=== PATIENT | female | born 1985 | race Caucasian/White ===

== ENCOUNTER → 2018-06-06 | Outpatient (CLI) | payer MEDICAID | LOC: RAD 12:57 | PROVIDERS: ATTEND Obstetrics & Gynecology | DX: Z34.92 Encounter for supervision of normal pregnancy, unspecified, second trimester (principal); Z3A.15 15 weeks gestation of pregnancy; Z53.8 Procedure and treatment not carried out for other reasons ==

== ENCOUNTER 2018-06-24 10:56 | Outpatient (CLI) | payer MEDICAID ==
[~2018-06-24] VITALS: Ht 152.4 cm; Wt 61.7 kg
[2018-06-24 10:55] VITALS: BP 106/51
[2018-06-24 11:22] LABS: BILIRUBIN,URINE NEGATIVE (NEGATIVE); CLARITY,URINE CLEAR; COLOR,URINE YELLOW; GLUCOSE, URINE (UA) NEGATIVE (NEGATIVE); KETONES,URINE NEGATIVE (NEGATIVE); LEUKOCYTE ESTERASE ,URINE NEGATIVE (NEGATIVE); NITRITE,URINE NEGATIVE (NEGATIVE); PH,URINE 7 (5-9); PROTEIN,URINE NEGATIVE (NEGATIVE); UROBILINOGEN,URINE NORMAL (NORMAL)
[2018-06-24 11:29] LABS: BACTERIA,URINE TRACE /HPF; SQUAMOUS EPITHELIAL CELL,UR 0-2 /HPF
[2018-06-24 12:36] LABS: BASOPHILS % (AUTO) 0 % (0-10); EOSINOPHILS % (AUTO) 0 % (0-10); HEMATOCRIT 35 % (35-52); LYMPHOCYTES # (AUTO) 1.7 X 10^3 (1.0-4.0); LYMPHOCYTES % (AUTO) 23 % (12-44); MEAN CORPUSCULAR HEMOGLOBIN 33 PG (25-34); MEAN CORPUSCULAR HGB CONC 35 G/DL (32-36); MEAN CORPUSCULAR VOLUME 96 FL (80-99); MEAN PLATELET VOLUME 9.8 FL (7.4-10.4); MONOCYTES # (AUTO) 0.5 X 10^3 (0.0-1.0); MONOCYTES % (AUTO) 7 % (0-12); NEUTROPHILS # (AUTO) 5.2 X 10^3 (1.8-7.8); NEUTROPHILS % (AUTO) 70 % (42-75); PLATELET COUNT 174 10^3/uL (130-400); RED CELL DISTRIBUTION WIDTH 13.1 % (10.0-14.5); WHITE BLOOD COUNT 7.4 10^3/uL (4.3-11.0)
[2018-06-24 12:51] LABS: BUN/CREATININE RATIO 12; CARBON DIOXIDE 21 MMOL/L (21-32); CHLORIDE 108 MMOL/L (98-107); GFR ESTIMATED > 60; GLUCOSE 70 MG/DL (70-105); SODIUM 137 MMOL/L (135-145)
[2018-06-24] MEDS ORDERED: FLU QUADRIvalent (5+ YOA) 2018-2019 (AFLURIA) 0.5 ML IM ONE (19:15)
== END 2018-06-24 14:18 | disposition home or self-care (01) ==
LOC: WSo 10:56 → LDRP 10:58 → WSo 14:18
PROVIDERS: ATTEND Obstetrics & Gynecology
DX: O99.89 Other specified diseases and conditions complicating pregnancy, childbirth and the puerperium (principal); M54.5 Low back pain; Z3A.21 21 weeks gestation of pregnancy
CPT/HCPCS: 36415; 80048; 81000; 85025; 99213

== ENCOUNTER 2018-07-24 13:42 | Outpatient (CLI) | payer MEDICAID ==
[~2018-07-24] VITALS: Ht 152.4 cm; Wt 64.0 kg
--- NOTE | 2018-07-24 13:35 | NUR ---
DUANE NATH presented to unit via AMB FROM HOME, accompanied by S.O., with c/o LEAKING. DUANE NATH weighed, gowned, voided, and to bed. EFHM and TOCO applied, VS taken. DUANE NATH oriented to bed controls, call light, TV, heat, and A/C controls.
[2018-07-24] MEDS ORDERED: DOXY25TA56 PO (13:51)
[2018-07-24] MEDS ORDERED: PREN1TAB79 PO (13:51)
--- NOTE | 2018-07-24 13:54 | NUR ---
AMNIO SWAB PERFORMED WITH NEGATIVE RESULTS. GENTLE SVE WITH HIPS ELEVATED ON UPSIDE DOWN BEDPAN. CERVIX ADMITS 1 FINGER SNUGGLY/ VERY LONG/ HIGH. NO FLUID NOTED. PT STATES SHE WAS STARTED ON MACROBID YESTERDAY BY DR. ACHARYA AFTER CALLING WITH C/O UTI SX. WAS AT WORK TODAY AND AROUND 12-1230 FELT LIKE SHE LEAKED SOMETHING SO CALLED [facility] AND CAME TO THE HOSPITAL. THREW AWAY HER MINIPAD BEFORE COMING TO THE HOSPITAL.
[2018-07-24 14:00] VITALS: BP 116/66
--- NOTE | 2018-07-24 14:05 | NUR ---
DR. CAMPO NOTIFIED OF PT'S ARRIVAL AND COMPLAINT, AMNIO SWAB, CERVICAL EXAM, VS, FHR TRACING AND NO CONTRACTIONS. ORDERS RECEIVED.
--- NOTE | 2018-07-24 14:20 | NUR ---
STRAIGHT CATH WITH #15 FR CATHETER TO OBTAIN URINE. SPECIMEN TO LAB.
--- NOTE | 2018-07-24 14:30 | NUR ---
LAB HERE TO DRAW BLOOD FOR CBC.
[2018-07-24] MEDS ORDERED: NITR-65 PO (14:37)
[2018-07-24 14:40] LABS: BILIRUBIN,URINE NEGATIVE (NEGATIVE); CLARITY,URINE CLEAR; COLOR,URINE YELLOW; GLUCOSE, URINE (UA) 1+ (NEGATIVE); KETONES,URINE 2+ (NEGATIVE); LEUKOCYTE ESTERASE ,URINE 1+ (NEGATIVE); NITRITE,URINE NEGATIVE (NEGATIVE); PH,URINE 6 (5-9); PROTEIN,URINE 1+ (NEGATIVE); UROBILINOGEN,URINE NORMAL (NORMAL)
[2018-07-24 14:55] LABS: BASOPHILS % (AUTO) 0 % (0-10); EOSINOPHILS % (AUTO) 0 % (0-10); HEMATOCRIT 34 % (35-52); HEMOGLOBIN 12.1 G/DL (11.5-16.0); LYMPHOCYTES # (AUTO) 1.7 X 10^3 (1.0-4.0); LYMPHOCYTES % (AUTO) 20 % (12-44); MEAN CORPUSCULAR HEMOGLOBIN 34 PG (25-34); MEAN CORPUSCULAR HGB CONC 36 G/DL (32-36); MEAN CORPUSCULAR VOLUME 95 FL (80-99); MEAN PLATELET VOLUME 9.4 FL (7.4-10.4); MONOCYTES # (AUTO) 0.9 X 10^3 (0.0-1.0); MONOCYTES % (AUTO) 11 % (0-12); NEUTROPHILS # (AUTO) 5.9 X 10^3 (1.8-7.8); NEUTROPHILS % (AUTO) 69 % (42-75); PLATELET COUNT 187 10^3/uL (130-400); RED BLOOD COUNT 3.54 10^6/uL (4.35-5.85); RED CELL DISTRIBUTION WIDTH 12.9 % (10.0-14.5); WHITE BLOOD COUNT 8.5 10^3/uL (4.3-11.0)
[2018-07-24 14:58] LABS: BACTERIA,URINE NEGATIVE /HPF; SQUAMOUS EPITHELIAL CELL,UR 0-2 /HPF; WBC,URINE 0-2 /HPF
[2018-07-24] MEDS ORDERED: FLU QUADRIvalent (5+ YOA) 2018-2019 (AFLURIA) 0.5 ML IM ONE (15:00)
--- NOTE | 2018-07-24 15:25 | NUR ---
DR. CAPMO CALLED TO CHECK ON PT'S STATUS. LAB RESULTS GIVEN. ORDERS RECEIVED FOR DISCHARGE. 1528 EFM OFF. NO CTXS NOTED. VERY ACTIVE FETUS WITH LARGE ACCELERATIONS. FHR 145 WITH VARIABILITY APPROPRIATE FOR GESTATIONAL AGE. UP TO GET DRESSED.
[2018-07-24 15:30] LABS: BAND NEUTROPHILS 3 %; BASOPHILS % (MANUAL) 0 %; EOSINOPHILS % (MANUAL) 0 %; LYMPHOCYTES % (MANUAL) 15 %; MONOCYTES % (MANUAL) 6 %; NEUTROPHILS % (MANUAL) 73 %
[2018-07-24 15:31] LABS: REACTIVE LYMPHOCYTES 3 %; ROULEAUX SLIGHT
[2018-07-24 15:40] VITALS: BP 116/66
--- NOTE | 2018-07-24 15:40 | NUR ---
DISCHARGE INSTRUCTIONS REVIEWED WITH COPY TO PT. STATES UNDERSTANDING OF ALL INSTRUCTIONS AND NEED TO F/U SCHEDULED AND NEEDED. DISMISSED AMB FROM [facility] IN STABLE CONDITION ACC BY SPOUSE. NOTE GIVEN FOR WORK.
== END 2018-07-24 15:40 | disposition home or self-care (01) ==
LOC: WSo 13:42 → LDRP 13:44 → WSo 15:40
PROVIDERS: ATTEND Obstetrics & Gynecology
DX: O42.912 Preterm premature rupture of membranes, unspecified as to length of time between rupture and onset of labor, second trimester (principal); Z3A.26 26 weeks gestation of pregnancy
CPT/HCPCS: 36415; 81000; 85007; 85027; 87088; 99214

== ENCOUNTER → 2018-08-28 | Outpatient (CLI) | payer MEDICAID ==
[~2018-08-28] MED LIST: DOXY25TA56 PO; NITR-65 PO; PREN1TAB79 PO
--- NOTE | 2018-08-29 08:33 | Diagnostic Imaging Report ---
INDICATION: Followup spine. TECHNIQUE: Multiple real-time grayscale images were obtained over the gravid uterus. COMPARISON: 06/06/2018. FINDINGS: There is a single live fetus in a cephalic presentation. heart rate was recorded at 140 beats per minute. Cervical length is 4.6 cm. Placenta is anterior. Amniotic fluid volume is normal. spine is unremarkable on today's study. Biometrical measurements are as follows: Biparietal 8.01 cm, age 32 weeks 2 days. Head circumference 29.06 cm, age 32 weeks 1 days. Abdominal circumference 27.39 cm, age 31 weeks 4 days. Femur length 5.72 cm, age 30 weeks 0 days. Sonographic estimate age: 31 weeks 4 days. Sonographic estimated date of delivery: 10/30/2018. Estimated Weight: 1703 gm (+/- 249 gm). LMP percentile: 41%. heart rate: 140 beats per minute. number: 1 of 1. IMPRESSION: Single live IUP approximately 31 weeks 4 days gestational age demonstrate normal interval growth when compared with prior exam from 06/06/2018. spine is unremarkable. Dictated by: Dictated on workstation # [id number]
== END ==
LOC: RAD 14:18
PROVIDERS: ATTEND Obstetrics & Gynecology
DX: Z34.93 Encounter for supervision of normal pregnancy, unspecified, third trimester (principal); Z3A.31 31 weeks gestation of pregnancy
CPT/HCPCS: 76816

== ENCOUNTER → 2018-09-26 | Outpatient (CLI) | payer MEDICAID ==
--- NOTE | 2018-09-26 14:06 | Diagnostic Imaging Report ---
INDICATION: Gestational diabetes. TECHNIQUE: Multiple real-time grayscale images were obtained over the gravid uterus. COMPARISON: 08/28/2018. FINDINGS: There is a single live fetus in a cephalic presentation. heart rate was recorded at 139 beats per minute. The placenta is anterior. Amniotic fluid index is 11.0 cm. Biophysical profile was performed. Biophysical profile score is normal at 8 out of 8. Biometrical measurements are as follows: Biparietal 8.84 cm, age 35 weeks 6 days. Head circumference 31.94 cm, age 36 weeks 0 days. Abdominal circumference 29.89 cm, age 34 weeks 0 days. Femur length 6.71 cm, age 34 weeks 4 days. Sonographic estimate age: 35 weeks 1 days. Sonographic estimated date of delivery: 10/30/2018. Estimated Weight: 2432 gm (+/- 355 gm). LMP percentile: 28%. heart rate: 139 beats per minute. number: 1 of 1. IMPRESSION: Single live IUP 35 week gestational age showing normal interval growth when compared to prior exam. Biophysical profile score is normal at 8 out of 8. Dictated by: Dictated on workstation # [id number]
== END ==
LOC: RAD 12:45
PROVIDERS: ATTEND Obstetrics & Gynecology
DX: O24.410 Gestational diabetes mellitus in pregnancy, diet controlled (principal); Z3A.35 35 weeks gestation of pregnancy
CPT/HCPCS: 76805; 76819

== ENCOUNTER 2018-10-10 19:59 | Inpatient (IN) | payer MEDICAID ==
[2018-10-10] VITALS (10 sets, daily range): BP systolic 102–121; BP diastolic 56–75
[~2018-10-10] VITALS: Ht 154.9 cm; Wt 66.7 kg
--- NOTE | 2018-10-10 19:55 | NUR ---
DUANE NATH presented to unit via from ED, with c/o CONTRACTIONS. DUANE NATH weighed, gowned, voided, and to bed. EFHM and TOCO applied, VS taken. DUANE NATH oriented to bed controls, call light, TV, heat, and A/C controls.
[~2018-10-10 19:59] MED LIST changes: -ACET-77 PO; -DOCU100C37 PO; -FERR325T18 PO; -IBUP-844 PO; -METF-397 PO
[2018-10-10] MEDS ORDERED: NS IV 1000 ML 1,000 ML ONE (21:31)
--- OUTSIDE RECORDS SUMMARY | 2018-10-10 22:18 | XMS REPORT ---
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 Role Phone CONNER RENDONTEMI Unavailable PROBLEMS Type Condition ICD9-CM Code CDC72-GO Code Onset Dates Condition Status SNOMED Code Problem Anxiety F41.9 Active 84700240 Problem Mood disorder F39 Active 15422967 Problem Moderate episode of recurrent major depressive disorder F33.1 Active 890989749 Problem Severe episode of recurrent major depressive disorder, without psychotic features F33.2 Active 52514271 Problem Other chronic pain G89.29 Active 25778434 Problem Cluster B personality disorder F60.9 Active 9983159 ALLERGIES No Information ENCOUNTERS Encounter Location Date Diagnosis [place] [id number] [place] [address] Jan, Moderate episode of recurrent major depressive disorder F33.1 [place] [id number] [place] [address]1973[address] 7[address] Dec, Moderate episode of recurrent major depressive disorder F33.1 and Cluster B personality disorder F60.9 [facility] [id number] [place] [address] 60971- 8941 November, Moderate episode of recurrent major depressive disorder F33.1 [facility] [id number] [place] [address] 39600- 2245 Oct, Moderate episode of recurrent major depressive disorder F33.1 and Cluster B personality disorder F60.9 [facility] [id number] [place] [address] 33823- 0067 Oct, [facility] [id number] [place] [address] 46360- 6084 Sep, Moderate episode of recurrent major depressive disorder F33.1 [facility] [address] [place] [address]46 Sep, Moderate episode of recurrent major depressive disorder F33.1 and Cluster B personality disorder F60.9 [facility] [address] [place] [address] Aug, Other chest pain R07.89 ; Anxiety F41.9 ; Other chronic pain G89.29 and Pain in left shoulder M25.512 [facility] [id number] [place] [address] 2546 Jul, [facility] [id number] [place] [address] 53986- 7156 Jul, Moderate episode of recurrent major depressive disorder F33.1 [facility] [id number] [place] [address] 2546 Jul, Moderate episode of recurrent major depressive disorder F33.1 and Cluster B personality disorder F60.9 [facility] [address] [place] [address] Jun, [facility] [id number] [place] [address] 83459- 8646 May, Moderate episode of recurrent major depressive disorder F33.1 and Cluster B personality disorder F60.9 [facility] [address], [place] [address] May, Moderate episode of recurrent major depressive disorder F33.1 [facility] [address], [place] [address] 2546 May, [facility] [id number] [address]46 30 Apr, 2017 Moderate episode of recurrent major depressive disorder F33.1 [facility] [id number] [address] 2546 Apr, [facility] [id number] [place] [address] 22458- 0496 Apr, [facility] [address], [place] [address] Apr, [facility] [id number] [place] [address] 78501- 0797 Apr, Moderate episode of recurrent major depressive disorder F33.1 and Cluster B personality disorder F60.9 [facility] [id number] [place] [address] 61595- 8548 Apr, Encounter for immunization Z23 [facility] [id number] [place] [address] 97664- 9013 Mar, Other chronic pain G89.29 ; Pain in left shoulder M25.512 ; Mood disorder F39 and Lymph node enlargement R59.9 [facility] [address] [place] [address] 08 Mar, 2017 Moderate episode of recurrent major depressive disorder F33.1 [facility] [id number] [place] [address] 87555 -0460 Feb, Pain in left shoulder M25.512 and Other chronic pain G89.29 [facility] [address] [place] [address] 24187- 8041 Feb, Moderate episode of recurrent major depressive disorder F33.1 and Cluster B personality disorder F60.9 [facility] [address], [place] [address] Feb, [facility] [id number] [place] [address] 93676- 4497 Jan, [facility] [address], [place] [address] Jan, Moderate episode of recurrent major depressive disorder F33.1 [facility] [address], [place] [address] Jan, [facility] [address], [place] [address] Jan, Moderate episode of recurrent major depressive disorder F33.1 and Cluster B personality disorder F60.9 [facility] [address] [facility] [id number] [address] Jan, [facility] [id number] [address] Jan, [facility] [address], [place] [address] Dec, Moderate episode of recurrent major depressive disorder F33.1 [facility] [address] [facility] [id number] [address] 2546 Dec, Moderate episode of recurrent major depressive disorder F33.1 [facility] [id number] [address] Dec, Moderate episode of recurrent major depressive disorder F33.1 and Cluster B personality disorder F60.9 [facility] [address], [place] [address] 7[address] Dec, [facility] [id number] [address] Dec, Moderate episode of recurrent major depressive disorder F33.1 [facility] [address] [place] [address] 38[address] Dec, [facility] [address], [place] [address] November, Moderate episode of recurrent major depressive disorder F33.1 and Cluster B personality disorder F60.9 [facility] [id number], [place] [address] November, [facility] [address], [place] [address] November, Bilateral acute serous otitis media, recurrence not specified H65.03 [facility] [id number] [address] November, [facility] [id number] [place] [address] November, Bilateral acute serous otitis media, recurrence not specified H65.03 [facility] [id number] [place] [address] 87841- 4361 November, Severe episode of recurrent major depressive disorder, without psychotic features F33.2 [facility] [address] [place] [address] 00180- 4581 Oct, Moderate episode of recurrent major depressive disorder F33.1 [facility] [id number] [place] [address] 82516- 7305 Oct, [facility] [address] [place], [place] [id number] [place] [address] Oct, Moderate episode of recurrent major depressive disorder F33.1 and Cluster B personality disorder F60.9 [place] [id number] [place] [address] 08447- 7204 Oct, [facility] [address] [place] [address] 89795- 3278 Oct, Severe episode of recurrent major depressive disorder, without psychotic features F33.2 [place] [address] [place] [address] 85952- 8571 May, Visit for TB skin test Z11.1 [facility] [address] [place] [id number] Feb, Encounter for dental examination Z01.20 [facility] [address] [place] [address] 03963- 7815 Aug, Encounter for immunization Z23 IMMUNIZATIONS No Known Immunizations SOCIAL HISTORY Never Assessed REASON FOR VISIT Medication question PLAN OF CARE VITAL SIGNS MEDICATIONS Medication Instructions Dosage Frequency Start Date End Date Duration Status Clonazepam 1 MG Orally Once a day 1/2 tablet as needed for panic 24h 30 days Active RESULTS No Results PROCEDURES No Known procedures INSTRUCTIONS MEDICATIONS ADMINISTERED No Known Medications MEDICAL (GENERAL) HISTORY Type Description Date Medical History depression Medical History anxiety Surgical History Tobias teeth 2001 Hospitalization History child x2
--- OUTSIDE RECORDS SUMMARY | 2018-10-10 22:18 | XMS REPORT ---
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 Role Phone ITZEL RENDON Unavailable PROBLEMS Type Condition ICD9-CM Code XEB50-XH Code Onset Dates Condition Status SNOMED Code Problem Anxiety F41.9 Active 99124695 Problem Mood disorder F39 Active 44110335 Problem Moderate episode of recurrent major depressive disorder F33.1 Active 775621743 Problem Severe episode of recurrent major depressive disorder, without psychotic features F33.2 Active 93518063 Problem Other chronic pain G89.29 Active 74556939 Problem Cluster B personality disorder F60.9 Active 1195781 ALLERGIES No Information ENCOUNTERS Encounter Location Date Diagnosis [facility] [id number] [place] [address] 30578- 9848 Apr, [facility] [id number] [place] [address] 55565- 7992 Jan, Moderate episode of recurrent major depressive disorder F33.1 [facility] [id number] [place] [address] 18754- 8378 Dec, Moderate episode of recurrent major depressive disorder F33.1 and Cluster B personality disorder F60.9 [facility] [id number] [place] [address] 66825- 9360 November, Moderate episode of recurrent major depressive disorder F33.1 [facility] [id number] [place] [address] 52468- 5318 Oct, Moderate episode of recurrent major depressive disorder F33.1 and Cluster B personality disorder F60.9 [facility] [address] [address] Oct, [facility] [address] [place] [address] Sep, Moderate episode of recurrent major depressive disorder F33.1 [facility] [id number] [place] [address] 51153- 3176 Sep, Moderate episode of recurrent major depressive disorder F33.1 and Cluster B personality disorder F60.9 [facility] [id number] [place] [address] 12767- 4559 Aug, Other chest pain R07.89 ; Anxiety F41.9 ; Other chronic pain G89.29 and Pain in left shoulder M25.512 [facility] [id number] [place] [address] 95405- 1186 Jul, [facility] [id number] [place] [address] 31678- 1809 Jul, Moderate episode of recurrent major depressive disorder F33.1 [facility] [id number] [place] [address] 13832- 8171 Jul, Moderate episode of recurrent major depressive disorder F33.1 and Cluster B personality disorder F60.9 [facility] [id number] [place] [address] 62698- 2047 Jun, [facility] [id number] [place] [address] 85365- 4290 May, Moderate episode of recurrent major depressive disorder F33.1 and Cluster B personality disorder F60.9 [facility] [address] [place] [address] 51514- 4533 May, Moderate episode of recurrent major depressive disorder F33.1 [facility] [id number] [place] [address] 76703- 4063 May, [facility] [id number] [place] [address] 87485- 6491 Apr, Moderate episode of recurrent major depressive disorder F33.1 [facility] [id number] [place] [address] 94082- 1749 Apr, [facility] [address] [address] 0331 Apr, [facility] [id number] [place] [address] 89557- 7999 Apr, [facility] [id number] [place] [address] 45990- 9233 Apr, Moderate episode of recurrent major depressive disorder F33.1 and Cluster B personality disorder F60.9 [facility] [address] [place] [address] 03485- 7007 Apr, Encounter for immunization Z23 [facility] [id number] [place] [address] 44900- 5042 Mar, Other chronic pain G89.29 ; Pain in left shoulder M25.512 ; Mood disorder F39 and Lymph node enlargement R59.9 [facility] [address] [place] [address] Mar, Moderate episode of recurrent major depressive disorder F33.1 [facility] [id number] [place] [address] 46115 -6684 Feb, Pain in left shoulder M25.512 and Other chronic pain G89.29 [facility] [address] [place] [address] 32667- 9786 Feb, Moderate episode of recurrent major depressive disorder F33.1 and Cluster B personality disorder F60.9 [facility] [address] [address] 0849 Feb, [facility] [id number] [place] [address] 60329- 9606 Jan, [facility] [id number] [place] [address] 10225- 3999 Jan, Moderate episode of recurrent major depressive disorder F33.1 [facility] [address] [place] [address] 72398- 7794 Jan, [facility] [address] [facility] [id number] [address] Jan, Moderate episode of recurrent major depressive disorder F33.1 and Cluster B personality disorder F60.9 [facility] [address] [facility] [id number], [place] [address] 5976 Jan, [facility] [address] [facility] [id number], [place] [address] 0256 Jan, [facility] [address] [facility] [id number], [place] [address] 2548 Dec, Moderate episode of recurrent major depressive disorder F33.1 [facility] [id number] [address] 6786 Dec, Moderate episode of recurrent major depressive disorder F33.1 [facility] [id number] [address] 3876 Dec, Moderate episode of recurrent major depressive disorder F33.1 and Cluster B personality disorder F60.9 [facility] [id number] [address] 5520 Dec, [facility] [id number], [place] [address] 8503 Dec, Moderate episode of recurrent major depressive disorder F33.1 [facility] [address] [address] 1706 Dec, [facility] [id number] [address] 2541 November, Moderate episode of recurrent major depressive disorder F33.1 and Cluster B personality disorder F60.9 [facility] [address] [facility] [id number], [place] [address] 9856 November, [facility] [address] [facility] [id number] [address] November, Bilateral acute serous otitis media, recurrence not specified H65.03 [facility] [address] [address] 9715 November, [facility] [id number] [place] [address] 56603 -0446 November, Bilateral acute serous otitis media, recurrence not specified H65.03 [facility] [address] [place] [address] 11665- 7673 November, Severe episode of recurrent major depressive disorder, without psychotic features F33.2 [facility] [id number] [place] [address] 95033- 7784 Oct, Moderate episode of recurrent major depressive disorder F33.1 [facility] [id number] [place] [address] 79372- 1145 Oct, [facility] [id number] [place] [address] Oct, Moderate episode of recurrent major depressive disorder F33.1 and Cluster B personality disorder F60.9 [facility] [id number] [place] [address] 61098- 6232 Oct, [facility] [id number] [place] [address] 38260- 6147 Oct, Severe episode of recurrent major depressive disorder, without psychotic features F33.2 [facility] [address] [place] [address] 84860- 7837 May, Visit for TB skin test Z11.1 [facility] [address] [place] [address] [id number] Feb, Encounter for dental examination Z01.20 [facility] [id number] [place] [address] 46419- 7410 Aug, Encounter for immunization Z23 IMMUNIZATIONS No Known Immunizations SOCIAL HISTORY Never Assessed REASON FOR VISIT PALS IN - Rexulti PLAN OF CARE VITAL SIGNS MEDICATIONS Unknown Medications RESULTS No Results PROCEDURES No Known procedures INSTRUCTIONS MEDICATIONS ADMINISTERED No Known Medications MEDICAL (GENERAL) HISTORY Type Description Date Medical History depression Medical History anxiety Surgical History [place] teeth 2001 Hospitalization History child x2
--- OUTSIDE RECORDS SUMMARY | 2018-10-10 22:19 | XMS REPORT ---
Author Author JULIETACONNERTEMI Organization [facility] [address] Address [address] [place] [address] Care Team Providers Care Gas Line Servicer Name Role Phone ITZEL RENDON Unavailable PROBLEMS Type Condition ICD9-CM Code TPT23-KV Code Onset Dates Condition Status SNOMED Code Problem Anxiety F41.9 Active 66899462 Problem Mood disorder F39 Active 96599115 Problem Moderate episode of recurrent major depressive disorder F33.1 Active 833506853 Problem Severe episode of recurrent major depressive disorder, without psychotic features F33.2 Active 02703480 Problem Other chronic pain G89.29 Active 06471111 Problem Cluster B personality disorder F60.9 Active 9640346 ALLERGIES Substance Reaction Event Type Date Status Sulfacetamide Sodium Unknown Drug Allergy Dec, Active PredniSONE Unknown Drug Allergy Dec, Active Penicillin V Potassium Unknown Drug Allergy Dec, Active Cefprozil Unknown Drug Allergy Dec, Active ENCOUNTERS Encounter Location Date Diagnosis [address] [id number] [place] [address] 49886- 8985 Jan, Moderate episode of recurrent major depressive disorder F33.1 [address] [address]- 0201 Dec, Moderate episode of recurrent major depressive disorder F33.1 and Cluster B personality disorder F60.9 [facility] [id number] [address]- 6030 November, Moderate episode of recurrent major depressive disorder F33.1 [address] [place] [address] [address]- 5526 Oct, Moderate episode of recurrent major depressive disorder F33.1 and Cluster B personality disorder F60.9 [place] [id number] [address]- 9454 Oct, [facility] [address] [address]- 7303 Sep, Moderate episode of recurrent major depressive disorder F33.1 [facility] [id number] [place] [address] 46818- 1868 Sep, Moderate episode of recurrent major depressive disorder F33.1 and Cluster B personality disorder F60.9 [facility] [id number] [place] [address] 68848- 0522 Aug, Other chest pain R07.89 ; Anxiety F41.9 ; Other chronic pain G89.29 and Pain in left shoulder M25.512 [facility] [id number] [place] [address] 48172- 3778 Jul, [facility] [id number] [place] [address] 63452- 9289 Jul, Moderate episode of recurrent major depressive disorder F33.1 [facility] [id number] [place] [address] 29689- 3580 Jul, Moderate episode of recurrent major depressive disorder F33.1 and Cluster B personality disorder F60.9 [facility] [id number] [place] [address] 74919- 4814 Jun, [facility] [address] [place] [address] 73271- 9893 May, Moderate episode of recurrent major depressive disorder F33.1 and Cluster B personality disorder F60.9 [facility] [address] [address]- 4407 May, Moderate episode of recurrent major depressive disorder F33.1 [facility] [address] [address]- 9643 May, [facility] [address], [place] [address]- 6486 Apr, Moderate episode of recurrent major depressive disorder F33.1 [facility] [address] [id number], [place] [address]- 8917 Apr, [facility] [id number] [place] [address] 95564- 3503 Apr, [facility] [id number] [place] [address] 74378- 0738 Apr, [facility] [id number] [place] [address] 01051- 8476 Apr, Moderate episode of recurrent major depressive disorder F33.1 and Cluster B personality disorder F60.9 [facility] [id number] [place] [address] 51978- 7511 Apr, Encounter for immunization Z23 [facility] [id number] [place] [address] 59639- 1447 Mar, Other chronic pain G89.29 ; Pain in left shoulder M25.512 ; Mood disorder F39 and Lymph node enlargement R59.9 [facility] [address] [place] [address] 08 Mar, 2017 Moderate episode of recurrent major depressive disorder F33.1 [facility] [id number] [place] [address] 26567 -5101 Feb, Pain in left shoulder M25.512 and Other chronic pain G89.29 [facility] [address] [place] [address] 23292- 4580 Feb, Moderate episode of recurrent major depressive disorder F33.1 and Cluster B personality disorder F60.9 [facility] [address], [place] [address]- 2784 Feb, [facility] [id number] [place] [address] 26150- 9585 Jan, [facility] [id number] [place] [address] 80482- 5627 Jan, Moderate episode of recurrent major depressive disorder F33.1 [facility] [id number] [place] [address] 88456- 4312 Jan, [facility] [address] [facility] [id number], [place] [address]- 3757 Jan, Moderate episode of recurrent major depressive disorder F33.1 and Cluster B personality disorder F60.9 [facility] [address] [facility] [id number] [address]- 2856 Jan, [facility] [address] [id number], [place] [address]- 3976 Jan, [facility] [address] [facility] [id number], [place] [address]- 3251 Dec, Moderate episode of recurrent major depressive disorder F33.1 [facility] [id number], [place] [address]- 5706 Dec, Moderate episode of recurrent major depressive disorder F33.1 [facility] [address], [place] [address]- 3975 Dec, Moderate episode of recurrent major depressive disorder F33.1 and Cluster B personality disorder F60.9 [facility] [address] [id number], [place] [address]- 6255 Dec, [facility] [address] [id number], [place] [address]- 5977 Dec, Moderate episode of recurrent major depressive disorder F33.1 [facility] [address], [place] [address]- 6452 Dec, [facility] [address] [facility] [id number] [address]- 6776 November, Moderate episode of recurrent major depressive disorder F33.1 and Cluster B personality disorder F60.9 [facility] [address] [id number], [place] [address]- 7859 November, [facility] [address] [facility] [id number] [address] November, Bilateral acute serous otitis media, recurrence not specified H65.03 [facility] [address] [address]- 0648 November, [facility] [id number] [place] [address] 93321 -4672 November, Bilateral acute serous otitis media, recurrence not specified H65.03 [facility] [address] [place] [address] 51351- 2926 November, Severe episode of recurrent major depressive disorder, without psychotic features F33.2 [facility] [address], [place] [address]- 7170 Oct, Moderate episode of recurrent major depressive disorder F33.1 [facility] [address] [place] [address] 96349- 1928 Oct, [facility] [id number] [place] [address] Oct, Moderate episode of recurrent major depressive disorder F33.1 and Cluster B personality disorder F60.9 [facility] [address] [place] [address] 09544- 7997 Oct, [facility] [address] [place] [address] 27943- 7440 Oct, Severe episode of recurrent major depressive disorder, without psychotic features F33.2 [facility] [id number] [place] [address] 41256- 9958 May, Visit for TB skin test Z11.1 [facility] [address] [place] [address] [id number] Feb, Encounter for dental examination Z01.20 [facility] [id number] [place] [address] 61285- 4877 Aug, Encounter for immunization Z23 IMMUNIZATIONS No Known Immunizations SOCIAL HISTORY Never Assessed REASON FOR VISIT f/u Doug DE LEON PLAN OF CARE Activity Details Follow Up 6 Weeks Reason: VITAL SIGNS Height 61.5 in 2018-01-04 Weight 124.6 lbs 2018-01-04 Heart Rate 88 bpm 2018-01-04 Respiratory Rate 20 2018-01-04 BMI 23.16 kg/m2 2018-01-04 Blood pressure systolic 106 mmHg 2018-01-04 Blood pressure diastolic 64 mmHg 2018-01-04 MEDICATIONS Medication Instructions Dosage Frequency Start Date End Date Duration Status Melatonin 5 MG Orally Once a day 1 tablet at bedtime as needed with food 24h Active Trintellix 10 mg Orally Once a day 1 tablet 24h 30 day(s) Active Clonazepam 0.5 MG Orally Once a day 1 tablet as needed for panic 24h 30 days Active Trazodone HCl 50 mg Orally Once a day 1.5 tablet at bedtime as needed 24h 30 day(s) Active Rexulti 3 MG Orally Once a day 1 tablet 24h 30 day(s) Active RESULTS No Results PROCEDURES No Known procedures INSTRUCTIONS MEDICATIONS ADMINISTERED No Known Medications MEDICAL (GENERAL) HISTORY Type Description Date Medical History depression Medical History anxiety Surgical History [place] teeth 2002 Hospitalization History child x2
--- OUTSIDE RECORDS SUMMARY | 2018-10-10 22:19 | XMS REPORT ---
Author Author JULIETACONNERTEMI Organization [facility] [address] Address [address] [place] [address] Care Team Providers Care Workers Compensation Adjuster Name Role Phone CONNER RENDONTEMI Unavailable PROBLEMS Type Condition ICD9-CM Code [id number] Code Onset Dates Condition Status SNOMED Code Problem Anxiety F41.9 Active 49316845 Problem Mood disorder F39 Active 99431081 Problem Moderate episode of recurrent major depressive disorder F33.1 Active 459431581 Problem Severe episode of recurrent major depressive disorder, without psychotic features F33.2 Active 39466354 Problem Other chronic pain G89.29 Active 71827887 Problem Cluster B personality disorder F60.9 Active 4616109 ALLERGIES No Information ENCOUNTERS Encounter Location Date Diagnosis [place] [id number] [place] [address] 38205- 8251 Jan, Moderate episode of recurrent major depressive disorder F33.1 [place] [id number] [place] [address] 38864- 0316 Dec, Moderate episode of recurrent major depressive disorder F33.1 and Cluster B personality disorder F60.9 [facility] [id number] [place] [address] 34290- 4404 November, Moderate episode of recurrent major depressive disorder F33.1 [facility] [id number] [place] [address] 20651- 1624 Oct, Moderate episode of recurrent major depressive disorder F33.1 and Cluster B personality disorder F60.9 [facility] [id number] [place] [address] 36190- 7806 Oct, [facility] [id number] [place] [address] 26077- 0865 Sep, Moderate episode of recurrent major depressive disorder F33.1 [facility] [address], [place] [address] 2546 Sep, Moderate episode of recurrent major depressive disorder F33.1 and Cluster B personality disorder F60.9 [facility] [address], [place] [address] 2546 Aug, Other chest pain R07.89 ; Anxiety F41.9 ; Other chronic pain G89.29 and Pain in left shoulder M25.512 [facility] [id number] [place] [address] 66724 2546 Jul, [facility] [id number] [place] [address] 25613- 5116 Jul, Moderate episode of recurrent major depressive disorder F33.1 [facility] [id number] [place] [address] 98409 2546 Jul, Moderate episode of recurrent major depressive disorder F33.1 and Cluster B personality disorder F60.9 [facility] [address], [place] [address] 2546 Jun, [facility] [id number] [place] [address] 23843- 0506 May, Moderate episode of recurrent major depressive disorder F33.1 and Cluster B personality disorder F60.9 [facility] [address], [place] [address] 9066 May, Moderate episode of recurrent major depressive disorder F33.1 [facility] [address], [place] [address] 2546 May, [facility] [id number], [place] [address] 2546 30 Apr, 2017 Moderate episode of recurrent major depressive disorder F33.1 [facility] [id number], [place] [address] 2546 Apr, [facility] [id number] [place] [address] 05459- 8487 Apr, [facility] [id number] [place] [address] 33414- 4506 Apr, [facility] [id number] [place] [address] 75413- 2329 Apr, Moderate episode of recurrent major depressive disorder F33.1 and Cluster B personality disorder F60.9 [facility] [id number] [place] [address] 12027- 9843 Apr, Encounter for immunization Z23 [facility] [id number] [place] [address] 44934- 2549 Mar, Other chronic pain G89.29 ; Pain in left shoulder M25.512 ; Mood disorder F39 and Lymph node enlargement R59.9 [facility] [address] [place] [address] 08 Mar, 2017 Moderate episode of recurrent major depressive disorder F33.1 [facility] [address] [place] [address] 66896 -1979 Feb, Pain in left shoulder M25.512 and Other chronic pain G89.29 [facility] [id number] [place] [address] 35184- 2804 Feb, Moderate episode of recurrent major depressive disorder F33.1 and Cluster B personality disorder F60.9 [facility] [address], [place] [address]- 2514 Feb, [facility] [id number] [place] [address] 84410- 1280 Jan, [facility] [address] [place] [address] 51063- 0976 Jan, Moderate episode of recurrent major depressive disorder F33.1 [facility] [address] [place] [address] 25082- 6324 Jan, [facility] [address] [place] [address] 71382- 6855 Jan, Moderate episode of recurrent major depressive disorder F33.1 and Cluster B personality disorder F60.9 [facility] [address] [facility] [id number] [address] Jan, [facility] [address] [facility] [id number], [place] [address] 5476 Jan, [facility] [address] [facility] [id number] [address] 1856 Dec, Moderate episode of recurrent major depressive disorder F33.1 [facility] [address] [facility] [id number], [place] [address] 2546 Dec, Moderate episode of recurrent major depressive disorder F33.1 [facility] [address] [facility] [id number], [place] [address]- 2946 Dec, Moderate episode of recurrent major depressive disorder F33.1 and Cluster B personality disorder F60.9 [facility] [id number], [place] [address] 3891 Dec, [facility] [id number], [place] [address]- 2824 Dec, Moderate episode of recurrent major depressive disorder F33.1 [facility] [id number] [address]- 7688 Dec, [facility] [id number] [address] 1970 November, Moderate episode of recurrent major depressive disorder F33.1 and Cluster B personality disorder F60.9 [facility] [address] [facility] [id number], [place] [address] 8915 November, [facility] [address] [facility] [id number], [place] [address] November, Bilateral acute serous otitis media, recurrence not specified H65.03 [facility] [address] [facility] [id number], [place] [address]- 28[address] November, [facility] [address], [place] [address] November, Bilateral acute serous otitis media, recurrence not specified H65.03 [place] [address] [place] [address] 31035- 5203 November, Severe episode of recurrent major depressive disorder, without psychotic features F33.2 [facility] [address] [place] [address] 56823- 0595 Oct, Moderate episode of recurrent major depressive disorder F33.1 [facility] [address] [place] [address] 94229- 9415 Oct, [facility] [id number] [place] [address] Oct, Moderate episode of recurrent major depressive disorder F33.1 and Cluster B personality disorder F60.9 [place] [id number] [place] [address] 82829- 0184 Oct, [facility] [address] [place] [address] 85714- 8163 Oct, Severe episode of recurrent major depressive disorder, without psychotic features F33.2 [place] [address] [place] [address] 95539- 0680 May, Visit for TB skin test Z11.1 [facility] [address] [place] [address] [id number] Feb, Encounter for dental examination Z01.20 [facility] [address] [place] [address] 36532- 7423 Aug, Encounter for immunization Z23 IMMUNIZATIONS No Known Immunizations SOCIAL HISTORY Never Assessed REASON FOR VISIT PALS IN-Rexulti PLAN OF CARE VITAL SIGNS MEDICATIONS Unknown Medications RESULTS No Results PROCEDURES No Known procedures INSTRUCTIONS MEDICATIONS ADMINISTERED No Known Medications MEDICAL (GENERAL) HISTORY Type Description Date Medical History depression Medical History anxiety Surgical History [place] teeth 2002 Hospitalization History child x2
--- OUTSIDE RECORDS SUMMARY | 2018-10-10 22:19 | XMS REPORT ---
Author Author JULIETACONNERTEMI Organization [facility] [address] Address [address] [place] [address] Care Team Providers Care Tissue Specialist Name Role Phone ITZEL RENDON Unavailable PROBLEMS Type Condition ICD9-CM Code ENK66-BP Code Onset Dates Condition Status SNOMED Code Problem Anxiety F41.9 Active 47755285 Problem Mood disorder F39 Active 47338662 Problem Moderate episode of recurrent major depressive disorder F33.1 Active 786793877 Problem Severe episode of recurrent major depressive disorder, without psychotic features F33.2 Active 98035017 Problem Other chronic pain G89.29 Active 17065983 Problem Cluster B personality disorder F60.9 Active 7365054 ALLERGIES Substance Reaction Event Type Date Status Sulfacetamide Sodium Unknown Drug Allergy Oct, Active PredniSONE Unknown Drug Allergy Oct, Active Penicillin V Potassium Unknown Drug Allergy Oct, Active Cefprozil Unknown Drug Allergy Oct, Active ENCOUNTERS Encounter Location Date Diagnosis [place] [address] [place] [address] 00812- 1646 Jan, Moderate episode of recurrent major depressive disorder F33.1 [place] [address], [place] [address]- 8866 Dec, Moderate episode of recurrent major depressive disorder F33.1 and Cluster B personality disorder F60.9 [facility] [id number], [place] [address]- 8141 November, Moderate episode of recurrent major depressive disorder F33.1 [place] [address], [place] [address]- 6695 Oct, Moderate episode of recurrent major depressive disorder F33.1 and Cluster B personality disorder F60.9 [place] [address], [place] [address]- 7571 Oct, [facility] [address], [place] [address]- 6285 Sep, Moderate episode of recurrent major depressive disorder F33.1 [facility] [id number] [place] [address] 65113- 0559 Sep, Moderate episode of recurrent major depressive disorder F33.1 and Cluster B personality disorder F60.9 [facility] [id number] [place] [address] 79526- 2456 Aug, Other chest pain R07.89 ; Anxiety F41.9 ; Other chronic pain G89.29 and Pain in left shoulder M25.512 [facility] [id number] [place] [address] 38660- 1942 Jul, [facility] [id number] [place] [address] 81412- 8774 Jul, Moderate episode of recurrent major depressive disorder F33.1 [facility] [id number] [place] [address] 28243- 2099 Jul, Moderate episode of recurrent major depressive disorder F33.1 and Cluster B personality disorder F60.9 [facility] [address] [place] [address] 36455- 0303 Jun, [facility] [address] [place] [address] 83146- 7069 May, Moderate episode of recurrent major depressive disorder F33.1 and Cluster B personality disorder F60.9 [facility] [address], [place] [address]- 3722 May, Moderate episode of recurrent major depressive disorder F33.1 [facility] [address], [place] [address]- 8644 May, [facility] [address], [place] [address]- 7945 Apr, Moderate episode of recurrent major depressive disorder F33.1 [facility] [id number], [place] [address]- 3531 Apr, [facility] [id number] [place] [address] 32314- 4767 Apr, [facility] [id number] [place] [address] 13088- 9866 Apr, [facility] [id number] [place] [address] 13310- 7318 Apr, Moderate episode of recurrent major depressive disorder F33.1 and Cluster B personality disorder F60.9 [facility] [address] [place] [address] 71823- 1686 Apr, Encounter for immunization Z23 [facility] [id number] [place] [address] 49695- 5846 Mar, Other chronic pain G89.29 ; Pain in left shoulder M25.512 ; Mood disorder F39 and Lymph node enlargement R59.9 [facility] [address] [place] [address] 08 Mar, 2017 Moderate episode of recurrent major depressive disorder F33.1 [facility] [address] [place] [address] 91640 -9020 Feb, Pain in left shoulder M25.512 and Other chronic pain G89.29 [facility] [address] [place] [address] 72235- 9739 Feb, Moderate episode of recurrent major depressive disorder F33.1 and Cluster B personality disorder F60.9 [facility] [address], [place] [address]- 5536 Feb, [facility] [id number] [place] [address] 11373- 3334 Jan, [facility] [id number] [place] [address] 22902- 7986 Jan, Moderate episode of recurrent major depressive disorder F33.1 [facility] [id number] [place] [address] 71547- 3135 Jan, [facility] [address] [facility] [id number], [place] [address]- 2303 Jan, Moderate episode of recurrent major depressive disorder F33.1 and Cluster B personality disorder F60.9 [facility] [address] [facility] [id number], [place] [address]- 9586 Jan, [facility] [address] [place] [address] 67090- 5015 Jan, [facility] [address] [facility] [id number], [place] [address]- 6277 Dec, Moderate episode of recurrent major depressive disorder F33.1 [facility] [id number], [place] [address]- 7306 Dec, Moderate episode of recurrent major depressive disorder F33.1 [facility] [address], [place] [address]- 2746 Dec, Moderate episode of recurrent major depressive disorder F33.1 and Cluster B personality disorder F60.9 [facility] [id number], [place] [address]- 9273 Dec, [facility] [id number], [place] [address]- 9442 Dec, Moderate episode of recurrent major depressive disorder F33.1 [facility] [address], [place] [address]- 3776 Dec, [facility] [id number], [place] [address]- 9265 November, Moderate episode of recurrent major depressive disorder F33.1 and Cluster B personality disorder F60.9 [facility] [address] [id number], [place] [address]- 3407 November, [facility] [id number], [place] [address] November, Bilateral acute serous otitis media, recurrence not specified H65.03 [facility] [address], [place] [address]- 5255 November, [facility] [id number] [place] [address] 53529 -0637 November, Bilateral acute serous otitis media, recurrence not specified H65.03 [facility] [address] [place] [address] 15191- 6147 November, Severe episode of recurrent major depressive disorder, without psychotic features F33.2 [facility] [address] [place] [address] 30326- 3145 Oct, Moderate episode of recurrent major depressive disorder F33.1 [facility] [address] [place] [address] 06521- 8268 Oct, [facility] [id number] [place] [address] Oct, Moderate episode of recurrent major depressive disorder F33.1 and Cluster B personality disorder F60.9 [facility] [id number] [place] [address] 75212- 3789 Oct, [facility] [id number] [place] [address] 79068- 3228 Oct, Severe episode of recurrent major depressive disorder, without psychotic features F33.2 [facility] [address] [place] [address] 18952- 1386 May, Visit for TB skin test Z11.1 [facility] [address] [place] [address] [id number] Feb, Encounter for dental examination Z01.20 [facility] [id number] [place] [address] 03705- 0005 Aug, Encounter for immunization Z23 IMMUNIZATIONS No Known Immunizations SOCIAL HISTORY Never Assessed REASON FOR VISIT f/u---DBennettRN PLAN OF CARE Activity Details Follow Up 2 Months Reason: VITAL SIGNS Height 61.5 in 2017-11-02 Weight 124 lbs 2017-11-02 Heart Rate 70 bpm 2017-11-02 Respiratory Rate 20 2017-11-02 BMI 23.05 kg/m2 2017-11-02 Blood pressure systolic 82 mmHg 2017-11-02 Blood pressure diastolic 60 mmHg 2017-11-02 MEDICATIONS Medication Instructions Dosage Frequency Start Date End Date Duration Status Rexulti 3 MG Orally Once a day 1 tablet 24h 30 day(s) Active Trintellix 10 mg Orally Once a day 1 tablet 24h 30 day(s) Active Melatonin 5 MG Orally Once a day 1 tablet at bedtime as needed with food 24h Active Trazodone HCl 50 mg Orally Once a day 1.5 tablet at bedtime as needed 24h Oct, 30 day(s) Active Clonazepam 0.5 MG Orally Once a day 1 tablet as needed for panic 24h 30 days Active Chantix 1 MG Orally Twice a day 1 tablet 12h 08 Jun, 2017 6 Dec, 2017 Active RESULTS No Results PROCEDURES No Known procedures INSTRUCTIONS MEDICATIONS ADMINISTERED No Known Medications MEDICAL (GENERAL) HISTORY Type Description Date Medical History depression Medical History anxiety Surgical History [place] teeth 2001 Hospitalization History child x2
--- OUTSIDE RECORDS SUMMARY | 2018-10-10 22:19 | XMS REPORT ---
Author Author JULIETACONNERTEMI Organization [facility] [address] Address [address] [place] [address] Care Team Providers Care Prom Burn Off Operator Name Role Phone CONNER RENDONTEMI Unavailable PROBLEMS Type Condition ICD9-CM Code [id number] Code Onset Dates Condition Status SNOMED Code Problem Anxiety F41.9 Active 81246045 Problem Mood disorder F39 Active 02360404 Problem Moderate episode of recurrent major depressive disorder F33.1 Active 015172251 Problem Severe episode of recurrent major depressive disorder, without psychotic features F33.2 Active 49643917 Problem Other chronic pain G89.29 Active 78399011 Problem Cluster B personality disorder F60.9 Active 7740196 ALLERGIES No Information ENCOUNTERS Encounter Location Date Diagnosis [place] [id number] [place] [address] 73516- 2374 Jan, Moderate episode of recurrent major depressive disorder F33.1 [place] [id number] [place] [address] 96327- 0113 Dec, Moderate episode of recurrent major depressive disorder F33.1 and Cluster B personality disorder F60.9 [facility] [id number] [place] [address] 61642- 5171 November, Moderate episode of recurrent major depressive disorder F33.1 [facility] [id number] [place] [address] 61940- 1005 Oct, Moderate episode of recurrent major depressive disorder F33.1 and Cluster B personality disorder F60.9 [facility] [id number] [place] [address] 87306- 5855 Oct, [facility] [id number] [place] [address] 42032- 0780 Sep, Moderate episode of recurrent major depressive disorder F33.1 [facility] [address] [place] [address] 2546 Sep, Moderate episode of recurrent major depressive disorder F33.1 and Cluster B personality disorder F60.9 [facility] [address], [place] [address] 2546 Aug, Other chest pain R07.89 ; Anxiety F41.9 ; Other chronic pain G89.29 and Pain in left shoulder M25.512 [facility] [id number] [place] [address] 86201 2546 Jul, [facility] [id number] [place] [address] 53054- 8726 Jul, Moderate episode of recurrent major depressive disorder F33.1 [facility] [id number] [place] [address] 67569 2546 Jul, Moderate episode of recurrent major depressive disorder F33.1 and Cluster B personality disorder F60.9 [facility] [address], [place] [address] 2546 Jun, [facility] [id number] [place] [address] 51538- 8106 May, Moderate episode of recurrent major depressive disorder F33.1 and Cluster B personality disorder F60.9 [facility] [address] [place] [address] May, Moderate episode of recurrent major depressive disorder F33.1 [facility] [address], [place] [address] 2546 May, [facility] [id number] [address] 2546 30 Apr, 2017 Moderate episode of recurrent major depressive disorder F33.1 [facility] [id number] [address] 2546 Apr, [facility] [id number] [place] [address] 12438- 2745 Apr, [facility] [address], [place] [address]- 8569 Apr, [facility] [id number] [place] [address] 65200- 3632 Apr, Moderate episode of recurrent major depressive disorder F33.1 and Cluster B personality disorder F60.9 [facility] [id number] [place] [address] 74143- 8528 Apr, Encounter for immunization Z23 [facility] [id number] [place] [address] 29651- 6386 Mar, Other chronic pain G89.29 ; Pain in left shoulder M25.512 ; Mood disorder F39 and Lymph node enlargement R59.9 [facility] [place] [address] [place] [address] 08 Mar, 2017 Moderate episode of recurrent major depressive disorder F33.1 [facility] [address] [place] [address] 81984 -0825 Feb, Pain in left shoulder M25.512 and Other chronic pain G89.29 [facility] [id number] [place] [address] 88298- 7475 Feb, Moderate episode of recurrent major depressive disorder F33.1 and Cluster B personality disorder F60.9 [facility] [address], [place] [address] 5805 Feb, [facility] [id number] [place] [address] 23698- 8877 Jan, [facility] [address], [place] [address] 4389 Jan, Moderate episode of recurrent major depressive disorder F33.1 [facility] [address], [place] [address] 6731 Jan, [facility] [address] [place] [address]- 5487 Jan, Moderate episode of recurrent major depressive disorder F33.1 and Cluster B personality disorder F60.9 [facility] [address] [facility] [id number] [address] Jan, [facility] [id number] [address] 1626 Jan, [facility] [address] [place] [address]- 0826 Dec, Moderate episode of recurrent major depressive disorder F33.1 [facility] [address] [facility] [id number] [address] 2546 Dec, Moderate episode of recurrent major depressive disorder F33.1 [facility] [id number], [place] [address]- 8296 Dec, Moderate episode of recurrent major depressive disorder F33.1 and Cluster B personality disorder F60.9 [facility] [address], [place] [address]- 3687 Dec, [facility] [id number], [place] [address]- 6969 Dec, Moderate episode of recurrent major depressive disorder F33.1 [facility] [address], [place] [address]- 0436 Dec, [facility] [address], [place] [address]- 8126 November, Moderate episode of recurrent major depressive disorder F33.1 and Cluster B personality disorder F60.9 [facility] [id number], [place] [address] 7[address] November, [facility] [address], [place] [address] November, Bilateral acute serous otitis media, recurrence not specified H65.03 [facility] [id number], [place] [address]- 6848 November, [facility] [id number] [address] November, Bilateral acute serous otitis media, recurrence not specified H65.03 [facility] [id number] [place] [address] 59822- 3303 November, Severe episode of recurrent major depressive disorder, without psychotic features F33.2 [facility] [address] [place] [address] 14333- 6507 Oct, Moderate episode of recurrent major depressive disorder F33.1 [facility] [id number] [place] [address] 05957- 4222 Oct, [facility] [id number] [place] [address] Oct, Moderate episode of recurrent major depressive disorder F33.1 and Cluster B personality disorder F60.9 [place] [address] [id number] [place] [address] 45054- 5901 Oct, [facility] [id number] [place] [address] 48537- 3681 Oct, Severe episode of recurrent major depressive disorder, without psychotic features F33.2 [place] [id number] [place] [address] 94737- 9961 May, Visit for TB skin test Z11.1 [facility] [address] [place] [address] [id number] Feb, Encounter for dental examination Z01.20 [facility] [address] [place] [address] 10033- 6935 Aug, Encounter for immunization Z23 IMMUNIZATIONS No Known Immunizations SOCIAL HISTORY Never Assessed REASON FOR VISIT PALS-rexulti PLAN OF CARE VITAL SIGNS MEDICATIONS Medication Instructions Dosage Frequency Start Date End Date Duration Status Rexulti 3 MG Orally Once a day 1 tablet 24h 90 days Active RESULTS No Results PROCEDURES No Known procedures INSTRUCTIONS MEDICATIONS ADMINISTERED No Known Medications MEDICAL (GENERAL) HISTORY Type Description Date Medical History depression Medical History anxiety Surgical History [place] teeth 2001 Hospitalization History child x2
--- OUTSIDE RECORDS SUMMARY | 2018-10-10 22:19 | XMS REPORT ---
Author Author JULIETACONNERTEMI Organization [facility] [address] Address [address] [place] [address] Care Team Providers Care Marketing Officer Name Role Phone CONNER RENDONTEMI Unavailable PROBLEMS Type Condition ICD9-CM Code UDQ35-VT Code Onset Dates Condition Status SNOMED Code Problem Anxiety F41.9 Active 88287783 Problem Mood disorder F39 Active 80331330 Problem Moderate episode of recurrent major depressive disorder F33.1 Active 627896420 Problem Severe episode of recurrent major depressive disorder, without psychotic features F33.2 Active 92768032 Problem Other chronic pain G89.29 Active 58228779 Problem Cluster B personality disorder F60.9 Active 9866250 ALLERGIES No Information ENCOUNTERS Encounter Location Date Diagnosis [place] [id number] [place] [address] 32910- 1652 Jan, Moderate episode of recurrent major depressive disorder F33.1 [place] [id number] [place] [address] 57894- 9305 Dec, Moderate episode of recurrent major depressive disorder F33.1 and Cluster B personality disorder F60.9 [facility] [place] [id number] [place] [address] 34228- 7812 November, Moderate episode of recurrent major depressive disorder F33.1 [facility] [place] [id number] [place] [address] 87068- 8082 Oct, Moderate episode of recurrent major depressive disorder F33.1 and Cluster B personality disorder F60.9 [facility] [place] [id number] [place] [address] 06421- 4109 Oct, [facility] [place] [id number] [place] [address] 63220- 2052 Sep, Moderate episode of recurrent major depressive disorder F33.1 [facility] [place] [address], [place] [address] 2546 Sep, Moderate episode of recurrent major depressive disorder F33.1 and Cluster B personality disorder F60.9 [facility] [place] [address], [place] [address] 2546 Aug, Other chest pain R07.89 ; Anxiety F41.9 ; Other chronic pain G89.29 and Pain in left shoulder M25.512 [facility] [place] [id number] [place] [address] 05818 2546 Jul, [facility] [place] [id number] [place] [address] 18524- 4736 Jul, Moderate episode of recurrent major depressive disorder F33.1 [facility] [place] [id number] [place] [address] 05416 2546 Jul, Moderate episode of recurrent major depressive disorder F33.1 and Cluster B personality disorder F60.9 [facility] [place] [address], [place] [address] 2546 Jun, [facility] [place] [id number] [place] [address] 43240- 3856 May, Moderate episode of recurrent major depressive disorder F33.1 and Cluster B personality disorder F60.9 [facility] [place] [address], [place] [address]- 6476 May, Moderate episode of recurrent major depressive disorder F33.1 [facility] [place] [address], [place] [address] 2546 May, [facility] [place] [id number], [place] [address] 2546 30 Apr, 2017 Moderate episode of recurrent major depressive disorder F33.1 [facility] [place] [id number], [place] [address] 2546 Apr, [facility] [place] [id number] [place] [address] 95227- 2726 Apr, [facility] [place] [id number] [place] [address] 35393- 3114 Apr, [facility] [place] [id number] [place] [address] 68825- 8965 Apr, Moderate episode of recurrent major depressive disorder F33.1 and Cluster B personality disorder F60.9 [facility] [place] [id number] [place] [address] 94449- 4134 Apr, Encounter for immunization Z23 [facility] [place] [id number] [place] [address] 19166- 1938 Mar, Other chronic pain G89.29 ; Pain in left shoulder M25.512 ; Mood disorder F39 and Lymph node enlargement R59.9 [facility] [address] [place] [address] 08 Mar, 2017 Moderate episode of recurrent major depressive disorder F33.1 [facility] [address] [place] [address] 86719 -1526 Feb, Pain in left shoulder M25.512 and Other chronic pain G89.29 [facility] [place] [id number] [place] [address] 90294- 2917 Feb, Moderate episode of recurrent major depressive disorder F33.1 and Cluster B personality disorder F60.9 [facility] [place] [address], [place] [address]- 3641 Feb, [facility] [place] [id number] [place] [address] 85216- 4466 Jan, [facility] [place] [address] [place] [address] 08781- 7555 Jan, Moderate episode of recurrent major depressive disorder F33.1 [facility] [place] [id number] [place] [address] 13740- 8291 Jan, [facility] [place] [address] [place] [address] 03587- 1822 Jan, Moderate episode of recurrent major depressive disorder F33.1 and Cluster B personality disorder F60.9 [facility] [place] [address] [facility] [id number], [place] [address]- 4116 Jan, [facility] [place] [address] [facility] [id number], [place] [address]- 8966 Jan, [facility] [place] [address] [facility] [id number], [place] [address]- 5086 Dec, Moderate episode of recurrent major depressive disorder F33.1 [facility] [place] [address] [facility] [id number], [place] [address] 2546 Dec, Moderate episode of recurrent major depressive disorder F33.1 [facility] [place] [address] [facility] [id number], [place] [address]- 4886 Dec, Moderate episode of recurrent major depressive disorder F33.1 and Cluster B personality disorder F60.9 [facility] [place] [id number], [place] [address]- 1852 Dec, [facility] [place] [id number], [place] [address]- 7261 Dec, Moderate episode of recurrent major depressive disorder F33.1 [facility] [place] [id number], [place] [address]- 3658 Dec, [facility] [place] [id number], [place] [address]- 5666 November, Moderate episode of recurrent major depressive disorder F33.1 and Cluster B personality disorder F60.9 [facility] [place] [address] [facility] [id number], [place] [address] November, [facility] [address] [facility] [id number], [place] [address] November, Bilateral acute serous otitis media, recurrence not specified H65.03 [facility] [place] [address] [facility] [id number] [address]- 4857 November, [facility] [address], [place] [address] November, Bilateral acute serous otitis media, recurrence not specified H65.03 [place] [id number] [place] [address] 60966- 9343 November, Severe episode of recurrent major depressive disorder, without psychotic features F33.2 [facility] [place] [id number] [place] [address] 25639- 7354 Oct, Moderate episode of recurrent major depressive disorder F33.1 [facility] [place] [address] [place] [address] 66867- 6914 Oct, [facility] [id number] [place] [address] Oct, Moderate episode of recurrent major depressive disorder F33.1 and Cluster B personality disorder F60.9 [place] [id number] [place] [address] 75448- 6568 Oct, [facility] [place] [address] [place] [address] 37280- 4645 Oct, Severe episode of recurrent major depressive disorder, without psychotic features F33.2 [place] [id number] [place] [address] 50732- 9023 May, Visit for TB skin test Z11.1 [facility] [address] [place] [address] [id number] Feb, Encounter for dental examination Z01.20 [facility] [place] [address] [place] [address] 32049- 7411 Aug, Encounter for immunization Z23 IMMUNIZATIONS No Known Immunizations SOCIAL HISTORY Never Assessed REASON FOR VISIT f/uSadaf SHAFER PLAN OF CARE Activity Details Follow Up 4 Weeks Reason: VITAL SIGNS Height 61.5 in 2017-09-19 Weight 122.4 lbs 2017-09-19 Heart Rate 62 bpm 2017-09-19 Respiratory Rate 18 2017-09-19 BMI 22.75 kg/m2 2017-09-19 Blood pressure systolic 108 mmHg 2017-09-19 Blood pressure diastolic 68 mmHg 2017-09-19 MEDICATIONS Medication Instructions Dosage Frequency Start Date End Date Duration Status Trintellix 10 mg Orally Once a day 1 tablet 24h 30 day(s) Active Melatonin 5 MG Orally Once a day 1 tablet at bedtime as needed with food 24h Active Rexulti 3 MG Orally Once a day 1 tablet 24h 30 day(s) Active Clonazepam 0.5 MG Orally Once a day 1 tablet as needed for panic 24h Sep 30 days Active Trazodone HCl 50 mg Orally Once a day 1 1/2 tablets 24h 30 day(s) Active RESULTS No Results PROCEDURES No Known procedures INSTRUCTIONS MEDICATIONS ADMINISTERED No Known Medications MEDICAL (GENERAL) HISTORY Type Description Date Medical History depression Medical History anxiety Surgical History [place] teeth 2001 Hospitalization History child x2
--- OUTSIDE RECORDS SUMMARY | 2018-10-10 22:20 | XMS REPORT ---
Author Author JULIETACONNERTEMI Organization [facility] [address] [place] [address] Care Team Providers Care Back End Web Developer Name Role Phone CONNER RENDONTEMI Unavailable PROBLEMS Type Condition ICD9-CM Code [id number] Code Onset Dates Condition Status SNOMED Code Problem Anxiety F41.9 Active 38415373 Problem Mood disorder F39 Active 99169103 Problem Moderate episode of recurrent major depressive disorder F33.1 Active 611663624 Problem Severe episode of recurrent major depressive disorder, without psychotic features F33.2 Active 22843879 Problem Other chronic pain G89.29 Active 27980556 Problem Cluster B personality disorder F60.9 Active 3466419 ALLERGIES No Information ENCOUNTERS Encounter Location Date Diagnosis [place] [id number] [place] [address] 67034- 7394 Jan, Moderate episode of recurrent major depressive disorder F33.1 [place] [id number] [place] [address] 32493- 5373 Dec, Moderate episode of recurrent major depressive disorder F33.1 and Cluster B personality disorder F60.9 [facility] [id number] [place] [address] 08537- 5681 November, Moderate episode of recurrent major depressive disorder F33.1 [facility] [id number] [place] [address] 66773- 6791 Oct, Moderate episode of recurrent major depressive disorder F33.1 and Cluster B personality disorder F60.9 [facility] [id number] [place] [address] 53902- 9931 Oct, [facility] [id number] [place] [address] 44743- 3009 Sep, Moderate episode of recurrent major depressive disorder F33.1 [facility] [address] [address] 2546 Sep, Moderate episode of recurrent major depressive disorder F33.1 and Cluster B personality disorder F60.9 [facility] [address] [address] 2546 Aug, Other chest pain R07.89 ; Anxiety F41.9 ; Other chronic pain G89.29 and Pain in left shoulder M25.512 [facility] [id number] [place] [address] 48085 2546 Jul, [facility] [id number] [place] [address] 39273- 9236 Jul, Moderate episode of recurrent major depressive disorder F33.1 [facility] [id number] [place] [address] 32132 2546 Jul, Moderate episode of recurrent major depressive disorder F33.1 and Cluster B personality disorder F60.9 [facility] [address] [address] 2546 Jun, [facility] [id number] [place] [address] 15909- 3046 May, Moderate episode of recurrent major depressive disorder F33.1 and Cluster B personality disorder F60.9 [facility] [address] [address] 7426 May, Moderate episode of recurrent major depressive disorder F33.1 [facility] [address] [address] 2546 May, [facility] [id number] [address] 2546 30 Apr, 2017 Moderate episode of recurrent major depressive disorder F33.1 [facility] [id number] [address] 2546 Apr, [facility] [id number] [place] [address] 47519- 9810 Apr, [facility] [address] [place] [address] 50601- 8667 Apr, [facility] [id number] [place] [address] 98927- 6852 Apr, Moderate episode of recurrent major depressive disorder F33.1 and Cluster B personality disorder F60.9 [facility] [id number] [place] [address] 81869- 0604 Apr, Encounter for immunization Z23 [facility] [id number] [place] [address] 92832- 2262 Mar, Other chronic pain G89.29 ; Pain in left shoulder M25.512 ; Mood disorder F39 and Lymph node enlargement R59.9 [facility] [place] [address] [place] [address] 08 Mar, 2017 Moderate episode of recurrent major depressive disorder F33.1 [facility] [address] [place] [address] 75185 -9128 Feb, Pain in left shoulder M25.512 and Other chronic pain G89.29 [facility] [id number] [place] [address] 10719- 5733 Feb, Moderate episode of recurrent major depressive disorder F33.1 and Cluster B personality disorder F60.9 [facility] [address] [address] 5[address] Feb, [facility] [id number] [place] [address] 43253- 2185 Jan, [facility] [id number] [place] [address] 96257- 0924 Jan, Moderate episode of recurrent major depressive disorder F33.1 [facility] [address] [place] [address] 92854- 3509 Jan, [facility] [address] [place] [address] 12530- 2773 Jan, Moderate episode of recurrent major depressive disorder F33.1 and Cluster B personality disorder F60.9 [facility] [address] [facility] [id number] [address] 6[address] Jan, [facility] [address] [facility] [id number] [address] 26[address] Jan, [facility] [address] [facility] [id number] [place] [address] 2946 Dec, Moderate episode of recurrent major depressive disorder F33.1 [facility] [address] [facility] [id number] [address] 2546 Dec, Moderate episode of recurrent major depressive disorder F33.1 [facility] [address] [facility] [id number] [address] 8[address] Dec, Moderate episode of recurrent major depressive disorder F33.1 and Cluster B personality disorder F60.9 [facility] [id number] [address] 9155 Dec, [facility] [id number] [address]- 7200 Dec, Moderate episode of recurrent major depressive disorder F33.1 [facility] [id number] [address]- 0297 Dec, [facility] [id number] [address] 8023 November, Moderate episode of recurrent major depressive disorder F33.1 and Cluster B personality disorder F60.9 [facility] [address] [facility] [id number] [place] [address] 5[address] November, [facility] [address] [facility] [id number] [place] [address] November, Bilateral acute serous otitis media, recurrence not specified H65.03 [facility] [address] [facility] [id number] [place] [address] 8[address] November, [facility] [address] [address] November, Bilateral acute serous otitis media, recurrence not specified H65.03 [place] [address] [place] [address] 00606- 5378 November, Severe episode of recurrent major depressive disorder, without psychotic features F33.2 [place] [address] [place] [address] 97032- 2691 Oct, Moderate episode of recurrent major depressive disorder F33.1 [facility] [address] [place] [address] 88994- 6263 Oct, [facility] [id number] [place] [address] Oct, Moderate episode of recurrent major depressive disorder F33.1 and Cluster B personality disorder F60.9 [place] [id number] [place] [address] 35231- 1635 Oct, [facility] [address] [place] [address] 06151- 6307 Oct, Severe episode of recurrent major depressive disorder, without psychotic features F33.2 [place] [address] [place] [address] 79069- 2535 May, Visit for TB skin test Z11.1 [facility] [address] [place] [address] [id number] Feb, Encounter for dental examination Z01.20 [facility] [address] [place] [address] 32386- 4030 Aug, Encounter for immunization Z23 IMMUNIZATIONS No Known Immunizations SOCIAL HISTORY Never Assessed REASON FOR VISIT med quantity PLAN OF CARE VITAL SIGNS MEDICATIONS Medication Instructions Dosage Frequency Start Date End Date Duration Status Trazodone HCl 50 mg Orally Once a day 1 1/2 tablets 24h 30 day(s) Active RESULTS No Results PROCEDURES No Known procedures INSTRUCTIONS MEDICATIONS ADMINISTERED No Known Medications MEDICAL (GENERAL) HISTORY Type Description Date Medical History depression Medical History anxiety Surgical History Mccamey teeth 2001 Hospitalization History child x2
--- OUTSIDE RECORDS SUMMARY | 2018-10-10 22:20 | XMS REPORT ---
Author Author KWABENA HERNANDES Organization [facility] Address [address] [place] [address] Care Team Providers Care Senior Pl Sql Developer Name Role Phone KWABENA HERNANDES Unavailable PROBLEMS Type Condition ICD9-CM Code EOG43-YI Code Onset Dates Condition Status SNOMED Code Problem Anxiety F41.9 Active 00077603 Problem Mood disorder F39 Active 67379333 Problem Moderate episode of recurrent major depressive disorder F33.1 Active 714563812 Problem Severe episode of recurrent major depressive disorder, without psychotic features F33.2 Active 61775707 Problem Other chronic pain G89.29 Active 16841012 Problem Cluster B personality disorder F60.9 Active 6020559 ALLERGIES No Information ENCOUNTERS Encounter Location Date Diagnosis [facility] [id number] [place] [address] 39417- 4777 Dec, [facility] [id number] [place] [address] 74435- 8287 27 Oct, 2017 Moderate episode of recurrent major depressive disorder F33.1 and Cluster B personality disorder F60.9 [facility] [id number] [place] [address] 92578- 6045 Oct, [facility] [id number] [place] [address] 88323- 9219 Sep, Moderate episode of recurrent major depressive disorder F33.1 [facility] [id number] [place] [address] 14847- 4877 Sep, Moderate episode of recurrent major depressive disorder F33.1 and Cluster B personality disorder F60.9 [facility] [id number] [place] [address] 04774- 8027 Aug, Other chest pain R07.89 ; Anxiety F41.9 ; Other chronic pain G89.29 and Pain in left shoulder M25.512 [facility] [address] [facility] [id number] [address] 2546 Jul, [facility] [address] [facility] [id number] [place] [address] 2546 Jul, Moderate episode of recurrent major depressive disorder F33.1 [facility] [id number] [place] [address] 2546 Jul, Moderate episode of recurrent major depressive disorder F33.1 and Cluster B personality disorder F60.9 [facility] [id number] [address] 2546 Jun, [facility] [id number], [place] [address] 2546 May, Moderate episode of recurrent major depressive disorder F33.1 and Cluster B personality disorder F60.9 [facility] [address], [place] [address]- 8266 May, Moderate episode of recurrent major depressive disorder F33.1 [facility] [id number] [place] [address] 2546 May, [facility] [id number] [address] 2546 Apr, Moderate episode of recurrent major depressive disorder F33.1 [facility] [id number] [address] 2546 Apr, [facility] [id number] [address] 2546 Apr, [facility] [id number], [place] [address] 2546 Apr, [facility] [id number] [address] 2546 Apr, Moderate episode of recurrent major depressive disorder F33.1 and Cluster B personality disorder F60.9 [facility] [id number] [place] [address] 03046- 4463 Apr, Encounter for immunization Z23 [facility] [id number] [address]- 1087 Mar, Other chronic pain G89.29 ; Pain in left shoulder M25.512 ; Mood disorder F39 and Lymph node enlargement R59.9 [facility] [place] [address] [facility] [id number] [place] [id number] Mar, Moderate episode of recurrent major depressive disorder F33.1 [facility] [id number] [address] Feb, Pain in left shoulder M25.512 and Other chronic pain G89.29 [facility] [address] [place] [address] 73597- 5935 Feb, Moderate episode of recurrent major depressive disorder F33.1 and Cluster B personality disorder F60.9 [facility] [address] [place] [address] 73615- 3559 Feb, [facility] [address] [place] [address] 02745- 6454 Jan, [facility] [address] [place] [address] 43893- 1796 Jan, Moderate episode of recurrent major depressive disorder F33.1 [facility] [address], [place] [address]- 6926 Jan, [facility] [address], [place] [address]- 8999 Jan, Moderate episode of recurrent major depressive disorder F33.1 and Cluster B personality disorder F60.9 [facility] [address], [place] [address]- 1541 Jan, [facility] [address], [place] [address]- 9694 Jan, [facility] [address] [place] [address] 95716- 2427 Dec, Moderate episode of recurrent major depressive disorder F33.1 [facility] [address], [place] [address]- 2337 Dec, Moderate episode of recurrent major depressive disorder F33.1 [facility] [address], [place] [address]- 9066 Dec, Moderate episode of recurrent major depressive disorder F33.1 and Cluster B personality disorder F60.9 [facility] [id number] [place] [address] 88805- 3204 Dec, [facility] [id number] [place] [address] 60425- 7042 Dec, Moderate episode of recurrent major depressive disorder F33.1 [place] [id number] [place] [address] 20499- 4664 Dec, [facility] [id number] [place] [address] 75464- 6265 November, Moderate episode of recurrent major depressive disorder F33.1 and Cluster B personality disorder F60.9 [place] [id number] [place] [address] 22275- 4405 November, [facility] [address], [place] [address] November, Bilateral acute serous otitis media, recurrence not specified H65.03 [facility] [address], [place] [address]- 9741 November, [facility] [address], [place] [address] November, Bilateral acute serous otitis media, recurrence not specified H65.03 [facility] [address] [place] [address] 04316- 0038 November, Severe episode of recurrent major depressive disorder, without psychotic features F33.2 [facility] [address] [place] [address] 82892- 9608 Oct, Moderate episode of recurrent major depressive disorder F33.1 [facility] [address], [place] [address]- 6641 Oct, [facility] [id number] [address] Oct, Moderate episode of recurrent major depressive disorder F33.1 and Cluster B personality disorder F60.9 [facility] [id number] [place] [address] 65098- 4232 Oct, [facility] [id number] [place] [address] 04806- 2196 Oct, Severe episode of recurrent major depressive disorder, without psychotic features F33.2 [facility] [address] [place] [address] 24497- 4696 May, Visit for TB skin test Z11.1 [facility] [address] [place] [address] [id number] Feb, Encounter for dental examination Z01.20 [facility] [id number] [place] [address] 58412- 1717 Aug, Encounter for immunization Z23 IMMUNIZATIONS No Known Immunizations SOCIAL HISTORY Never Assessed REASON FOR VISIT anxiety PLAN OF CARE VITAL SIGNS MEDICATIONS Medication Instructions Dosage Frequency Start Date End Date Duration Status Propranolol HCl 20 mg Orally TID PRN 1 tablet Apr, 30 day(s) Active RESULTS No Results PROCEDURES No Known procedures INSTRUCTIONS MEDICATIONS ADMINISTERED No Known Medications MEDICAL (GENERAL) HISTORY Type Description Date Medical History depression Medical History anxiety Surgical History Bliss teeth 2001 Hospitalization History child x2
--- OUTSIDE RECORDS SUMMARY | 2018-10-10 22:20 | XMS REPORT ---
Author Author KWABENA HERNANDES Organization [facility] Address [address] [place] [address] Care Team Providers Care Prop And Scenery Maker Name Role Phone KWABENA HERNANDES Unavailable PROBLEMS Type Condition ICD9-CM Code [id number] Code Onset Dates Condition Status SNOMED Code Problem Anxiety F41.9 Active 81928782 Problem Mood disorder F39 Active 98714057 Problem Moderate episode of recurrent major depressive disorder F33.1 Active 522526752 Problem Severe episode of recurrent major depressive disorder, without psychotic features F33.2 Active 96800511 Problem Other chronic pain G89.29 Active 16982637 Problem Cluster B personality disorder F60.9 Active 1849824 ALLERGIES No Information ENCOUNTERS Encounter Location Date Diagnosis [place] [id number] [place] [address]103- 1859 Dec, [facility] [id number] [place] [address] 86836- 6893 November, Moderate episode of recurrent major depressive disorder F33.1 [facility] [id number] [place] [address] 77597- 4198 Oct, Moderate episode of recurrent major depressive disorder F33.1 and Cluster B personality disorder F60.9 [facility] [id number] [place] [address] 27563- 4420 Oct, [facility] [id number] [place] [address] 70095- 0829 Sep, Moderate episode of recurrent major depressive disorder F33.1 [facility] [id number] [place] [address] 05926- 9767 Sep, Moderate episode of recurrent major depressive disorder F33.1 and Cluster B personality disorder F60.9 [facility] [id number] [place] [address] 64393- 8808 Aug, Other chest pain R07.89 ; Anxiety F41.9 ; Other chronic pain G89.29 and Pain in left shoulder M25.512 [facility] [address] [place] [address] 16444- 5006 Jul, [facility] [id number] [place] [address] 86985 2546 Jul, Moderate episode of recurrent major depressive disorder F33.1 [facility] [id number] [place] [address] 31252 2546 Jul, Moderate episode of recurrent major depressive disorder F33.1 and Cluster B personality disorder F60.9 [facility] [id number] [place] [address] 19242- 8606 Jun, [facility] [id number] [place] [address] 08069- 2571 May, Moderate episode of recurrent major depressive disorder F33.1 and Cluster B personality disorder F60.9 [facility] [address] [address] 8[address] May, Moderate episode of recurrent major depressive disorder F33.1 [facility] [address] [address] 4[address] May, [facility] [address] [address] 5906 Apr, Moderate episode of recurrent major depressive disorder F33.1 [facility] [address] [address] 2546 Apr, [facility] [id number] [place] [address] 58848- 4346 Apr, [facility] [address] [address] 2546 Apr, [facility] [address] [place] [address] 7566 Apr, Moderate episode of recurrent major depressive disorder F33.1 and Cluster B personality disorder F60.9 [facility] [address] [address] 7[address] Apr, Encounter for immunization Z23 [facility] [id number] [address] 289[address] Mar, Other chronic pain G89.29 ; Pain in left shoulder M25.512 ; Mood disorder F39 and Lymph node enlargement R59.9 [facility] [place] [id number] [id number] 08 Mar, 2017 Moderate episode of recurrent major depressive disorder F33.1 [facility] [id number] [address] Feb, Pain in left shoulder M25.512 and Other chronic pain G89.29 [facility] [address] [address] 0076 Feb, Moderate episode of recurrent major depressive disorder F33.1 and Cluster B personality disorder F60.9 [facility] [address] [address] 4470 Feb, [facility] [address] [address]- 5764 Jan, [facility] [address] [place] [address]- 6407 Jan, Moderate episode of recurrent major depressive disorder F33.1 [facility] [address], [place] [address]- 7980 Jan, [facility] [address] [place] [address]- 2696 Jan, Moderate episode of recurrent major depressive disorder F33.1 and Cluster B personality disorder F60.9 [facility] [address] [address]- 0802 Jan, [facility] [address] [address]- 9031 Jan, [facility] [address] [place] [address]- 4536 Dec, Moderate episode of recurrent major depressive disorder F33.1 [facility] [address], [place] [address]- 3636 Dec, Moderate episode of recurrent major depressive disorder F33.1 [facility] [address], [place] [address]- 5115 Dec, Moderate episode of recurrent major depressive disorder F33.1 and Cluster B personality disorder F60.9 [facility] [address], [place] [address]- 6999 Dec, [facility] [address] [place] [address]- 3598 Dec, Moderate episode of recurrent major depressive disorder F33.1 [facility] [address], [place] [address]- 1407 Dec, [facility] [address] [address]- 6300 November, Moderate episode of recurrent major depressive disorder F33.1 and Cluster B personality disorder F60.9 [facility] [address], [place] [address]- 2554 November, [facility] [address], [place] [address] November, Bilateral acute serous otitis media, recurrence not specified H65.03 [facility] [address] [address]- 2177 November, [facility] [address] [address] November, Bilateral acute serous otitis media, recurrence not specified H65.03 [facility] [address] [address]- 3445 November, Severe episode of recurrent major depressive disorder, without psychotic features F33.2 [facility] [address] [address]- 8477 Oct, Moderate episode of recurrent major depressive disorder F33.1 [facility] [address], [place] [address]- 8751 Oct, [facility] [id number] [address] Oct, Moderate episode of recurrent major depressive disorder F33.1 and Cluster B personality disorder F60.9 [facility] [address] [place] [address] 85982- 9792 Oct, [facility] [address] [place] [address] 59065- 0260 Oct, Severe episode of recurrent major depressive disorder, without psychotic features F33.2 [facility] [address] [address]- 5432 May, Visit for TB skin test Z11.1 [facility] [address] [place] [id number] Feb, Encounter for dental examination Z01.20 [facility] [address], [place] [address]- 9771 Aug, Encounter for immunization Z23 IMMUNIZATIONS No Known Immunizations SOCIAL HISTORY Never Assessed REASON FOR VISIT Refill request PLAN OF CARE VITAL SIGNS MEDICATIONS Medication Instructions Dosage Frequency Start Date End Date Duration Status Chantix 1 MG Orally Twice a day 1 tablet 12h 08 Jun, 2017 Dec, 30 day(s) Active RESULTS No Results PROCEDURES No Known procedures INSTRUCTIONS MEDICATIONS ADMINISTERED No Known Medications MEDICAL (GENERAL) HISTORY Type Description Date Medical History depression Medical History anxiety Surgical History [place] teeth 2002 Hospitalization History child x2
--- OUTSIDE RECORDS SUMMARY | 2018-10-10 22:20 | XMS REPORT ---
Author Author ITZEL RENDON Organization [facility] Address [address] [place] [address] Care Team Providers Care Plant Mechanic Name Role Phone JULIETA ITZEL Unavailable PROBLEMS Type Condition ICD9-CM Code GOV93-PH Code Onset Dates Condition Status SNOMED Code Problem Mood disorder F39 Active 02930043 Problem Other chronic pain G89.29 Active 63224388 Problem Severe episode of recurrent major depressive disorder, without psychotic features F33.2 Active 27311591 Problem Encounter for dental examination Z01.20 Active 114048379 Problem Cluster B personality disorder F60.9 Active 5619859 Problem Moderate episode of recurrent major depressive disorder F33.1 Active 218797434 ALLERGIES Substance Reaction Event Type Date Status Sulfacetamide Sodium Unknown Drug Allergy Oct, Active PredniSONE Unknown Drug Allergy Oct, Active Penicillin V Potassium Unknown Drug Allergy Oct, Active Cefprozil Unknown Drug Allergy Oct, Active SOCIAL HISTORY Never Assessed PLAN OF CARE Activity Details Follow Up 4 Weeks Reason: VITAL SIGNS Height 61.5 in 2016-10-24 Weight 116.6 lbs 2016-10-24 Heart Rate 71 bpm 2016-10-24 BMI 21.67 kg/m2 2016-10-24 Blood pressure systolic 110 mmHg 2016-10-24 Blood pressure diastolic 68 mmHg 2016-10-24 MEDICATIONS Medication Instructions Dosage Frequency Start Date End Date Duration Status Rexulti 0.5 MG Orally Once a day 1 tablet 24h Oct, 30 day(s) Active RESULTS No Results PROCEDURES No Known procedures IMMUNIZATIONS No Known Immunizations MEDICAL (GENERAL) HISTORY Type Description Date Medical History depression Medical History anxiety Surgical History [place] teeth 2002 Hospitalization History child x2
--- OUTSIDE RECORDS SUMMARY | 2018-10-10 22:20 | XMS REPORT ---
Author Author BYRON SKINNER [facility] Address [address] [place] [address] Care Team Providers Care Wind Instrument Repairer Name Role Phone BYRON SKINNER Unavailable PROBLEMS Type Condition ICD9-CM Code FKR24-XY Code Onset Dates Condition Status SNOMED Code Problem Mood disorder F39 Active 02612360 Problem Other chronic pain G89.29 Active 07871906 Problem Severe episode of recurrent major depressive disorder, without psychotic features F33.2 Active 81147808 Problem Encounter for dental examination Z01.20 Active 741250591 Problem Cluster B personality disorder F60.9 Active 3599752 Problem Moderate episode of recurrent major depressive disorder F33.1 Active 658745466 ALLERGIES No Information SOCIAL HISTORY Never Assessed PLAN OF CARE VITAL SIGNS MEDICATIONS Unknown Medications RESULTS No Results PROCEDURES No Known procedures IMMUNIZATIONS No Known Immunizations MEDICAL (GENERAL) HISTORY Type Description Date Medical History depression Medical History anxiety Surgical History [place] teeth 2002 Hospitalization History child x2
--- OUTSIDE RECORDS SUMMARY | 2018-10-10 22:20 | XMS REPORT ---
Author Author ITZEL RENDON Organization [facility] Address [address] [place] [address] Care Team Providers Care Recruiting Administrator Name Role Phone CONNER RENDONTEMI Unavailable PROBLEMS Type Condition ICD9-CM Code CVF48-PW Code Onset Dates Condition Status SNOMED Code Problem Mood disorder F39 Active 92148283 Problem Other chronic pain G89.29 Active 02269741 Problem Severe episode of recurrent major depressive disorder, without psychotic features F33.2 Active 99989465 Problem Encounter for dental examination Z01.20 Active 912257030 Problem Cluster B personality disorder F60.9 Active 8025476 Problem Moderate episode of recurrent major depressive disorder F33.1 Active 726553012 ALLERGIES Substance Reaction Event Type Date Status Sulfacetamide Sodium Unknown Drug Allergy November, Active PredniSONE Unknown Drug Allergy November, Active Penicillin V Potassium Unknown Drug Allergy November, Active Cefprozil Unknown Drug Allergy November, Active SOCIAL HISTORY Never Assessed PLAN OF CARE Activity Details Follow Up 4 Weeks, 6 Weeks Reason: VITAL SIGNS Height 61.5 in 2016-11-24 Weight 116.7 lbs 2016-11-24 Temperature 97.5 degrees Fahrenheit 2016-11-24 Heart Rate 76 bpm 2016-11-24 Respiratory Rate 18 2016-11-24 BMI 21.69 kg/m2 2016-11-24 Blood pressure systolic 104 mmHg 2016-11-24 Blood pressure diastolic 56 mmHg 2016-11-24 MEDICATIONS Medication Instructions Dosage Frequency Start Date End Date Duration Status Rexulti 1 MG Orally Once a day 1 tablet 24h 30 day(s) Active Cetirizine HCl 10 MG Orally Once a day 1 tablet 24h Active Melatonin 5 MG Orally Once a day 1 tablet at bedtime as needed with food 24h Active Trintellix 10 MG Orally Once a day 1 tablet 24h November, 30 day(s) Active RESULTS No Results PROCEDURES No Known procedures IMMUNIZATIONS No Known Immunizations MEDICAL (GENERAL) HISTORY Type Description Date Medical History depression Medical History anxiety Surgical History [place] teeth 2002 Hospitalization History child x2
--- OUTSIDE RECORDS SUMMARY | 2018-10-10 22:20 | XMS REPORT ---
Author Author ITZEL RENDON [facility] Address [address] [place] [address] Care Team Providers Care Manufacturing Electrician Name Role Phone CONNER RENDONTEMI Unavailable PROBLEMS Type Condition ICD9-CM Code VJD64-MU Code Onset Dates Condition Status SNOMED Code Problem Anxiety F41.9 Active 08636287 Problem Mood disorder F39 Active 62431531 Problem Moderate episode of recurrent major depressive disorder F33.1 Active 535789494 Problem Severe episode of recurrent major depressive disorder, without psychotic features F33.2 Active 90560249 Problem Other chronic pain G89.29 Active 48759719 Problem Cluster B personality disorder F60.9 Active 4413175 ALLERGIES No Information ENCOUNTERS Encounter Location Date Diagnosis [facility] [address] [place] [address] 19873- 5795 Jan, [facility] [id number] [place] [address] 53063- 6884 Dec, [facility] [id number] [place] [address] 75689- 1988 November, Moderate episode of recurrent major depressive disorder F33.1 [facility] [address] [place] [address] 05240- 5618 Oct, Moderate episode of recurrent major depressive disorder F33.1 and Cluster B personality disorder F60.9 [facility] [id number] [address] Oct, [facility] [id number] [place] [address] 22849- 2004 Sep, Moderate episode of recurrent major depressive disorder F33.1 [facility] [address] [place] [address] 15508- 4948 Sep, Moderate episode of recurrent major depressive disorder F33.1 and Cluster B personality disorder F60.9 [facility] [address], [place] [address]- 1814 Aug, Other chest pain R07.89 ; Anxiety F41.9 ; Other chronic pain G89.29 and Pain in left shoulder M25.512 [facility] [id number] [address]- 5696 Jul, [facility] [id number] [place] [address] 04890 2546 Jul, Moderate episode of recurrent major depressive disorder F33.1 [facility] [id number] [place] [address] 10169- 5846 Jul, Moderate episode of recurrent major depressive disorder F33.1 and Cluster B personality disorder F60.9 [facility] [id number] [place] [address] 27451- 8706 Jun, [facility] [id number] [place] [address] 28142- 1934 May, Moderate episode of recurrent major depressive disorder F33.1 and Cluster B personality disorder F60.9 [facility] [address] [place] [address] 39420- 6586 May, Moderate episode of recurrent major depressive disorder F33.1 [facility] [address], [place] [address]- 1426 May, [facility] [address], [place] [address]- 2546 Apr, Moderate episode of recurrent major depressive disorder F33.1 [facility] [address], [place] [address]- 0716 Apr, [facility] [address], [place] [address]- 5916 Apr, [facility] [address], [place] [address]- 0067 Apr, [facility] [address], [place] [address]- 2190 Apr, Moderate episode of recurrent major depressive disorder F33.1 and Cluster B personality disorder F60.9 [facility] [address], [place] [address]- 3706 Apr, Encounter for immunization Z23 [facility] [address], [place] [address]- 7768 Mar, Other chronic pain G89.29 ; Pain in left shoulder M25.512 ; Mood disorder F39 and Lymph node enlargement R59.9 [facility] [place] [address] [facility] [id number] [id number] 08 Mar, 2017 Moderate episode of recurrent major depressive disorder F33.1 [facility] [address], [place] [address] Feb, Pain in left shoulder M25.512 and Other chronic pain G89.29 [facility] [address], [place] [address]- 9720 Feb, Moderate episode of recurrent major depressive disorder F33.1 and Cluster B personality disorder F60.9 [facility] [address] [address]- 8508 Feb, [facility] [address], [place] [address]- 6084 Jan, [facility] [address], [place] [address]- 3533 Jan, Moderate episode of recurrent major depressive disorder F33.1 [facility] [address], [place] [address]- 2040 Jan, [facility] [address], [place] [address]- 1222 Jan, Moderate episode of recurrent major depressive disorder F33.1 and Cluster B personality disorder F60.9 [facility] [address], [place] [address]- 5980 Jan, [facility] [address] [facility] [id number] [address] Jan, [facility] [id number], [place] [address]- 7956 Dec, Moderate episode of recurrent major depressive disorder F33.1 [facility] [address], [place] [address]- 0956 Dec, Moderate episode of recurrent major depressive disorder F33.1 [facility] [id number] [address]- 7666 Dec, Moderate episode of recurrent major depressive disorder F33.1 and Cluster B personality disorder F60.9 [facility] [address] [address]- 3447 Dec, [facility] [address], [place] [address]- 5222 Dec, Moderate episode of recurrent major depressive disorder F33.1 [facility] [address], [place] [address]- 2017 Dec, [facility] [address], [place] [address]- 0655 November, Moderate episode of recurrent major depressive disorder F33.1 and Cluster B personality disorder F60.9 [facility] [address], [place] [address]- 2488 November, [facility] [id number] [address] November, Bilateral acute serous otitis media, recurrence not specified H65.03 [facility] [id number] [address]- 5534 November, [facility] [id number], [place] [address] November, Bilateral acute serous otitis media, recurrence not specified H65.03 [facility] [address], [place] [address]- 3035 November, Severe episode of recurrent major depressive disorder, without psychotic features F33.2 [facility] [address], [place] [address]- 0122 Oct, Moderate episode of recurrent major depressive disorder F33.1 [facility] [id number] [place] [address] 04794- 3415 Oct, [facility] [id number] [place] [address] Oct, Moderate episode of recurrent major depressive disorder F33.1 and Cluster B personality disorder F60.9 [place] [id number] [place] [address] 50636- 8361 Oct, [facility] [id number] [place] [address] 35325- 3170 Oct, Severe episode of recurrent major depressive disorder, without psychotic features F33.2 [place] [address] [place] [address] 05354- 1039 May, Visit for TB skin test Z11.1 [facility] [address] [place] [id number] Feb, Encounter for dental examination Z01.20 [facility] [address] [place] [address] 06872- 2770 Aug, Encounter for immunization Z23 IMMUNIZATIONS No Known Immunizations SOCIAL HISTORY Never Assessed REASON FOR VISIT PALS Trintellix/Rexulti PLAN OF CARE VITAL SIGNS MEDICATIONS Medication Instructions Dosage Frequency Start Date End Date Duration Status Rexulti 3 MG Orally Once a day 1 tablet 24h 90 days Active Trintellix 10 mg Orally Once a day 1 tablet 24h Jul, 90 days Active RESULTS No Results PROCEDURES No Known procedures INSTRUCTIONS MEDICATIONS ADMINISTERED No Known Medications MEDICAL (GENERAL) HISTORY Type Description Date Medical History depression Medical History anxiety Surgical History [place] teeth 2001 Hospitalization History child x2
--- OUTSIDE RECORDS SUMMARY | 2018-10-10 22:21 | XMS REPORT ---
Author Author ITZEL RENDON [facility] Address [address] [place] [address] Care Team Providers Care Architectural Drafter Name Role Phone CONNER RENDONTEMI Unavailable PROBLEMS Type Condition ICD9-CM Code [id number] Code Onset Dates Condition Status SNOMED Code Problem Anxiety F41.9 Active 80398351 Problem Mood disorder F39 Active 00251413 Problem Moderate episode of recurrent major depressive disorder F33.1 Active 255527829 Problem Severe episode of recurrent major depressive disorder, without psychotic features F33.2 Active 93038347 Problem Other chronic pain G89.29 Active 46072217 Problem Cluster B personality disorder F60.9 Active 8663881 ALLERGIES No Information ENCOUNTERS Encounter Location Date Diagnosis [place] [id number] [place] [address] 53364- 7471 Oct, [facility] [id number] [place] [address] 62804- 1400 Oct, [place] [id number] [place] [address] 32572- 3923 Sep, Moderate episode of recurrent major depressive disorder F33.1 [facility] [id number] [place] [address] 08483- 6875 Sep, Moderate episode of recurrent major depressive disorder F33.1 and Cluster B personality disorder F60.9 [facility] [address], [place] [address] Aug, Other chest pain R07.89 ; Anxiety F41.9 ; Other chronic pain G89.29 and Pain in left shoulder M25.512 [facility] [id number] [place] [address] 40898- 4258 Jul, [place] [address] [place] [address] Jul, Moderate episode of recurrent major depressive disorder F33.1 [facility] [address], [place] [address] 2546 Jul, Moderate episode of recurrent major depressive disorder F33.1 and Cluster B personality disorder F60.9 [facility] [address], [place] [address] 2546 Jun, [facility] [address], [place] [address] 2546 May, Moderate episode of recurrent major depressive disorder F33.1 and Cluster B personality disorder F60.9 [facility] [id number] [place] [address] 83371- 0466 May, Moderate episode of recurrent major depressive disorder F33.1 [facility] [address], [place] [address] 2546 May, [facility] [address], [place] [address] Apr, Moderate episode of recurrent major depressive disorder F33.1 [facility] [address], [place] [address] 2546 Apr, [facility] [address], [place] [address] Apr, [facility] [address], [place] [address] 2546 Apr, [facility] [address], [place] [address] 2546 Apr, Moderate episode of recurrent major depressive disorder F33.1 and Cluster B personality disorder F60.9 [facility] [address], [place] [address] 06 Apr, 2017 Encounter for immunization Z23 [facility] [address], [place] [address] 2546 Mar, Other chronic pain G89.29 ; Pain in left shoulder M25.512 ; Mood disorder F39 and Lymph node enlargement R59.9 [facility] [place] [address] [facility] [id number] [place] [id number] 08 Mar, 2017 Moderate episode of recurrent major depressive disorder F33.1 [facility] [address] [facility] [id number], [place] [address] Feb, Pain in left shoulder M25.512 and Other chronic pain G89.29 [facility] [address] [facility] [id number], [place] [address] 2546 Feb, Moderate episode of recurrent major depressive disorder F33.1 and Cluster B personality disorder F60.9 [facility] [address] [facility] [id number], [place] [address] 2546 Feb, [facility] [id number], [place] [address] Jan, [facility] [id number], [place] [address] 2547 Jan, Moderate episode of recurrent major depressive disorder F33.1 [facility] [address] [facility] [id number] [place] [address] 2546 Jan, [facility] [id number], [place] [address] 2546 Jan, Moderate episode of recurrent major depressive disorder F33.1 and Cluster B personality disorder F60.9 [facility] [address] [facility] [id number], [place] [address] 2546 Jan, [facility] [address] [facility] [id number], [place] [address] 2546 Jan, [facility] [address] [id number], [place] [address] 2546 Dec, Moderate episode of recurrent major depressive disorder F33.1 [facility] [address] [facility] [id number], [place] [address] 2546 Dec, Moderate episode of recurrent major depressive disorder F33.1 [facility] [address], [place] [address] Dec, Moderate episode of recurrent major depressive disorder F33.1 and Cluster B personality disorder F60.9 [facility] [address], [place] [address] 6[address] Dec, [facility] [id number] [place] [address] 24125- 8948 Dec, Moderate episode of recurrent major depressive disorder F33.1 [facility] [address], [place] [address] Dec, [facility] [address] [place] [address] 60767- 9410 November, Moderate episode of recurrent major depressive disorder F33.1 and Cluster B personality disorder F60.9 [facility] [address], [place] [address] November, [facility] [address], [place] [address] November, Bilateral acute serous otitis media, recurrence not specified H65.03 [facility] [address], [place] [address] November, [facility] [address], [place] [address] November, Bilateral acute serous otitis media, recurrence not specified H65.03 [facility] [address], [place] [address] November, Severe episode of recurrent major depressive disorder, without psychotic features F33.2 [facility] [address], [place] [address] 7[address] Oct, Moderate episode of recurrent major depressive disorder F33.1 [facility] [address], [place] [address] Oct, [facility] [address] [id number] [address] Oct, Moderate episode of recurrent major depressive disorder F33.1 and Cluster B personality disorder F60.9 [facility] [address], [place] [address] Oct, [facility] [address], [place] [address] 8817 Oct, Severe episode of recurrent major depressive disorder, without psychotic features F33.2 [facility] [address], [place] [address] May, Visit for TB skin test Z11.1 [facility] [address] [id number] Feb, Encounter for dental examination Z01.20 [facility] [address], [place] [address] Aug, Encounter for immunization Z23 IMMUNIZATIONS No Known Immunizations SOCIAL HISTORY Never Assessed REASON FOR VISIT PALS-latuda PLAN OF CARE VITAL SIGNS MEDICATIONS Medication Instructions Dosage Frequency Start Date End Date Duration Status Latuda 20 mg Orally Once a day 1 tablet 24h Jan, 90 days Active RESULTS No Results PROCEDURES No Known procedures INSTRUCTIONS MEDICATIONS ADMINISTERED No Known Medications MEDICAL (GENERAL) HISTORY Type Description Date Medical History depression Medical History anxiety Surgical History [place] teeth 2001 Hospitalization History child x2
--- OUTSIDE RECORDS SUMMARY | 2018-10-10 22:21 | XMS REPORT ---
Author Author IVETT PABLO [facility] Address [address] [place] [address] Care Team Providers Care Fence Erector Name Role Phone IVETT PABLO Unavailable PROBLEMS Type Condition ICD9-CM Code VRC57-VE Code Onset Dates Condition Status SNOMED Code Problem Mood disorder F39 Active 40710495 Problem Other chronic pain G89.29 Active 61136869 Problem Severe episode of recurrent major depressive disorder, without psychotic features F33.2 Active 58653103 Problem Encounter for dental examination Z01.20 Active 376723510 Problem Cluster B personality disorder F60.9 Active 3988333 Problem Moderate episode of recurrent major depressive disorder F33.1 Active 669425899 ALLERGIES Substance Reaction Event Type Date Status Sulfacetamide Sodium Unknown Drug Allergy November, Active PredniSONE Unknown Drug Allergy November, Active Penicillin V Potassium Unknown Drug Allergy November, Active Cefprozil Unknown Drug Allergy November, Active SOCIAL HISTORY Never Assessed PLAN OF CARE Activity Details Follow Up prn Reason: VITAL SIGNS Height 61.5 in 2016-11-13 Weight 116.8 lbs 2016-11-13 Temperature 98.6 degrees Fahrenheit 2016-11-13 Heart Rate 66 bpm 2016-11-13 Respiratory Rate 20 2016-11-13 BMI 21.71 kg/m2 2016-11-13 Blood pressure systolic 90 mmHg 2016-11-13 Blood pressure diastolic 60 mmHg 2016-11-13 MEDICATIONS Medication Instructions Dosage Frequency Start Date End Date Duration Status Azithromycin 250 MG Orally Once a day 2 tablets on the first day, then 1 tablet daily for 4 days 24h November, November, 5 day(s) Active Melatonin 5 MG Orally Once a day 1 tablet at bedtime as needed with food 24h Active Rexulti 0.5 MG Orally Once a day 1 tablet 24h Oct, 90 days Active RESULTS No Results PROCEDURES Procedure Date Ordered Result Body Site DEPO MEDROL 40 MG/ML November 13, 2016 DEXAMETHASONE 4MG/ML (PER 1 MG) November 13, 2016 THER/PROPH/DIAG INJ, SC/IM November 13, 2016 IMMUNIZATIONS Vaccine Route Administration Date Status DEXAMETHASONE 4MG/ML (PER 1 MG) IM Intramuscular November 13, 2016 Administered DEPO MEDROL 40 MG/ML IM Intramuscular November 13, 2016 Administered MEDICAL (GENERAL) HISTORY Type Description Date Medical History depression Medical History anxiety Surgical History [place] teeth 2002 Hospitalization History child x2
--- OUTSIDE RECORDS SUMMARY | 2018-10-10 22:21 | XMS REPORT ---
Author Author ITZEL RENDON [facility] Address [address] [place] [address] Care Team Providers Care Wild Life Manager Name Role Phone CONNER RENDONTEMI Unavailable PROBLEMS Type Condition ICD9-CM Code AIR22-AV Code Onset Dates Condition Status SNOMED Code Problem Anxiety F41.9 Active 92302036 Problem Mood disorder F39 Active 16739766 Problem Moderate episode of recurrent major depressive disorder F33.1 Active 257378898 Problem Severe episode of recurrent major depressive disorder, without psychotic features F33.2 Active 35651406 Problem Other chronic pain G89.29 Active 37259257 Problem Cluster B personality disorder F60.9 Active 2240683 ALLERGIES No Information ENCOUNTERS Encounter Location Date Diagnosis [place] [id number] [place] [address] 47828- 8609 Oct, [facility] [id number] [place] [address] 19256- 7847 Oct, [place] [id number] [place] [address] 82119- 6913 Sep, Moderate episode of recurrent major depressive disorder F33.1 [facility] [id number] [place] [address] 23825- 8951 Sep, Moderate episode of recurrent major depressive disorder F33.1 and Cluster B personality disorder F60.9 [facility] [address] [place] [address] 36589- 0510 Aug, Other chest pain R07.89 ; Anxiety F41.9 ; Other chronic pain G89.29 and Pain in left shoulder M25.512 [facility] [id number] [place] [address] 38331- 8695 Jul, [place] [address] [place] [address]- 2546 Jul, Moderate episode of recurrent major depressive disorder F33.1 [facility] [address], [place] [address] 2546 Jul, Moderate episode of recurrent major depressive disorder F33.1 and Cluster B personality disorder F60.9 [facility] [address], [place] [address] 2546 Jun, [facility] [address], [place] [address] 2546 May, Moderate episode of recurrent major depressive disorder F33.1 and Cluster B personality disorder F60.9 [facility] [id number] [place] [address] 83835- 1906 May, Moderate episode of recurrent major depressive disorder F33.1 [facility] [address], [place] [address] 2546 May, [facility] [address], [place] [address]- 4317 Apr, Moderate episode of recurrent major depressive disorder F33.1 [facility] [address], [place] [address] 2546 Apr, [facility] [address], [place] [address]- 8946 Apr, [facility] [address], [place] [address] 2546 Apr, [facility] [address], [place] [address] 2546 Apr, Moderate episode of recurrent major depressive disorder F33.1 and Cluster B personality disorder F60.9 [facility] [address], [place] [address]- 2546 06 Apr, 2017 Encounter for immunization Z23 [facility] [address], [place] [address] 2546 Mar, Other chronic pain G89.29 ; Pain in left shoulder M25.512 ; Mood disorder F39 and Lymph node enlargement R59.9 [facility] [place] [address] [facility] [id number] [place] [id number] 08 Mar, 2017 Moderate episode of recurrent major depressive disorder F33.1 [facility] [address] [facility] [id number], [place] [address] 6 Feb, Pain in left shoulder M25.512 and Other chronic pain G89.29 [facility] [address] [facility] [id number], [place] [address] 2546 Feb, Moderate episode of recurrent major depressive disorder F33.1 and Cluster B personality disorder F60.9 [facility] [address] [facility] [id number], [place] [address] 2546 Feb, [facility] [id number], [place] [address] 0446 Jan, [facility] [id number], [place] [address] 254 Jan, Moderate episode of recurrent major depressive disorder F33.1 [facility] [address] [facility] [id number] [place] [address] 2546 Jan, [facility] [id number], [place] [address] 2546 Jan, Moderate episode of recurrent major depressive disorder F33.1 and Cluster B personality disorder F60.9 [facility] [address] [facility] [id number], [place] [address] 2546 Jan, [facility] [address] [facility] [id number], [place] [address] 2546 Jan, [facility] [address] [id number], [place] [address] 2546 Dec, Moderate episode of recurrent major depressive disorder F33.1 [facility] [address] [facility] [id number], [place] [address] 2546 Dec, Moderate episode of recurrent major depressive disorder F33.1 [facility] [address], [place] [address]- 1068 Dec, Moderate episode of recurrent major depressive disorder F33.1 and Cluster B personality disorder F60.9 [facility] [address], [place] [address]- 6266 Dec, [facility] [id number] [place] [address] 87127- 1600 Dec, Moderate episode of recurrent major depressive disorder F33.1 [facility] [address], [place] [address]- 6799 Dec, [facility] [address] [place] [address] 74613- 5770 November, Moderate episode of recurrent major depressive disorder F33.1 and Cluster B personality disorder F60.9 [facility] [address], [place] [address] November, [facility] [address], [place] [address] November, Bilateral acute serous otitis media, recurrence not specified H65.03 [facility] [address], [place] [address]- 1693 November, [facility] [address], [place] [address] November, Bilateral acute serous otitis media, recurrence not specified H65.03 [facility] [address], [place] [address]- 8394 November, Severe episode of recurrent major depressive disorder, without psychotic features F33.2 [facility] [address], [place] [address]- 0250 Oct, Moderate episode of recurrent major depressive disorder F33.1 [facility] [address], [place] [address]- 2139 Oct, [facility] [address] [id number] [address] Oct, Moderate episode of recurrent major depressive disorder F33.1 and Cluster B personality disorder F60.9 [facility] [address], [place] [address]- 7781 Oct, [facility] [id number] [place] [address] 84399- 5542 Oct, Severe episode of recurrent major depressive disorder, without psychotic features F33.2 [facility] [address] [place] [address] 70889- 2341 May, Visit for TB skin test Z11.1 [facility] [address] [address] Feb, Encounter for dental examination Z01.20 [facility] [address], [place] [address]- 18[address] Aug, Encounter for immunization Z23 IMMUNIZATIONS No Known Immunizations SOCIAL HISTORY Never Assessed REASON FOR VISIT PALS IN-[facility] PLAN OF CARE VITAL SIGNS MEDICATIONS Unknown Medications RESULTS No Results PROCEDURES No Known procedures INSTRUCTIONS MEDICATIONS ADMINISTERED No Known Medications MEDICAL (GENERAL) HISTORY Type Description Date Medical History depression Medical History anxiety Surgical History [place] teeth 2002 Hospitalization History child x2
--- OUTSIDE RECORDS SUMMARY | 2018-10-10 22:21 | XMS REPORT ---
Author Author ITZEL RENDON [facility] Address [address] [place] [address] Care Team Providers Care Rehab Services Aide Name Role Phone CONNER RENDONTEMI Unavailable PROBLEMS Type Condition ICD9-CM Code XIF87-IX Code Onset Dates Condition Status SNOMED Code Problem Anxiety F41.9 Active 48812652 Problem Mood disorder F39 Active 54313465 Problem Moderate episode of recurrent major depressive disorder F33.1 Active 831203714 Problem Severe episode of recurrent major depressive disorder, without psychotic features F33.2 Active 62615059 Problem Other chronic pain G89.29 Active 50902514 Problem Cluster B personality disorder F60.9 Active 3879199 ALLERGIES No Information ENCOUNTERS Encounter Location Date Diagnosis [place] [id number] [place] [address] 8[address]71- 6284 Oct, [facility] [id number] [place] [address] 07275- 3840 Oct, [place] [id number] [place] [address] 88724- 7820 Sep, Moderate episode of recurrent major depressive disorder F33.1 [facility] [id number] [place] [address] 45270- 8524 Sep, Moderate episode of recurrent major depressive disorder F33.1 and Cluster B personality disorder F60.9 [facility] [address] [address] Aug, Other chest pain R07.89 ; Anxiety F41.9 ; Other chronic pain G89.29 and Pain in left shoulder M25.512 [facility] [id number] [place] [address]13- 9978 Jul, [place] [address] [place] [address] Jul, Moderate episode of recurrent major depressive disorder F33.1 [facility] [address] [address] 2546 Jul, Moderate episode of recurrent major depressive disorder F33.1 and Cluster B personality disorder F60.9 [facility] [address] [address] 2546 Jun, [facility] [address] [address] 2546 May, Moderate episode of recurrent major depressive disorder F33.1 and Cluster B personality disorder F60.9 [facility] [id number] [place] [address] 75627- 5846 May, Moderate episode of recurrent major depressive disorder F33.1 [facility] [address] [address] 2546 May, [facility] [address] [address] 4[address] Apr, Moderate episode of recurrent major depressive disorder F33.1 [facility] [address] [address] 2546 Apr, [facility] [address] [address] 7[address] Apr, [facility] [address] [address] 2546 Apr, [facility] [address] [address] 2546 Apr, Moderate episode of recurrent major depressive disorder F33.1 and Cluster B personality disorder F60.9 [facility] [address] [address] 06 Apr, 2017 Encounter for immunization Z23 [facility] [address] [address] 2546 Mar, Other chronic pain G89.29 ; Pain in left shoulder M25.512 ; Mood disorder F39 and Lymph node enlargement R59.9 [facility] [place] [address] [facility] [id number] [place] [id number] 08 Mar, 2017 Moderate episode of recurrent major depressive disorder F33.1 [facility] [address] [facility] [id number] [address] Feb, Pain in left shoulder M25.512 and Other chronic pain G89.29 [facility] [address] [facility] [id number] [address] 2546 Feb, Moderate episode of recurrent major depressive disorder F33.1 and Cluster B personality disorder F60.9 [facility] [address] [facility] [id number] [place] [address] 2546 Feb, [facility] [id number] [address] Jan, [facility] [id number] [address] 254 Jan, Moderate episode of recurrent major depressive disorder F33.1 [facility] [address] [facility] [id number] [place] [address] 2546 Jan, [facility] [id number] [address] 2546 Jan, Moderate episode of recurrent major depressive disorder F33.1 and Cluster B personality disorder F60.9 [facility] [address] [facility] [id number] [address] 2546 Jan, [facility] [address] [facility] [id number] [address] 2546 Jan, [facility] [id number] [address] 2546 Dec, Moderate episode of recurrent major depressive disorder F33.1 [facility] [address] [facility] [id number] [place] [address] 2546 Dec, Moderate episode of recurrent major depressive disorder F33.1 [facility] [address] [address]- 8[address] Dec, Moderate episode of recurrent major depressive disorder F33.1 and Cluster B personality disorder F60.9 [facility] [address] [address] 6[address] Dec, [facility] [id number] [place] [address] 44319- 8166 Dec, Moderate episode of recurrent major depressive disorder F33.1 [facility] [address] [address]- 8660 Dec, [facility] [address] [place] [address] 69239- 3683 November, Moderate episode of recurrent major depressive disorder F33.1 and Cluster B personality disorder F60.9 [facility] [address] [address] November, [facility] [address] [address] November, Bilateral acute serous otitis media, recurrence not specified H65.03 [facility] [address] [address] 46[address] November, [facility] [address] [address] November, Bilateral acute serous otitis media, recurrence not specified H65.03 [facility] [address] [address]- 0695 November, Severe episode of recurrent major depressive disorder, without psychotic features F33.2 [facility] [address] [address] 6[address] Oct, Moderate episode of recurrent major depressive disorder F33.1 [facility] [address] [address] 83[address] Oct, [facility] [address] [id number] [address] Oct, Moderate episode of recurrent major depressive disorder F33.1 and Cluster B personality disorder F60.9 [facility] [address] [address]- 8897 Oct, [facility] [id number] [place] [address] 82811- 0133 Oct, Severe episode of recurrent major depressive disorder, without psychotic features F33.2 [facility] [address] [place] [address] 27358- 8691 May, Visit for TB skin test Z11.1 [facility] [address] [address] Feb, Encounter for dental examination Z01.20 [facility] [address] [address] Aug, Encounter for immunization Z23 IMMUNIZATIONS No Known Immunizations SOCIAL HISTORY Never Assessed REASON FOR VISIT [place]s in-[place] PLAN OF CARE VITAL SIGNS MEDICATIONS Unknown Medications RESULTS No Results PROCEDURES No Known procedures INSTRUCTIONS MEDICATIONS ADMINISTERED No Known Medications MEDICAL (GENERAL) HISTORY Type Description Date Medical History depression Medical History anxiety Surgical History [place] teeth 2002 Hospitalization History child x2
--- OUTSIDE RECORDS SUMMARY | 2018-10-10 22:21 | XMS REPORT ---
Author Author JEAN MARIE HUNTER Organization [facility] Address [address] [place] [address] Care Team Providers Care Rental Sales Associate Name Role Phone JEAN MARIE HUNTER Unavailable PROBLEMS Type Condition ICD9-CM Code MDU74-LQ Code Onset Dates Condition Status SNOMED Code Problem Mood disorder F39 Active 29406603 Problem Other chronic pain G89.29 Active 05534050 Problem Severe episode of recurrent major depressive disorder, without psychotic features F33.2 Active 73795899 Problem Encounter for dental examination Z01.20 Active 727965535 Problem Cluster B personality disorder F60.9 Active 5836031 Problem Moderate episode of recurrent major depressive disorder F33.1 Active 528777107 ALLERGIES No Information SOCIAL HISTORY Never Assessed PLAN OF CARE Activity Details Follow Up prn Reason: VITAL SIGNS MEDICATIONS Unknown Medications RESULTS No Results PROCEDURES Procedure Date Ordered Result Body Site Psychotherapy, patient &/family, 30 minutes, established patient November 07, 2016 IMMUNIZATIONS No Known Immunizations MEDICAL (GENERAL) HISTORY Type Description Date Medical History depression Medical History anxiety Surgical History [place] teeth 2002 Hospitalization History child x2
--- OUTSIDE RECORDS SUMMARY | 2018-10-10 22:21 | XMS REPORT ---
Author Author ITZEL RENDON [facility] Address [address] [place] [address] Care Team Providers Care Stores Assistant Name Role Phone CONNER RENDONTEMI Unavailable PROBLEMS Type Condition ICD9-CM Code HTT71-FM Code Onset Dates Condition Status SNOMED Code Problem Anxiety F41.9 Active 59063895 Problem Mood disorder F39 Active 38635834 Problem Moderate episode of recurrent major depressive disorder F33.1 Active 099150869 Problem Severe episode of recurrent major depressive disorder, without psychotic features F33.2 Active 21271225 Problem Other chronic pain G89.29 Active 87592124 Problem Cluster B personality disorder F60.9 Active 9828959 ALLERGIES No Information ENCOUNTERS Encounter Location Date Diagnosis [facility] [place] [address] [place] [address] 20082- 6163 Jan, [facility] [place] [id number] [place] [address] 08664- 3560 Dec, [facility] [place] [id number] [place] [address] 98499- 7775 November, Moderate episode of recurrent major depressive disorder F33.1 [facility] [place] [address] [place] [address]16- 5819 Oct, Moderate episode of recurrent major depressive disorder F33.1 and Cluster B personality disorder F60.9 [facility] [place] [id number] [address] Oct, [facility] [place] [id number] [place] [address] 45708- 0720 Sep, Moderate episode of recurrent major depressive disorder F33.1 [facility] [place] [address] [place] [address] 35427- 6809 Sep, Moderate episode of recurrent major depressive disorder F33.1 and Cluster B personality disorder F60.9 [facility] [place] [address] [address]- [address] Aug, Other chest pain R07.89 ; Anxiety F41.9 ; Other chronic pain G89.29 and Pain in left shoulder M25.512 [facility] [place] [id number] [address] Jul, [facility] [place] [id number] [place] [address] 77724 2546 Jul, Moderate episode of recurrent major depressive disorder F33.1 [facility] [place] [id number] [place] [address] 29255- 2566 Jul, Moderate episode of recurrent major depressive disorder F33.1 and Cluster B personality disorder F60.9 [facility] [place] [id number] [place] [address] 39591- 8506 Jun, [facility] [place] [id number] [place] [address] 53308- 9695 May, Moderate episode of recurrent major depressive disorder F33.1 and Cluster B personality disorder F60.9 [facility] [place] [address] [place] [address] 95991- 2847 May, Moderate episode of recurrent major depressive disorder F33.1 [facility] [place] [address] [address]- 0396 May, [facility] [place] [address], [place] [address]- 2546 Apr, Moderate episode of recurrent major depressive disorder F33.1 [facility] [place] [address] [address]- 3096 Apr, [facility] [place] [address], [place] [address]- 3446 Apr, [facility] [place] [address], [place] [address]- 7336 Apr, [facility] [place] [address], [place] [address]- 2688 Apr, Moderate episode of recurrent major depressive disorder F33.1 and Cluster B personality disorder F60.9 [facility] [place] [address], [place] [address]- 4569 Apr, Encounter for immunization Z23 [facility] [place] [address], [place] [address]- 4809 Mar, Other chronic pain G89.29 ; Pain in left shoulder M25.512 ; Mood disorder F39 and Lymph node enlargement R59.9 [facility] [place] [address] [facility] [id number] [place] [id number] 08 Mar, 2017 Moderate episode of recurrent major depressive disorder F33.1 [facility] [address], [place] [address] Feb, Pain in left shoulder M25.512 and Other chronic pain G89.29 [facility] [place] [address], [place] [address]- 7172 Feb, Moderate episode of recurrent major depressive disorder F33.1 and Cluster B personality disorder F60.9 [facility] [place] [address], [place] [address]- 6137 Feb, [facility] [place] [address], [place] [address]- 8903 Jan, [facility] [place] [address], [place] [address]- 7908 Jan, Moderate episode of recurrent major depressive disorder F33.1 [facility] [place] [address], [place] [address]- 4988 Jan, [facility] [place] [address], [place] [address]- 0093 Jan, Moderate episode of recurrent major depressive disorder F33.1 and Cluster B personality disorder F60.9 [facility] [place] [address], [place] [address]- 6358 Jan, [facility] [place] [address] [facility] [id number] [address]- 8596 Jan, [facility] [place] [id number], [place] [address]- 9036 Dec, Moderate episode of recurrent major depressive disorder F33.1 [facility] [place] [address], [place] [address]- 4946 Dec, Moderate episode of recurrent major depressive disorder F33.1 [facility] [place] [id number], [place] [address]- 1786 Dec, Moderate episode of recurrent major depressive disorder F33.1 and Cluster B personality disorder F60.9 [facility] [place] [address], [place] [address]- 0726 Dec, [facility] [place] [address], [place] [address]- 9979 Dec, Moderate episode of recurrent major depressive disorder F33.1 [facility] [place] [address], [place] [address]- 0718 Dec, [facility] [place] [address], [place] [address]- 1810 November, Moderate episode of recurrent major depressive disorder F33.1 and Cluster B personality disorder F60.9 [facility] [place] [address], [place] [address]- 8984 November, [facility] [id number] [address] November, Bilateral acute serous otitis media, recurrence not specified H65.03 [facility] [place] [id number] [address]- 8880 November, [facility] [id number], [place] [address] November, Bilateral acute serous otitis media, recurrence not specified H65.03 [facility] [place] [address], [place] [address]- 5[address] November, Severe episode of recurrent major depressive disorder, without psychotic features F33.2 [facility] [place] [address], [place] [address]- 6480 Oct, Moderate episode of recurrent major depressive disorder F33.1 [facility] [place] [id number] [place] [address] 55220- 2278 Oct, [facility] [id number] [place] [address] Oct, Moderate episode of recurrent major depressive disorder F33.1 and Cluster B personality disorder F60.9 [place] [id number] [place] [address] 98123- 3690 Oct, [facility] [place] [id number] [place] [address] 70117- 0462 Oct, Severe episode of recurrent major depressive disorder, without psychotic features F33.2 [facility] [place] [address] [place] [address] 94888- 4750 May, Visit for TB skin test Z11.1 [facility] [address] [place] [id number] Feb, Encounter for dental examination Z01.20 [facility] [place] [address] [place] [address] 14527- 2108 Aug, Encounter for immunization Z23 IMMUNIZATIONS No Known Immunizations SOCIAL HISTORY Never Assessed REASON FOR VISIT PALS IN-[place] PLAN OF CARE VITAL SIGNS MEDICATIONS Unknown Medications RESULTS No Results PROCEDURES No Known procedures INSTRUCTIONS MEDICATIONS ADMINISTERED No Known Medications MEDICAL (GENERAL) HISTORY Type Description Date Medical History depression Medical History anxiety Surgical History [place] teeth 2002 Hospitalization History child x2
--- OUTSIDE RECORDS SUMMARY | 2018-10-10 22:22 | XMS REPORT ---
Author Author ITZEL RENDON [facility] Address [address] [place] [address] Care Team Providers Care International Exchange Coordinator Name Role Phone CONNER RENDONTEMI Unavailable PROBLEMS Type Condition ICD9-CM Code [id number] Code Onset Dates Condition Status SNOMED Code Problem Anxiety F41.9 Active 36418811 Problem Mood disorder F39 Active 95074242 Problem Moderate episode of recurrent major depressive disorder F33.1 Active 014524296 Problem Severe episode of recurrent major depressive disorder, without psychotic features F33.2 Active 99617482 Problem Other chronic pain G89.29 Active 49530240 Problem Cluster B personality disorder F60.9 Active 3444162 ALLERGIES No Information ENCOUNTERS Encounter Location Date Diagnosis [place] [id number] [place] [address] Oct, [facility] [address] [address] Oct, [facility] [address] [address] Oct, [facility] [id number] [place] [address] Sep, Moderate episode of recurrent major depressive disorder F33.1 [facility] [id number] [place] [address] Sep, Moderate episode of recurrent major depressive disorder F33.1 and Cluster B personality disorder F60.9 [facility] [address] [address] Aug, Other chest pain R07.89 ; Anxiety F41.9 ; Other chronic pain G89.29 and Pain in left shoulder M25.512 [facility] [address] [place] [address] Jul, [facility] [address] [facility] [id number] [address] Jul, Moderate episode of recurrent major depressive disorder F33.1 [facility] [address] [id number], [place] [address] 25[address] Jul, Moderate episode of recurrent major depressive disorder F33.1 and Cluster B personality disorder F60.9 [facility] [address], [place] [address] Jun, [facility] [address] [id number] [address] 2546 May, Moderate episode of recurrent major depressive disorder F33.1 and Cluster B personality disorder F60.9 [facility] [address], [place] [address] May, Moderate episode of recurrent major depressive disorder F33.1 [facility] [address], [place] [address] May, [facility] [address] [id number], [place] [address] 25[address] Apr, Moderate episode of recurrent major depressive disorder F33.1 [facility] [address], [place] [address] 25[address] Apr, [facility] [address], [place] [address] 25[address] Apr, [facility] [id number], [place] [address] 2546 Apr, [facility] [id number], [place] [address] 2546 Apr, Moderate episode of recurrent major depressive disorder F33.1 and Cluster B personality disorder F60.9 [facility] [id number], [place] [address] Apr, Encounter for immunization Z23 [facility] [address] [id number], [place] [address] Mar, Other chronic pain G89.29 ; Pain in left shoulder M25.512 ; Mood disorder F39 and Lymph node enlargement R59.9 [facility] [place] [address] [address] [facility] C [id number] [place] [id number] 08 Mar, 2017 Moderate episode of recurrent major depressive disorder F33.1 [facility] [address] [id number], [place] [address] Feb, Pain in left shoulder M25.512 and Other chronic pain G89.29 [facility] [address] [facility] [id number], [place] [address] Feb, Moderate episode of recurrent major depressive disorder F33.1 and Cluster B personality disorder F60.9 [facility] [address] [id number], [place] [address] Feb, [facility] [id number], [place] [address] Jan, [facility] [address] [id number], [place] [address] Jan, Moderate episode of recurrent major depressive disorder F33.1 [facility] [id number], [place] [address] Jan, [facility] [id number], [place] [address] Jan, Moderate episode of recurrent major depressive disorder F33.1 and Cluster B personality disorder F60.9 [facility] [address] [facility] [id number], [place] [address] Jan, [facility] [id number], [place] [address] Jan, [facility] [id number], [place] [address] Dec, Moderate episode of recurrent major depressive disorder F33.1 [facility] [address], [place] [address] Dec, Moderate episode of recurrent major depressive disorder F33.1 [facility] [address] [address] Dec, Moderate episode of recurrent major depressive disorder F33.1 and Cluster B personality disorder F60.9 [facility] [address], [place] [address] Dec, [facility] [address], [place] [address] Dec, Moderate episode of recurrent major depressive disorder F33.1 [facility] [address] [place] [address]- [address] Dec, [facility] [address], [place] [address] November, Moderate episode of recurrent major depressive disorder F33.1 and Cluster B personality disorder F60.9 [facility] [address], [place] [address] November, [facility] [address], [place] [address] November, Bilateral acute serous otitis media, recurrence not specified H65.03 [facility] [address], [place] [address] November, [facility] [address], [place] [address] November, Bilateral acute serous otitis media, recurrence not specified H65.03 [facility] [address], [place] [address] November, Severe episode of recurrent major depressive disorder, without psychotic features F33.2 [facility] [address], [place] [address]- [address] Oct, Moderate episode of recurrent major depressive disorder F33.1 [facility] [address] [id number], [place] [address] Oct, [facility] [id number] [address] Oct, Moderate episode of recurrent major depressive disorder F33.1 and Cluster B personality disorder F60.9 [facility] [address], [place] [address] Oct, [facility] [address] [place] [address]- 6068 Oct, Severe episode of recurrent major depressive disorder, without psychotic features F33.2 [place] [address] [place] [address]- [address] May, Visit for TB skin test Z11.1 [facility] [address] [id number] Feb, Encounter for dental examination Z01.20 [facility] [address], [place] [address] Aug, Encounter for immunization Z23 IMMUNIZATIONS No Known Immunizations SOCIAL HISTORY Never Assessed REASON FOR VISIT PALS-rexulti 2mg PLAN OF CARE VITAL SIGNS MEDICATIONS Medication Instructions Dosage Frequency Start Date End Date Duration Status Rexulti 2 MG Orally Once a day 1 tablet 24h 90 days Active RESULTS No Results PROCEDURES No Known procedures INSTRUCTIONS MEDICATIONS ADMINISTERED No Known Medications MEDICAL (GENERAL) HISTORY Type Description Date Medical History depression Medical History anxiety Surgical History [place] teeth 2002 Hospitalization History child x2
--- OUTSIDE RECORDS SUMMARY | 2018-10-10 22:22 | XMS REPORT ---
Author BYRON Phipps [employer] Address Unknown Phone Unavailable Care Team Providers Care Director Gift Name Role Phone BYRON SKINNER CP Unavailable Allergies No Known Allergies Problems Problem Type Condition Code Onset Dates Condition Status Assessment Visit for TB skin test Z11.1 Active Problem Encounter for dental examination Z01.20 Active Medications No Known Medications Procedures Procedure Coding System Code Date TB INTRADERMAL TEST CPT-4 96593 May 24, 2016 Results Name Result Date Reference Range Unit Abnormality Flag TB INTRADERMAL ----INDURATION (mm) 0mm 20160526 0 - 15 mm ----Time Read [id number] ----Date read 05/26/1520160526 ----Injected by Darrian [id number] ----Exp. date [id number] ----Read by Darrian [id number] ----Date injected 05/24/1620160526 ----RESULTS (Pos/Neg) negative 20160526 ----Time Injected [id number] ----Site LFA [id number] ----Lot # [id number] Summary Purpose [employer] Submission
--- OUTSIDE RECORDS SUMMARY | 2018-10-10 22:22 | XMS REPORT ---
Author Author ITZEL RENDON [facility] Address [address] [place] [address] Care Team Providers Care Kettle Chipper Name Role Phone CONNER RENDONTEMI Unavailable PROBLEMS Type Condition ICD9-CM Code [id number] Code Onset Dates Condition Status SNOMED Code Problem Anxiety F41.9 Active 09637403 Problem Mood disorder F39 Active 98671587 Problem Moderate episode of recurrent major depressive disorder F33.1 Active 252383340 Problem Severe episode of recurrent major depressive disorder, without psychotic features F33.2 Active 72142246 Problem Other chronic pain G89.29 Active 50511060 Problem Cluster B personality disorder F60.9 Active 5475886 ALLERGIES No Information ENCOUNTERS Encounter Location Date Diagnosis [place] [id number] [place] [address] Oct, [facility] [address] [address] Oct, [facility] [address] [address] Oct, [facility] [id number] [place] [address]- [address] Sep, Moderate episode of recurrent major depressive disorder F33.1 [facility] [id number] [place] [address]- 133[address] Sep, Moderate episode of recurrent major depressive disorder F33.1 and Cluster B personality disorder F60.9 [facility] [address] [address] Aug, Other chest pain R07.89 ; Anxiety F41.9 ; Other chronic pain G89.29 and Pain in left shoulder M25.512 [facility] [address] [place] [address] Jul, [facility] [address] [facility] [id number], [place] [address] 2546 Jul, Moderate episode of recurrent major depressive disorder F33.1 [facility] [address] [id number], [place] [address] 2546 Jul, Moderate episode of recurrent major depressive disorder F33.1 and Cluster B personality disorder F60.9 [facility] [address], [place] [address] Jun, [facility] [address] [id number], [place] [address] 2546 May, Moderate episode of recurrent major depressive disorder F33.1 and Cluster B personality disorder F60.9 [facility] [address], [place] [address] May, Moderate episode of recurrent major depressive disorder F33.1 [facility] [address], [place] [address] 2546 May, [facility] [id number], [place] [address] 2546 Apr, Moderate episode of recurrent major depressive disorder F33.1 [facility] [address], [place] [address] 2546 Apr, [facility] [address], [place] [address] 2546 Apr, [facility] [id number], [place] [address] 2546 Apr, [facility] [id number], [place] [address] 2546 Apr, Moderate episode of recurrent major depressive disorder F33.1 and Cluster B personality disorder F60.9 [facility] [address] [id number], [place] [address]- 25[address] Apr, Encounter for immunization Z23 [facility] [address] [id number], [place] [address] Mar, Other chronic pain G89.29 ; Pain in left shoulder M25.512 ; Mood disorder F39 and Lymph node enlargement R59.9 [facility] [place] [address] [facility] C [id number] [place] [id number] 08 Mar, 2017 Moderate episode of recurrent major depressive disorder F33.1 [facility] [address] [id number], [place] [address] Feb, Pain in left shoulder M25.512 and Other chronic pain G89.29 [facility] [address] [facility] [id number], [place] [address] Feb, Moderate episode of recurrent major depressive disorder F33.1 and Cluster B personality disorder F60.9 [facility] [address] [id number], [place] [address]- 6[address] Feb, [facility] [id number], [place] [address]- [address] Jan, [facility] [id number], [place] [address]- 16[address] Jan, Moderate episode of recurrent major depressive disorder F33.1 [facility] [id number], [place] [address]- 9[address] Jan, [facility] [id number], [place] [address]- [address] Jan, Moderate episode of recurrent major depressive disorder F33.1 and Cluster B personality disorder F60.9 [facility] [address] [facility] [id number], [place] [address]- [address] Jan, [facility] [id number], [place] [address]- [address] Jan, [facility] [id number], [place] [address]- [address] Dec, Moderate episode of recurrent major depressive disorder F33.1 [facility] [address], [place] [address]- 111[address] Dec, Moderate episode of recurrent major depressive disorder F33.1 [facility] [address] [address] Dec, Moderate episode of recurrent major depressive disorder F33.1 and Cluster B personality disorder F60.9 [facility] [address], [place] [address]- 7[address] Dec, [facility] [address], [place] [address]- 8461 Dec, Moderate episode of recurrent major depressive disorder F33.1 [facility] [address] [place] [address] 7[address]- 29[address] Dec, [facility] [address], [place] [address]- 4[address] November, Moderate episode of recurrent major depressive disorder F33.1 and Cluster B personality disorder F60.9 [facility] [address], [place] [address] November, [facility] [address]005[address], [place] [address] November, Bilateral acute serous otitis media, recurrence not specified H65.03 [facility] [address], [place] [address] November, [facility] [address], [place] [address] November, Bilateral acute serous otitis media, recurrence not specified H65.03 [facility] [address], [place] [address]- [address] November, Severe episode of recurrent major depressive disorder, without psychotic features F33.2 [facility] [address], [place] [address]- 90[address] Oct, Moderate episode of recurrent major depressive disorder F33.1 [facility] [address] [id number], [place] [address]- [address] Oct, [facility] [id number] [address] Oct, Moderate episode of recurrent major depressive disorder F33.1 and Cluster B personality disorder F60.9 [facility] [address], [place] [address]- 85[address] Oct, [facility] [address] [place] [address]- [address] Oct, Severe episode of recurrent major depressive disorder, without psychotic features F33.2 [place] [address], [place] [address] May, Visit for TB skin test Z11.1 [facility] [address] [address] Feb, Encounter for dental examination Z01.20 [facility] [address], [place] [address] Aug, Encounter for immunization Z23 IMMUNIZATIONS No [...] History depression Medical History anxiety Surgical History [place] teeth 2002 Hospitalization History child x2
--- OUTSIDE RECORDS SUMMARY | 2018-10-10 22:22 | XMS REPORT ---
Author Author KWABENA HERNANDES Organization [facility] Address [address] [place] [address] Care Team Providers Care Justice Of The Peace Name Role Phone KWABENA HERNANDES Unavailable PROBLEMS Type Condition ICD9-CM Code [id number] Code Onset Dates Condition Status SNOMED Code Problem Anxiety F41.9 Active 82302338 Problem Mood disorder F39 Active 26184955 Problem Moderate episode of recurrent major depressive disorder F33.1 Active 072267999 Problem Severe episode of recurrent major depressive disorder, without psychotic features F33.2 Active 02653821 Problem Other chronic pain G89.29 Active 10945878 Problem Cluster B personality disorder F60.9 Active 7892516 ALLERGIES No Information ENCOUNTERS Encounter Location Date Diagnosis [facility] [id number] [place] [address] 21383- 7106 Dec, [facility] [id number] [place] [address] 72926- 5958 27 Oct, 2017 Moderate episode of recurrent major depressive disorder F33.1 and Cluster B personality disorder F60.9 [facility] [id number] [place] [address] 77272- 7153 Oct, [facility] [id number] [place] [address] 00878- 5549 Sep, Moderate episode of recurrent major depressive disorder F33.1 [facility] [id number] [place] [address] 37204- 3048 Sep, Moderate episode of recurrent major depressive disorder F33.1 and Cluster B personality disorder F60.9 [facility] [id number] [place] [address] 66420- 7239 Aug, Other chest pain R07.89 ; Anxiety F41.9 ; Other chronic pain G89.29 and Pain in left shoulder M25.512 [facility] [address] [facility] [id number] [address] 2546 Jul, [facility] [address] [facility] [id number] [place] [address] 2546 Jul, Moderate episode of recurrent major depressive disorder F33.1 [facility] [address] [id number] [place] [address] 2546 Jul, Moderate episode of recurrent major depressive disorder F33.1 and Cluster B personality disorder F60.9 [facility] [address] [id number] [address] 2546 Jun, [facility] [address] [id number] [address] 2546 May, Moderate episode of recurrent major depressive disorder F33.1 and Cluster B personality disorder F60.9 [facility] [address]100[place] [address] May, Moderate episode of recurrent major depressive disorder F33.1 [facility] [address] [id number] [address] 2546 May, [facility] [address] [id number] [address] 2546 Apr, Moderate episode of recurrent major depressive disorder F33.1 [facility] [address] [id number] [address] 2546 Apr, [facility] [address] [id number] [address] 2546 Apr, [facility] [address] [id number] [address] 2546 Apr, [facility] [address] [id number] [address] 2546 Apr, Moderate episode of recurrent major depressive disorder F33.1 and Cluster B personality disorder F60.9 [facility] [id number] [place] [address] 47200- 2634 Apr, Encounter for immunization Z23 [facility] [address] [id number] [address] Mar, Other chronic pain G89.29 ; Pain in left shoulder M25.512 ; Mood disorder F39 and Lymph node enlargement R59.9 [facility] [place] [address] [facility] [id number] [place] [id number] Mar, Moderate episode of recurrent major depressive disorder F33.1 [facility] [address] [id number] [address] Feb, Pain in left shoulder M25.512 and Other chronic pain G89.29 [facility] [id number] [place] [address] 33560- 5178 Feb, Moderate episode of recurrent major depressive disorder F33.1 and Cluster B personality disorder F60.9 [facility] [id number] [place] [address] 05145- 1901 Feb, [facility] [id number] [place] [address] 63168- 7430 Jan, [facility] [id number] [place] [address] 51505- 9917 Jan, Moderate episode of recurrent major depressive disorder F33.1 [facility] [address] [address] Jan, [facility] [address] [address] 99[address] Jan, Moderate episode of recurrent major depressive disorder F33.1 and Cluster B personality disorder F60.9 [facility] [address] [address] Jan, [facility] [address] [address] 0[address] Jan, [facility] [id number] [place] [address] 81511- 8331 Dec, Moderate episode of recurrent major depressive disorder F33.1 [facility] [address] [address] Dec, Moderate episode of recurrent major depressive disorder F33.1 [facility] [address] [address] 9[address] Dec, Moderate episode of recurrent major depressive disorder F33.1 and Cluster B personality disorder F60.9 [facility] [id number] [place] [address] 43390- 0165 Dec, [facility] [id number] [place] [address] 96091- 4157 Dec, Moderate episode of recurrent major depressive disorder F33.1 [place] [id number] [place] [address] 89947- 9093 Dec, [facility] [id number] [place] [address] 64963- 3534 November, Moderate episode of recurrent major depressive disorder F33.1 and Cluster B personality disorder F60.9 [place] [id number] [place] [address] 43166- 0993 November, [facility] [address] [address] November, Bilateral acute serous otitis media, recurrence not specified H65.03 [facility] [address] [address] November, [facility] [address] [address] November, Bilateral acute serous otitis media, recurrence not specified H65.03 [facility] [id number] [place] [address] 55217- 0461 November, Severe episode of recurrent major depressive disorder, without psychotic features F33.2 [facility] [id number] [place] [address] 19052- 0375 Oct, Moderate episode of recurrent major depressive disorder F33.1 [facility] [address] [address]- [address]87 Oct, [facility] [id number] [address] Oct, Moderate episode of recurrent major depressive disorder F33.1 and Cluster B personality disorder F60.9 [facility] [id number] [place] [address] 14050- 5643 Oct, [facility] [id number] [place] [address] 35434- 0661 Oct, Severe episode of recurrent major depressive disorder, without psychotic features F33.2 [facility] [id number] [place] [address] 04529- 6615 May, Visit for TB skin test Z11.1 [facility] [address] [place] [address] [id number] Feb, Encounter for dental examination Z01.20 [facility] [id number] [place] [address] 48181- 1933 Aug, Encounter for immunization Z23 IMMUNIZATIONS Vaccine Route Administration Date Status FLUARIX QUAD (3 AND UP) 2016 IM Intramuscular Apr 13, 2017 Administered SOCIAL HISTORY Never Assessed REASON FOR VISIT Immunization(s) - HALEY Purcell PLAN OF CARE VITAL SIGNS MEDICATIONS Unknown Medications RESULTS No Results PROCEDURES Procedure Date Ordered Result Body Site FLUARIX QUAD (3 & UP)-GSK-2015 Apr 13, 2017 SINGLE IMMUNIZATION ADMIN Apr 13, 2017 INSTRUCTIONS MEDICATIONS ADMINISTERED No Known Medications MEDICAL (GENERAL) HISTORY Type Description Date Medical History depression Medical History anxiety Surgical History [place] teeth 2001 Hospitalization History child x2
--- OUTSIDE RECORDS SUMMARY | 2018-10-10 22:22 | XMS REPORT ---
Author Author ITZEL RENDON [facility] Address [address] [place] [address] Care Team Providers Care Tool Trouble Shooter Name Role Phone CONNER RENDONTEMI Unavailable PROBLEMS Type Condition ICD9-CM Code IUO20-MX Code Onset Dates Condition Status SNOMED Code Problem Anxiety F41.9 Active 85843322 Problem Mood disorder F39 Active 50288278 Problem Moderate episode of recurrent major depressive disorder F33.1 Active 373966587 Problem Severe episode of recurrent major depressive disorder, without psychotic features F33.2 Active 93808215 Problem Other chronic pain G89.29 Active 72348544 Problem Cluster B personality disorder F60.9 Active 2203457 ALLERGIES No Information ENCOUNTERS Encounter Location Date Diagnosis [place] [id number] [place] [address] 20515- 1322 Oct, [facility] [place] [id number] [place] [address] 28721- 5805 Oct, [address] [place] [id number] [place] [address] 62125- 1380 Sep, Moderate episode of recurrent major depressive disorder F33.1 [facility] [place] [id number] [place] [address] 10338- 6103 Sep, Moderate episode of recurrent major depressive disorder F33.1 and Cluster B personality disorder F60.9 [facility] [place] [address] [address] Aug, Other chest pain R07.89 ; Anxiety F41.9 ; Other chronic pain G89.29 and Pain in left shoulder M25.512 [facility] [place] [id number] [place] [address] 81558- 1982 Jul, [place] [address] [place] [address]46 Jul, Moderate episode of recurrent major depressive disorder F33.1 [facility] [place] [address] [address] 2546 Jul, Moderate episode of recurrent major depressive disorder F33.1 and Cluster B personality disorder F60.9 [facility] [place] [address] [address] 2546 Jun, [facility] [place] [address] [address] 2546 May, Moderate episode of recurrent major depressive disorder F33.1 and Cluster B personality disorder F60.9 [facility] [place] [id number] [place] [address] 30192- 9426 May, Moderate episode of recurrent major depressive disorder F33.1 [facility] [place] [address] [address] 2546 May, [facility] [place] [address] [address]- 4487 Apr, Moderate episode of recurrent major depressive disorder F33.1 [facility] [place] [address] [address] 2546 Apr, [facility] [place] [address] [address]- 3396 Apr, [facility] [place] [address] [address] 2546 Apr, [facility] [place] [address] [address] 2546 Apr, Moderate episode of recurrent major depressive disorder F33.1 and Cluster B personality disorder F60.9 [facility] [place] [address] [address]- [address] 06 Apr, 2017 Encounter for immunization Z23 [facility] [place] [address] [address] 2546 Mar, Other chronic pain G89.29 ; Pain in left shoulder M25.512 ; Mood disorder F39 and Lymph node enlargement R59.9 [facility] [place] [address] [facility] [id number] [place] [id number] 08 Mar, 2017 Moderate episode of recurrent major depressive disorder F33.1 [facility] [address] [facility] [id number] [address] Feb, Pain in left shoulder M25.512 and Other chronic pain G89.29 [facility] [place] [address] [facility] [id number] [place] [address] 2546 Feb, Moderate episode of recurrent major depressive disorder F33.1 and Cluster B personality disorder F60.9 [facility] [place] [address] [facility] [id number] [place] [address] 2546 Feb, [facility] [place] [address] [id number] [address]- 5286 Jan, [facility] [place] [address] [id number] [address] 2543 Jan, Moderate episode of recurrent major depressive disorder F33.1 [facility] [place] [address] [facility] [id number] [place] [address] 2546 Jan, [facility] [place] [address] [id number] [address] 2546 Jan, Moderate episode of recurrent major depressive disorder F33.1 and Cluster B personality disorder F60.9 [facility] [place] [address] [facility] [id number] [place] [address] 2546 Jan, [facility] [place] [address] [facility] [id number] [place] [address] 2546 Jan, [facility] [place] [address] [id number] [address] 2546 Dec, Moderate episode of recurrent major depressive disorder F33.1 [facility] [place] [address] [facility] [id number] [place] [address] 2546 Dec, Moderate episode of recurrent major depressive disorder F33.1 [facility] [place] [address] [address]- 1820 Dec, Moderate episode of recurrent major depressive disorder F33.1 and Cluster B personality disorder F60.9 [facility] [place] [address] [address]- 3166 Dec, [facility] [place] [id number] [place] [address] 12755- 1885 Dec, Moderate episode of recurrent major depressive disorder F33.1 [facility] [place] [address] [address]- 2280 Dec, [facility] [place] [address] [place] [address] 22269- 7147 November, Moderate episode of recurrent major depressive disorder F33.1 and Cluster B personality disorder F60.9 [facility] [place] [address] [address]- 5145 November, [facility] [address] [address] November, Bilateral acute serous otitis media, recurrence not specified H65.03 [facility] [place] [address] [address]- 2614 November, [facility] [address] [address] November, Bilateral acute serous otitis media, recurrence not specified H65.03 [facility] [place] [address] [address]- 0252 November, Severe episode of recurrent major depressive disorder, without psychotic features F33.2 [facility] [place] [address] [address]- 1706 Oct, Moderate episode of recurrent major depressive disorder F33.1 [facility] [place] [address] [address]- 9168 Oct, [facility] [address] [id number] [address] Oct, Moderate episode of recurrent major depressive disorder F33.1 and Cluster B personality disorder F60.9 [facility] [place] [address] [address]- 2123 Oct, [facility] [place] [id number] [place] [address] 77446- 6006 Oct, Severe episode of recurrent major depressive disorder, without psychotic features F33.2 [facility] [place] [address] [address]- 3849 May, Visit for TB skin test Z11.1 [facility] [address] [id number] Feb, Encounter for dental examination Z01.20 [facility] [place] [address] [address]- 2483 Aug, Encounter for immunization Z23 IMMUNIZATIONS No Known Immunizations SOCIAL HISTORY Never Assessed REASON FOR VISIT medication PLAN OF CARE VITAL SIGNS MEDICATIONS Medication Instructions Dosage Frequency Start Date End Date Duration Status Latuda 20 mg Orally Once a day 1 tablet 24h Jan, 30 day(s) Active RESULTS No Results PROCEDURES No Known procedures INSTRUCTIONS MEDICATIONS ADMINISTERED No Known Medications MEDICAL (GENERAL) HISTORY Type Description Date Medical History depression Medical History anxiety Surgical History [place] teeth 2001 Hospitalization History child x2
--- OUTSIDE RECORDS SUMMARY | 2018-10-10 22:23 | XMS REPORT ---
Author Author ITZEL RENDON [facility] Address [address] [place] [address] Care Team Providers Care Junior Art Director Name Role Phone CONNER RENDONTEMI Unavailable PROBLEMS Type Condition ICD9-CM Code [id number] Code Onset Dates Condition Status SNOMED Code Problem Anxiety F41.9 Active 92106768 Problem Mood disorder F39 Active 29508492 Problem Moderate episode of recurrent major depressive disorder F33.1 Active 813984385 Problem Severe episode of recurrent major depressive disorder, without psychotic features F33.2 Active 30288486 Problem Other chronic pain G89.29 Active 47572209 Problem Cluster B personality disorder F60.9 Active 3161811 ALLERGIES No Information ENCOUNTERS Encounter Location Date Diagnosis [place] [id number] [place] [address] 86273- 0640 Oct, [place] [id number] [place] [address] 90400- 6542 Sep, Moderate episode of recurrent major depressive disorder F33.1 [place] [id number] [place] [address] 98290- 2987 Sep, Moderate episode of recurrent major depressive disorder F33.1 and Cluster B personality disorder F60.9 [place] [id number] [place] [address] 16179- 6156 Aug, Other chest pain R07.89 ; Anxiety F41.9 ; Other chronic pain G89.29 and Pain in left shoulder M25.512 [place] [id number] [place] [address] 33587- 1201 Jul, [place] [id number] [place] [address] 18663- 2059 Jul, Moderate episode of recurrent major depressive disorder F33.1 [place] [address] [address] 2546 Jul, Moderate episode of recurrent major depressive disorder F33.1 and Cluster B personality disorder F60.9 [facility], [place] [address], [place] [address] 2546 Jun, [facility], [place] [address], [place] [address] 2546 May, Moderate episode of recurrent major depressive disorder F33.1 and Cluster B personality disorder F60.9 [facility], [place] [address], [place] [address] 2546 May, Moderate episode of recurrent major depressive disorder F33.1 [facility], [place] [address], [place] [address] 2546 May, [facility], [place] [id number] [place] [address] 36094 2546 Apr, Moderate episode of recurrent major depressive disorder F33.1 [facility], [place] [address], [place] [address] 2546 Apr, [facility], [place] [id number] [place] [address] 82589 2546 Apr, [facility], [place] [address], [place] [address] 2546 Apr, [facility], [place] [id number] [address] 2546 Apr, Moderate episode of recurrent major depressive disorder F33.1 and Cluster B personality disorder F60.9 [facility], [place] [address] [place] [address] 96986 2546 Apr, Encounter for immunization Z23 [facility], [place] [id number] [address] 2546 28 Mar, 2017 Other chronic pain G89.29 ; Pain in left shoulder M25.512 ; Mood disorder F39 and Lymph node enlargement R59.9 [facility] [place] [address] [facility] [id number] [place] [id number] Mar, Moderate episode of recurrent major depressive disorder F33.1 [facility] [address] [facility] [id number] [place] [address] Feb, Pain in left shoulder M25.512 and Other chronic pain G89.29 [facility], [place] [address] [id number], [place] [address] Feb, Moderate episode of recurrent major depressive disorder F33.1 and Cluster B personality disorder F60.9 [facility], [place] [address] [facility] [id number] [place] [address] 2546 Feb, [facility], [place] [address] [facility] [id number], [place] [address] Jan, [facility], [place] [address] [facility] [id number], [place] [address] Jan, Moderate episode of recurrent major depressive disorder F33.1 [facility], [place] [address] [facility] [id number] [place] [address] Jan, [facility], [place] [address] [facility] [id number] [place] [address] Jan, Moderate episode of recurrent major depressive disorder F33.1 and Cluster B personality disorder F60.9 [facility], [place] [address] [facility] [id number], [place] [address] Jan, [facility], [place] [address] [facility] [id number], [place] [address] 2546 Jan, [facility], [place] [address] [facility] [id number], [place] [address] 2546 Dec, Moderate episode of recurrent major depressive disorder F33.1 [facility], [place] [address] [facility] [id number] [place] [address] 2546 Dec, Moderate episode of recurrent major depressive disorder F33.1 [facility], [place] [id number] [place] [address] 35880- 6168 Dec, Moderate episode of recurrent major depressive disorder F33.1 and Cluster B personality disorder F60.9 [facility], [place] [address] [place] [address] 68868- 9748 Dec, [facility], [place] [address], [place] [address] 6281 Dec, Moderate episode of recurrent major depressive disorder F33.1 [facility], [place] [address] [place] [address] 89938- 6125 Dec, [facility], [place] [address], [place] [address] November, Moderate episode of recurrent major depressive disorder F33.1 and Cluster B personality disorder F60.9 [facility], [place] [address], [place] [address] November, [facility] [id number] [place] [address] 29431 -2610 November, Bilateral acute serous otitis media, recurrence not specified H65.03 [facility], [place] [id number] [place] [address] 27106- 5007 November, [facility] [address], [place] [address] November, Bilateral acute serous otitis media, recurrence not specified H65.03 [facility], [place] [address], [place] [address] 9682 November, Severe episode of recurrent major depressive disorder, without psychotic features F33.2 [facility], [place] [address], [place] [address] Oct, Moderate episode of recurrent major depressive disorder F33.1 [facility], [place] [address], [place] [address] 3[address] Oct, [facility] [id number] [address] Oct, Moderate episode of recurrent major depressive disorder F33.1 and Cluster B personality disorder F60.9 [facility], [place] [id number], [place] [address] 3946 Oct, [facility], [place] [id number] [place] [address] 29467- 3853 Oct, Severe episode of recurrent major depressive disorder, without psychotic features F33.2 [facility], [place] [id number] [place] [address] 69450- 4062 May, Visit for TB skin test Z11.1 [facility] [address] [place] [id number] Feb, Encounter for dental examination Z01.20 [facility], [place] [address], [place] [address] Aug, Encounter for immunization Z23 IMMUNIZATIONS No Known Immunizations SOCIAL HISTORY Never Assessed REASON FOR VISIT Refill request PLAN OF CARE VITAL SIGNS MEDICATIONS Medication Instructions Dosage Frequency Start Date End Date Duration Status Venlafaxine HCl 25 MG Orally Once a day 1 tablet with food 24h 30 day (s) Active Venlafaxine HCl 37.5 MG Orally 2 times a day 1 tablet with food 12h 12 Jan 90 days Active RESULTS No Results PROCEDURES No Known procedures INSTRUCTIONS MEDICATIONS ADMINISTERED No Known Medications MEDICAL (GENERAL) HISTORY Type Description Date Medical History depression Medical History anxiety Surgical History [place] teeth 2001 Hospitalization History child x2
--- OUTSIDE RECORDS SUMMARY | 2018-10-10 22:23 | XMS REPORT ---
Author Author ITZEL RENDON [facility] Address [address] [place] [address] Care Team Providers Care Viscera Washer Name Role Phone CONNER RENDONTEMI Unavailable PROBLEMS Type Condition ICD9-CM Code ESI01-ZZ Code Onset Dates Condition Status SNOMED Code Problem Anxiety F41.9 Active 80643579 Problem Mood disorder F39 Active 23741906 Problem Moderate episode of recurrent major depressive disorder F33.1 Active 681069529 Problem Severe episode of recurrent major depressive disorder, without psychotic features F33.2 Active 86643306 Problem Other chronic pain G89.29 Active 78502897 Problem Cluster B personality disorder F60.9 Active 4531689 ALLERGIES Substance Reaction Event Type Date Status Sulfacetamide Sodium Unknown Drug Allergy Jan, Active PredniSONE Unknown Drug Allergy Jan, Active Penicillin V Potassium Unknown Drug Allergy Jan, Active Cefprozil Unknown Drug Allergy Jan, Active ENCOUNTERS Encounter Location Date Diagnosis [place] [id number] [place] [address] 79781- 2377 Oct, [place] [id number] [place] [address] 02923- 1492 Oct, [facility], [place] [id number] [place] [address] 87772- 1639 Sep, Moderate episode of recurrent major depressive disorder F33.1 [facility], [place] [id number] [place] [address] 19950- 4105 Sep, Moderate episode of recurrent major depressive disorder F33.1 and Cluster B personality disorder F60.9 [place] [id number] [place] [address] 73327- 3264 Aug, Other chest pain R07.89 ; Anxiety F41.9 ; Other chronic pain G89.29 and Pain in left shoulder M25.512 [facility], [place] [id number], [place] [address] 2546 Jul, [facility], [place] [id number], [place] [address] 2546 Jul, Moderate episode of recurrent major depressive disorder F33.1 [facility], [place] [id number], [place] [address] 2546 Jul, Moderate episode of recurrent major depressive disorder F33.1 and Cluster B personality disorder F60.9 [facility], [place] [id number], [place] [address] 2546 Jun, [facility], [place] [id number], [place] [address] 2546 May, Moderate episode of recurrent major depressive disorder F33.1 and Cluster B personality disorder F60.9 [facility], [place] [address], [place] [address]- 3936 May, Moderate episode of recurrent major depressive disorder F33.1 [facility], [place] [id number], [place] [address]- 0396 May, [facility], [place] [id number], [place] [address]- 8786 Apr, Moderate episode of recurrent major depressive disorder F33.1 [facility], [place] [address], [place] [address] 2546 Apr, [facility], [place] [id number], [place] [address] 2546 Apr, [facility], [place] [address] [id number], [place] [address] 2546 Apr, [facility], [place] [id number], [place] [address] 2546 Apr, Moderate episode of recurrent major depressive disorder F33.1 and Cluster B personality disorder F60.9 [facility], [place] [id number], [place] [address]- 6797 Apr, Encounter for immunization Z23 [facility], [place] [id number], [place] [address]- 9264 Mar, Other chronic pain G89.29 ; Pain in left shoulder M25.512 ; Mood disorder F39 and Lymph node enlargement R59.9 [facility] [place] [address] [facility] [id number] [place] [id number] Mar, Moderate episode of recurrent major depressive disorder F33.1 [facility] [id number], [place] [address] Feb, Pain in left shoulder M25.512 and Other chronic pain G89.29 [facility], [place] [address] [place] [address] 87740- 4841 Feb, Moderate episode of recurrent major depressive disorder F33.1 and Cluster B personality disorder F60.9 [facility], [place] [id number] [place] [address] 09279- 5336 Feb, [facility], [place] [address] [place] [address] 76452- 1758 Jan, [facility], [place] [address] [place] [address] 97043- 2910 Jan, Moderate episode of recurrent major depressive disorder F33.1 [facility], [place] [address], [place] [address]- 0864 Jan, [facility], [place] [address] [place] [address] 81984- 2078 Jan, Moderate episode of recurrent major depressive disorder F33.1 and Cluster B personality disorder F60.9 [facility], [place] [address], [place] [address]- 0469 Jan, [facility], [place] [id number], [place] [address]- 3614 Jan, [facility], [place] [address] [place] [address] 22871- 9988 Dec, Moderate episode of recurrent major depressive disorder F33.1 [facility], [place] [address], [place] [address]- 0106 Dec, Moderate episode of recurrent major depressive disorder F33.1 [facility], [place] [address], [place] [address]- 3126 Dec, Moderate episode of recurrent major depressive disorder F33.1 and Cluster B personality disorder F60.9 [facility], [place] [id number] [place] [address] 73883- 7905 Dec, [facility], [place] [id number] [place] [address] 89580- 9443 Dec, Moderate episode of recurrent major depressive disorder F33.1 [place] [address] [place] [address] 28353- 7507 Dec, [facility], [place] [id number] [place] [address] 50934- 6617 November, Moderate episode of recurrent major depressive disorder F33.1 and Cluster B personality disorder F60.9 [place] [address] [place] [address] 85772- 3974 November, [facility] [address], [place] [address] November, Bilateral acute serous otitis media, recurrence not specified H65.03 [facility], [place] [address], [place] [address]- 4177 November, [facility] [address], [place] [address] November, Bilateral acute serous otitis media, recurrence not specified H65.03 [facility], [place] [address] [place] [address] 94631- 7475 November, Severe episode of recurrent major depressive disorder, without psychotic features F33.2 [facility], [place] [address] [place] [address] 74273- 6409 Oct, Moderate episode of recurrent major depressive disorder F33.1 [facility], [place] [address], [place] [address] Oct, [facility] [id number] [address] Oct, Moderate episode of recurrent major depressive disorder F33.1 and Cluster B personality disorder F60.9 [facility], [place] [id number] [place] [address] 81098- 0095 Oct, [facility], [place] [id number] [place] [address] 29506- 3890 Oct, Severe episode of recurrent major depressive disorder, without psychotic features F33.2 [facility], [place] [address] [place] [address] 63920- 1751 May, Visit for TB skin test Z11.1 [facility] [address] [place] [address] [id number] Feb, Encounter for dental examination Z01.20 [facility], [place] [id number] [place] [address] 43151- 1000 Aug, Encounter for immunization Z23 IMMUNIZATIONS No Known Immunizations SOCIAL HISTORY Never Assessed REASON FOR VISIT GARCIA gallagher/mirlande Chris MA PLAN OF CARE Activity Details Follow Up 2 Weeks Reason: VITAL SIGNS Height 61.5 in 2017-01-26 Weight 117.5 lbs 2017-01-26 Heart Rate 68 bpm 2017-01-26 Respiratory Rate 18 2017-01-26 BMI 21.84 kg/m2 2017-01-26 Blood pressure systolic 104 mmHg 2017-01-26 Blood pressure diastolic 57 mmHg 2017-01-26 MEDICATIONS Medication Instructions Dosage Frequency Start Date End Date Duration Status Venlafaxine HCl 25 MG Orally Once a day 1 tablet with food 24h 30 day (s) Active Doxepin HCl 3 MG Orally Once a day 1 tablet at bedtime 24h Jan, 30 day(s) Active Venlafaxine HCl 37.5 MG Orally 2 times a day 1 tablet with food 12h Jan 90 days Active Lamictal 25 MG Orally Twice a day 1 tablet 12h Jan, 30 day(s) Active Cetirizine HCl 10 MG Orally Once a day 1 tablet 24h Active Melatonin 5 MG Orally Once a day 1 tablet at bedtime as needed with food 24h Active RESULTS No Results PROCEDURES No Known procedures INSTRUCTIONS MEDICATIONS ADMINISTERED No Known Medications MEDICAL (GENERAL) HISTORY Type Description Date Medical History depression Medical History anxiety Surgical History [place] teeth 2001 Hospitalization History child x2
--- OUTSIDE RECORDS SUMMARY | 2018-10-10 22:23 | XMS REPORT ---
Author Author NAILA GONZALES [facility] Address [address] [place] [address] Care Team Providers Care Senior Housekeeper Name Role Phone NAILA GONZALES Unavailable PROBLEMS Type Condition ICD9-CM Code NCB32-BE Code Onset Dates Condition Status SNOMED Code Problem Anxiety F41.9 Active 77048166 Problem Mood disorder F39 Active 03943608 Problem Moderate episode of recurrent major depressive disorder F33.1 Active 682273598 Problem Severe episode of recurrent major depressive disorder, without psychotic features F33.2 Active 74282441 Problem Other chronic pain G89.29 Active 94580435 Problem Cluster B personality disorder F60.9 Active 2209403 ALLERGIES Substance Reaction Event Type Date Status Sulfacetamide Sodium Unknown Drug Allergy Feb, Active PredniSONE Unknown Drug Allergy Feb, Active Penicillin V Potassium Unknown Drug Allergy Feb, Active Cefprozil Unknown Drug Allergy Feb, Active ENCOUNTERS Encounter Location Date Diagnosis [place] [id number] [place] [address] Oct, [place] [id number] [place] [address] 4[address] Sep, Moderate episode of recurrent major depressive disorder F33.1 [facility] [id number] [place] [address] Sep, Moderate episode of recurrent major depressive disorder F33.1 and Cluster B personality disorder F60.9 [facility] [id number] [place] [address] 26[address] Aug, Other chest pain R07.89 ; Anxiety F41.9 ; Other chronic pain G89.29 and Pain in left shoulder M25.512 [place] [id number] [place] [address] Jul, [facility] [address] [facility] [id number] [address] Jul, Moderate episode of recurrent major depressive disorder F33.1 [facility] [address], [place] [address] Jul, Moderate episode of recurrent major depressive disorder F33.1 and Cluster B personality disorder F60.9 [facility] [address] [address] Jun, [facility] [address], [place] [address] May, Moderate episode of recurrent major depressive disorder F33.1 and Cluster B personality disorder F60.9 [facility] [address], [place] [address] May, Moderate episode of recurrent major depressive disorder F33.1 [facility] [address], [place] [address] May, [facility] [address] [address] Apr, Moderate episode of recurrent major depressive disorder F33.1 [facility] [address], [place] [address] Apr, [facility] [address], [place] [address] Apr, [facility] [address], [place] [address] Apr, [facility] [address], [place] [address] 25[address] Apr, Moderate episode of recurrent major depressive disorder F33.1 and Cluster B personality disorder F60.9 [facility] [address], [place] [address] Apr, Encounter for immunization Z23 [facility] [id number] [address] Mar, Other chronic pain G89.29 ; Pain in left shoulder M25.512 ; Mood disorder F39 and Lymph node enlargement R59.[address] [facility] [place] [address] [facility] [id number] [id number] 08 Mar, 2017 Moderate episode of recurrent major depressive disorder F33.[address] [facility] [address] [facility] [id number], [place] [address] Feb, Pain in left shoulder M25.512 and Other chronic pain G89.29 [facility] [id number] [address] Feb, Moderate episode of recurrent major depressive disorder F33.1 and Cluster B personality disorder F60.9 [facility] [id number] [address] Feb, [facility] [address] [address] Jan, [facility] [id number] [address] Jan, Moderate episode of recurrent major depressive disorder F33.1 [facility] [id number] [address] Jan, [facility] [id number] [address] Jan, Moderate episode of recurrent major depressive disorder F33.1 and Cluster B personality disorder F60.9 [facility] [address] [facility] [id number] [address] 2546 Jan, [facility] [id number] [address] Jan, [facility] [id number] [address] Dec, Moderate episode of recurrent major depressive disorder F33.1 [facility] [address], [place] [address] 0[address] Dec, Moderate episode of recurrent major depressive disorder F33.1 [facility] [address], [place] [address] Dec, Moderate episode of recurrent major depressive disorder F33.1 and Cluster B personality disorder F60.9 [facility] [address], [place] [address] Dec, [facility] [id number] [place] [address] 11585- 4345 Dec, Moderate episode of recurrent major depressive disorder F33.1 [facility] [address] [place] [address] 47412- 1747 Dec, [facility] [address] [place] [address] 31130- 4792 November, Moderate episode of recurrent major depressive disorder F33.1 and Cluster B personality disorder F60.9 [facility] [address] [address] November, [facility] [address], [place] [address] November, Bilateral acute serous otitis media, recurrence not specified H65.03 [facility] [address] [address] November, [facility] [address] [address] November, Bilateral acute serous otitis media, recurrence not specified H65.03 [facility] [address], [place] [address] November, Severe episode of recurrent major depressive disorder, without psychotic features F33.2 [facility] [id number] [address] 69[address] Oct, Moderate episode of recurrent major depressive disorder F33.1 [facility] [address], [place] [address] Oct, [facility] [id number] [place] [address] Oct, Moderate episode of recurrent major depressive disorder F33.1 and Cluster B personality disorder F60.9 [facility] [id number] [place] [address] 46073- 8323 Oct, [facility] [id number] [place] [address] 47[address]- 9519 Oct, Severe episode of recurrent major depressive disorder, without psychotic features F33.2 [place] [id number] [place] [address]- 9675 May, Visit for TB skin test Z11.1 [facility] [id number] [place] [id number] Feb, Encounter for dental examination Z01.20 [facility] [id number] [place] [address] 49119[address] 2[address] Aug, Encounter for immunization Z23 IMMUNIZATIONS Vaccine Route Administration Date Status TORADOL (IM) 60 MG/2ML (UP TO 15 MG) IM Intramuscular Mar 08, 2017 Administered SOCIAL HISTORY Never Assessed REASON FOR VISIT left shoulder pain PLAN OF CARE Activity Details Follow Up prn Reason: VITAL SIGNS Height 61.5 in 2017-03-08 Weight 121.6 lbs 2017-03-08 Heart Rate 62 bpm 2017-03-08 Respiratory Rate 18 2017-03-08 BMI 22.60 kg/m2 2017-03-08 Blood pressure systolic 108 mmHg 2017-03-08 Blood pressure diastolic 60 mmHg 2017-03-08 MEDICATIONS Medication Instructions Dosage Frequency Start Date End Date Duration Status Baclofen 10 MG Orally Three times a day 1 tablet with food or milk 8h Feb, Mar, 7 days Active Melatonin 5 MG Orally Once a day 1 tablet at bedtime as needed with food 24h Active Rexulti 1 MG Orally Once a day 1 tablet 24h 30 day(s) Active Venlafaxine HCl 37.5 MG Orally 2 times a day 1 tablet with food 12h Jan 90 days Active Cetirizine HCl 10 MG Orally Once a day 1 tablet 24h Active RESULTS No Results PROCEDURES Procedure Date Ordered Result Body Site X-RAY EXAM OF SHOULDER Mar 08, 2017 TORADOL (IM) 60 MG/2ML (UP TO 15 MG) Mar 08, 2017 THER/PROPH/DIAG INJ, SC/IM Mar 08, 2017 INSTRUCTIONS MEDICATIONS ADMINISTERED No Known Medications MEDICAL (GENERAL) HISTORY Type Description Date Medical History depression Medical History anxiety Surgical History [place] teeth 2001 Hospitalization History child x2
--- OUTSIDE RECORDS SUMMARY | 2018-10-10 22:23 | XMS REPORT ---
Author Author ITZEL RENDON Organization [facility] Address [address] [place] [address] Care Team Providers Care Tourist Home Keeper Name Role Phone ITZEL RENDON Unavailable PROBLEMS Type Condition ICD9-CM Code YED83-VD Code Onset Dates Condition Status SNOMED Code Problem Mood disorder F39 Active 32898108 Problem Other chronic pain G89.29 Active 23374748 Problem Severe episode of recurrent major depressive disorder, without psychotic features F33.2 Active 34185668 Problem Encounter for dental examination Z01.20 Active 409299218 Problem Cluster B personality disorder F60.9 Active 4332275 Problem Moderate episode of recurrent major depressive disorder F33.1 Active 030329549 ALLERGIES No Information SOCIAL HISTORY Never Assessed PLAN OF CARE VITAL SIGNS MEDICATIONS Medication Instructions Dosage Frequency Start Date End Date Duration Status Trintellix 10 mg Orally Once a day 1 tablet 24h November, 90 days Active RESULTS No Results PROCEDURES No Known procedures IMMUNIZATIONS No Known Immunizations MEDICAL (GENERAL) HISTORY Type Description Date Medical History depression Medical History anxiety Surgical History [place] teeth 2002 Hospitalization History child x2
--- OUTSIDE RECORDS SUMMARY | 2018-10-10 22:23 | XMS REPORT ---
Author Author ITZEL RENDON [facility] [facility] Address [address] [place] [address] Care Team Providers Care Shift Commander Name Role Phone ITZEL RENDON Unavailable PROBLEMS Type Condition ICD9-CM Code GAM46-MW Code Onset Dates Condition Status SNOMED Code Problem Mood disorder F39 Active 37417394 Problem Other chronic pain G89.29 Active 52139481 Problem Severe episode of recurrent major depressive disorder, without psychotic features F33.2 Active 19237914 Problem Encounter for dental examination Z01.20 Active 079942647 Problem Cluster B personality disorder F60.9 Active 6560325 Problem Moderate episode of recurrent major depressive disorder F33.1 Active 612110263 ALLERGIES No Information SOCIAL HISTORY Never Assessed PLAN OF CARE VITAL SIGNS MEDICATIONS Unknown Medications RESULTS No Results PROCEDURES No Known procedures IMMUNIZATIONS No Known Immunizations MEDICAL (GENERAL) HISTORY Type Description Date Medical History depression Medical History anxiety Surgical History [place] teeth 2002 Hospitalization History child x2
--- OUTSIDE RECORDS SUMMARY | 2018-10-10 22:23 | XMS REPORT ---
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 Name Role Phone CONNER RENDONTEMI Unavailable PROBLEMS Type Condition ICD9-CM Code IIC41-FG Code Onset Dates Condition Status SNOMED Code Problem Anxiety F41.9 Active 56705881 Problem Mood disorder F39 Active 68361001 Problem Moderate episode of recurrent major depressive disorder F33.1 Active 500957834 Problem Severe episode of recurrent major depressive disorder, without psychotic features F33.2 Active 98908645 Problem Other chronic pain G89.29 Active 88414653 Problem Cluster B personality disorder F60.9 Active 6891612 ALLERGIES No Information ENCOUNTERS Encounter Location Date Diagnosis [place] [id number] [place] [address] 85432- 5551 Oct, [facility] [address] [address] Oct, [facility] [address] [address]- [address] Oct, [facility] [id number] [place] [address] 80945- 5868 Sep, Moderate episode of recurrent major depressive disorder F33.1 [facility] [id number] [place] [address] 02128- 6744 Sep, Moderate episode of recurrent major depressive disorder F33.1 and Cluster B personality disorder F60.9 [facility] [address] [address]- [address] Aug, Other chest pain R07.89 ; Anxiety F41.9 ; Other chronic pain G89.29 and Pain in left shoulder M25.512 [facility] [address] [place] [address] Jul, [facility] [address] [facility] [id number] [address] 2546 Jul, Moderate episode of recurrent major depressive disorder F33.1 [facility] [id number] [address] 2546 Jul, Moderate episode of recurrent major depressive disorder F33.1 and Cluster B personality disorder F60.9 [facility] [address], [place] [address]46 Jun, [facility] [id number] [address] 2546 May, Moderate episode of recurrent major depressive disorder F33.1 and Cluster B personality disorder F60.9 [facility] [address], [place] [address] 8096 May, Moderate episode of recurrent major depressive disorder F33.1 [facility] [address], [place] [address] 2546 May, [facility] [id number], [place] [address] 2546 Apr, Moderate episode of recurrent major depressive disorder F33.1 [facility] [address], [place] [address] 2546 Apr, [facility] [address] [address] 2546 Apr, [facility] [id number], [place] [address] 2546 Apr, [facility] [id number] [address] 2546 Apr, Moderate episode of recurrent major depressive disorder F33.1 and Cluster B personality disorder F60.9 [facility] [id number] [address]- 2546 Apr, Encounter for immunization Z23 [facility] [address] [id number] [address] Mar, Other chronic pain G89.29 ; Pain in left shoulder M25.512 ; Mood disorder F39 and Lymph node enlargement R59.9 [facility] [place] [address] [facility] [id number] [place] [id number] 08 Mar, 2017 Moderate episode of recurrent major depressive disorder F33.1 [facility] [address] [id number], [place] [address] Feb, Pain in left shoulder M25.512 and Other chronic pain G89.29 [facility] [address] [facility] [id number] [address] Feb, Moderate episode of recurrent major depressive disorder F33.1 and Cluster B personality disorder F60.9 [facility] [id number], [place] [address] 8[address] Feb, [facility] [id number] [address] 18[address] Jan, [facility] [id number] [address] 3228 Jan, Moderate episode of recurrent major depressive disorder F33.1 [facility] [id number] [address] 5[address] Jan, [facility] [id number] [address] Jan, Moderate episode of recurrent major depressive disorder F33.1 and Cluster B personality disorder F60.9 [facility] [address] [facility] [id number], [place] [address] 267[address] Jan, [facility] [id number] [address] 3907 Jan, [facility] [id number], [place] [address] 4914 Dec, Moderate episode of recurrent major depressive disorder F33.1 [facility] [address] [address]- 8094 Dec, Moderate episode of recurrent major depressive disorder F33.1 [facility] [address] [address] Dec, Moderate episode of recurrent major depressive disorder F33.1 and Cluster B personality disorder F60.9 [facility] [address] [address] 69[address] Dec, [facility] [address], [place] [address]- 8[address] Dec, Moderate episode of recurrent major depressive disorder F33.1 [facility] [address] [place] [address] 68547- 7153 Dec, [facility] [address], [place] [address] November, Moderate episode of recurrent major depressive disorder F33.1 and Cluster B personality disorder F60.9 [facility] [address], [place] [address]- [address] November, [facility] [address], [place] [address] November, Bilateral acute serous otitis media, recurrence not specified H65.03 [facility] [address] [address]- 3300 November, [facility] [address], [place] [address] November, Bilateral acute serous otitis media, recurrence not specified H65.03 [facility] [address], [place] [address]- 97[address] November, Severe episode of recurrent major depressive disorder, without psychotic features F33.2 [facility] [address], [place] [address]- 8[address] Oct, Moderate episode of recurrent major depressive disorder F33.1 [facility] [address] [facility] [id number] [address] Oct, [facility] [address] [id number] [address] Oct, Moderate episode of recurrent major depressive disorder F33.1 and Cluster B personality disorder F60.9 [facility] [address], [place] [address]- [address] Oct, [facility] [address], [place] [address]- 8697 Oct, Severe episode of recurrent major depressive disorder, without psychotic features F33.2 [place] [address], [place] [address] May, Visit for TB skin test Z11.1 [facility] [address] [address] Feb, Encounter for dental examination Z01.20 [facility] [id number] [address] Aug, Encounter for immunization Z23 IMMUNIZATIONS No Known Immunizations SOCIAL HISTORY Never Assessed REASON FOR VISIT Cindy/Mono [place] MA PLAN OF CARE Activity Details Follow Up 4 Weeks Reason: VITAL SIGNS Height 61.5 in 2016-12-29 Weight 117.0 lbs 2016-12-29 BMI 21.75 kg/m2 2016-12-29 MEDICATIONS Medication Instructions Dosage Frequency Start Date End Date Duration Status Cetirizine HCl 10 MG Orally Once a day 1 tablet 24h Active Venlafaxine HCl 25 MG Orally Once a day 1 tablet with food 24h Dec, 30 day(s) Active Melatonin 5 MG Orally Once a day 1 tablet at bedtime as needed with food 24h Active Rexulti 1 MG Orally Once a day 1 tablet 24h 30 day(s) Active RESULTS No Results PROCEDURES No Known procedures INSTRUCTIONS MEDICATIONS ADMINISTERED No Known Medications MEDICAL (GENERAL) HISTORY Type Description Date Medical History depression Medical History anxiety Surgical History [place] teeth 2001 Hospitalization History child x2
--- OUTSIDE RECORDS SUMMARY | 2018-10-10 22:24 | XMS REPORT ---
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 Name Role Phone MORENO MORA CP Unavailable Allergies, Adverse Reactions, Alerts Substance Reaction Event Type Sulfacetamide Sodium Info Not Available Drug Allergy PredniSONE Info Not Available Drug Allergy Penicillin V Potassium Info Not Available Drug Allergy Cefprozil Info Not Available Drug Allergy Problems Problem Type Condition Code Onset Dates Condition Status Assessment Encounter for dental examination Z01.20 Active Problem Encounter for dental examination Z01.20 Active Medications Medication Code System Code Instructions Start Date End Date Status Dosage Flagyl [facility] [address]-61 500 MG Orally every 8 hrs 1 tablet Melatonin [facility] [address] 1.5 MG Orally not defined Procedures Procedure Coding System Code Date INTRAORL-PERIAPICAL 1 FILM 90571 CPT-4 D0220 Feb 29, 2016 INTRAORL-PERIAPICAL EA ADD FILM CPT-4 D0230 Feb 29, 2016 COMP ORAL EVALUATION - NEW/EST PT CPT-4 D0150 Feb 29, 2016 BITEWINGS - FOUR FILMS CPT-4 D0274 Feb 29, 2016 INTRAORL-PERIAPICAL EA ADD FILM CPT-4 D0230 Feb 29, 2016 PROPHYLAXIS - ADULT CPT-4 D1110 Feb 29, 2016 PANORAMIC FILM SEE ALSO CODE 91096 CPT-4 D0330 Feb 29, 2016 Vital Signs Date/Time: Feb 29, 2016 Blood Pressure Diastolic 65 mmHg Blood Pressure Systolic 102 mmHg Cardiac Monitoring Heart Rate 61 bpm Results No Known Results Summary Purpose eClinicalWorks Submission
--- OUTSIDE RECORDS SUMMARY | 2018-10-10 22:24 | XMS REPORT ---
Author Author KWABENA HERNANDES Organization [facility] Address [address] [place] [address] Care Team Providers Care Distribution Agent Name Role Phone KWABENA HERNANDES Unavailable PROBLEMS Type Condition ICD9-CM Code RNE89-AG Code Onset Dates Condition Status SNOMED Code Problem Anxiety F41.9 Active 56829798 Problem Mood disorder F39 Active 78927773 Problem Moderate episode of recurrent major depressive disorder F33.1 Active 045101819 Problem Severe episode of recurrent major depressive disorder, without psychotic features F33.2 Active 18366322 Problem Other chronic pain G89.29 Active 37004131 Problem Cluster B personality disorder F60.9 Active 8303851 ALLERGIES Substance Reaction Event Type Date Status Sulfacetamide Sodium Unknown Drug Allergy Mar, Active PredniSONE Unknown Drug Allergy Mar, Active Penicillin V Potassium Unknown Drug Allergy Mar, Active Cefprozil Unknown Drug Allergy Mar, Active ENCOUNTERS Encounter Location Date Diagnosis [facility] [id number] [place] [address] Dec, [facility] [id number] [place] [address]690[address] Oct, Moderate episode of recurrent major depressive disorder F33.1 and Cluster B personality disorder F60.9 [facility] [id number] [place] [address]47[address] 59[address] Oct, [facility] [id number] [place] [address] 45149[address] 17[address] Sep, Moderate episode of recurrent major depressive disorder F33.1 [facility] [id number] [place] [address] Sep, Moderate episode of recurrent major depressive disorder F33.1 and Cluster B personality disorder F60.9 [facility] [id number] [address] Aug, Other chest pain R07.89 ; Anxiety F41.9 ; Other chronic pain G89.29 and Pain in left shoulder M25.512 [facility] [address] [address] Jul, [facility] [id number] [place] [address] 2546 Jul, Moderate episode of recurrent major depressive disorder F33.1 [facility] [id number] [place] [address] 2546 Jul, Moderate episode of recurrent major depressive disorder F33.1 and Cluster B personality disorder F60.9 [facility] [id number] [address] Jun, [facility] [id number] [place] [address] 59360- 2[address] May, Moderate episode of recurrent major depressive disorder F33.1 and Cluster B personality disorder F60.9 [facility] [id number] [place] [address] 03480- [address] May, Moderate episode of recurrent major depressive disorder F33.1 [facility] [address] [address] May, [facility] [id number] [address] 2546 Apr, Moderate episode of recurrent major depressive disorder F33.1 [facility] [id number] [address] 25[address] Apr, [facility] [id number] [place] [address] 66366- 0266 Apr, [facility] [id number] [address] 2546 Apr, [facility] [id number] [place] [address] 28547- 5399 Apr, Moderate episode of recurrent major depressive disorder F33.1 and Cluster B personality disorder F60.9 [facility] [id number] [address] Apr, Encounter for immunization Z23 [facility] [id number] [address] Mar, Other chronic pain G89.29 ; Pain in left shoulder M25.512 ; Mood disorder F39 and Lymph node enlargement R59.9 [facility] [place] [id number] [id number] Mar, 2017 Moderate episode of recurrent major depressive disorder F33.1 [facility] [id number] [address] Feb, Pain in left shoulder M25.512 and Other chronic pain G89.29 [facility] [address] [address] Feb, Moderate episode of recurrent major depressive disorder F33.1 and Cluster B personality disorder F60.9 [facility] [id number] [address] Feb, [facility] [id number] [address] Jan, [facility] [id number] [address] Jan, Moderate episode of recurrent major depressive disorder F33.1 [facility] [id number] [address] Jan, [facility] [id number] [place] [address] 79324- 2828 Jan, Moderate episode of recurrent major depressive disorder F33.1 and Cluster B personality disorder F60.9 [facility] [address] [address] Jan, [facility] [id number] [address] Jan, [facility] [address] [address] Dec, Moderate episode of recurrent major depressive disorder F33.1 [facility] [id number] [address] Dec, Moderate episode of recurrent major depressive disorder F33.1 [facility] [address] [address] Dec, Moderate episode of recurrent major depressive disorder F33.1 and Cluster B personality disorder F60.9 [facility] [address] [address] Dec, [facility] [address] [address] Dec, Moderate episode of recurrent major depressive disorder F33.1 [facility] [address] [address] Dec, [facility] [address] [address] November, Moderate episode of recurrent major depressive disorder F33.1 and Cluster B personality disorder F60.9 [facility] [address] [address] November, [facility] [address], [place] [address] November, Bilateral acute serous otitis media, recurrence not specified H65.03 [facility] [address] [address] November, [facility] [address] [address] November, Bilateral acute serous otitis media, recurrence not specified H65.03 [facility] [address] [address] November, Severe episode of recurrent major depressive disorder, without psychotic features F33.2 [facility] [address] [address] Oct, Moderate episode of recurrent major depressive disorder F33.1 [facility] [address] [address] Oct, [facility] [id number] [place] [address] Oct, Moderate episode of recurrent major depressive disorder F33.1 and Cluster B personality disorder F60.9 [facility] [id number] [place] [address] 78[address] Oct, [facility] [id number] [place] [address]- 2458 Oct, Severe episode of recurrent major depressive disorder, without psychotic features F33.2 [facility] [id number] [place] [address] 24[address]- [address] May, Visit for TB skin test Z11.1 [facility] [id number] [place] [id number] Feb, Encounter for dental examination Z01.20 [facility] [id number] [place] [address] Aug, Encounter for immunization Z23 IMMUNIZATIONS No Known Immunizations SOCIAL HISTORY Never Assessed REASON FOR VISIT Establish Care, left shoulder muscle has always caused her problems- Александр SHAFER PLAN OF CARE VITAL SIGNS Height 61.5 in 2017-04-05 Weight 121.5 lbs 2017-04-05 Temperature 98.7 degrees Fahrenheit 2017-04-05 Heart Rate 78 bpm 2017-04-05 Respiratory Rate 18 2017-04-05 BMI 22.58 kg/m2 2017-04-05 Blood pressure systolic 88 mmHg 2017-04-05 Blood pressure diastolic 62 mmHg 2017-04-05 MEDICATIONS Medication Instructions Dosage Frequency Start Date End Date Duration Status Cetirizine HCl 10 MG Orally Once a day 1 tablet 24h Active BusPIRone HCl 5 mg Orally TID PRN 1 tablet Mar, Active Rexulti 1 MG Orally Once a day 1 tablet 24h 30 day(s) Active Melatonin 5 MG Orally Once a day 1 tablet at bedtime as needed with food 24h Active Baclofen 20 mg Orally every 8 hrs 1 tablet with food or milk 8h Mar, Jun, 30 day(s) Active Baclofen 10 MG Orally Three times a day 1 tablet with food or milk 8h Active RESULTS Name Result Date Reference Range TSH 2017-04-05 TSH 2.660 0.450-4.500 CBC 2017-04-05 WBC 9.5 3.4-10.8 RBC 4.07 3.77-5.28 Hemoglobin 13.1 11.1-15.9 Hematocrit 40.1 34.0-46.6 MCV 99 79-97 MCH 32.2 26.6-33.0 MCHC 32.7 31.5-35.7 RDW 12.7 12.3-15.4 Platelets 244 150-379 Neutrophils 62 Lymphs 28 Monocytes 10 Eos 0 Basos 0 Neutrophils (Absolute) 5.9 1.4-7.0 Lymphs (Absolute) 2.7 0.7-3.1 Monocytes(Absolute) 0.9 0.1-0.9 Eos (Absolute) 0.0 0.0-0.4 Baso (Absolute) 0.0 0.0-0.2 Immature Granulocytes 0 Immature Grans (Abs) 0.0 0.0-0.1 CMP 2017-04-05 Glucose, Serum 91 65-99 BUN 12 6-20 Creatinine, Serum 0.73 0.57-1.00 eGFR If NonAfricn Am 109 >59 eGFR If Africn Am 126 >59 BUN/Creatinine Ratio 16 9-23 Sodium, Serum 141 134-144 Potassium, Serum 4.7 3.5-5.2 Chloride, Serum 102 96-106 Carbon Dioxide, Total 22 18-29 Calcium, Serum 9.3 8.7-10.2 Protein, Total, Serum 6.8 6.0-8.5 Albumin, Serum 4.4 3.5-5.5 Globulin, Total 2.4 1.5-4.5 A/G Ratio 1.8 1.2-2.2 Bilirubin, Total 0.6 0.0-1.2 Alkaline Phosphatase, S 52 39-117 AST (SGOT) 16 0-40 ALT (SGPT) 9 0-32 PROCEDURES Procedure Date Ordered Result Body Site VENIPUNCT, ROUTINE* Apr 05, 2017 COMPLETE CBC W/AUTO DIFF WBC Apr 05, 2017 COMPREHEN METABOLIC PANEL Apr 05, 2017 ASSAY THYROID STIM HORMONE Apr 05, 2017 INSTRUCTIONS MEDICATIONS ADMINISTERED No Known Medications MEDICAL (GENERAL) HISTORY Type Description Date Medical History depression Medical History anxiety Surgical History [place] teeth 2002 Hospitalization History child x2
--- OUTSIDE RECORDS SUMMARY | 2018-10-10 22:24 | XMS REPORT | Continuity of Care Document ---
Author Author [facility] Organization [facility] Address Unknown Phone Unavailable Allergies Active Description Code Type Severity Reaction Onset Reported/Identified Relationship to Patient Clinical Status Yes cephalexin [id number] Drug Allergy Unknown N/A 12/22/2014 Yes Penicillins [id number] Drug Allergy Unknown N/A 12/22/2014 Yes prednisone [id number] Drug Allergy Unknown N/A 12/22/2014 Yes Sulfa (Sulfonamide Antibiotics) [id number] Drug Allergy Unknown N/A 2014 Medications There is no data. Problems Date Dx Coded Attending Type Code Diagnosis Diagnosed By 2015 RYAN WHITE DO Ot 780.4 04/09/2015 Ot 620.2 04/09/2015 LOPEZ KAMARA TERMINAL SYSTEM OPERATOR Ot 625.9 04/09/2015 LOPEZ KAMARA TERMINAL SYSTEM OPERATOR Ot 626.8 04/09/2015 RYAN WHITE DO Ot 780.4 04/09/2015 RYAN WHITE DO Ot R42 06/15/2015 RYAN WHITE DO D Ot 780.4 06/15/2015 RYAN WHITE DO Ot R42 07/01/2015 RYAN WHITE DO Ot 780.4 07/01/2015 RYAN WHITE DO Ot R42 10/06/2015 LOPEZ KAMARA Ot 625.9 10/06/2015 LOPEZ KAMARAP Ot 626.8 10/06/2015 RYAN WHITE DO Ot 780.4 10/06/2015 RYAN WHITE DO Ot R42 10/14/2015 KAREN MONSON, MADHAVI Erazo Ot R07.0 06/07/2018 AN ACHARYA DO Ot Z34.92 ENCNTR FOR SUPRVSN OF NORMAL PREG, UNSP, 06/07/2018 AN ACHARYA DO Ot Z3A.15 15 WEEKS GESTATION OF 06/07/2018 ESTELLA ACHARYA DOA C Ot Z53.8 PROCEDURE AND TREATMENT NOT CARRIED OUT 06/24/2018 ACHARYA DO, AN C Ot M54.5 LOW BACK PAIN 06/24/2018 ACHARYA DO, AN C Ot O99.89 OTH DISEASES AND CONDITIONS COMPL PREG/C 06/24/2018 ACHARYA DO, AN C Ot Z3A.21 21 WEEKS GESTATION OF 06/26/2018 ACHARYA DO, AN C Ot M54.5 LOW BACK PAIN 06/26/2018 ACHARYA DO, AN C Ot O99.89 OTH DISEASES AND CONDITIONS COMPL PREG/C 06/26/2018 ACHARYA DO, AN C Ot Z3A.21 21 WEEKS GESTATION OF 07/26/2018 JOSSUE CAMPO MD Ot O42.912 PRETRM EZRA ROM, UNSP TIME BETW RUPT AND 07/26/2018 JOSSUE CAMPO MD Ot Z3A.26 26 WEEKS GESTATION OF 07/30/2018 JOSSUE CAMPO MD Ot O42.912 PRETRM EZRA ROM, UNSP TIME BETW RUPT AND 07/30/2018 JOSSUE CAMPO MD Ot Z3A.26 26 WEEKS GESTATION OF 08/01/2018 ACHARYA DOAN C Ot Z34.92 ENCNTR FOR SUPRVSN OF NORMAL PREG, UNSP, 08/01/2018 ACHARYA DO AN C Ot Z3A.15 15 WEEKS GESTATION OF 08/01/2018 ACHARYA DOESTELLAA C Ot Z53.8 PROCEDURE AND TREATMENT NOT CARRIED OUT 08/29/2018 AN ACHARYA DO C Ot Z34.93 ENCNTR FOR SUPRVSN OF NORMAL PREG, UNSP, 08/29/2018 ACHARYA DO AN C Ot Z3A.31 31 WEEKS GESTATION OF 09/13/2018 ACHARYA DO AN C Ot Z34.93 ENCNTR FOR SUPRVSN OF NORMAL PREG, UNSP, 09/13/2018 ACHARYA DO AN C Ot Z3A.31 31 WEEKS GESTATION OF 09/28/2018 AN ACHARYA DO Ot O24.410 GESTATIONAL DIABETES MELLITUS IN PREGNAN 09/28/2018 AN ACHARYA DO Ot Z3A.35 35 WEEKS GESTATION OF Procedures There is no data. Results Test Result Range CMP - 04/05/17 16:45 Glucose, Serum 91 mg/dL 65-99 BUN 12 mg/dL 6-20 Creatinine, Serum 0.73 mg/dL 0.57-1.00 eGFR If NonAfricn Am 109 mL/min/1.73 >59 eGFR If Africn Am 126 mL/min/1.73 >59 BUN/Creatinine Ratio 16 9-23 Sodium, Serum 141 mmol/L 134-144 Potassium, Serum 4.7 mmol/L 3.5-5.2 Chloride, Serum 102 mmol/L 96-106 Carbon Dioxide, Total 22 mmol/L 18-29 Calcium, Serum 9.3 mg/dL 8.7-10.2 Protein, Total, Serum 6.8 g/dL 6.0-8.5 Albumin, Serum 4.4 g/dL 3.5-5.5 Globulin, Total 2.4 g/dL 1.5-4.5 A/G Ratio 1.8 1.2-2.2 Bilirubin, Total 0.6 mg/dL 0.0-1.2 Alkaline Phosphatase, S 52 IU/L 39-117 AST (SGOT) 16 IU/L 0-40 ALT (SGPT) 9 IU/L 0-32 Complete urinalysis with reflex to culture - 06/24/18 11:00 Urine color determination YELLOW NRG Urine clarity determination CLEAR NRG Urine pH measurement by test strip 7 5-9 Specific gravity of urine by test strip 1.015 1.016- 1.022 Urine protein assay by test strip, semi-quantitative NEGATIVE NEGATIVE Urine glucose detection by automated test strip NEGATIVE NEGATIVE Erythrocytes detection in urine sediment by light microscopy NEGATIVE NEGATIVE Urine ketones detection by automated test strip NEGATIVE NEGATIVE Urine nitrite detection by test strip NEGATIVE NEGATIVE Urine total bilirubin detection by test strip NEGATIVE NEGATIVE Urine urobilinogen measurement by automated test strip (mass/volume) NORMAL NORMAL Urine leukocyte esterase detection by dipstick NEGATIVE NEGATIVE Automated urine sediment erythrocyte count by microscopy (number/high power field) NONE NRG Automated urine sediment leukocyte count by microscopy (number/high power field ) NONE NRG Bacteria detection in urine sediment by light microscopy TRACE NRG Squamous epithelial cells detection in urine sediment by light microscopy 0-2 NRG Crystals detection in urine sediment by light microscopy NONE NRG Casts detection in urine sediment by light microscopy NONE NRG Mucus detection in urine sediment by light microscopy NEGATIVE NRG Complete urinalysis with reflex to culture NO NRG Complete blood count (CBC) with automated white blood cell (WBC) differential - 06/24/18 12:25 Blood leukocytes automated count (number/volume) 7.4 10*3/uL 4.3-11.0 Blood erythrocytes automated count (number/volume) 3.60 10*6/uL 4.35-5.85 Venous blood hemoglobin measurement (mass/volume) 12.0 g/dL 11.5-16.0 Blood hematocrit (volume fraction) 35 % 35-52 Automated erythrocyte mean corpuscular volume 96 [foz_us] 80-99 Automated erythrocyte mean corpuscular hemoglobin (mass per erythrocyte) 33 pg 25-34 Automated erythrocyte mean corpuscular hemoglobin concentration measurement ( mass/volume) 35 g/dL 32-36 Automated erythrocyte distribution width ratio 13.1 % 10.0-14.5 Automated blood platelet count (count/volume) 174 10*3/uL 130-400 Automated blood platelet mean volume measurement 9.8 [foz_us] 7.4-10.4 Automated blood neutrophils/100 leukocytes 70 % 42-75 Automated blood lymphocytes/100 leukocytes 23 % 12-44 Blood monocytes/100 leukocytes 7 % 0-12 Automated blood eosinophils/100 leukocytes 0 % 0-10 Automated blood basophils/100 leukocytes 0 % 0-10 Blood neutrophils automated count (number/volume) 5.2 10*3 1.8-7.8 Blood lymphocytes automated count (number/volume) 1.7 10*3 1.0-4.0 Blood monocytes automated count (number/volume) 0.5 10*3 0.0-1.0 Automated eosinophil count 0.0 10*3/uL 0.0-0.3 Automated blood basophil count (count/volume) 0.0 10*3/uL 0.0-0.1 Whole blood basic metabolic panel - 06/24/18 12:25 Serum or plasma sodium measurement (moles/volume) 137 mmol/L 135-145 Serum or plasma potassium measurement (moles/volume) 4.0 mmol/L 3.6-5.0 Serum or plasma chloride measurement (moles/volume) 108 mmol/L 98-107 Carbon dioxide 21 mmol/L 21-32 Serum or plasma anion gap determination (moles/volume) 8 mmol/L 5-14 Serum or plasma urea nitrogen measurement (mass/volume) 7 mg/dL 7-18 Serum or plasma creatinine measurement (mass/volume) 0.60 mg/dL 0.60-1.30 Serum or plasma urea nitrogen/creatinine mass ratio 12 NRG Serum or plasma creatinine measurement with calculation of estimated glomerular filtration rate > NRG Serum or plasma glucose measurement (mass/volume) 70 mg/dL 70-105 Serum or plasma calcium measurement (mass/volume) 9.0 mg/dL 8.5-10.1 Complete urinalysis with reflex to culture - 07/24/18 14:26 Urine color determination YELLOW NRG Urine clarity determination CLEAR NRG Urine pH measurement by test strip 6 5-9 Specific gravity of urine by test strip 1.020 1.016- 1.022 Urine protein assay by test strip, semi-quantitative 1+ NEGATIVE Urine glucose detection by automated test strip 1+ NEGATIVE Erythrocytes detection in urine sediment by light microscopy NEGATIVE NEGATIVE Urine ketones detection by automated test strip 2+ NEGATIVE Urine nitrite detection by test strip NEGATIVE NEGATIVE Urine total bilirubin detection by test strip NEGATIVE NEGATIVE Urine urobilinogen measurement by automated test strip (mass/volume) NORMAL NORMAL Urine leukocyte esterase detection by dipstick 1+ NEGATIVE Automated urine sediment erythrocyte count by microscopy (number/high power field) NONE NRG Automated urine sediment leukocyte count by microscopy (number/high power field ) [HPF] NRG Bacteria detection in urine sediment by light microscopy NEGATIVE NRG Squamous epithelial cells detection in urine sediment by light microscopy 0-2 NRG Crystals detection in urine sediment by light microscopy NONE NRG Casts detection in urine sediment by light microscopy NONE NRG Mucus detection in urine sediment by light microscopy MODERATE NRG Complete urinalysis with reflex to culture CULTURE PENDING NRG Renal epithelial cells detection in urine sediment by light microscopy NONE NRG Bacterial urine culture - 07/24/18 14:26 Bacterial urine culture NG NRG Blood CBC with ordered manual differential panel - 07/24/18 14:35 Blood leukocytes automated count (number/volume) 8.5 10*3/uL 4.3-11.0 Blood erythrocytes automated count (number/volume) 3.54 10*6/uL 4.35-5.85 Venous blood hemoglobin measurement (mass/volume) 12.1 g/dL 11.5-16.0 Blood hematocrit (volume fraction) 34 % 35-52 Automated erythrocyte mean corpuscular volume 95 [foz_us] 80-99 Automated erythrocyte mean corpuscular hemoglobin (mass per erythrocyte) 34 pg 25-34 Automated erythrocyte mean corpuscular hemoglobin concentration measurement ( mass/volume) 36 g/dL 32-36 Automated erythrocyte distribution width ratio 12.9 % 10.0-14.5 Automated blood platelet count (count/volume) 187 10*3/uL 130-400 Automated blood platelet mean volume measurement 9.4 [foz_us] 7.4-10.4 Automated blood neutrophils/100 leukocytes 69 % 42-75 Automated blood lymphocytes/100 leukocytes 20 % 12-44 Blood monocytes/100 leukocytes 6 % NRG Automated blood eosinophils/100 leukocytes 0 % 0-10 Automated blood basophils/100 leukocytes 0 % 0-10 Blood neutrophils automated count (number/volume) 5.9 10*3 1.8-7.8 Blood lymphocytes automated count (number/volume) 1.7 10*3 1.0-4.0 Blood monocytes automated count (number/volume) 0.9 10*3 0.0-1.0 Automated eosinophil count 0.0 10*3/uL 0.0-0.3 Automated blood basophil count (count/volume) 0.0 10*3/uL 0.0-0.1 Manual blood segmented neutrophils/100 leukocytes 73 % NRG Blood band neutrophils/100 leukocytes 3 % NRG Manual blood lymphocytes/100 leukocytes 15 % NRG Manual eosinophils/100 leukocytes in nose 0 % NRG Manual blood basophils/100 leukocytes 0 % NRG Blood lymphocytes variant/100 leukocytes 3 % NRG Blood rouleaux detection by light microscopy SLIGHT NRG Capillary blood glucose measurement by glucometer (mass/volume) - 10/10/18 21: 11 Capillary blood glucose measurement by glucometer (mass/volume) 91 mg/dL 70-110 Encounters ACCT No. Visit Date/Time Discharge Status Pt. Type Provider Facility Loc./Unit Complaint [id number] 10/04/2018 11:36:00 10/04/2018 23:59:59 CLS Preadmit AN ACHARYA DO [facility] RAD GDM, 36 WKS [id number] 09/26/2018 12:45:00 09/26/2018 23:59:59 CLS Outpatient AN ACHARYA DO [facility] RAD GDM [id number] 08/28/2018 14:18:00 08/28/2018 23:59:59 CLS Outpatient AN ACHARYA DO [facility] RAD EVAL ANATOMY NOT SEEN ON PRIOR SCAN [id number] 07/24/2018 13:42:00 07/24/2018 15:40:00 DIS Outpatient JOSUSE CAMPO MD [facility] WSo LEAKING [id number] 06/24/2018 10:56:00 06/24/2018 14:18:00 DIS Outpatient AN ACHARYA DO [facility] WSo LOWER BACK PAIN [id number] 06/06/2018 12:57:00 06/06/2018 23:59:59 CLS Outpatient AN ACHARYA DO [facility] RAD 15 WEEKS GESTATION OF [id number] 10/13/2015 14:50:00 10/13/2015 23:59:59 CLS Outpatient MADHAVI JONES MD [facility] RAD [id number] 12/22/2014 14:58:00 12/22/2014 23:59:59 CLS Outpatient RYAN WHITE DO [facility] RAD [id number] 12/13/2012 10:01:00 12/13/2012 23:59:59 CLS Outpatient LOPEZ KAMARA [facility] RAD [id number] 10/10/2018 21:35:00 Document Registration [id number] 04/09/2015 14:36:00 Document Registration [id number] 03/02/2010 12:56:00 Document Registration [id number] 01/04/2018 13:20:00 01/04/2018 23:59:59 CLS Outpatient ANYA [facility] [id number] 04/05/2017 16:00:00 Document Registration
[2018-10-10] MEDS ORDERED: CLINDAMYCIN 900 MG/50 ML IVPB 50 ML IV ONE (22:28)
[2018-10-10] MEDS ORDERED: MINERAL OIL CONCENTRATE 99.9% 15 ML UDC TOP PRN (22:30)
[2018-10-10 22:31] LABS: BASOPHILS % (AUTO) 0 % (0-10); EOSINOPHILS % (AUTO) 0 % (0-10); HEMATOCRIT 34 % (35-52); HEMOGLOBIN 11.7 G/DL (11.5-16.0); LYMPHOCYTES # (AUTO) 2.8 X 10^3 (1.0-4.0); LYMPHOCYTES % (AUTO) 24 % (12-44); MEAN CORPUSCULAR HEMOGLOBIN 32 PG (25-34); MEAN CORPUSCULAR HGB CONC 34 G/DL (32-36); MEAN CORPUSCULAR VOLUME 93 FL (80-99); MEAN PLATELET VOLUME 10.5 FL (7.4-10.4); MONOCYTES # (AUTO) 1.2 X 10^3 (0.0-1.0); MONOCYTES % (AUTO) 11 % (0-12); NEUTROPHILS # (AUTO) 7.3 X 10^3 (1.8-7.8); NEUTROPHILS % (AUTO) 65 % (42-75); PLATELET COUNT 214 10^3/uL (130-400); RED CELL DISTRIBUTION WIDTH 12.6 % (10.0-14.5); WHITE BLOOD COUNT 11.3 10^3/uL (4.3-11.0)
[2018-10-10] MEDS: CLINDAMYCIN 900 MG/50 ML IVPB 50 ML IV SCH (22:33)
[2018-10-10] MEDS: NS IV 1000 ML 1,000 ML IV SCH (22:33)
[2018-10-10] MEDS ORDERED: SUFENTA 0.6MCG/ML BUPIVA 0.125 100 ML ONE (22:43)
--- NOTE | 2018-10-10 22:58 | NUR ---
This RN called Daniel Teague CRNA to notify of patient request for epidural.
[2018-10-10] MEDS ORDERED: BUPIVACAINE 0.25% 30 ML (SENSORCAINE) VIAL ONE (23:14)
[2018-10-10] MEDS ORDERED: fentaNYL INJECTION 100 MCG/2 ML AMP ONE (23:14)
[2018-10-10] MEDS ORDERED: LACTATED RINGERS 1,000 ML IV ONE (23:20)
[2018-10-10] MEDS ORDERED: NALOXONE 0.4 MG/ML 1 ML (NARCAN) VIAL IV PRN (23:30)
[2018-10-10] MEDS ORDERED: CATHETER FLUSH 10 ML SYR IV PRN (23:30)
[2018-10-10] MEDS: EPIDURAL (SUFENTA 0.6MCG/ML BUPIVA 0.125%) 100 ML BAG EPI SCH (23:39)
[2018-10-11] VITALS (55 sets, daily range): BP systolic 92–125; BP diastolic 53–72
[2018-10-11] MEDS ORDERED: OXYTOCIN/NORMAL SALINE 500 ML IV ONE (01:08)
[2018-10-11] MEDS: EPIDURAL (SUFENTA 0.6MCG/ML BUPIVA 0.125%) 100 ML BAG EPI SCH (01:44)
[2018-10-11] MEDS: NS IV 1000 ML 1,000 ML IV SCH (03:00)
[2018-10-11] MEDS: CLINDAMYCIN 900 MG/50 ML IVPB 50 ML IV SCH (05:56)
[2018-10-11] MEDS ORDERED: CATHETER FLUSH 10 ML SYR IV SCH ×2 (06:00→14:00)
[2018-10-11 06:27] LABS: BILIRUBIN,URINE NEGATIVE (NEGATIVE); CLARITY,URINE CLEAR; COLOR,URINE YELLOW; GLUCOSE, URINE (UA) 1+ (NEGATIVE); KETONES,URINE 2+ (NEGATIVE); LEUKOCYTE ESTERASE ,URINE 2+ (NEGATIVE); NITRITE,URINE NEGATIVE (NEGATIVE); PH,URINE 6 (5-9); PROTEIN,URINE 1+ (NEGATIVE); UROBILINOGEN,URINE NORMAL (NORMAL)
[2018-10-11] MEDS ORDERED: METF-397 PO (06:29)
[2018-10-11 06:34] LABS: BACTERIA,URINE FEW /HPF; CALCIUM OXALATE CRYSTALS,UR MODERATE /LPF
[2018-10-11] MEDS ORDERED: ONDANSETRON 4 MG/2 ML (SDV) Z0FRAN ONE (06:51)
[2018-10-11] MEDS ORDERED: ONDANSETRON 4 MG/2 ML (SDV) Z0FRAN IVP PRN (07:00)
--- NOTE | 2018-10-11 07:11 | Anesthesia-Regional Post-Op ---
Regional Patient Condition Mental Status: Alert, Oriented x3 Circulation: Same as Pre-Op Headache: Absent Sensation: Full Recovery Motor Block: Absent Post Op Complications Complications None Follow Up Care/Instructions Patient Instructions None needed. Anesthesia/Patient Condition Patient is doing well, no complaints, stable vital signs, no apparent adverse anesthesia problems. No complications reported per nursing. STACY EDOUARD CRNA Oct 11, 2018 07:11
[2018-10-11] MEDS ORDERED: PROMETHAZINE INJ 25 MG/ML (PHENERGAN) AMP IVP ONE (08:45)
[2018-10-11] MEDS ORDERED: OXYTOCIN/NORMAL SALINE 500 ML IV SCH ×2 (09:00→11:32)
--- NOTE | 2018-10-11 09:34 | History & Physical-OB ---
OB - Chief Complaint & HPI Date/Time Date of Admission: Date of Admission: Oct 10, 2018 at 21:29 Chief Complaint/History Hx : 3 Hx Para: 2 Expected Date of Delivery: Oct 30, 2018 Gestational Age in Weeks: 37 Gestational Age in Days: 1 Allergies and Home Medications Allergies Coded Allergies: Penicillins (Unverified Allergy, Unknown, 12/22/14) Sulfa (Sulfonamide Antibiotics) (Unverified Allergy, Unknown, 12/22/14) cephalexin (Unverified Allergy, Unknown, 12/22/14) prednisone (Unverified Allergy, Unknown, 12/22/14) Home Medications Metformin HCl 500 Mg Tablet, 500 MG PO DAILY, (Reported) Vit W-Ca,Fe,FA(<1 mg) 1 Each Tablet, 1 EACH PO DAILY, (Reported) OB - History Hx of Present Care: Yes Obstetrical History Hx : 3 Hx Para: 2 Hx Total # of Abortions (Spona: 0 Delivery History Adverse Rxn to Tranfusion: No Social History/Family History Recent Infectious Disease Expo: No Alcohol Use: Denies Use Recreational Drug Use: No OB - Admission Exam Physical Exam Vitals: Vital Signs 10/11/18 10/11/18 03:30 07:00 Temp 98.0 Pulse 73 Resp 18 B/P (MAP) 103/61 (75) Pulse Ox 100 O2 Delivery Room Air Labs Laboratory Tests Test 10/10/18 20:20 10/10/18 21:11 10/10/18 22:15 10/11/18 06:26 Range/Units Urine Color YELLOW Urine Clarity CLEAR Urine pH 6 5-9 Urine Specific [place] 1.020 1.016-1.022 Urine Protein 1+ H NEGATIVE Urine Glucose (UA) 1+ H NEGATIVE Urine Ketones 2+ H NEGATIVE Urine Nitrite NEGATIVE NEGATIVE Urine Bilirubin NEGATIVE NEGATIVE Urine Urobilinogen NORMAL NORMAL MG/DL Urine Leukocyte Esterase 2+ H NEGATIVE Urine RBC (Auto) 3+ H NEGATIVE Urine RBC 2-5 H /HPF Urine WBC 5-10 H /HPF Urine Squamous Epithelial Cells 5-10 /HPF Urine Crystals PRESENT H /LPF Urine Calcium Oxalate Crystals MODERATE H /LPF Urine Bacteria FEW H /HPF Urine Casts NONE /LPF Urine Mucus MODERATE H /LPF Urine Culture Indicated CULTURE PENDING Glucometer 91 93 70-110 MG/DL White Blood Count 11.3 H 4.3-11.0 10^3/uL Red Blood Count 3.71 L 4.35-5.85 10^6/uL Hemoglobin 11.7 11.5-16.0 G/DL Hematocrit 34 L 35-52 % Mean Corpuscular Volume 93 80-99 FL Mean Corpuscular Hemoglobin 32 25-34 PG Mean Corpuscular Hemoglobin Concent 34 32-36 G/DL Red Cell Distribution Width 12.6 10.0-14.5 % Platelet Count 214 130-400 10^3/uL Mean Platelet Volume 10.5 H 7.4-10.4 FL Neutrophils (%) (Auto) 65 42-75 % Lymphocytes (%) (Auto) 24 12-44 % Monocytes (%) (Auto) 11 0-12 % Eosinophils (%) (Auto) 0 0-10 % Basophils (%) (Auto) 0 0-10 % Neutrophils # (Auto) 7.3 1.8-7.8 X 10^3 Lymphocytes # (Auto) 2.8 1.0-4.0 X 10^3 Monocytes # (Auto) 1.2 H 0.0-1.0 X 10^3 Eosinophils # (Auto) 0.0 0.0-0.3 10^3/uL Basophils # (Auto) 0.0 0.0-0.1 10^3/uL AN ACHARYA DO Oct 11, 2018 09:34
[2018-10-11] MEDS ORDERED: LIDOCAINE PF 2% 5 ML (XYLOCAINE) VIAL ONE (09:39)
[2018-10-11] MEDS ORDERED: BUPIVACAINE 0.25% 30 ML (SENSORCAINE) VIAL ONE (09:39)
[2018-10-11] MEDS ORDERED: fentaNYL INJECTION 100 MCG/2 ML AMP ONE (09:39)
--- NOTE | 2018-10-11 10:30 | NUR ---
dr Hager notified of patient c/o of pressure and urge to push. no new orders at this time. Dr Hager heading to hospital for anticipated delivery.
--- NOTE | 2018-10-11 11:05 | NUR ---
dr assessing perineum for tears, lacerations, and bleeding. 1113 spontaneous vaginal delivery of intact placenta by dr michelle and MD student. sent to lab for processing. pitocin increased to 999ml/hr per dr orders. 1115 dr assessing vaginal blood loss and flow. routine protocol ordered. 1117 pericare performed by this RN. vpad and chucks to perineum. 1119 assisted out of stirrups. fundal massage ffu/2 light flow no clots expressed urine noted with fundal massage. repositioned to high fowlers. 1124 new gown on. 1125 epidural off. and removed tip intact. 1130 reviewed diet order and room service verbalized understanding. fresh ice water placed at bedside. 1143 fundus firm u/0 light to moderate flow.
--- NOTE | 2018-10-11 11:32 | OB Labor & Delivery Record ---
Vag Delivery Note Vag Delivery Note Date of Delivery: 10/11/18 Preoperative Diagnosis: Liberty Parisi is a 33 /Para 3 / 2,Gestational Age 37 3/7 weeks in labor, GBS+, PCN allergy, GDM A2 (Metformin) Postoperative Diagnosis: Same Surgeon: AN ACHARYA Rehab Technician: Michel Coats, MS III Anesthesia: epidural Delivery Type: vacuum assisted delivery Findings: Viable male , apgars 2/8/9, weight 6#10oz Lacerations: none Intact placenta with 3 vessel cord. tight nuchal cord, delivered through, no body cord or shoulder dystocia Estimated Blood Loss: 150 ml Complications: None Condition: Stable Description of Procedure: The patient is a 33 /Para 3 / 2,Gestational Age 37 3/7 weeks in labor, GBS+, PCN allergy, GDM A2 (Metformin). She was admitted and informed consent was obtained. Her labor course was remarkable for Clindamycin x 2 doses (no sensitivity ordered), AROM and augmentation with pitocin. She progressed to complete dilatation and began to push. She was then set up for delivery. due to prolonged, deep decelerations without adequate recovery, poor maternal effort a vacuum assisted delivery was done. With + 2 station the vacuum was placed. with two sets of three pushes and 1 pop off, The 's head was delivered in the LESLYE position. The shoulders and remainder of the 's body were then delivered without difficulty. There was a tight nuchal cord that was delivered through. Upon delivery, the head was held below the level of the perineum and the mouth and nares were bulb suctioned. The cord was doubly clamped and cut and the was handed off to the pediatric staff. An intact placenta with 3-vessel cord delivered via Jazz and there was found to be minimal bleeding.~ Vigorous fundal massage was performed and the fundus was found to be firm. IV oxytocin was given. Examination of the vagina and perineum revealed no laceration. Following the delivery, sponge, instrument and needle counts were correct. Mom and baby were both in stable condition in the labor suite. Vitals - Labs Vital Signs - I&O Vital Signs Date Time Temp Pulse Resp B/P (MAP) Pulse Ox O2 Delivery O2 Flow Rate FiO2 10/11/18 09:20 97.1 64 20 104/63 (77) 100 Room Air 10/11/18 09:05 73 20 101/62 (75) 100 Room Air 10/11/18 08:50 65 20 108/69 (82) 100 Room Air 10/11/18 08:35 68 20 105/68 (80) 100 Room Air 10/11/18 08:20 65 20 106/66 (79) 100 Room Air 10/11/18 08:05 65 18 106/62 (77) 99 Room Air 10/11/18 07:50 67 18 104/62 (76) 100 Room Air 10/11/18 07:35 66 18 114/65 (81) 99 Room Air 10/11/18 07:20 67 18 106/67 (80) 100 Room Air 10/11/18 07:00 73 18 103/61 (75) 100 Room Air 10/11/18 06:45 67 18 93/63 (73) 100 Room Air 10/11/18 06:30 66 18 107/63 (78) 99 Room Air 10/11/18 06:15 64 18 107/62 (77) 100 Room Air 10/11/18 06:00 67 18 111/67 (82) 100 Room Air 10/11/18 05:45 65 18 112/67 (82) 99 Room Air 10/11/18 05:30 74 18 111/65 (80) 99 Room Air 10/11/18 05:15 63 18 105/57 (73) 100 Room Air 10/11/18 05:00 72 18 120/64 (82) 100 Room Air 10/11/18 04:45 67 18 112/62 (79) 100 Room Air 10/11/18 04:30 62 18 110/66 (81) 100 Room Air 10/11/18 04:15 65 18 112/68 (83) 100 Room Air 10/11/18 04:00 85 18 96/60 (72) 100 Room Air 10/11/18 03:45 64 18 98/60 (73) 100 Room Air 10/11/18 03:30 98.0 62 18 111/57 (75) 100 Room Air 10/11/18 03:15 78 18 103/58 (73) 100 Room Air 10/11/18 03:00 66 18 112/58 (76) 100 Room Air 10/11/18 02:45 73 18 100 Room Air 10/11/18 02:30 65 18 109/53 (71) 100 Room Air 10/11/18 02:15 67 18 98/59 (72) 100 Room Air 10/11/18 02:00 69 18 107/61 (76) 100 Room Air 10/11/18 01:45 67 18 96/58 (71) 100 Room Air 10/11/18 01:30 67 18 106/59 (75) 100 Room Air 10/11/18 01:15 74 18 98/57 (71) 100 Room Air 10/11/18 01:00 67 18 98 Room Air 10/11/18 00:45 100 18 103/56 (72) 100 Room Air 10/11/18 00:30 68 18 98 Room Air 10/11/18 00:25 81 18 107/58 (74) 100 Room Air 10/11/18 00:20 86 18 105/61 (76) 100 Room Air 10/11/18 00:15 68 18 108/60 (76) 99 Room Air 10/11/18 00:10 69 18 101/63 (76) 99 Room Air 10/11/18 00:05 73 18 108/62 (77) 99 Room Air 10/11/18 00:00 68 18 111/63 (79) 99 Room Air 10/10/18 23:52 77 18 118/60 (79) 100 Room Air 10/10/18 23:48 67 18 119/61 (80) 100 Room Air 10/10/18 23:45 80 18 121/65 (83) 10/10/18 23:42 82 18 120/67 (84) 98 Room Air 10/10/18 23:39 77 18 107/65 (79) 99 Room Air 10/10/18 23:36 77 18 105/66 (79) 99 Room Air 10/10/18 23:33 86 18 120/75 (90) 99 Room Air 10/10/18 23:30 97.6 84 18 119/74 (89) 100 Room Air 10/10/18 23:00 76 18 102/56 (71) 10/10/18 22:30 18 10/10/18 22:00 18 10/10/18 21:00 97.9 81 18 118/61 (80) I & O 10/11/18 07:00 Intake Total 2250 ml Output Total 325 ml Balance 1925 ml Labs Laboratory Tests 10/10/18 20:20: Urine Color YELLOW, Urine Clarity CLEAR, Urine pH 6, Urine Specific [place] 1.020, Urine Protein 1+H, Urine Glucose (UA) 1+H, Urine Ketones 2+H, Urine Nitrite NEGATIVE, Urine Bilirubin NEGATIVE, Urine Urobilinogen NORMAL, Urine Leukocyte Esterase 2+H, Urine RBC (Auto) 3+H, Urine RBC 2-5H, Urine WBC 5-10H, Urine Squamous Epithelial Cells 5-10, Urine Crystals PRESENTH, Urine Calcium Oxalate Crystals MODERATEH, Urine Bacteria FEWH, Urine Casts NONE, Urine Mucus MODERATEH, Urine Culture Indicated CULTURE PENDING 10/10/18 21:11: Glucometer 91 10/10/18 22:15: White Blood Count 11.3H, Red Blood Count 3.71L, Hemoglobin 11.7, Hematocrit 34L , Mean Corpuscular Volume 93, Mean Corpuscular Hemoglobin 32, Mean Corpuscular Hemoglobin Concent 34, Red Cell Distribution Width 12.6, Platelet Count 214, Mean Platelet Volume 10.5H, Neutrophils (%) (Auto) 65, Lymphocytes (%) (Auto) 24 , Monocytes (%) (Auto) 11, Eosinophils (%) (Auto) 0, Basophils (%) (Auto) 0, Neutrophils # (Auto) 7.3, Lymphocytes # (Auto) 2.8, Monocytes # (Auto) 1.2H, Eosinophils # (Auto) 0.0, Basophils # (Auto) 0.0 10/11/18 06:26: Glucometer 93 AN ACHARYA DO Oct 11, 2018 11:32
--- NOTE | 2018-10-11 11:39 | Discharge Inst-Women's Service ---
Discharge Inst-Women's Serv Depart Medication/Instructions New, Converted or Re-Newed RX: RX on Chart Final Diagnosis gestational diabetes, A2 GBS + vaginal delivery labor epidural Consults/Follow Up Additional Follow Up: Yes ([address] Hopper) Activity Activity: Activity as Tolerated Driving Instructions: You May Drive NO SMOKING: NO SMOKING Nothing Inside Vagina: No Douching, No [place], No Tampons Diet Discharge Diet: No Restrictions Symptoms to Report to : Swelling Increased, Bleeding Excessive, Pain Increased, Fever Over 101 Degrees F, Vaginal Bleeding Increase, Cramps in Feet or Legs, Vaginal Discharge Foul For Any Problems or Questions: Contact Your Physician Skin/Wound Care Bathing Instructions: AN Guevara DO Oct 11, 2018 11:39
[2018-10-11] MEDS ORDERED: DOCU100C37 PO (11:42)
[2018-10-11] MEDS ORDERED: ACET-77 PO (11:42)
[2018-10-11] MEDS ORDERED: FERR325T18 PO (11:42)
[2018-10-11] MEDS ORDERED: IBUP-844 PO (11:42)
[2018-10-11] MEDS ORDERED: BENZOCAINE/MENTHOL (DERMOPLAST) 56 ML CAN TP PRN (11:45)
[2018-10-11] MEDS ORDERED: FAMOTIDINE 20 MG (PEPCID) TABLET PO NR (11:45)
[2018-10-11] MEDS ORDERED: TETANUS,DIPTH,PERTUSS P/F (BOOSTRIX) 0.5 ML VIAL IM ONE (11:45)
[2018-10-11] MEDS ORDERED: DIBUCAINE (NUPERCAINAL) 1% OINT 30 GM TOP PRN (11:45)
[2018-10-11] MEDS ORDERED: MEASLES,MUMPS,RUBELLA 1 EA INJ SQ ONE (11:45)
[2018-10-11] MEDS ORDERED: WITCH HAZEL(TUCKS) 40 EA JAR TOP PRN (11:45)
[2018-10-11] MEDS: IBUPROFEN 600 MG (MOTRIN) TAB PO SCH ×2 (12:35→18:30)
--- NOTE | 2018-10-11 13:30 | NUR ---
patient denies pain. request to get up to attempt to void and freshen up before visitors. fundus +1 light to moderate flow. no clots. patient unable to voluntarily lift right leg off bed r/t continued limited ROM following labor epidural. denies further need will reassess extremity function in next hour.
--- NOTE | 2018-10-11 13:50 | NUR ---
family at bedside. no s/s of distress noted.
[2018-10-11] MEDS: ACETAMINOPHEN 500 MG TAB (TYLENOL) PO SCH ×2 (15:25→23:36)
--- NOTE | 2018-10-11 18:25 | NUR ---
PATIENT REPORTS LOWER BACK PAIN, REVIEWED WITH PATIENT ROBERT DUE PER DR MORA. WILL REASSESSING BACK PAIN OVER NEXT HOUR.
--- NOTE | 2018-10-11 19:35 | NUR ---
Pt trying to ambulate to the bathroom. pt c/o intense pain in her lower back. pt is trembling trying to walk. w'c placed in front of pt for assistance in walking. pt states pain as been going on all day. states pain in constant but increases when walking or sitting up.
--- NOTE | 2018-10-11 19:40 | NUR ---
notified of pt's complaint. new orders received.
--- NOTE | 2018-10-11 19:41 | NUR ---
Martinez LEAD WELDER notified of pt's back pain. will round on pt tomorrow.
[2018-10-11] MEDS ORDERED: CYCLOBENZAPRINE 10 MG (FLEXERIL) TAB ONE (19:45)
[2018-10-11] MEDS ORDERED: oxyCODONE/APAP 10/325MG (PERCOCET 10) TABLET PO NR (19:45)
[2018-10-11] MEDS ORDERED: oxyCODONE/APAP 10/325MG (PERCOCET 10) TABLET PO ONE (19:45)
[2018-10-11] MEDS ORDERED: CYCLOBENZAPRINE 10 MG (FLEXERIL) TAB PO ONE (19:45)
[2018-10-11] MEDS: DOCUSATE SODIUM 100 MG (COLACE) CAP PO SCH (19:50)
[2018-10-11] MEDS: oxyCODONE/APAP 5/325MG (PERCOCET 5) TABLET PO PRN (23:35)
--- NOTE | 2018-10-12 00:15 | NUR ---
Pt has the urge to void. pt in severe pain. pt states she is unable to walk. pt assisted to w'c and taken to bathroom room. x1 assistance getting her onto the toilet. positive void. pericare completed. pt assisted back to w'c and taken back to bed. pt very tearful states " I don't know what is wrong with me" "How am I suppose to care for my when I can't even go to the bathroom" called and given update on pt's status. new orders received.
[2018-10-12] MEDS: IBUPROFEN 600 MG (MOTRIN) TAB PO SCH ×4 (00:30→23:50)
[2018-10-12] MEDS: fentaNYL INJECTION 100 MCG/2 ML AMP IVP PRN ×3 (00:54→21:34)
[2018-10-12 06:15] LABS: BASOPHILS % (AUTO) 0 % (0-10); EOSINOPHILS # (AUTO) 0.1 10^3/uL (0.0-0.3); EOSINOPHILS % (AUTO) 1 % (0-10); HEMATOCRIT 27 % (35-52); HEMOGLOBIN 9.3 G/DL (11.5-16.0); LYMPHOCYTES # (AUTO) 2.5 X 10^3 (1.0-4.0); LYMPHOCYTES % (AUTO) 24 % (12-44); MEAN CORPUSCULAR HEMOGLOBIN 32 PG (25-34); MEAN CORPUSCULAR HGB CONC 34 G/DL (32-36); MEAN CORPUSCULAR VOLUME 94 FL (80-99); MEAN PLATELET VOLUME 10.4 FL (7.4-10.4); MONOCYTES % (AUTO) 10 % (0-12); NEUTROPHILS % (AUTO) 66 % (42-75); PLATELET COUNT 153 10^3/uL (130-400); RED CELL DISTRIBUTION WIDTH 12.5 % (10.0-14.5); WHITE BLOOD COUNT 10.7 10^3/uL (4.3-11.0)
[2018-10-12 09:20] VITALS: BP 107/61
--- NOTE | 2018-10-12 09:20 | NUR ---
called into pt's room. requesting assistance to BR. attempting to use w/c to steady while ambulating to BR. pt tearful, crying. unable to apply pressure to Rt.leg/hip area. assisted back to bed. bed spears offered, voices concerns r/t difficulty raising hips up for use. bedside commode used. pt unable to apply pressure or freely move Rt. leg. pt states leg " is fixed in place". +void. zulma-care offered. v-pad and panties in place.
[2018-10-12] MEDS: PRENATAL VITAMIN 1 EA TAB PO SCH (09:29)
[2018-10-12] MEDS: FERROUS SULF 325 MG (IRON) TAB PO SCH (09:29)
[2018-10-12] MEDS: DOCUSATE SODIUM 100 MG (COLACE) CAP PO SCH ×2 (09:30→21:30)
[2018-10-12] MEDS: PANTOPRAZOLE 20 MG TABLET (PROTONIX) PO SCH (09:30)
--- NOTE | 2018-10-12 09:39 | NUR ---
infant into room per mother's request. @ side.
--- NOTE | 2018-10-12 10:08 | NUR ---
here. new orders received.
--- NOTE | 2018-10-12 10:33 | NUR ---
CT techs here. pt downstairs via cart for CT.
--- NOTE | 2018-10-12 11:04 | Progress Note-Standard ---
Standard Progress Note Progress Notes/Assess & Plan Date Seen by a Provider: Oct 12, 2018 Time Seen by a Provider: 10:30 Progress/Assessment & Plan Objective: Vital Signs: Stable Heart: Regular rate and rhythm, without evidence of murmur Lungs: Clear to auscultation bilaterally Abdomen: Good bowel sounds, fundus 5 cm below umbilicus, mildly tender, no rebound, no guarding Extremities: Lower extremities with trace edema, no cyanosis or clubbing Back: Severe pelvic pain in lower back with palpation (brings Ms. Parisi to tears), unable to move right leg without significant pain Assessment: Day #1 Vacuum-assisted Vaginal Delivery 2. Gestational Diabetic 3. GBS Positive 4. Back and Hip Pain Plan: Continue normal care. Ms. Parisi was started on Percocet and Flexeril for uncontrolled back and hip pain. Also, heat was applied to the area. I ordered a CT of Lumbar, Sacral, Coccyx area. I will re-evaluate later today. Final Diagnosis Day #1 Vacuum-assisted Vaginal Delivery Gestational Diabetes GBS Positive Lower Back and Hip Pain MARIANELA KEEN DO Oct 12, 2018 11:04
--- NOTE | 2018-10-12 11:05 | NUR ---
pt returned to room via cart from CT scan.
[2018-10-12] MEDS: CYCLOBENZAPRINE 10 MG (FLEXERIL) TAB PO SCH ×2 (11:48→18:08)
[2018-10-12] MEDS: oxyCODONE/APAP 5/325MG (PERCOCET 5) TABLET PO PRN ×2 (11:49→18:08)
--- NOTE | 2018-10-12 12:25 | Diagnostic Imaging Report ---
PROCEDURE: CT abdomen and pelvis with contrast. TECHNIQUE: Multiple contiguous axial images were obtained through the abdomen and pelvis after administration of intravenous contrast. Auto Exposure Controls were utilized during the CT exam to meet ALARA standards for radiation dose reduction. DATE: October 12, 2018. COMPARISON: Ultrasound OB October 10, 2018. INDICATION: 33-year-old female, right leg and hip pain after vaginal delivery recently. FINDINGS: The visualized portions of the lung bases are clear. The heart is not enlarged. There is no identified pericardial effusion. There is nonspecific abnormal wall thickening of the distal esophagus. The liver is unremarkable in size and contour. There is no identified liver lesion. The main, right, and left portal veins are patent. The gallbladder is unremarkable. There is no intrahepatic or extrahepatic bile duct dilation. The main pancreatic duct is normal in caliber. Unremarkable appearance of the pancreatic parenchyma. The spleen is normal in size. The adrenal glands are unremarkable. There is a 3 mm low-attenuation left renal lesion on axial image 15 which is too small to characterize. The urinary collecting systems are not distended. There is no identified renal or ureteral stone. The urinary bladder is grossly unremarkable in appearance. There is soft tissue edema adjacent to the vaginal cavity as well as fluid attenuation in this region which may relate to recent vaginal delivery. The uterus is very prominent in size with very prominent vessels in the anterior aspect of the uterus in particular. There is a small amount of low attenuation within the central uterus likely relating to fluid in the endometrial cavity. The uterus measures roughly 16.5 x 10.8 x 20.1 cm in size. The intestinal tract is not distended. There is no free intraperitoneal air. There is no drainable fluid collection. There is a very small amount of free pelvic fluid. The hips are not dislocated. There is no identified acute bony abnormality. There is air projecting intradurally but are not definitely within the thecal sac. This potentially could relate to recent procedure. CT is limited for assessment of non-bony causes of pathology within the spinal canal. There is no identified acute bony abnormality. IMPRESSION: CT ABDOMEN AND PELVIS. 1. Gas intradural in location at the level of the lumbar spine which potentially may relate to recent procedure. No obvious fluid collection. CT is limited for assessment of non-bony causes of pathology within the spinal canal. 2. No identified acute bony abnormality. 3. Very large uterus with prominent internal vessels measuring up to 16.5 x 10.8 x 20.1 cm in size. 4. Very small amount of free pelvic fluid. 5. Wall thickening of the distal esophagus which is nonspecific and may potentially reflect esophagitis, especially given patient age. Malignancy would be considered less likely given age although the imaging appearance alone would have included in the differential diagnosis. Dictated by: Dictated on workstation # [id number]
--- NOTE | 2018-10-12 12:45 | NUR ---
called. requesting 2nd read on CT r/t possible pelvic fx.
--- NOTE | 2018-10-12 12:48 | NUR ---
Monster in Radiology was notified of request for 2nd read on CT. will contact radiologist marketing communications coordinator.
--- NOTE | 2018-10-12 12:50 | NUR ---
update given to on contacting radiology & that phone number was given.
--- NOTE | 2018-10-12 12:57 | NUR ---
was called. no pelvic fx noted by radiologist. order received to replace catheter prn.
--- NOTE | 2018-10-12 13:20 | NUR ---
called into pt's room for assist up to BR. discussed knowles replacement, agreed. #16 uzbek knowles catheter inserted by this RN while using sterile procedure. immediate return of clear, yellow urine noted. pt tolerated well. assisted with repositioning of pt's legs. cont to c/o pain in Rt.hip/lower back area.
--- NOTE | 2018-10-12 13:22 | NUR ---
SAMM Sanz called to check on pt. update given on pt's status and reported sx's. will evaluate prior after current OR case.
--- NOTE | 2018-10-12 13:25 | NUR ---
gown changed. ice applied to Rt.hip area. update given on anesthesia evaluation later.
[2018-10-12 13:34] VITALS: BP 106/57
--- NOTE | 2018-10-12 15:50 | NUR ---
Yvon, KETTLE GIRL here to assess pt.
--- NOTE | 2018-10-12 16:00 | Progress Note-Standard ---
Standard Progress Note Progress Notes/Assess & Plan Date Seen by a Provider: Oct 12, 2018 Time Seen by a Provider: 15:50 Progress/Assessment & Plan Patient laying in bed. Questioned patient about her pain she stated that it was in her back on the right side. I felt the left side to have her tell me where it was on the opposite side. The patient's pain appears to becoming from her left posterior pelvis/SI joint. She has no paresthesias in her legs. She states that any movement causes significant pain. I did not roll the patient to assess her back. Patient has good dorsi and plantar flexion in both feet with equal strength. I do not feel that this is from the epidural placement, but anesthesia will continue to follow daily until discharge. READING,PATRICK Bonilla CRNA Oct 12, 2018 16:00
[2018-10-12 18:05] VITALS: BP 116/61
--- NOTE | 2018-10-12 18:05 | NUR ---
1000cc emptied from knowles catheter. pt and informed that knowles will remain in until a.m. then up with assist after. pt voices concerns over possible dismissal to home tomorrow. reassurance given. zulma-care offered. v-pad in place. scant rubra noted. pt repositioned in bed with RN's assist. K-pad applied to Rt.hip/back area. pt states difficulty in "picking up" left leg. able to feel RN touching bilat legs. no numbness noted by pt.. unable to move Rt.leg by self upon command. exaggerated movement noted in Lt.leg with pt assist. pt requesting HOB elevated.
--- NOTE | 2018-10-12 18:50 | NUR ---
calf SCD's applied.
--- NOTE | 2018-10-12 19:17 | NUR ---
report given to next shift.
--- NOTE | 2018-10-12 20:52 | NUR ---
Pt resting in bed. assessment completed. pt rates pain /10. warm blanket applied to lower back. pt states k-pad is not getting warm. K-pad removed per pt's request. extra pillows placed around pt. pt denies any further needs. will continue to monitor.
--- NOTE | 2018-10-12 22:00 | NUR ---
pt states scd's are bothering her. requested them to be taken off. this rn explained the need for the scd's pt verbalized understanding. pt still request them be removed. scd removed from lower extremities.
--- NOTE | 2018-10-12 23:50 | NUR ---
VS taken, zulma care completed. pad changed. labia swelling noted. motrin given. pt is going to rest. nb taken to y.
[2018-10-12 23:51] VITALS: BP 105/63
[2018-10-13] MEDS: CYCLOBENZAPRINE 10 MG (FLEXERIL) TAB PO SCH ×3 (02:23→20:04)
[2018-10-13] MEDS: oxyCODONE/APAP 5/325MG (PERCOCET 5) TABLET PO PRN ×4 (02:23→20:04)
[2018-10-13 06:00] VITALS: BP 122/74
--- NOTE | 2018-10-13 06:00 | NUR ---
Went in to discuss knowles removal. pt attempted to stand at bedside and take a few steps. pt was able to stand at bedside but was unable to ambulate a few steps due to pain. pt assisted back to bed. pericare completed. pad changed. at this time pt wishes to keep knowles in for just a little longer. labia swelling noted. ice pack applied to labia and back. cup given for pt to brush her teeth. pt c/o pain at this time.
[2018-10-13] MEDS: IBUPROFEN 600 MG (MOTRIN) TAB PO SCH ×2 (06:37→11:25)
[2018-10-13 09:05] VITALS: BP 106/64
[2018-10-13] MEDS: PRENATAL VITAMIN 1 EA TAB PO SCH (11:25)
[2018-10-13] MEDS: DOCUSATE SODIUM 100 MG (COLACE) CAP PO SCH ×2 (11:25→20:04)
[2018-10-13] MEDS: FERROUS SULF 325 MG (IRON) TAB PO SCH (11:25)
--- NOTE | 2018-10-13 11:25 | NUR ---
RESTING IN BED WITH S/O AND . DENIES NEED. AM MEDS GIVEN.
--- NOTE | 2018-10-13 11:29 | Progress Note-Standard ---
Standard Progress Note Progress Notes/Assess & Plan Date Seen by a Provider: Oct 13, 2018 Time Seen by a Provider: 11:20 Progress/Assessment & Plan Subjective: Ms. Parisi is two days out from a vaginal delivery, she continues to have severe right posterior hip pain--unable to walk secondary to excruciating pain. As long as she is immobile, she is fine, but unable to move or ambulate comfortably Objective: Vital Signs: Stable Heart: Regular rate and rhythm, without evidence of murmur Lungs: Clear to auscultation bilaterally Abdomen: Good bowel sounds, fundus 5 cm below umbilicus, mildly tender, no rebound, no guarding Extremities: Lower extremities with trace edema, no cyanosis or clubbing Back: Still unable to move right leg without significant pain. Assessment: Day #1 Vacuum-assisted Vaginal Delivery 2. Gestational Diabetic 3. GBS Positive 4. Back and Hip Pain Plan: Continue normal care abd Percocet and Flexeril for uncontrolled back and hip pain. Also, heat was applied to the area. May need a MRI and possible Neurology consult, I will defer to Dr. Hopper's judgement. Maintain Villarreal Catheter being that it is terribly painful for Ms. Parisi to ambulate. Final Diagnosis Day #2 Vacuum-assisted Vaginal Delivery Gestational Diabetes GBS Positive Hip and Back Pain MARIANELA KEEN DO Oct 13, 2018 11:29
--- NOTE | 2018-10-13 13:15 | NUR ---
INFANT TAKEN TO MOTHERS ROOM FOLLOWING CIRCUMCISION.
[2018-10-13 15:30] VITALS: BP 100/74
--- NOTE | 2018-10-13 20:00 | NUR ---
Martinez rn internal medicine from anesthesia here to see pt.
--- NOTE | 2018-10-13 20:02 | Progress Note-Standard ---
Standard Progress Note Progress Notes/Assess & Plan Date Seen by a Provider: Oct 13, 2018 Time Seen by a Provider: 09:00 Progress/Assessment & Plan Late entry: Patient seen at 0900 and again at 1952. It was reported to me by Vandana Paez CRNA that this patient needed to be seen and evaluated for continuing right hip and lower back pain today. Upon my evaluation, the patient was sitting up in bed with a heating pad. She rates her pain at a zero while sitting. She states if she tries to get up, her pain is rated 8-10. She states she can not bear any weight on her right leg, thus Dr. Bryan ordered her knowles catheter to be reinserted. The patient rolled to her left side so I could assess her back. The epidural site is benign without any bruising or swelling. I pushed on and around the epidural site and cephalad and caudal to the epidural site and the patient denied any pain. I also pushed around her right hip and the patient denied pain. She complained of pain in her right buttocks area, so low that she couldn't touch the area without rolling on to her left side to show me. She can dorsiflex and plantar flex her right foot, she denies any numbness or tingling in her right leg or foot. She cannot elevate her right leg off of the bed when instructed to do so. The patient does state that she feels she can more easily move her right leg, as far as bending at the knee (bringing her lower leg up towards her pelvis, not lifting it off the bed) and moving it around. The patient is scheduled to have an MRI early am. I encouraged the patient to wear the SCD's (they were off during my visit), especially since she was not ambulating, and educated her about the risk of blood clots. We will continue to follow with the patient and visit with Dr. Hopper in the am. NICO BROTHERS CRNA Oct 13, 2018 20:02
--- NOTE | 2018-10-13 20:30 | NUR ---
assessment completed. pt voiced desire to shower. verified with phyisican that getting pt up was allowed. assisted pt to w/c with assistance. pt placed in w/c and taken to shower. pt assisted from w'c to shower bench. shower given per this rn. pt assisted back to w'c and taken back to bed. pt assisted in bed. pt situated in bed. pt requesting something for pain. s/o is at bed side at this time. fresh ice water given. pt denies any further needs at this time.
[2018-10-13] MEDS: fentaNYL INJECTION 100 MCG/2 ML AMP IVP PRN (21:02)
[2018-10-13 21:16] VITALS: BP 122/72
[2018-10-14] MEDS: IBUPROFEN 600 MG (MOTRIN) TAB PO SCH ×4 (01:05→19:54)
[2018-10-14] MEDS: oxyCODONE/APAP 5/325MG (PERCOCET 5) TABLET PO PRN ×3 (01:05→10:58)
[2018-10-14 03:15] VITALS: BP 116/72
[2018-10-14] MEDS: CYCLOBENZAPRINE 10 MG (FLEXERIL) TAB PO SCH ×3 (05:49→19:54)
--- NOTE | 2018-10-14 08:10 | NUR ---
here to se pt. new orders received.
--- NOTE | 2018-10-14 08:24 | Progress Note-Standard ---
Standard Progress Note Progress Notes/Assess & Plan Date Seen by a Provider: Oct 14, 2018 Time Seen by a Provider: 08:00 Progress/Assessment & Plan I have resumed care and reviewed the events since Sunday evening. I have also spoken with nursing and Dr. Bryan. She complained about worsening low back pain and ability to bear weight on the right leg. This was worsening Sunday into Sunday. She had a delivery complicated by Vacuum delivery due to decelerations and poor maternal effort (due to epidural) but delivery time was not exaggerated, nor was she extremely flexed. Her did assist with support of the right leg but the patient held her legs mostly (with pushing ) and they were allowed to relax in the stirrups after the delivery. I have reviewed the CT scan. 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 but her pain is located posteriorly. she states that the pain is better but still hurts to move. 10/13/18 10/14/18 21:16 03:15 Temp 99.2 97.9 Pulse 79 67 Resp 18 18 B/P (MAP) 122/72 (89) 116/72 (87) O2 Delivery Room Air Room Air 10/14/18 00:00 Intake Total 700 ml Output Total 875 ml Balance -175 ml AN ACHARYA DO Oct 14, 2018 08:24
[2018-10-14 09:00] VITALS: BP 112/59
--- NOTE | 2018-10-14 09:00 | NUR ---
initial shift assessment completed. vs taken. reports cont pain in Rt.hip/leg area. able to move LE without assist. and @ side. will cont to monitor.
[2018-10-14] MEDS ORDERED: OXYTOCIN/NORMAL SALINE 500 ML IV SCH (10:03)
--- NOTE | 2018-10-14 10:04 | Physical Therapy Evaluation ---
PT Evaluation-General Medical Diagnosis Admission Date Oct 10, 2018 at 21:29 Medical Diagnosis: SI pain/pubic symphysis diastis (post delivery) Onset Date: Oct 10, 2018 Therapy Diagnosis Therapy Diagnosis: right SI pain/immobility Height/Weight Height (Feet): 5 Height (Inches): 1.00 Weight (Pounds): 147 Weight (Ounces): 0.0 Precautions Precautions/Isolations: Standard Precautions Weight Bear Status Right Lower Extremity: Right Weight Bearing/Tolerated Left Lower Extremity: Left Weight Bearing/Tolerated Referral Physician: Ward Reason for Referral: Evaluation/Treatment Medical History Current History delivery on October 10 resulting in SI pain and inability to ambulate Social History Home: Single Level Current Living Status: Spouse Prior/Core FIM Prior Level of Function Therapy Code Descriptions/Definitions Functional Davis Measure: 0=Not Assessed/NA 4=Minimal Assistance 1=Total Assistance 5=Supervision or Setup 2=Maximal Assistance 6=Modified Davis 3=Moderate Assistance 7=Complete Davis Therapy Quality Codes: 6 Independent with activity with or without an assistive device 5 Patient requires set up or clean up by helper. Patient completes activity by themselves 4 Supervision or touching assist (CGA). [place] provide cues , steadying assist 3 The helper provides less than half the effort to complete the activity 2 The helper provides more than half the effort to complete the activity 1 Dependent. The helper does all the effort to complete an activity 7 Patient refused to complete or attempt activity 9 The patient did not perform the activity before the current illness or injury 88 Not attempted due to Medical conditions or safety concerns Functional Abilities and Goals: Independent: Patient completed the activities by him/herself, with or without an assistive device, with no assistance from a helper. Needed Some Help: Patient needed partial assistance from another person to complete activities. Dependent: A helper completed the activities for the patient. Unknown: Not Applicable: Bed Mobility: 7 Transfers (B,C,W/C) (FIM): 7 Gait: 7 Stairs: 7 Indoor Mobility (Ambulation): Independent Stairs: Independent Prior Devices Use: None PT Evaluation-Current Subjective Patient c/o 10/10 right SI region pain with minimal activity Pain Numeric Pain Scale: 10-Worst Possible Pain Location: Right Location Body Site: Pelvic Pain Description: Acute Objective Patient Orientation: Normal For Age Problem Solving: Good Attachments: Villarreal Catheter ROM/Strength ROM Lower Extremities bilateral LE WFL with increase in c/o pain with supine hip flexion bilaterally ( PROM) Strength Lower Extremities NT Integumentary/Posture Bladder Incontinence: Villarreal Cath Sensory Vision: Wears Glasses Hearing: Functional Sensation Right Lower Extremit: Intact Sensation Left Lower Extremity: Intact Transfers Therapy Code Descriptions/Definitions Functional Davis Measure: 0=Not Assessed/NA 4=Minimal Assistance 1=Total Assistance 5=Supervision or Setup 2=Maximal Assistance 6=Modified Davis 3=Moderate Assistance 7=Complete Davis Transfers (B, C, W/C) (FIM): 6 Scootin Rollin Supine to/from Sit: 6 Gait Mode of Locomotion: Walk Anticipated Mode of Locomotion: Walk Balance Sitting Static: Normal Sitting Dynamic: Normal Assessment/Needs Attempted mild SI hip flexion resistance bilaterally with patient having increase c/o pain with this activity. PT consulted with RN on POC and reports possible MRI to r/o. PT will follow to accommodate with gait training with FWW and/or SI mobility exercises. Rehab Potential: Fair PT Short Term Goals Short Term Goals Time Frame: Oct 16, 2018 Transfers (B,C,W/C) (FIM): 7 Gait (FIM): 7 Distance (FIM): 3=150 ft Gait Level of Assist: 7 Additional Short Term Goals patient compliant with SI exercises as tolerated. PT Plan Problem List Problem List: Activity Tolerance, Functional Strength, ROM, Other (right SI pain) Treatment/Plan Treatment Plan: Continue Plan of Care Treatment Plan: Bed Mobility, Education, Functional Activity Ana, Functional Strength, Gait, Safety, Therapeutic Exercise, Transfers Treatment Duration: Oct 16, 2018 Frequency: 3 times per week Estimated Hrs Per Day: .25 hour per day Patient and/or Family Agrees t: Yes Time/GCodes Time In: 852 Time Out: 915 Total Billed Treatment Time: 23 Total Billed Treatment 1 visit EVDanielC 8 min EX 15 min KYM BURKETT PT Oct 14, 2018 10:04
[2018-10-14] MEDS ORDERED: MEASLES,MUMPS,RUBELLA 1 EA INJ SQ ONE (10:15)
[2018-10-14] MEDS ORDERED: WITCH HAZEL(TUCKS) 40 EA JAR TOP PRN (10:15)
[2018-10-14] MEDS ORDERED: TETANUS,DIPTH,PERTUSS P/F (BOOSTRIX) 0.5 ML VIAL IM ONE (10:15)
[2018-10-14] MEDS ORDERED: DIBUCAINE (NUPERCAINAL) 1% OINT 30 GM TOP PRN (10:15)
[2018-10-14] MEDS ORDERED: BENZOCAINE/MENTHOL (DERMOPLAST) 56 ML CAN TP PRN (10:15)
[2018-10-14] MEDS: FERROUS SULF 325 MG (IRON) TAB PO SCH (10:58)
[2018-10-14] MEDS: PRENATAL VITAMIN 1 EA TAB PO SCH (10:58)
[2018-10-14] MEDS: PANTOPRAZOLE 20 MG TABLET (PROTONIX) PO SCH (10:58)
[2018-10-14] MEDS: DOCUSATE SODIUM 100 MG (COLACE) CAP PO SCH ×2 (10:58→19:54)
--- NOTE | 2018-10-14 11:40 | NUR ---
pt assisted to MRI cart with x4 staff members. pt tolerated fair. down to MRI with staff @ side. family and remains in room.
[2018-10-14] MEDS ORDERED: IBUPROFEN 600 MG (MOTRIN) TAB PO SCH (12:00)
[2018-10-14] MEDS ORDERED: ACETAMINOPHEN 500 MG TAB (TYLENOL) PO SCH (12:00)
--- NOTE | 2018-10-14 12:25 | NUR ---
called. update given on pt's status r/t MRI testing. new orders received.
--- NOTE | 2018-10-14 12:55 | NUR ---
pt returned to room 309 via MRI cart. assisted back to bed. POC reviewed with pt and s/o r/t 's new orders.
[2018-10-14 13:09] VITALS: BP 121/58
--- NOTE | 2018-10-14 13:10 | NUR ---
knowles catheter and HANNAH dc'd per 's orders.
[2018-10-14] MEDS: ACETAMINOPHEN 500 MG TAB (TYLENOL) PO SCH ×2 (13:17→22:12)
--- NOTE | 2018-10-14 13:20 | Diagnostic Imaging Report ---
PROCEDURE: MRI lumbar spine. TECHNIQUE: Multiplanar/multisequence MRI of the lumbar spine was performed without contrast. INDICATION: Right leg numbness. 3 days . COMPARISON: CT abdomen/pelvis with IV contrast dated 10/12/2017. FINDINGS: There are five lumbar type vertebral bodies for the purposes of this report. Normal alignment. Vertebral body heights are preserved. Benign hemangiomas in the T12 and L1 vertebral bodies. Bone marrow signal is otherwise unremarkable. The intervertebral discs are well-preserved. There is no spinal canal, lateral recess, or neuroforaminal narrowing in the lumbar spine. The previously seen tiny locules of gas in the right L2-L3 and L3-L4 neural foramen are no longer seen and have likely resolved. The visualized paravertebral soft tissues are negative. IMPRESSION: Normal MRI of the lumbar spine without contrast. Specifically, the previously seen tiny locules of gas about the right L2-L3 and L3-L4 neural foramen appear to have resolved. Dictated by: Dictated on workstation # [id number]
--- NOTE | 2018-10-14 13:58 | Diagnostic Imaging Report ---
PROCEDURE: MR imaging abdomen without contrast. TECHNIQUE: Multiplanar, multisequence MR imaging of the abdomen was performed without contrast. INDICATION: , new onset abdominal and pelvic pain. COMPARISON: CT abdomen and pelvis from 10/12/2018. FINDINGS: No free fluid within the abdomen. The liver and spleen are normal in size. No hepatic steatosis or excessive iron deposition in the liver. No focal hepatic or splenic lesion. Gallbladder is partially filled without filling defects to indicate cholelithiasis. No features of choledocholithiasis. The common bile duct is normal in caliber measuring up to 4 mm and has smooth distal tapering. No pancreatic duct dilatation. No peripancreatic inflammatory changes are appreciated. No hydronephrosis. No abdominal lymphadenopathy. Normal-caliber abdominal aorta. No dilated loops of bowel are appreciated. There appears to be a large volume colonic stool. IMPRESSION: 1. No acute process in the abdomen by MRI. 2. No free fluid or retroperitoneal hemorrhage. 3. Large volume of colonic stool. Correlation for constipation is suggested. Dictated by: Dictated on workstation # [id number]
[2018-10-14] MEDS ORDERED: CATHETER FLUSH 10 ML SYR IV SCH (14:00)
--- NOTE | 2018-10-14 14:09 | NUR ---
CM/JUS met with the patient and her . The family stated that the will discharge with the baby and they will come during the day to be with patient until she is able to discharge. Patient may have MRI this day. The family is not interested in community programs and state they have all they need for the baby. They have two older children 10 & 13. They could not identify any other needs at this time. Will continue to follow.
--- NOTE | 2018-10-14 14:10 | NUR ---
[id number] pt assisted up with standby assist x2. [place], PT and this RN remain @ side. gait belt applied by PT. ambulated with walker. + void. zulma-care offered. v-pad and panties applied. ambulated to door in room then back to bed. repositioned. SCD's reapplied. pt reports Oxycodone working "best so far" for pain control. update given to Dr. Hopper.
--- NOTE | 2018-10-14 14:48 | Physical Therapy Daily Note ---
PT Daily Note-Current Subjective Patient reports she has had pain medication and is feeling better. Agrees to ambulating with FWW. Pain Numeric Pain Scale: 5-Moderate Pain Location: Right Location Body Site: Pelvic Pain Description: Acute Mental Status Patient Orientation: Normal For Age Transfers Therapy Code Descriptions/Definitions Functional [place] Measure: 0=Not Assessed/NA 4=Minimal Assistance 1=Total Assistance 5=Supervision or Setup 2=Maximal Assistance 6=Modified [place] 3=Moderate Assistance 7=Complete [place] Therapy Quality Codes: 6 Independent with activity with or without an assistive device 5 Patient requires set up or clean up by helper. Patient completes activity by themselves 4 Supervision or touching assist (CGA). Independence provide cues , steadying assist 3 The helper provides less than half the effort to complete the activity 2 The helper provides more than half the effort to complete the activity 1 Dependent. The helper does all the effort to complete an activity 7 Patient refused to complete or attempt activity 9 The patient did not perform the activity before the current illness or injury 88 Not attempted due to Medical conditions or safety concerns Transfers (B, C, W/C) (FIM): 7 Scootin Rollin Supine to/from Sit: 7 Sit to/from Stand: 7 Bed to/from Chair: 7 Weight Bearing Right Lower Extremity: Right Weight Bearing/Tolerated Left Lower Extremity: Left Weight Bearing/Tolerated Gait Training Gait (FIM): 1 Distance (FIM): 1=up to 49 ft Distance: 25' Gait Level of Assist: 5 Gait Assistive Device: FWW slow, step to gait sequence with FWW Assessment Patient and spouse report they may have access to a walker for home use. Patient is ambulating to restroom and RN is present. PT to dismiss patient from services at this time. PT Short Term Goals Short Term Goals Time Frame: Oct 16, 2018 Transfers (B,C,W/C) (FIM): 7 Gait (FIM): 7 Distance (FIM): 3=150 ft Gait Level of Assist: 7 PT Plan Treatment/Plan Treatment Plan: Discontinue PT Treatment Plan: Bed Mobility, Education, Functional Activity Ana, Functional Strength, Gait, Safety, Therapeutic Exercise, Transfers Treatment Duration: Oct 16, 2018 Frequency: 3 times per week Estimated Hrs Per Day: .25 hour per day Patient and/or Family Agrees t: Yes Time/GCodes Time In: 1355 Time Out: 1405 Total Billed Treatment Time: 10 Total Billed Treatment 1 visit GT 10 min KYM BURKETT PT Oct 14, 2018 14:48
--- NOTE | 2018-10-14 15:16 | Diagnostic Imaging Report ---
PROCEDURE: MRI pelvis without contrast. TECHNIQUE: Multiplanar/multisequence MRI of the pelvis was performed without contrast. INDICATION: Pelvic pain. COMPARISON: There are no previous MRI pelvis examinations available for comparison; however, correlation is made to the recent CT abdomen/pelvis exam of 10/12/2018. FINDINGS: The recent CT abdomen/pelvis exam of 10/12/2018 noted marked enlargement of the uterus, consistent with patient's status. There was no acute abnormality identified, however. On this exam, the uterus is indeed enlarged but similar in appearance to the prior exam. There is no pelvic mass or free fluid collection identified. There is a Villarrela catheter in place. The bladder appears to be completely decompressed by the Villarreal catheter. The catheter does lie to the right of midline. I do suspect it is within the decompressed bladder. Even so, if the patient is not producing any urine, then ultrasound would be recommended for additional study. There is no abnormal signal arising from the osseous structures to suggest bone edema or fracture. As noted on the CT abdomen/pelvis exam performed on 10/12/2018 there is approximately 2.8 CM with diastases of the pubic symphysis. Most likely this is related to the patient's recent vaginal delivery. There is mild soft tissue edema in this area. IMPRESSION: 1. There is generalized enlargement of the uterus, consistent with the patient's status. There is no acute abnormality identified otherwise. 2. The Villarreal catheter lies to the right of midline. Most likely, it is within the decompressed bladder. Recommendations as above. 3. There is 2.8 CM diastases of the pubic symphysis with associated soft tissue edema. 4. These results were discussed with Dr. Hopper. Dictated by: Dictated on workstation # [id number]
--- NOTE | 2018-10-14 16:30 | NUR ---
assisted up to BR with assist of walker and this RN standby x1. tolerated well. + void. assisted with zulma-care. v-pad and panties in place.
--- NOTE | 2018-10-14 19:20 | NUR ---
report given to next shift.
[2018-10-14 20:00] VITALS: BP 132/70
[2018-10-14] MEDS ORDERED: DOCUSATE SODIUM 100 MG (COLACE) CAP PO SCH (21:00)
[2018-10-15 03:00] VITALS: BP 133/83
[2018-10-15] MEDS: IBUPROFEN 600 MG (MOTRIN) TAB PO SCH ×2 (03:00→09:11)
[2018-10-15] MEDS: CYCLOBENZAPRINE 10 MG (FLEXERIL) TAB PO SCH ×2 (03:00→11:17)
[2018-10-15] MEDS: ACETAMINOPHEN 500 MG TAB (TYLENOL) PO SCH (05:51)
[2018-10-15] MEDS ORDERED: PRENATAL VITAMIN 1 EA TAB PO SCH (07:00)
[2018-10-15] MEDS ORDERED: PANT20TA3 PO (07:51)
[2018-10-15] MEDS ORDERED: CYCL10TA9 PO (07:51)
[2018-10-15] MEDS ORDERED: OXC5T PO (07:51)
--- NOTE | 2018-10-15 07:54 | Progress Note (SOAP) ---
Subjective Date Seen by a Provider: Oct 15, 2018 Time Seen by a Provider: 07:50 Subjective/Events-last exam 10/14/18 10/15/18 20:00 03:00 Temp 98.4 97.3 Pulse 64 59 Resp 18 18 B/P (MAP) 132/70 (90) 133/83 (100) Pulse Ox 95 95 O2 Delivery Room Air Room Air 10/15/18 00:00 Output Total 1025 ml Balance -1025 ml Objective Exam Vital Signs Date Time Temp Pulse Resp B/P (MAP) Pulse Ox O2 Delivery O2 Flow Rate FiO2 10/15/18 03:00 97.3 59 18 133/83 (100) 95 Room Air 10/14/18 20:00 98.4 64 18 132/70 (90) 95 Room Air 10/14/18 13:09 98.9 73 18 121/58 (79) 95 Room Air 10/14/18 09:00 98.1 76 18 112/59 (76) 99 Room Air I & O 10/15/18 07:00 Intake Total 600 ml Output Total 1325 ml Balance -725 ml Capillary Refill : Results Lab Microbiology 10/10/18 Urine Culture - Final, Complete 3 or more isolates Strep agalactiae Group B Clinical Quality Measures DVT/VTE Risk/Contraindication: Risk Factor Score Per Nursin RFS Level Per Nursing on Admit: 1=Low/No VTE PPX AN ACHARYA DO Oct 15, 2018 07:54
[2018-10-15] MEDS ORDERED: FERROUS SULF 325 MG (IRON) TAB PO SCH (09:00)
[2018-10-15 09:09] VITALS: BP 108/68
[2018-10-15] MEDS: PANTOPRAZOLE 20 MG TABLET (PROTONIX) PO SCH (09:11)
[2018-10-15] MEDS: DOCUSATE SODIUM 100 MG (COLACE) CAP PO SCH (09:11)
[2018-10-15] MEDS: FERROUS SULF 325 MG (IRON) TAB PO SCH (09:11)
[2018-10-15] MEDS: PRENATAL VITAMIN 1 EA TAB PO SCH (09:12)
--- NOTE | 2018-10-15 10:00 | NUR ---
Dr Hopper here to see pt. Orders for D/C rec'd
[2018-10-15] MEDS ORDERED: WALK1EAC23 MC (11:15)
--- NOTE | 2018-10-15 11:57 | NUR ---
CM/SS patient did think that she would like order for a FWW. Discussed that unsure if insurance would cover due to diagnosis and if it is a qualifying one. Patient will take the order to the DME and try. If insurance does not cover the FWW, then they have access to an old one that would work for the time frame she'd need it. Patient did not identify ant other needs at discharge.
--- NOTE | 2018-10-15 13:20 | NUR ---
Discharge instructions explained to pt with copy provided to pt along with prescriptions and script for walker. Pt verbalizes understanding of instructions, denies questions or concerns at this time, signs to verify. Pt notified of follow up appointment, and encouraged to call clinic with needs or concerns prior. Pt taken off unit via wheelchair to private vehicle, along with all personal belongings, accompanied by S.O., infant, and RN. No s/s of distress noted.
== END 2018-10-15 13:20 | disposition home or self-care (01) | DRG 807 ==
LOC: WSo 19:59 → LDRP 20:00 → WSo 21:28 → LDRP 21:29
PROVIDERS: ADMIT Obstetrics & Gynecology; ATTEND Obstetrics & Gynecology
PROC: 10D07Z6 Extraction of Products of Conception, Vacuum, Via Natural or Artificial Opening (ICD-10-PCS; principal; 2018-10-11)
DX: O24.425 Gestational diabetes mellitus in childbirth, controlled by oral hypoglycemic drugs (principal); O99.824 Streptococcus B carrier state complicating childbirth; O69.1XX0 Labor and delivery complicated by cord around neck, with compression, not applicable or unspecified; O76 Abnormality in fetal heart rate and rhythm complicating labor and delivery; O75.81 Maternal exhaustion complicating labor and delivery; O26.73 Subluxation of symphysis (pubis) in the puerperium; Z37.0 Single live birth; Z3A.37 37 weeks gestation of pregnancy
CPT/HCPCS: 36415; 72148; 72195; 74177; 74181; 81000; 82962; 85025; 86850; 86900; 86901; 87077; 87088; 88307; 99212

== ENCOUNTER → 2018-10-10 | Outpatient (CLI) | payer MEDICAID ==
[~2018-10-10] MED LIST changes: +ACET-77 PO; +DOCU100C37 PO; +FERR325T18 PO; +IBUP-844 PO; +METF-397 PO
--- NOTE | 2018-10-10 16:25 | Diagnostic Imaging Report ---
INDICATION: Gestational diabetes mellitus. TECHNIQUE: Multiple real-time grayscale images were obtained over the gravid uterus. Additionally, fetus was observed for purposes of biophysical profile assessment. COMPARISON: 09/26/2018. FINDINGS: A single viable intrauterine is currently in a cephalic presentation. Normal amount of amniotic fluid. The placenta is along the anterior fundal aspect and without evidence for previa The anatomical assessment was not performed. Biometrical measurements are as follows: Biparietal 9.25 cm, age 37 weeks 5 days. Head circumference 33.34 cm, age 38 weeks 1 days. Abdominal circumference 33.78 cm, age 37 weeks 5 days. Femur length 6.81 cm, age 35 weeks 0 days. Sonographic estimate age: 37 weeks 1 days. Sonographic estimated date of delivery: 10/30/2018. Estimated Weight: 3111 gm (+/- 454 gm). LMP percentile: 55%. heart rate: 160 beats per minute. Maternal adnexa not visualized. Biophysical Profile Scoring: breathin Body movement: 2 tone: 2 Amniotic fluid: 2 Total BPP Score: 8/8 number: 1 of 1. IMPRESSION: 1. Single viable intrauterine , currently in cephalic presentation. Sonographic estimated age at 37 weeks 1 day for an estimated date of delivery of October 30, 2018. 2. Normal biophysical profile scoring 8/8. Dictated by: Dictated on workstation # [id number]
== END ==
LOC: RAD 13:46
PROVIDERS: ATTEND Obstetrics & Gynecology
DX: O24.425 Gestational diabetes mellitus in childbirth, controlled by oral hypoglycemic drugs (principal); Z3A.37 37 weeks gestation of pregnancy
CPT/HCPCS: 76805; 76819

== ENCOUNTER 2020-02-03 22:13 | Emergency (ER) | payer MEDICAID ==
[~2020-02-03] VITALS: Ht 152 cm; Wt 62.7 kg
[~2020-02-03 22:13] MED LIST changes: +ACET-78 PO; +CYCL10TA9 PO; +DOCU100C37 PO; +FERR325T18 PO; +IBUP-844 PO; +METF-397 PO; +OXC5T PO; +PANT20TA3 PO; +WALK1EAC23 MC
--- NOTE | 2020-02-03 22:35 | NUR ---
HEART TONES ARE 158
--- NOTE | 2020-02-03 22:48 | ED Abdominal Pain ---
General Chief Complaint: Abdominal/GI Problems Stated Complaint: ABD PAIN,NAUSEA Nursing Triage Note: PT. REPORTED SHE THOUGHT SHE HAD A UMBILICAL HERNIA. PT. STATED SHE SAW HER OB DOCTOR TODAY. PT. REPORTED SHE IS 28 WKS AND IS NAUSEATED. Sepsis Screen: No Definite Risk History of Present Illness Date Seen by Provider: Feb 03, 2020 Time Seen by Provider: 22:30 Initial Comments Patient is here with umbilical pain evidently is about 28 weeks was at her OB office today discussed discomfort at the umbilicus he was able to reduce a small umbilical hernia tonight more pain concerned that it is not being managed. She was comfortably she does have some discomfort at the side she has had normal stools no nausea no vomiting no fever no toxic appearance. Timing/Duration: 2-3 Days Severity/Quality: Mild Location: Periumbilical Radiation: No Radiation Activities at Onset: None Modifying Factors: Improves With Lying down Associated Symptoms: No Fever/Chills, No Nausea/Vomiting Allergies and Home Medications Allergies Coded Allergies: Penicillins (Unverified Allergy, Unknown, 12/22/14) Sulfa (Sulfonamide Antibiotics) (Unverified Allergy, Unknown, 12/22/14) cephalexin (Unverified Allergy, Unknown, 12/22/14) prednisone (Unverified Allergy, Unknown, 12/22/14) Home Medications Acetaminophen 500 Mg Tablet, 1,000 MG PO Q8HR Prescribed by: AN ACHARYA on 10/11/181141 Cyclobenzaprine HCl 10 Mg Tablet, 10 MG PO Q8H PRN for MUSCLE SPASMS Prescribed by: AN ACHARYA on 10/15/18750 Docusate Sodium 100 Mg Capsule, 100 MG PO BID Prescribed by: AN ACHARYA on 10/11/18 114 Ferrous Sulfate 325 Mg Tablet, 325 MG PO DAILY Prescribed by: AN ACHARYA on 10/11/18 114 Ibuprofen 600 Mg Tablet, 600 MG PO Q6HR Prescribed by: AN ACHARYA on 10/11/18 114 Oxycodone Hcl 5 Mg Tab, 5 MG PO Q4H PRN for PAIN-SEVERE Prescribed by: AN ACHARYA on 10/15/18750 Pantoprazole Sodium 20 Mg Tablet.dr, 20 MG PO DAILY Prescribed by: AN ACHARYA on 10/15/18 075 Vit W-Ca,Fe,FA(<1 mg) 1 Each Tablet, 1 EACH PO DAILY, (Reported) Patient Home Medication List Home Medication List Reviewed: Yes Review of Systems Review of Systems Constitutional: No chills, No fever Respiratory: No Symptoms Reported Cardiovascular: No Symptoms Reported Gastrointestinal: Abdominal Pain; Denies Diarrhea, Denies Nausea, Denies Vomiting Genitourinary: Denies Burning, Denies Frequency Musculoskeletal: No back pain Skin: no symptoms reported Past Zdqrrxa-Sqlvdg-Awayet Hx Past Med/Social Hx: Reviewed Nursing Past Med/Soc Hx Patient Social History Type Used: Cigarettes Recent Foreign Travel: No Contact w/Someone Who Travel: No Recent Infectious Disease Expo: No Recent Hopitalizations: No Physical Abuse: No Sexual Abuse: No Mistreated: No Fear: No Seasonal Allergies Seasonal Allergies: No Past Medical History Surgeries: Yes (wisdom teeth) Respiratory: No Cardiac: No Neurological: No : Yes Genitourinary: No Gastrointestinal: No Musculoskeletal: No Endocrine: No HEENT: No Cancer: No Psychosocial: No Integumentary: No Blood Disorders: No Adverse Reaction/Blood Tranf: No Family Medical History Diabetes mellitus 19 FATHER (heart disease) Hypertension 19 FATHER (heart disease) Physical Exam Vital Signs Vital Signs - First Documented 02/03/20 22:35 Temp 36.6 Pulse 85 Resp 17 B/P (MAP) 145/70 (95) Pulse Ox 98 O2 Delivery Room Air Capillary Refill : Less Than 3 Seconds Height/Weight/BMI Height: 5'1.00" Weight: 147lbs. 0.0oz. 66.042921yl; 27.00 BMI Method: General Appearance: WD/WN, no apparent distress Respiratory: chest non-tender, lungs clear Cardiovascular: regular rate, rhythm, no murmur Gastrointestinal: normal bowel sounds, other (28 week uterus palpated small opening at the umbilicus with a 2 cm nontender sac at the umbilicus. Gentle manipulation was attempted some discomfort with that she isn't placed in Trendelenburg.) Extremities: normal range of motion, non-tender Neurologic/Psychiatric: alert, normal mood/affect, oriented x 3 Skin: normal color, warm/dry Progress/Results/Core Measures Results/Orders Vital Signs/I&O 02/03/20 02/03/20 22:35 23:07 Temp 36.6 36.6 Pulse 85 85 Resp 17 17 B/P (MAP) 145/70 (95) 145/70 (95) Pulse Ox 98 98 O2 Delivery Room Air Room Air Blood Pressure Mean: 95 Departure Communication (Admissions) After 20 minutes in Trendelenburg gentle manipulation reduce the hernia fairly easily at this point feel like it's intermittently partially incarcerated and feel like consultation with surgeon would be warranted and discussed with her that I thought over time it would get better the longer 1 on the uterus enlarged pushing the bowel out of the way as well as most likely will get slightly larger with time. Impression Primary Impression: Umbilical hernia Qualified Codes: K42.9 - Umbilical hernia without obstruction or gangrene Disposition: 01 HOME, SELF-CARE Condition: Stable Departure-Patient Inst. Referrals: AN ACHARYA DO (PCP) Primary Care Physician Patient Instructions: Umbilical Hernia, Adult JESSICA ROJAS JR, MD Feb 03, 2020 22:48
[2020-02-03 23:07] VITALS: BP 145/70
--- OUTSIDE RECORDS SUMMARY | 2020-02-04 00:27 | XMS REPORT | Continuity of Care Document ---
Author Organization Unknown Address Unknown Phone Unavailable Allergies Active Description Code Type Severity Reaction Onset Reported/Identified Relationship to Patient Clinical Status Yes cephalexin [id number] Drug Allerg y Unknown N/A 12/22/2014 Yes Penicillins [id number] Drug Aller gy Unknown N/A 12/22/2014 Yes prednisone [id number] Drug Allerg y Unknown N/A 12/22/2014 Yes Sulfa (Sulfonamide Antibiotics) [id number] Drug Allergy Unknown N/A 015 Medications There is no data. Problems Date Dx Coded Attending Type Code Diagnosis Diagnosed By 2015 RYAN WHITE DO Ot 780.4 04/09/2015 Ot 620.2 04/09/2015 LOPEZ KAMARA Ot 625.9 04/09/2015 LOPEZ KAMARA Ot 626.8 04/09/2015 RYAN WHITE DO Ot 780.4 04/09/2015 RYAN WHITE DO Ot R42 06/15/2015 RYAN WHITE DO Ot 780.4 06/15/2015 RYAN WHITE DO Ot R42 07/01/2015 RYAN WHITE DO Ot 780.4 07/01/2015 RYAN WHITE DO Ot R42 10/06/2015 LOPEZ KAMARA Ot 625.9 10/06/2015 LOPEZ KAMARA Ot 626.8 10/06/2015 RYAN WHITE DO D Ot 780.4 10/06/2015 RYAN WHITE DO Ot R42 10/14/2015 KAREN MONSON, MADHAVI Erazo Ot R07 .0 06/07/2018 AN ACHARYA DO Ot Z34.9 2 ENCNTR FOR SUPRVSN OF NORMAL PREG, UNSP, 06/07/2018 AN ACHARYA DO Ot Z3A.1 5 15 WEEKS GESTATION OF 06/07/2018 ACHARYA DO, AN C Ot Z53.8 PROCEDURE AND TREATMENT NOT CARRIED OUT 06/24/2018 ACHARYA DO, AN C Ot M54.5 LOW BACK PAIN 06/24/2018 ACHARYA DO, AN C Ot O99.8 9 OTH DISEASES AND CONDITIONS COMPL PREG/C 06/24/2018 ACHARYA DO, AN C Ot Z3A.2 1 21 WEEKS GESTATION OF 06/26/2018 ACHARYA DO, AN C Ot M54.5 LOW BACK PAIN 06/26/2018 ACHARYA DO, AN C Ot O99.8 9 OTH DISEASES AND CONDITIONS COMPL PREG/C 06/26/2018 ACHARYA DO, AN C Ot Z3A.2 1 21 WEEKS GESTATION OF 07/26/2018 JOSSUE CAMPO MD Ot O42.912 PRETRM EZRA ROM, UNSP TIME BETW RUPT AND 07/26/2018 JOSSUE CAMPO MD Ot Z3A.26 26 WEEKS GESTATION OF 07/30/2018 JOSSUE CAMPO MD Ot O42.912 PRETRM EZRA ROM, UNSP TIME BETW RUPT AND 07/30/2018 JOSSUE CAMPO MD Ot Z3A.26 26 WEEKS GESTATION OF 08/01/2018 ACHARYA DO AN C Ot Z34.9 2 ENCNTR FOR SUPRVSN OF NORMAL PREG, UNSP, 08/01/2018 ACHARYA DO AN C Ot Z3A.1 5 15 WEEKS GESTATION OF 08/01/2018 ACHARYA DO AN C Ot Z53.8 PROCEDURE AND TREATMENT NOT CARRIED OUT 08/29/2018 ACHARYA DO AN C Ot Z34.9 3 ENCNTR FOR SUPRVSN OF NORMAL PREG, UNSP, 08/29/2018 ACHARYA DO AN C Ot Z3A.3 1 31 WEEKS GESTATION OF 09/13/2018 ACHARYA DO AN C Ot Z34.9 3 ENCNTR FOR SUPRVSN OF NORMAL PREG, UNSP, 09/13/2018 ACHARYA DO AN C Ot Z3A.3 1 31 WEEKS GESTATION OF 09/28/2018 ACHARYA DO AN C Ot O24.4 10 GESTATIONAL DIABETES MELLITUS IN PREGNAN 09/28/2018 ACHARYA DO AN C Ot Z3A.3 5 35 WEEKS GESTATION OF 10/11/2018 ACHARYA DO AN C Ot O24.4 25 GESTATNL DIAB IN [facility] BY ORAL 10/11/2018 ACHARYAJessica ANDERSON AN C Ot Z3A.3 7 37 WEEKS GESTATION OF 10/15/2018 ACHARYA DO AN C Ot O24.4 25 GESTATNL DIAB IN [facility] BY ORAL 10/15/2018 ACHARYA DO AN C Ot O26.7 3 SUBLUXATION OF SYMPHYSIS (PUBIS) IN THE 10/15/2018 ACHARYA DO AN C Ot O69.1XX0 LABOR AND DELIVERY COMP BY CORD AROUND N 10/15/2018 PATRIZIA ANDERSON AN C Ot O75.8 1 MATERNAL EXHAUSTION COMPLICATING LABOR A 10/15/2018 ACHARYA DO AN C Ot O76 ABNLT IN HEART RATE AND RHYTHM COM 10/15/2018 ACHARYA AN C Ot O99.8 24 STREPTOCOCCUS B CARRIER STATE COMPLICATI 10/15/2018 ACHARYAJessica ANDERSON AN C Ot Z37.0 SINGLE LIVE 10/15/2018 ACHARYA DO AN C Ot Z3A.3 7 37 WEEKS GESTATION OF 10/24/2018 ACHARYA DO AN C Ot O24.4 25 GESTATNL DIAB IN [facility] BY ORAL 10/24/2018 ACHARYA DO AN C Ot Z3A.3 7 37 WEEKS GESTATION OF Procedures Code Description Performed By Per martir On [id number] EX TRACTION OF PRODUCTS OF CONCEPTION, MS 10/11/2018 Results Test Result Range [facility] - 04/05/17 16:45 Glucose, Serum 91 mg/dL 65-99 BUN 12 mg/dL 6-20 Creatinine, Serum 0.73 mg/dL 0.57-1.00 eGFR If NonAfricn Am 109 mL/min/1.73 >59 eGFR If Africn Am 126 mL/min/1.73 >5 9 BUN/Creatinine Ratio 16 9-23 Sodium, Serum 141 [...] IU/L 0-32 Complete urinalysis with reflex to cultu re - 06/24/18 11:00 Urine color determination YELLOW NRG Urine clarity determination CLEAR NR G Urine pH measurement by test strip 7 5-9 Specific gravity of urine by test strip 1.015 1.016-1.022 Urine protein assay by test strip, semi-quantitative NEGATIVE NEGATIVE Urine glucose detection by automated test strip NE GATIVE NEGATIVE Erythrocytes detection in urine sediment by light micr oscopy NEGATIVE NEGATIVE Urine ketones detection by automated test strip NE GATIVE NEGATIVE Urine nitrite detection by test strip NEGATIVE NEGATIVE Urine total bilirubin detection by test strip NEGA TIVE NEGATIVE Urine urobilinogen measurement by automated test strip (mass/volume) NORMAL NORMAL Urine leukocyte esterase detection by dipstick NEG ATIVE NEGATIVE Automated urine sediment erythrocyte cou nt by microscopy (number/high power field) NONE NRG Automated urine sediment leukocyte count by microscopy (number/high power field) NONE NRG Bacteria detection in urine sediment by light microsco py TRACE NRG Squamous epithelial cells detection in u rine sediment by light microscopy 0-2 NRG Crystals detection in urine sediment by light microsco py NONE NRG Casts detection in urine sediment by light microscopy NONE NRG Mucus detection in urine sediment by light microscopy NEGATIVE NRG Complete urinalysis with reflex to culture NO NRG Complete blood count (CBC) with automate d white blood cell (WBC) differential - 06/24/18 12:25 Blood leukocytes automated count (number/volume) 7.4 10*3/uL 4.3-11.0 Blood erythrocytes automated count (number/volume) 3.60 10*6/uL 4.35-5.85 Venous blood hemoglobin measurement (mass/volume) 12.0 g/dL 11.5-16.0 Blood hematocrit (volume fraction) 35 % 35-52 Automated erythrocyte mean corpuscular volume 96 [ foz_us] 80-99 Automated erythrocyte mean corpuscular h emoglobin (mass per erythrocyte) 33 pg 25-34 Automated erythrocyte mean corpuscular h emoglobin concentration measurement (mass/volume) 35 g/dL 32-36 Automated erythrocyte distribution width ratio 13. 1 % 10.0- 14.5 Automated blood platelet count (count/volume) 174 10*3/uL [...] 10*3 1.0-4.0 Blood monocytes automated count (number/volume) 0. 5 10*3 0.0-1.0 Automated eosinophil count 0.0 10*3/uL 0 .0-0.3 Automated blood basophil count (count/volume) 0.0 10*3/uL 0.0-0.1 Whole blood basic metabolic panel - 06/08 01/23 12:25 Serum or plasma sodium measurement (moles/volume) 137 mmol/L 135-145 Serum or plasma potassium measurement (moles/volume) 4.0 mmol/L 3.6-5.0 Serum or plasma chloride measurement (moles/volume) 108 mmol/L 98-107 Carbon dioxide 21 mmol/L 21-32 Serum or plasma anion gap determination (moles/volume) 8 mmol/L 5-14 Serum or plasma urea nitrogen measurement (mass/volume ) 7 mg/dL 7-18 Serum or plasma creatinine measurement (mass/volume) 0.60 mg/dL 0.60-1.30 Serum or plasma urea nitrogen/creatinine mass ratio 12 NRG Serum or plasma creatinine measurement w ith calculation of estimated glomerular filtration rate > NRG Serum or plasma glucose measurement (mass/volume) 70 mg/dL 70-105 Serum or plasma calcium measurement (mass/volume) 9.0 mg/dL 8.5-10.1 Complete urinalysis with reflex to cultu re - 07/24/18 14:26 Urine color determination YELLOW NRG Urine clarity determination CLEAR NR G Urine pH measurement by test strip 6 5-9 Specific gravity of urine by test strip 1.020 1.016-1.022 Urine protein assay by test strip, semi-quantitative 1+ NEGATIVE Urine glucose detection by automated test strip 1+ NEGATIVE Erythrocytes detection in urine sediment by light micr oscopy NEGATIVE NEGATIVE Urine ketones detection by automated test strip 2+ NEGATIVE Urine nitrite detection by test strip NEGATIVE NEGATIVE Urine total bilirubin detection by test strip NEGA TIVE NEGATIVE Urine urobilinogen measurement by automated test strip (mass/volume) NORMAL NORMAL Urine leukocyte esterase detection by dipstick 1+ NEGATIVE Automated urine sediment erythrocyte cou nt by microscopy (number/high power field) NONE NRG Automated urine sediment leukocyte count by microscopy (number/high power field) [HPF] NRG Bacteria detection in urine sediment by light microsco py NEGATIVE NRG Squamous epithelial cells detection in u rine sediment by light microscopy 0-2 NRG Crystals detection in urine sediment by light microsco py NONE NRG Casts detection in urine sediment by light microscopy NONE NRG Mucus detection in urine sediment by light microscopy MODERATE NRG Complete urinalysis with reflex to culture CULTURE PENDING NRG Renal epithelial cells detection in urin e sediment by light microscopy NONE NRG Bacterial urine culture - 07/24/18 14:26 Bacterial urine culture NG NRG Blood CBC with ordered manual differenti al panel - 07/24/18 14:35 Blood leukocytes automated count (number/volume) 8.5 10*3/uL 4.3-11.0 Blood erythrocytes automated count (number/volume) 3.54 10*6/uL 4.35-5.85 Venous blood hemoglobin measurement (mass/volume) 12.1 g/dL 11.5-16.0 Blood hematocrit (volume fraction) 34 % 35-52 Automated erythrocyte mean corpuscular volume 95 [ foz_us] 80-99 Automated erythrocyte mean corpuscular h emoglobin (mass per erythrocyte) 34 pg 25-34 Automated erythrocyte mean corpuscular h emoglobin concentration measurement (mass/volume) 36 g/dL 32-36 Automated erythrocyte distribution width ratio 12. 9 % 10.0- 14.5 Automated blood platelet count (count/volume) 187 10*3/uL [...] 10*3 1.0-4.0 Blood monocytes automated count (number/volume) 0. 9 10*3 0.0-1.0 Automated eosinophil count 0.0 10*3/uL 0 .0-0.3 Automated blood basophil count (count/volume) 0.0 10*3/uL 0.0-0.1 Manual blood segmented neutrophils/100 leukocytes 73 % NRG Blood band neutrophils/100 leukocytes 3 % NRG Manual blood lymphocytes/100 leukocytes 15 % NRG Manual eosinophils/100 leukocytes in nose 0 % NRG Manual blood basophils/100 leukocytes 0 % NRG Blood lymphocytes variant/100 leukocytes 3 % NRG Blood rouleaux detection by light microscopy SLIGH T NRG Complete urinalysis with reflex to cultu re - 10/10/18 20:20 Urine color determination YELLOW NRG Urine clarity determination CLEAR NR G Urine pH measurement by test strip 6 5-9 Specific gravity of urine by test strip 1.020 1.016-1.022 Urine protein assay by test strip, semi-quantitative 1+ NEGATIVE Urine glucose detection by automated test strip 1+ NEGATIVE Erythrocytes detection in urine sediment by light micr oscopy 3+ NEGATIVE Urine ketones detection by automated test strip 2+ NEGATIVE Urine nitrite detection by test strip NEGATIVE NEGATIVE Urine total bilirubin detection by test strip NEGA TIVE NEGATIVE Urine urobilinogen measurement by automated test strip (mass/volume) NORMAL NORMAL Urine leukocyte esterase detection by dipstick 2+ NEGATIVE Automated urine sediment erythrocyte cou nt by microscopy (number/high power field) [HPF] NRG Automated urine sediment leukocyte count by microscopy (number/high power field) [HPF] NRG Bacteria detection in urine sediment by light microsco py FEW NRG Squamous epithelial cells detection in u rine sediment by light microscopy 5-10 NRG Crystals detection in urine sediment by light microsco py PRESENT NRG Casts detection in urine sediment by light microscopy NONE NRG Mucus detection in urine sediment by light microscopy MODERATE NRG Complete urinalysis with reflex to culture CULTURE PENDING NRG Calcium oxalate crystals detection in ur ine sediment by light microscopy MODERATE NRG Bacterial urine culture - 10/10/18 20:20 Bacterial urine culture [id number] NR COLONY COUNT . NRG FTX;REPORTABLE PRESENT [facility] FREE TEXT ENTRY 2 NO SUSCEPTIBILITY PERFORMED NRG Capillary blood glucose measurement by g lucometer (mass/volume) - 10/10/18 21:11 Capillary blood glucose measurement by glucometer (mas s/volume) 91 mg/dL 70-110 Complete blood count (CBC) with automate d white blood cell (WBC) differential - 10/10/18 22:15 Blood leukocytes automated count (number/volume) 11.3 10*3/uL 4.3-11.0 Blood erythrocytes automated count (number/volume) 3.71 10*6/uL 4.35-5.85 Venous blood hemoglobin measurement (mass/volume) 11.7 g/dL 11.5-16.0 Blood hematocrit (volume fraction) 34 % 35-52 Automated erythrocyte mean corpuscular volume 93 [ foz_us] 80-99 Automated erythrocyte mean corpuscular h emoglobin (mass per erythrocyte) 32 pg 25-34 Automated erythrocyte mean corpuscular h emoglobin concentration measurement (mass/volume) 34 g/dL 32-36 Automated erythrocyte distribution width ratio 12. 6 % 10.0- 14.5 Automated blood platelet count (count/volume) 214 10*3/uL 130-400 Automated blood platelet mean volume measurement 10.5 [foz_us] 7.4-10.4 Automated blood neutrophils/100 leukocytes 65 % 42-75 Automated blood lymphocytes/100 leukocytes 24 % 12-44 Blood monocytes/100 leukocytes 11 % 0-12 Automated blood eosinophils/100 leukocytes 0 % 0-10 Automated blood basophils/100 leukocytes 0 % 0-10 Blood neutrophils automated count (number/volume) 7.3 10*3 1.8-7.8 Blood lymphocytes automated count (number/volume) 2.8 10*3 1.0-4.0 Blood monocytes automated count (number/volume) 1. 2 10*3 0.0-1.0 Automated eosinophil count 0.0 10*3/uL 0 .0-0.3 Automated blood basophil count (count/volume) 0.0 10*3/uL 0.0-0.1 Blood type T Indirect antibody screen pa blas - 10/10/18 22:15 ABO+Rh group OP NRG Transfusion band number [id number] NRG Blood group antibody screen NEGATIVE NR G Capillary blood glucose measurement by g lucometer (mass/volume) - 10/11/18 06:26 Capillary blood glucose measurement by glucometer (mas s/volume) 93 mg/dL 70-110 Complete blood count (CBC) with automate d white blood cell (WBC) differential - 10/12/18 06:06 Blood leukocytes automated count (number/volume) 10.7 10*3/uL 4.3-11.0 Blood erythrocytes automated count (number/volume) 2.92 10*6/uL 4.35-5.85 Venous blood hemoglobin measurement (mass/volume) 9.3 g/dL 11.5-16.0 Blood hematocrit (volume fraction) 27 % 35-52 Automated erythrocyte mean corpuscular volume 94 [ foz_us] 80-99 Automated erythrocyte mean corpuscular h emoglobin (mass per erythrocyte) 32 pg 25-34 Automated erythrocyte mean corpuscular h emoglobin concentration measurement (mass/volume) 34 g/dL 32-36 Automated erythrocyte distribution width ratio 12. 5 % 10.0- 14.5 Automated blood platelet count (count/volume) 153 10*3/uL 130-400 Automated blood platelet mean volume measurement 10.4 [foz_us] 7.4-10.4 Automated blood neutrophils/100 leukocytes 66 % 42-75 Automated blood lymphocytes/100 leukocytes 24 % 12-44 Blood monocytes/100 leukocytes 10 % 0-12 Automated blood eosinophils/100 leukocytes 1 % 0-10 Automated blood basophils/100 leukocytes 0 % 0-10 Blood neutrophils automated count (number/volume) 7.0 10*3 1.8-7.8 Blood lymphocytes automated count (number/volume) 2.5 10*3 1.0-4.0 Blood monocytes automated count (number/volume) 1. 0 10*3 0.0-1.0 Automated eosinophil count 0.1 10*3/uL 0 .0-0.3 Automated blood basophil count (count/volume) 0.0 10*3/uL 0.0-0.1 A1C - 02/12/19 10:34 HEMOGLOBIN A1c TNP % of total Hgb NRG TSH w/ FREE T4 - 04/07/19 15:12 TSH 1.50 mIU/L NRG T4, FREE 0.8 ng/dL 0.8-1.8 CMP - 04/07/19 15:12 GLUCOSE 133 mg/dL 65-99 UREA NITROGEN (BUN) 11 mg/dL 7-25 CREATININE 0.81 mg/dL 0.50-1.10 eGFR NON-AFR. BAHRAINI 95 mL/min/1.73m2 > OR = 60 eGFR 110 mL/min/1.73m2 > OR = 60 BUN/CREATININE RATIO NOT APPLICABLE (calc) 6-22 SODIUM 142 mmol/L 135-146 POTASSIUM 4.2 mmol/L 3.5-5.3 CHLORIDE 109 mmol/L 98-110 CARBON DIOXIDE 25 mmol/L 20-32 CALCIUM 9.2 mg/dL 8.6-10.2 PROTEIN, TOTAL 6.0 g/dL 6.1-8.1 ALBUMIN 3.9 g/dL 3.6-5.1 GLOBULIN 2.1 g/dL (calc) 1.9-3.7 ALBUMIN/GLOBULIN RATIO 1.9 (calc) 1.0-2. 5 BILIRUBIN, TOTAL 0.6 mg/dL 0.2-1.2 ALKALINE PHOSPHATASE 61 U/L 33-115 AST 17 U/L 10-30 ALT 13 U/L 6-29 CBC w/MANUAL DIFF - 04/07/19 15:12 WHITE BLOOD CELL COUNT 5.0 Thousand/uL 3 .8-10.8 RED BLOOD CELL COUNT 4.41 Million/uL 3.8 0-5.10 HEMOGLOBIN 13.8 g/dL 11.7-15.5 HEMATOCRIT 41.6 % 35.0-45.0 MCV 94.3 fL 80.0-100.0 MCH 31.3 pg 27.0-33.0 MCHC 33.2 g/dL 32.0-36.0 RDW 12.6 % 11.0-15.0 PLATELET COUNT 233 Thousand/uL 140-400 MPV 10.0 fL 7.5-12.5 ABSOLUTE NEUTROPHILS 3045 cells/uL 1500- 7800 ABSOLUTE MONOCYTES 380 cells/uL 200-950 ABSOLUTE EOSINOPHILS 50 cells/uL 15-500 ABSOLUTE BASOPHILS 0 cells/uL 0-200 NEUTROPHILS 60.9 % NRG LYMPHOCYTES 24.8 % NRG MONOCYTES 7.6 % NRG EOSINOPHILS 1.0 % NRG BASOPHILS 0 % NRG ABSOLUTE BAND NEUTROPHILS 285 cells/uL 0 -750 ABSOLUTE LYMPHOCYTES 1240 cells/uL 850-3 900 BAND NEUTROPHILS 5.7 % NRG PLATELET ESTIMATION ADEQUATE ADEQUATE T3 TOTAL - 04/07/19 15:12 T3, TOTAL 73 ng/dL 76-181 STOOL (C-DIFF) - 04/08/19 13:00 CLOSTRIDIUM DIFFICILE TOXIN/GDH W/REFL TO PCR SEE NOTE NRG HCG, QUANTITATIVE - 08/20/19 14:48 HCG, TOTAL, QN 51 mIU/mL NRG HCG, QUANTITATIVE - 08/22/19 15:45 HCG, TOTAL, QN 142 mIU/mL NRG SUREPATH PAP RFX HPV mRNA E6/E7 - 08:16 CLINICAL INFORMATION: NRG LMP: NRG PREV. PAP: NRG PREV. 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 Visit Date/Time Discharge Status Pt. Type Provider Facility Loc./Unit Complaint [id number] 01/28/2020 10:20:00 01/28/2020 23:59:5 9 [facility] Outpatient [facility] [id number] 12/04/2019 15:30:00 Document Registration [id number] 09/03/2019 09:45:00 Document Registration [id number] 08/22/2019 15:45:00 Document Registration [id number] 08/20/2019 13:30:00 Document Registration [id number] 04/08/2019 13:00:00 Document Registration [id number] 04/07/2019 14:20:00 Document Registration [id number] 02/12/2019 09:15:00 Document Registration [id number] 04/05/2017 16:00:00 Document Registration [id number] 12/25/2018 10:28:00 019 23:59:59 CLS Preadmit AN ACHARYA DO, V [facility] REHAB L SHOULDER PAIN; LBP; C LOSED FX DISLOCATION OF PUB [id number] 10/10/2018 21:29:00 019 13:20:00 DIS Inpatient ACHARYA DOAN Nate [facility] LDRP LABOR [id number] 10/10/2018 13:46:00 019 23:59:59 CLS Outpatient PATRIZIA ANDERSONNA [facility] RAD GDM, 36 WKS [id number] 09/26/2018 12:45:00 23:59:59 CLS Outpatient PATRIZIA ANDERSON AN Nate [facility] RAD GDM [id number] 08/28/2018 14:18:00 23:59:59 CLS Outpatient PATRIZIA ANDERSON NA Nate [facility] RAD EVAL ANATOMY NOT SEEN O N PRIOR SCAN [id number] 07/24/2018 13:42:00 019 15:40:00 DIS Outpatient JOSSUE CAMPO MD [facility] WSo LEAKING [id number] 06/24/2018 10:56:00 018 14:18:00 DIS Outpatient PATRIZIA ANDERSON AN Nate [facility] WSo LOWER BACK PAIN [id number] 06/06/2018 12:57:00 018 23:59:59 CLS Outpatient PATRIZIA ANDERSON AN Nate [facility] RAD 15 WEEKS GESTATION OF P REGULYSSESCY [id number] 10/13/2015 14:50:00 016 23:59:59 CLS Outpatient MADHAVI JONES MD [facility] RAD [id number] 12/22/2014 14:58:00 015 23:59:59 CLS Outpatient RYAN WHITE DO [facility] RAD [id number] 12/13/2012 10:01:00 013 23:59:59 CLS Outpatient LOPEZ KAMARA [facility] RAD [id number] 04/09/2015 14:36:00 Document Registration [id number] 03/02/2010 12:56:00 Document Registration
== END 2020-02-03 23:13 | disposition home or self-care (01) ==
LOC: EDUNIT# 22:13 → ER FS 22:14
DX: O26.93 Pregnancy related conditions, unspecified, third trimester (principal); K42.9 Umbilical hernia without obstruction or gangrene; Z3A.28 28 weeks gestation of pregnancy; Z88.0 Allergy status to penicillin; Z88.2 Allergy status to sulfonamides; Z88.1 Allergy status to other antibiotic agents; Z88.8 Allergy status to other drugs, medicaments and biological substances; Z82.49 Family history of ischemic heart disease and other diseases of the circulatory system
CPT/HCPCS: 99282

== ENCOUNTER 2020-04-14 12:42 | Inpatient (IN) | payer MEDICAID ==
[2020-04-14] VITALS (38 sets, daily range): BP systolic 98–143; BP diastolic 56–86
[~2020-04-14] VITALS: Ht 154.9 cm; Wt 38.2 kg
[~2020-04-14 12:42] MED LIST changes: +PANT20TA18 PO; -PANT20TA3 PO
--- NOTE | 2020-04-14 12:42 | NUR ---
DUANE NATH presented to ambulated to L&D accompanied by , with c/o LABOR. Pt. weighed, gowned, voided, and to bed. EFHM and TOCO applied, VS taken. Pt. oriented to bed controls, call light, TV, heat, and A/C controls.
--- NOTE | 2020-04-14 13:00 | NUR ---
Dr Sanchez's RN reported that pt was positive for marijuana and opiates at today at office visit.
--- NOTE | 2020-04-14 13:13 | NUR ---
was called after pt's arrival to L&D. admitting orders received.
[2020-04-14] MEDS ORDERED: D5 LR IV SOLUTION 1,000 ML IV SCH (13:35)
[2020-04-14] MEDS ORDERED: MINERAL OIL CONCENTRATE 99.9% 15 ML UDC TOP PRN (13:45)
[2020-04-14] MEDS ORDERED: VANCOMYCIN INJECTION 1,000 MG in NS (IVPB) 250 ML IV SCH (13:45)
[2020-04-14] MEDS ORDERED: CATHETER FLUSH 10 ML SYR IV SCH ×2 (14:00→22:00)
[2020-04-14 14:24] LABS: BASOPHILS % (AUTO) 0 % (0-10); EOSINOPHILS % (AUTO) 0 % (0-10)
[2020-04-14] MEDS ORDERED: fentaNYL 2 mcg/ml BUPIVA 0.125 100 ML ONE (14:25)
[2020-04-14 14:26] LABS: HEMATOCRIT 29 % (35-52); HEMOGLOBIN 9.8 g/dL (11.5-16.0); LYMPHOCYTES # (AUTO) 1.2 10^3/uL (1.0-4.0); LYMPHOCYTES % (AUTO) 10 % (12-44); MEAN CORPUSCULAR HEMOGLOBIN 31 pg (25-34); MEAN CORPUSCULAR HGB CONC 33 g/dL (32-36); MEAN CORPUSCULAR VOLUME 93 fL (80-99); MEAN PLATELET VOLUME 11.8 fL (9.0-12.2); MONOCYTES # (AUTO) 0.8 10^3/uL (0.0-1.0); MONOCYTES % (AUTO) 7 % (0-12); NEUTROPHILS % (AUTO) 83 % (42-75); PLATELET COUNT 132 10^3/uL (130-400)
[2020-04-14] MEDS ORDERED: OXYTOCIN PRE-MIX DRIP 500 ML IV ONE (15:45)
[2020-04-14] MEDS ORDERED: LIDOCAINE/EPI 2% 1:200,00 (XYLOCAINE) 10 ML VIAL ONE (15:46)
[2020-04-14 15:53] LABS: AMPHETAMINE SCREEN, URINE NEGATIVE (NEGATIVE); BARBITURATE SCREEN URINE NEGATIVE (NEGATIVE); BENZODIAZEPINES SCREEN URINE NEGATIVE (NEGATIVE); CANNABINOID SCREEN, URINE NEGATIVE (NEGATIVE); COCAINE SCREEN URINE NEGATIVE (NEGATIVE); METHADONE STAT NEGATIVE (NEGATIVE); METHAMPHETAMINE SCREEN URINE S NEGATIVE (NEGATIVE); OPIATE SCREEN URINE NEGATIVE (NEGATIVE); OXYCODONE STAT NEGATIVE (NEGATIVE); PROPOXYPHENE STAT NEGATIVE (NEGATIVE); TRICYCLIC ANTIDEPRESSANTS SCRE NEGATIVE (NEGATIVE)
[2020-04-14] MEDS ORDERED: BUPIVACAINE 0.25% 30 ML (SENSORCAINE) VIAL ONE (15:57)
[2020-04-14] MEDS ORDERED: fentaNYL INJECTION 100 MCG/2 ML AMP ONE (15:57)
--- NOTE | 2020-04-14 16:00 | NUR ---
Pt refused Tdap and flu vaccine.
--- NOTE | 2020-04-14 16:26 | History & Physical-OB ---
OB - Chief Complaint & HPI Date/Time Date of Admission: Date of Admission: Apr 14, 2020 at 12:42 Date seen by a Provider: Apr 14, 2020 Time Seen by a Provider: 16:24 Chief Complaint/History OB-Reason for Admission/Chief: Onset of Labor Hx : 4 Hx Para: 3 Gestational Age in Weeks: 38 Gestational Age in Days: 2 Admission Nurse Assessment Rev: Yes Allergies and Home Medications Allergies Coded Allergies: Penicillins (Unverified Allergy, Unknown, 12/22/14) Sulfa (Sulfonamide Antibiotics) (Unverified Allergy, Unknown, 12/22/14) cephalexin (Unverified Allergy, Unknown, 12/22/14) prednisone (Unverified Allergy, Unknown, 12/22/14) Home Medications Acetaminophen 500 Mg Tablet, 1,000 MG PO Q8HR Prescribed by: AN ACHARYA on 10/11/18 114 Cyclobenzaprine HCl 10 Mg Tablet, 10 MG PO Q8H PRN for MUSCLE SPASMS Prescribed by: AN ACHARYA on 10/15/18 075 Docusate Sodium 100 Mg Capsule, 100 MG PO BID Prescribed by: AN ACHARYA on 10/11/18 114 Ferrous Sulfate 325 Mg Tablet, 325 MG PO DAILY Prescribed by: AN ACHARYA on 10/11/18 114 Ibuprofen 600 Mg Tablet, 600 MG PO Q6HR Prescribed by: AN ACHARYA on 10/11/18 114 Oxycodone Hcl 5 Mg Tab, 5 MG PO Q4H PRN for PAIN-SEVERE Prescribed by: AN ACHARYA on 10/15/18 075 Pantoprazole Sodium 20 Mg Tablet.dr, 20 MG PO DAILY Prescribed by: AN ACHARYA on 10/15/18 075 Vit W-Ca,Fe,FA(<1 mg) 1 Each Tablet, 1 EACH PO DAILY, (Reported) Patient Home Medication List Home Medication List Reviewed: Yes OB - History Hx of Present Care: Yes Ultrasounds: Normal mid trimester US Obstetrical Complications: None Medical Complications: None Delivery History Adverse Rxn to Tranfusion: No Patient Past Medical History Pelvic pain Social History/Family History HIV/AIDS: No Recent Infectious Disease Expo: No Sexually Transmitted Disease: No Alcohol Use: Denies Use Recreational Drug Use: No Immunizations Hepatitis A: No Hepatitis B: No OB - Admission Exam Physical Exam HEENT: NCAT Heart: Rhythm Normal Lungs: Clear Abdomen: Gravid Extremities: Normal Reflexes: Normal Cervical Dilatation: 7cm Effacement: 75% Station: -3 Membranes: Intact Heart Rate: 140's Accelerations: Accelerations Present Decelerations: No Decelerations Short Term Variability: Present Mold Filler Plastic Dolls Variability: Average (6-25) Contractions on Admission: < 5 Minutes Apart Labs Laboratory Tests Test 04/14/20 14:00 04/14/20 15:20 Range/Units White Blood Count 12.0 H 4.3-11.0 10^3/uL Red Blood Count 3.15 L 3.80-5.11 10^6/uL Hemoglobin 9.8 L 11.5-16.0 g/dL Hematocrit 29 L 35-52 % Mean Corpuscular Volume 93 80-99 fL Mean Corpuscular Hemoglobin 31 25-34 pg Mean Corpuscular Hemoglobin Concent 33 32-36 g/dL Red Cell Distribution Width 12.7 10.0-14.5 % Platelet Count 132 130-400 10^3/uL Mean Platelet Volume 11.8 9.0-12.2 fL Immature Granulocyte % (Auto) 0 % Neutrophils (%) (Auto) 83 H 42-75 % Lymphocytes (%) (Auto) 10 L 12-44 % Monocytes (%) (Auto) 7 0-12 % Eosinophils (%) (Auto) 0 0-10 % Basophils (%) (Auto) 0 0-10 % Neutrophils # (Auto) 10.0 H 1.8-7.8 10^3/uL Lymphocytes # (Auto) 1.2 1.0-4.0 10^3/uL Monocytes # (Auto) 0.8 0.0-1.0 10^3/uL Eosinophils # (Auto) 0.0 0.0-0.3 10^3/uL Basophils # (Auto) 0.0 0.0-0.1 10^3/uL Immature Granulocyte # (Auto) 0.0 0.0-0.1 10^3/uL Urine Opiates Screen NEGATIVE NEGATIVE Urine Oxycodone Screen NEGATIVE NEGATIVE Urine Methadone Screen NEGATIVE NEGATIVE Urine Propoxyphene Screen NEGATIVE NEGATIVE Urine Barbiturates Screen NEGATIVE NEGATIVE Ur Tricyclic Antidepressants Screen NEGATIVE NEGATIVE Urine Phencyclidine Screen NEGATIVE NEGATIVE Urine Amphetamines Screen NEGATIVE NEGATIVE Urine Methamphetamines Screen NEGATIVE NEGATIVE Urine Benzodiazepines Screen NEGATIVE NEGATIVE Urine Cocaine Screen NEGATIVE NEGATIVE Urine Cannabinoids Screen NEGATIVE NEGATIVE OB - Assessment/Plan/Diagnosis Assessment Assessment: active labor Admission Dx Active labor at 38 2/7 wga. GBS positive. Admission Status: Inpatient Order (span 2 midnights) Reason for Inpatient Admission: Normal labor at 38 2/7 wga. Plan Plan: Expectant Management Induction Method: AROM Other Plan Amp for GBS positive. Epidural for pain. AROM after second dose of antibiotic. HEATHER LAMBERT MD Apr 14, 2020 16:26
[2020-04-14] MEDS ORDERED: LACTATED RINGERS 1,000 ML IV SCH (16:40)
[2020-04-14] MEDS ORDERED: ONDANSETRON 4 MG/2 ML (SDV) Z0FRAN IV PRN (16:45)
[2020-04-14] MEDS ORDERED: NALOXONE 0.4 MG/ML 1 ML (NARCAN) VIAL IV PRN ×2 (16:45)
[2020-04-14] MEDS ORDERED: EPIDURAL (fentaNYL 2 MCG/ML BUPIVA 0.125%)100 ML BAG EPI PRN (16:45)
[2020-04-14] MEDS ORDERED: diphenhydrAMINE 50 MG/ML INJ (BENADRYL) IV PRN (16:45)
[2020-04-14] MEDS ORDERED: METOCLOPRAMIDE INJ 10 MG/2 ML (REGLAN) IV PRN (16:45)
[2020-04-14] MEDS ORDERED: OXYTOCIN PRE-MIX DRIP 500 ML IV SCH ×2 (17:18→18:33)
--- NOTE | 2020-04-14 18:33 | OB Labor & Delivery Record ---
Vag Delivery Note Vag Delivery Note Date of Delivery: 04/14/20 Preoperative Diagnosis: Liberty Parisi is a (35 /Para 4 / 3,Gestational Age (wks)38with [2 days] Postoperative Diagnosis: Same Surgeon: HEATHER LAMBERT Fire Hazard Inspector: [none] Anesthesia: [epidural] Delivery Type: [] Findings: [] Viable [female] infant, apgars [8/9] Lacerations: Intact placenta with 3 vessel cord. Body cord. Estimated Blood Loss: [150] ml Complications: None Condition: Stable Description of Procedure: The patient is a 35 year old female who presented [in labor]. She was admitted and informed consent was obtained. Her labor course was remarkable for [nothing] She progressed to complete dilatation and began to push. She was then set up for delivery. The 's head was delivered atraumatically in the [OA] position. The shoulders and remainder of the infant's body were then delivered without difficulty. Upon delivery, the head was held below the level of the perineum and the mouth and nares were bulb suctioned. The cord was doubly clamped and cut by father of the baby after 60 seconds. An intact placenta with 3-vessel cord delivered via Jazz and there was found to be minimal bleeding.~ Vigorous fundal massage was performed and the fundus was found to be firm. IV oxytocin was given. Examination of the vagina and perineum revealed a [no] lacerations. Following the repair, sponge, instrument and needle counts were correct. Mom and baby were both in stable condition in the labor suite. Vitals - Labs Vital Signs - I&O Vital Signs Date Time Temp Pulse Resp B/P (MAP) Pulse Ox O2 Delivery O2 Flow Rate FiO2 04/14/20 12:58 36.2 82 16 100 Room Air Labs Laboratory Tests 04/14/20 14:00: White Blood Count 12.0H, Red Blood Count 3.15L, Hemoglobin 9.8L, Hematocrit 29L, Mean Corpuscular Volume 93, Mean Corpuscular Hemoglobin 31, Mean Corpuscular Hemoglobin Concent 33, Red Cell Distribution Width 12.7, Platelet Count 132, Mean Platelet Volume 11.8, Immature Granulocyte % (Auto) 0, Neutrophils (%) (Auto) 83H, Lymphocytes (%) (Auto) 10L, Monocytes (%) (Auto) 7, Eosinophils (%) (Auto) 0, Basophils (%) (Auto) 0, Neutrophils # (Auto) 10.0H, Lymphocytes # (Auto) 1.2, Monocytes # (Auto) 0.8, Eosinophils # (Auto) 0.0, Basophils # (Auto) 0.0, Immature Granulocyte # (Auto) 0.0 04/14/20 15:20: Urine Opiates Screen NEGATIVE, Urine Oxycodone Screen NEGATIVE, Urine Methadone Screen NEGATIVE, Urine Propoxyphene Screen NEGATIVE, Urine Barbiturates Screen NEGATIVE, Ur Tricyclic Antidepressants Screen NEGATIVE, Urine Phencyclidine Screen NEGATIVE, Urine Amphetamines Screen NEGATIVE, Urine Methamphetamines Screen NEGATIVE, Urine Benzodiazepines Screen NEGATIVE, Urine Cocaine Screen NEGATIVE, Urine Cannabinoids Screen NEGATIVE HEATHER LAMBERT MD Apr 14, 2020 18:33
[2020-04-14] MEDS ORDERED: WITCH HAZEL(TUCKS) 40 EA JAR TOP PRN (18:45)
[2020-04-14] MEDS ORDERED: BENZOCAINE/MENTHOL (DERMOPLAST) 60 ML CAN TP PRN (18:45)
[2020-04-14] MEDS ORDERED: TETANUS,DIPTH,PERTUSS P/F (BOOSTRIX) 0.5 ML VIAL IM ONE (18:45)
[2020-04-14] MEDS ORDERED: MEASLES,MUMPS,RUBELLA 1 EA INJ SQ ONE (18:45)
--- NOTE | 2020-04-14 19:30 | NUR ---
ff 1 below umbilicus, light/moderate rubra. Pt states she is going to order food. Will wait to given tyenol and motrin until food arrives. Assessment completed. Pt denies any needs will continue to monitor.
[2020-04-14] MEDS ORDERED: zoloft PO (19:50)
[2020-04-14] MEDS ORDERED: [UNRECOGNIZED DRUG - OTHER] PO (19:50)
[2020-04-14] MEDS: DOCUSATE SODIUM 100 MG (COLACE) CAP PO SCH (20:27)
[2020-04-14] MEDS: ACETAMINOPHEN 500 MG TAB (TYLENOL) PO SCH (20:27)
[2020-04-14] MEDS: IBUPROFEN 600 MG (MOTRIN) TAB PO SCH (20:27)
[2020-04-14] MEDS ORDERED: LORATADINE (CLARITIN) 10 MG TAB ONE (20:33)
[2020-04-15] MEDS: IBUPROFEN 600 MG (MOTRIN) TAB PO SCH ×4 (03:10→15:21)
--- NOTE | 2020-04-15 03:30 | NUR ---
Pt c/o drainage, congestion and cough. Pt was started back on allergy medication tonight. States her allergies have been bad the past few days. Lung clear to auscultation. Pt denies any needs at this time. Pt states she will discuss with when she rounds.
[2020-04-15 04:01] VITALS: BP 105/75
[2020-04-15] MEDS: ACETAMINOPHEN 500 MG TAB (TYLENOL) PO SCH ×2 (04:58→12:36)
[2020-04-15 06:12] LABS: BASOPHILS % (AUTO) 0 % (0-10); EOSINOPHILS % (AUTO) 0 % (0-10); HEMATOCRIT 30 % (35-52); HEMOGLOBIN 9.7 g/dL (11.5-16.0); LYMPHOCYTES # (AUTO) 1.8 10^3/uL (1.0-4.0); LYMPHOCYTES % (AUTO) 19 % (12-44); MEAN CORPUSCULAR HEMOGLOBIN 31 pg (25-34); MEAN CORPUSCULAR HGB CONC 32 g/dL (32-36); MEAN CORPUSCULAR VOLUME 96 fL (80-99); MONOCYTES # (AUTO) 0.8 10^3/uL (0.0-1.0); MONOCYTES % (AUTO) 8 % (0-12); NEUTROPHILS # (AUTO) 6.9 10^3/uL (1.8-7.8); NEUTROPHILS % (AUTO) 72 % (42-75); PLATELET COUNT 103 10^3/uL (130-400); WHITE BLOOD COUNT 9.6 10^3/uL (4.3-11.0)
--- NOTE | 2020-04-15 06:59 | Anesthesia-Regional Post-Op ---
Regional Patient Condition Mental Status: Alert, Oriented x3 Circulation: Same as Pre-Op Headache: Absent Sensation: Full Recovery Motor Block: Absent Post Op Complications Complications None Follow Up Care/Instructions Patient Instructions None needed. Anesthesia/Patient Condition Patient is doing well, no complaints, stable vital signs, no apparent adverse anesthesia problems. No complications reported per nursing. CECILIO GAMBINO CRNA Apr 15, 2020 06:59
[2020-04-15] MEDS ORDERED: BENZ100C18 PO (07:25)
[2020-04-15] MEDS ORDERED: IBUP-844 PO (07:25)
--- NOTE | 2020-04-15 07:26 | Discharge Summary ---
Discharge Inst-Women's Serv Depart Medications New, Converted or Re-Newed RX: Transmitted to Pharmacy Follow Up/Instructions Goal/Follow Up: Dr. Lambert in 6 weeks. Activity Activity: Activity as Tolerated Driving Instructions: You May Drive NO SMOKING: NO SMOKING Nothing Inside Vagina: No Douching, No [place], No Tampons Diet Discharge Diet: No Restrictions Symptoms to Report to : Fever Over 101 Degrees F, Vaginal Bleeding Increase For Any Problems or Questions: Contact Your Physician HEATHER LAMBERT MD Apr 15, 2020 07:26
--- NOTE | 2020-04-15 07:28 | Discharge Summary ---
Diagnosis/Chief Complaint Date of Admission Apr 14, 2020 at 12:42 Date of Discharge April 15, 2020 Admission Diagnosis Admission Diagnosis Labor at 38 2/7 wga. Discharge Diagnosis at 38 2/7 wga. Problems/Diagnosis: (1) care following vaginal delivery Discharge Summary-OBS Procedures None. Discharge Physical Examination Allergies: Coded Allergies: Penicillins (Unverified Allergy, Unknown, 12/22/14) Sulfa (Sulfonamide Antibiotics) (Unverified Allergy, Unknown, 12/22/14) cephalexin (Unverified Allergy, Unknown, 12/22/14) prednisone (Unverified Allergy, Unknown, 12/22/14) Vitals & I&Os Intake and Output0 04/15/20 00:00 Intake Total 2850 ml Balance 2850 ml Vital Sign - Last 12Hours Date Time Temp Pulse Resp B/P (MAP) Pulse Ox O2 Delivery O2 Flow Rate FiO2 04/15/20 04:01 36.3 64 18 105/75 (85) Room Air 04/14/20 17:15 99 General Appearance: Alert, Oriented X3 HEENT: Atraumatic Respiratory: Clear to Auscultation Cardiovascular: Regular Rate Extremities: No Edema Hospital Course Was the Problem List Reviewed?: Yes Unremarkable course except for congestion and cough. Tessalon perles and steroid shot given to help. Labs Laboratory Tests 04/14/20 14:00: White Blood Count 12.0H, Red Blood Count 3.15L, Hemoglobin 9.8L, Hematocrit 29L, Mean Corpuscular Volume 93, Mean Corpuscular Hemoglobin 31, Mean Corpuscular Hemoglobin Concent 33, Red Cell Distribution Width 12.7, Platelet Count 132, Mean Platelet Volume 11.8, Immature Granulocyte % (Auto) 0, Neutrophils (%) (Auto) 83H, Lymphocytes (%) (Auto) 10L, Monocytes (%) (Auto) 7, Eosinophils (%) (Auto) 0, Basophils (%) (Auto) 0, Neutrophils # (Auto) 10.0H, Lymphocytes # (Auto) 1.2, Monocytes # (Auto) 0.8, Eosinophils # (Auto) 0.0, Basophils # (Auto) 0.0, Immature Granulocyte # (Auto) 0.0 04/14/20 15:20: Urine Opiates Screen NEGATIVE, Urine Oxycodone Screen NEGATIVE, Urine Methadone Screen NEGATIVE, Urine Propoxyphene Screen NEGATIVE, Urine Barbiturates Screen NEGATIVE, Ur Tricyclic Antidepressants Screen NEGATIVE, Urine Phencyclidine Scr een NEGATIVE, Urine Amphetamines Screen NEGATIVE, Urine Methamphetamines Screen NEGATIVE, Urine Benzodiazepines Screen NEGATIVE, Urine Cocaine Screen NEGATIVE, Urine Cannabinoids Screen NEGATIVE 04/15/20 05:30: White Blood Count 9.6, Red Blood Count 3.13L, Hemoglobin 9.7L, Hematocrit 30L, Mean Corpuscular Volume 96, Mean Corpuscular Hemoglobin 31, Mean Corpuscular Hemoglobin Concent 32, Red Cell Distribution Width 12.7, Platelet Count 103L, Mean Platelet Volume 12.0, Immature Granulocyte % (Auto) 0, Neutrophils (%) (Auto) 72, Lymphocytes (%) (Auto) 19, Monocytes (%) (Auto) 8, Eosinophils (%) (Auto) 0, Basophils (%) (Auto) 0, Neutrophils # (Auto) 6.9, Lymphocytes # (Auto) 1.8, Monocytes # (Auto) 0.8, Eosinophils # (Auto) 0.0, Basophils # (Auto) 0.0, Immature Granulocyte # (Auto) 0.0 Discharge Instructions to patient/family Please see electronic discharge instructions given to patient. Discharge Medications Reviewed and agree with Discharge Medication list on patient's Discharge Instruction sheet Clinical Quality Measures DVT/VTE Risk/Contraindication: Risk Factor Score Per Nursin RFS Level Per Nursing on Admit: 1=Low/No VTE PPX HEATHER LAMBERT MD Apr 15, 2020 07:28
[2020-04-15 07:30] VITALS: BP 111/65
[2020-04-15] MEDS ORDERED: methylPREDNISolone 40 MG/ML (Solu-MEDROL) VIAL IM NR (07:30)
[2020-04-15] MEDS ORDERED: LORATADINE (CLARITIN) 10 MG TAB PO SCH ×2 (09:00)
[2020-04-15] MEDS ORDERED: SERTRALINE 50 MG (ZOLOFT) TABLET PO SCH (09:00)
[2020-04-15] MEDS: BENZONATATE 100 MG (TESSALON) CAPSULE PO SCH ×2 (09:57→15:21)
[2020-04-15] MEDS: DOCUSATE SODIUM 100 MG (COLACE) CAP PO SCH (09:57)
--- NOTE | 2020-04-15 10:00 | NUR ---
Pt requesting pain medication for umbilical hernia (not a new condition).Rates pain 8 and states it is worse than contraction pain yesterday. Pt states it has to be "reduced" in the office. Pt states she cannot do it. Gave Ibuprofen and abdominal binder. Does has a cough which she had yesterday and was evaluated in office by Dr Sanchez prior to labor admission. Ordered steroids and Tessalon Pearls. Pt also states she has had Tylenol # 3 previously and it did not help with hernia pain. Plan for discharge to [facility] today. 1018 Dr Sanchez notified by text of request for pain medication. Unable to prescribe narcotics since physician is in [facility] office. 1100 Palpated abdomen and unable to feel hernia and pain has eased. Pt states maybe she reduced it.
--- NOTE | 2020-04-15 11:00 | NUR ---
Dr Wei, baby's managing director here to visit with mom. Pt apparently asked physician to reduce umbilical hernia in which she did not. Physician concerned with pt's cough/congestion - asking about Covid testing. Informed physician that Dr Sanchez evaluated pt in office yesterday and again today regarding cough/congestion. Ancelmo Adkins, director present with conversation.
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
--- NOTE | 2020-04-15 12:45 | NUR ---
Home instructions given. staying hospitalized due to Group B strep positive with 1 dose of Vanco. Rates pain 1-2.
[2020-04-15 15:30] VITALS: BP 111/65
--- NOTE | 2020-04-15 15:30 | NUR ---
Discharged to [facility]. Scripts delivered by [facility] to [facility] picker.
== END 2020-04-15 15:30 | disposition home or self-care (01) | DRG 807 ==
LOC: LDRP 12:42
PROVIDERS: ADMIT Family Medicine; ATTEND Family Medicine
PROC: 10E0XZZ Delivery of Products of Conception, External Approach (ICD-10-PCS; principal; 2020-04-14)
DX: O99.824 Streptococcus B carrier state complicating childbirth (principal); Z37.0 Single live birth; Z3A.38 38 weeks gestation of pregnancy
CPT/HCPCS: 36415; 80306; 85025; 86850; 86900; 86901; 99212

== ENCOUNTER → 2020-09-20 | Outpatient (CLI) | payer MEDICAID ==
[~2020-09-20] MED LIST changes: +BENZ100C18 PO; +[UNRECOGNIZED DRUG - OTHER] PO; +zoloft PO
--- NOTE | 2020-09-20 15:39 | Diagnostic Imaging Report ---
PROCEDURE: Pelvic comp/transvaginal sonogram. TECHNIQUE: Complete transabdominal and transvaginal pelvic ultrasound was performed. In addition, limited pelvic Doppler was performed. INDICATION: Pelvic pain and abnormal uterine bleeding. Uterus measures 10.3 x 7.8 x 6.4 cm. Endometrium is 12 mm in thickness. No myometrial mass is detected. The right ovary measures 3.1 x 2.1 x 1.67 cm and the left ovary measures 2.5 x 1.7 x 1.47 cm. There is blood flow to both ovaries. Ovaries contain small follicles. A small amount of free fluid in the cul-de-sac is noted. IMPRESSION: Unremarkable pelvic ultrasound. Dictated by: Dictated on workstation # [id number]
== END ==
LOC: RAD FS 11:56
PROVIDERS: ATTEND Surgery
DX: N93.8 Other specified abnormal uterine and vaginal bleeding (principal); R10.2 Pelvic and perineal pain
CPT/HCPCS: 76830; 76856

== ENCOUNTER 2021-01-15 19:38 | Emergency (ER) | payer MEDICAID ==
[~2021-01-15] VITALS: Ht 152.4 cm; Wt 55.7 kg
--- NOTE | 2021-01-15 19:49 | ED Abdominal Pain ---
General Stated Complaint: UPPER STOMACH PAIN/LOW BACK PAIN History of Present Illness Date Seen by Provider: Jan 15, 2021 Time Seen by Provider: 19:49 Initial Comments 35-year-old female presents with back pain and left upper quadrant pain. Patient reports that 3 to 4 weeks ago she started having pain in her mid back and now it goes throughout her both paraspinal sides of her back. She has some mild discomfort in the left upper quadrant. She reports he gets worse if she sits or lays down. She denies any urinary symptoms, fever, chills, nausea, vomiting, diarrhea. She reports that has been a little bit worse over the last week. Allergies and Home Medications Allergies Coded Allergies: Penicillins (Unverified Allergy, Unknown, 12/22/14) Sulfa (Sulfonamide Antibiotics) (Unverified Allergy, Unknown, 12/22/14) cephalexin (Unverified Allergy, Unknown, 12/22/14) prednisone (Unverified Allergy, Unknown, Rash but has taken w/o issue since, 04/15/20) Home Medications Benzonatate 100 Mg Capsule, 200 MG PO TID Prescribed by: HEATHER LAMBERT on 04/15/20 0725 Ferrous Sulfate 325 Mg Tablet, 325 MG PO DAILY Prescribed by: AN ACHARYA on 10/11/18 1142 Ibuprofen 600 Mg Tablet, 600 MG PO Q6HR Prescribed by: HEATHER LAMBERT on 04/15/20 0725 Vit W-Ca,Fe,FA(<1 mg) 1 Each Tablet, 1 EACH PO DAILY, (Reported) [omperazole] , 40 PO for INDIGESTION, (Reported) [zoloft] , 25 PO DAILY, (Reported) Patient Home Medication List Home Medication List Reviewed: Yes Review of Systems Review of Systems Constitutional: No chills, No fever EENTM: No Symptoms Reported Respiratory: Denies Cough, Denies Shortness of Air Cardiovascular: Denies Chest Pain, Denies Lightheadedness, Denies Palpitations Gastrointestinal: See HPI, Abdominal Pain; Denies Constipated, Denies Diarrhea, Denies Nausea, Denies Vomiting Genitourinary: No Symptoms Reported Musculoskeletal: back pain Skin: no symptoms reported Psychiatric/Neurological: No Symptoms Reported Endocrine: No Symptoms Reported Hematologic/Lymphatic: No Symptoms Reported Past Ymssnji-[id number]-Xqgtvx Hx Immunizations Up To Date PED Vaccines UTD: No Seasonal Allergies Seasonal Allergies: Yes Past Medical History Surgeries: No Respiratory: Yes (seasonal allergies) Currently Using CPAP: No Currently Using BIPAP: No Cardiac: No Neurological: No Female Reproductive Disorders: Denies Sexually Transmitted Disease: No HIV/AIDS: No Genitourinary: No Gastrointestinal: No Musculoskeletal: No Endocrine: No HEENT: No Hearing Impairment: Denies Cancer: No Did You Recieve Any Treatments: No Psychosocial: No Integumentary: No Blood Disorders: No Adverse Reaction/Blood Tranf: No Family Medical History Diabetes mellitus 19 FATHER (heart disease) Hypertension 19 FATHER (heart disease) Physical Exam Vital Signs Vital Signs - First Documented 01/15/21 20:07 Temp 36.7 Pulse 58 Resp 20 B/P (MAP) 126/53 (77) Pulse Ox 98 Capillary Refill : Height/Weight/BMI Height: 5'1.00" Weight: 147lbs. 0.0oz. [id number]; 15.92 BMI Method: General Appearance: WD/WN, no apparent distress Neck: full range of motion, supple Respiratory: lungs clear, normal breath sounds Cardiovascular: normal peripheral pulses, regular rate, rhythm Gastrointestinal: soft; No distended, No guarding, No rebound; tenderness (Very minimal tenderness left upper quadrant) Extremities: normal range of motion, non-tender, normal inspection Back: No decreased range of motion, No vertebral tenderness Neurologic/Psychiatric: no motor/sensory deficits, alert, normal mood/affect, oriented x 3 Skin: tattoos/piercings Progress/Results/Core Measures Results/Orders Lab Results Laboratory Tests Test 01/15/21 19:55 01/15/21 20:30 Range/Units Urine Color YELLOW Urine Clarity CLEAR Urine pH 7.0 5-9 Urine Specific [place] 1.020 1.016-1.022 Urine Protein NEGATIVE NEGATIVE Urine Glucose (UA) NEGATIVE NEGATIVE Urine Ketones NEGATIVE NEGATIVE Urine Nitrite NEGATIVE NEGATIVE Urine Bilirubin NEGATIVE NEGATIVE Urine Urobilinogen 1.0 < = 1.0 MG/DL Urine Leukocyte Esterase 1+ H NEGATIVE Urine RBC (Auto) NEGATIVE NEGATIVE Urine RBC NONE /HPF Urine WBC 10-25 H /HPF Urine Squamous Epithelial Cells 10-25 H /HPF Urine Crystals NONE /LPF Urine Bacteria FEW H /HPF Urine Casts NONE /LPF Urine Mucus SMALL H /LPF Urine Culture Indicated YES White Blood Count 8.0 4.3-11.0 10^3/uL Red Blood Count 3.94 L 4.35-5.85 10^6/uL Hemoglobin 12.9 11.5-16.0 G/DL Hematocrit 37 35-52 % Mean Corpuscular Volume 94 80-99 FL Mean Corpuscular Hemoglobin 33 25-34 PG Mean Corpuscular Hemoglobin Concent 35 32-36 G/DL Red Cell Distribution Width 12.7 10.0-14.5 % Platelet Count 252 130-400 10^3/uL Mean Platelet Volume 10.2 7.4-10.4 FL Immature Granulocyte % (Auto) 0 % Neutrophils (%) (Auto) 61 42-75 % Lymphocytes (%) (Auto) 30 12-44 % Monocytes (%) (Auto) 9 0-12 % Eosinophils (%) (Auto) 0 0-10 % Basophils (%) (Auto) 0 0-10 % Neutrophils # (Auto) 4.9 1.8-7.8 X 10^3 Lymphocytes # (Auto) 2.4 1.0-4.0 X 10^3 Monocytes # (Auto) 0.7 0.0-1.0 X 10^3 Eosinophils # (Auto) 0.0 0.0-0.3 10^3/uL Basophils # (Auto) 0.0 0.0-0.1 10^3/uL Immature Granulocyte # (Auto) 0.0 0.0-0.1 10^3/uL Sodium Level 141 135-145 MMOL/L Potassium Level 4.5 3.6-5.0 MMOL/L Chloride Level 106 98-107 MMOL/L Carbon Dioxide Level 25 21-32 MMOL/L Anion Gap 10 5-14 MMOL/L Blood Urea Nitrogen 8 7-18 MG/DL Creatinine 0.75 0.60-1.30 MG/DL Estimat Glomerular Filtration Rate > 60 BUN/Creatinine Ratio 11 Glucose Level 97 70-105 MG/DL Calcium Level 8.9 8.5-10.1 MG/DL Corrected Calcium 8.8 8.5-10.1 MG/DL Total Bilirubin 0.5 0.1-1.0 MG/DL Aspartate Amino Transf (AST/SGOT) 15 5-34 U/L Alanine Aminotransferase (ALT/SGPT) 8 0-55 U/L Alkaline Phosphatase 66 40-136 U/L Total Protein 6.2 L 6.4-8.2 GM/DL Albumin 4.1 3.2-4.5 GM/DL Lipase 56 8-78 U/L My Orders Orders - ISAIAH SALAMANCA L DO Cbc With Automated Diff (01/15/21 20:01) Comprehensive Metabolic Panel (01/15/21 20:01) Lipase (01/15/21 20:01) Ua Culture If Indicated (01/15/21 20:01) Abdomen (Kub) 1 View (01/15/21 20:01) Urine Culture (01/15/21 19:55) Vital Signs/I&O 01/15/21 20:07 Temp 36.7 Pulse 58 Resp 20 B/P (MAP) 126/53 (77) Pulse Ox 98 Progress Progress Note : Progress Note Patient symptoms consistent with a paraspinal muscle strain. Patient with negative labs, fairly benign exam and a negative x-ray. We will give her naproxen and Flexeril. Patient symptoms of been going on for 3 to 4 weeks. If no improvement after a week she can follow-up for further evaluation with her primary care provider Departure Impression Primary Impression: Strain of lumbar paraspinous muscle Qualified Codes: S39.012A - Strain of muscle, fascia and tendon of lower back, initial encounter Additional Impression: Strain of thoracic paraspinal muscles excluding T1 and T2 levels Qualified Codes: S29.012A - Strain of muscle and tendon of back wall of thorax, initial encounter Disposition: HOME, SELF-CARE Condition: Stable Departure-Patient Inst. Referrals: HEATHER LAMBERT MD (PCP/Family) Primary Care Physician Patient Instructions: Back Stretches on Floor, Back Exercises, Back Muscle Strain (DC) Add. Discharge Instructions: Follow-up with your primary care provider if no improvement in 4 to 5 days or s ymptoms continue to worsen Scripts Naproxen (Naprosyn) 500 Mg Tablet 500 MG PO BID, #30 TAB 0 Refills Prov: POOJA SALAMANCAR L DO 01/15/21 Cyclobenzaprine HCl (Cyclobenzaprine HCl) 10 Mg Tablet 10 MG PO Q8H PRN for SPASMS, #15 TAB 0 Refills Prov: SALAMANCA,ISAIAH L DO 01/15/21 SALAMANCAPOOJAR L DO Jan 15, 2021 19:49
[2021-01-15 20:06] LABS: BACTERIA,URINE FEW /HPF; BILIRUBIN,URINE NEGATIVE (NEGATIVE); CLARITY,URINE CLEAR; COLOR,URINE YELLOW; GLUCOSE, URINE (UA) NEGATIVE (NEGATIVE); KETONES,URINE NEGATIVE (NEGATIVE); LEUKOCYTE ESTERASE ,URINE 1+ (NEGATIVE); NITRITE,URINE NEGATIVE (NEGATIVE); PROTEIN,URINE NEGATIVE (NEGATIVE)
[2021-01-15 20:36] LABS: HEMATOCRIT 37 % (35-52); HEMOGLOBIN 12.9 G/DL (11.5-16.0); MEAN CORPUSCULAR HEMOGLOBIN 33 PG (25-34); MEAN CORPUSCULAR HGB CONC 35 G/DL (32-36); MEAN CORPUSCULAR VOLUME 94 FL (80-99); MEAN PLATELET VOLUME 10.2 FL (7.4-10.4); NEUTROPHILS % (AUTO) 61 % (42-75); PLATELET COUNT 252 10^3/uL (130-400)
[2021-01-15 20:37] LABS: BASOPHILS % (AUTO) 0 % (0-10); EOSINOPHILS % (AUTO) 0 % (0-10); LYMPHOCYTES # (AUTO) 2.4 X 10^3 (1.0-4.0); LYMPHOCYTES % (AUTO) 30 % (12-44); MONOCYTES # (AUTO) 0.7 X 10^3 (0.0-1.0); MONOCYTES % (AUTO) 9 % (0-12); NEUTROPHILS # (AUTO) 4.9 X 10^3 (1.8-7.8)
[2021-01-15 20:55] LABS: ALANINE AMINOTRANSFERASE 8 U/L (0-55); ALBUMIN 4.1 GM/DL (3.2-4.5); ALKALINE PHOSPHATASE 66 U/L (40-136); BILIRUBIN,TOTAL 0.5 MG/DL (0.1-1.0); BUN/CREATININE RATIO 11; CALCIUM 8.9 MG/DL (8.5-10.1); CARBON DIOXIDE 25 MMOL/L (21-32); CHLORIDE 106 MMOL/L (98-107); CREATININE SERUM 0.75 MG/DL (0.60-1.30); GFR ESTIMATED > 60; GLUCOSE 97 MG/DL (70-105); LIPASE 56 U/L (8-78); POTASSIUM 4.5 MMOL/L (3.6-5.0); SODIUM 141 MMOL/L (135-145); TOTAL PROTEIN 6.2 GM/DL (6.4-8.2)
[2021-01-15] MEDS ORDERED: CYCL10TA9 PO (21:02)
[2021-01-15] MEDS ORDERED: NAPR-1071 PO (21:02)
[2021-01-15 21:15] VITALS: BP 98/63
--- NOTE | 2021-01-15 21:52 | Diagnostic Imaging Report ---
Clinical indications: Patient with left lower quadrant pain and mid back pain x 1 week, off and on. Exam: KUB x-ray. Comparison: None. Findings: There are no focal calcifications overlying the expected regions/ pathways of both kidneys, ureters, and bladder regions. There is a nonobstructed bowel gas pattern. There is no evidence of abdominal free air. There are surgical clips in the pelvis seen. The visualized bones and extra abdominal soft tissues are unremarkable. Impression: There is no radiographic evidence for acute abdominal/pelvic process or urinary tract stone. Dictated by: Dictated on workstation # [id number]
== END 2021-01-15 21:22 | disposition home or self-care (01) ==
LOC: EDUNIT# 19:38 → ER FS 19:42
DX: S39.012A Strain of muscle, fascia and tendon of lower back, initial encounter (principal); S29.012A Strain of muscle and tendon of back wall of thorax, initial encounter; X58.XXXA Exposure to other specified factors, initial encounter
CPT/HCPCS: 36415; 74018; 80053; 81000; 83690; 85025; 87077; 87088

== ENCOUNTER → 2021-03-09 | Outpatient (CLI) | payer MEDICAID ==
[~2021-03-09] MED LIST changes: +NAPR-1071 PO
== END ==
LOC: LABNPT 14:47
PROVIDERS: ATTEND Family Medicine
DX: N39.0 Urinary tract infection, site not specified (principal)
CPT/HCPCS: 87088

== ENCOUNTER → 2021-03-21 | Outpatient (CLI) | payer MEDICAID ==
--- NOTE | 2021-03-21 15:54 | Diagnostic Imaging Report ---
INDICATION: Back pain. COMPARISON: None. FINDINGS: Frontal and lateral views of the lumbar spine were obtained. Alignment and vertebral heights are maintained. There is no fracture or destructive process. Limited views of the abdomen demonstrate nonobstructive bowel gas pattern. IMPRESSION: No acute fracture or dislocation of the lumbar spine. Dictated by: Dictated on workstation # [id number]
== END ==
LOC: LAB FS 15:06
PROVIDERS: ATTEND Family Medicine
DX: M54.5 Low back pain (principal)
CPT/HCPCS: 72100

== ENCOUNTER 2021-03-24 08:49 | Emergency (ER) | payer MEDICAID ==
[~2021-03-24] VITALS: Ht 152.4 cm; Wt 55.7 kg
--- NOTE | 2021-03-24 09:06 | ED Dyspnea ---
General Stated Complaint: CHEST PAIN; SOB Source of Information: Patient History of Present Illness Date Seen by Provider: Mar 24, 2021 Time Seen by Provider: 09:06 Initial Comments 35-year-old female presents with shortness of air and intermittent chest pain for the past 3 weeks. Patient was seen in urgent care couple weeks ago diagnosed w bronchitis and told she had "early COPD" by chest x-ray. Patient has had intermittent nasal congestion, chills without fever and a dry cough. Denies history of heart or lung problems. She is a smoker with history of anxiety Allergies and Home Medications Allergies Coded Allergies: Penicillins (Unverified Allergy, Unknown, 12/22/14) Sulfa (Sulfonamide Antibiotics) (Unverified Allergy, Unknown, 12/22/14) cephalexin (Unverified Allergy, Unknown, 12/22/14) prednisone (Unverified Allergy, Unknown, Rash but has taken w/o issue since, 04/15/20) Patient Home Medication List Home Medication List Reviewed: Yes Benzonatate (Tessalon Perles) 100 Mg Capsule, 200 MG PO TID Prescribed by: HEATHER LAMBERT on 04/15/20724 Cyclobenzaprine HCl (Cyclobenzaprine HCl) 10 Mg Tablet, 10 MG PO Q8H PRN for SPASMS Prescribed by: ISAIAH SALAMANCA on 01/15/212101 Ferrous Sulfate (Ferrous Sulfate) 325 Mg Tablet, 325 MG PO DAILY Prescribed by: AN ACHARYA on 10/11/18 1142 Ibuprofen (Ibu) 600 Mg Tablet, 600 MG PO Q6HR Prescribed by: HEATHER LAMBERT on 04/15/20724 Naproxen (Naprosyn) 500 Mg Tablet, 500 MG PO BID Prescribed by: ISAIAH SALAMANCA on 01/15/212101 Vit W-Ca,Fe,FA(<1 mg) ( Vitamins) 1 Each Tablet, 1 EACH PO DAILY, (Reported) Entered as Reported by: MORENO ALICEA on 07/24/18 1351 Walker (Ultra-Light Rollator) 1 Each Each, EACH MC PRN, (DME) Prescribed by: AN ACHARYA on 10/15/18 1115 [omperazole] , 40 PO for INDIGESTION, (Reported) Entered as Reported by: JODY NEWMAN on 10/7/20 1950 [zoloft] , 25 PO DAILY, (Reported) Entered as Reported by: JODY NEWMAN on 04/14/201949 Review of Systems Review of Systems Constitutional: chills; No fever, No malaise, No weakness EENTM: nose congestion; No ear pain, No throat pain Respiratory: see HPI, cough, short of breath; No wheezing Cardiovascular: see HPI, chest pain; No edema, No palpitations, No syncope Gastrointestinal: No abdominal pain, No loss of appetite, No nausea, No vomiting Musculoskeletal: No back pain, No joint pain Skin: No change in color, No rash Psychiatric/Neurological: Denies Headache, Denies Paresthesia Past Duhlzvp-Gzpmtk-Mrvxsi Hx Patient Social History Tobacco Use?: Yes Immunizations Up To Date PED Vaccines UTD: No Seasonal Allergies Seasonal Allergies: Yes Past Medical History Surgery/Hospitalization HX: Had child in April et tubal ligation Surgeries: No Respiratory: Yes (seasonal allergies) Currently Using CPAP: No Currently Using BIPAP: No Cardiac: No Neurological: No Female Reproductive Disorders: Denies Sexually Transmitted Disease: No HIV/AIDS: No Genitourinary: No Gastrointestinal: No Musculoskeletal: No Endocrine: No HEENT: No Hearing Impairment: Denies Cancer: No Did You Recieve Any Treatments: No Psychosocial: No Integumentary: No Blood Disorders: No Adverse Reaction/Blood Tranf: No Family Medical History Diabetes mellitus 19 FATHER (heart disease) Hypertension 19 FATHER (heart disease) Physical Exam Vital Signs Vital Signs - First Documented 03/24/21 08:49 Temp 36.9 Pulse 58 Resp 18 B/P (MAP) 143/76 (98) Pulse Ox 98 O2 Delivery Room Air Capillary Refill : Height, Weight, BMI Height: 5'1.00" Weight: 147lbs. 0.0oz. 66.601958jo; 23.00 BMI Method: General Appearance: No Apparent Distress, WD/WN HEENT: PERRL/EOMI, Normal ENT Inspection Neck: Normal Inspection, Non Tender, Supple Respiratory: Chest Non Tender, Lungs Clear, Normal Breath Sounds, No Accessory Muscle Use, No Respiratory Distress Cardiovascular: Regular Rate, Rhythm, No Edema, No JVD Gastrointestinal: Normal Bowel Sounds, Non Tender, Soft Extremity: Normal Capillary Refill Neurologic/Psychiatric: Alert, Oriented x3, Normal Mood/Affect Skin: Normal Color, Warm/Dry Progress/Results/Core Measures Results/Orders Lab Results Laboratory Tests Test 03/24/21 08:57 Range/Units White Blood Count 12.7 H 4.3-11.0 10^3/uL Red Blood Count 4.64 3.80-5.11 10^6/uL Hemoglobin 15.1 11.5-16.0 g/dL Hematocrit 45 35-52 % Mean Corpuscular Volume 97 80-99 fL Mean Corpuscular Hemoglobin 33 25-34 pg Mean Corpuscular Hemoglobin Concent 34 32-36 g/dL Red Cell Distribution Width 13.0 10.0-14.5 % Platelet Count 279 130-400 10^3/uL Mean Platelet Volume 10.0 9.0-12.2 fL Immature Granulocyte % (Auto) 0 % Neutrophils (%) (Auto) 73 42-75 % Lymphocytes (%) (Auto) 18 12-44 % Monocytes (%) (Auto) 9 0-12 % Eosinophils (%) (Auto) 0 0-10 % Basophils (%) (Auto) 0 0-10 % Neutrophils # (Auto) 9.2 H 1.8-7.8 X 10^3 Lymphocytes # (Auto) 2.3 1.0-4.0 X 10^3 Monocytes # (Auto) 1.1 H 0.0-1.0 X 10^3 Eosinophils # (Auto) 0.0 0.0-0.3 10^3/uL Basophils # (Auto) 0.0 0.0-0.1 10^3/uL Immature Granulocyte # (Auto) 0.1 0.0-0.1 10^3/uL Sodium Level 139 135-145 MMOL/L Potassium Level 3.5 L 3.6-5.0 MMOL/L Chloride Level 101 98-107 MMOL/L Carbon Dioxide Level 26 21-32 MMOL/L Anion Gap 12 5-14 MMOL/L Blood Urea Nitrogen 10 7-18 MG/DL Creatinine 0.68 0.60-1.30 MG/DL Estimat Glomerular Filtration Rate 98 BUN/Creatinine Ratio 15 Glucose Level 98 70-105 MG/DL Calcium Level 9.4 8.5-10.1 MG/DL Corrected Calcium 8.5-10.1 MG/DL Total Bilirubin 0.5 0.1-1.0 MG/DL Aspartate Amino Transf (AST/SGOT) 14 5-34 U/L Alanine Aminotransferase (ALT/SGPT) 9 0-55 U/L Alkaline Phosphatase 70 40-136 U/L Troponin I < 0.30 <0.30 NG/ML Total Protein 7.3 6.4-8.2 GM/DL Albumin 4.6 H 3.2-4.5 GM/DL My Orders Orders - LUCRECIA YOUNG DO Ed Iv/Invasive Line Start (03/24/21 09:06) Chest 1 View Ap/Pa Only (03/24/21 09:06) Ekg Tracing (03/24/21 09:06) Cbc With Automated Diff (03/24/21 09:06) Comprehensive Metabolic Panel (03/24/21 09:06) Troponin I Fs (03/24/21 09:13) Vital Signs/I&O 03/24/21 08:49 Temp 36.9 Pulse 58 Resp 18 B/P (MAP) 143/76 (98) Pulse Ox 98 O2 Delivery Room Air Initial ECG Impression Date: Mar 24, 2021 Initial ECG Impression Time: 09:00 Initial ECG Rate: 53 Initial ECG Rhythm: Normal Sinus Initial ECG Intervals: Normal Initial ECG Impression: Normal Diagnostic Imaging Diagonstic Imaging: Xray Comments Findings: Lungs/pleura: Lungs are clear. There is no pneumothorax. There is no pleural effusion. Mediastinum: Unremarkable. Pulmonary vasculature: Unremarkable. Heart: Unremarkable. Bones/extrathoracic soft tissue: Unremarkable. Impression: There is no radiographic evidence of acute cardiopulmonary process. Dictated on workstation # [id number] Dict: 03/24/21 0934 Trans: 03/24/21 0935 [facility] [id number] Interpreted by: SHIRA BLANC MD Electronically signed by: Departure Impression Primary Impression: Chest pain Qualified Codes: R07.9 - Chest pain, unspecified Disposition: 01 HOME, SELF-CARE Condition: Stable Departure-Patient Inst. Decision time for Depature: 09:52 Referrals: HEATHER LAMBERT MD (PCP/Family) Primary Care Physician Patient Instructions: Chest Pain (DC) Add. Discharge Instructions: Follow up with Dr Lambert in 5 to 7 days regarding your episodes of chest pain. LUCRECIA YOUNG DO Mar 24, 2021 09:06
[2021-03-24 09:23] LABS: HEMATOCRIT 45 % (35-52); HEMOGLOBIN 15.1 g/dL (11.5-16.0); MEAN CORPUSCULAR HEMOGLOBIN 33 pg (25-34); MEAN CORPUSCULAR VOLUME 97 fL (80-99); WHITE BLOOD COUNT 12.7 10^3/uL (4.3-11.0)
[2021-03-24 09:24] LABS: BASOPHILS % (AUTO) 0 % (0-10); EOSINOPHILS % (AUTO) 0 % (0-10); LYMPHOCYTES # (AUTO) 2.3 X 10^3 (1.0-4.0); LYMPHOCYTES % (AUTO) 18 % (12-44); MEAN CORPUSCULAR HGB CONC 34 g/dL (32-36); MONOCYTES # (AUTO) 1.1 X 10^3 (0.0-1.0); MONOCYTES % (AUTO) 9 % (0-12); NEUTROPHILS # (AUTO) 9.2 X 10^3 (1.8-7.8); NEUTROPHILS % (AUTO) 73 % (42-75); PLATELET COUNT 279 10^3/uL (130-400)
--- NOTE | 2021-03-24 09:35 | Diagnostic Imaging Report ---
Clinical indication: Patient with chest pain and shortness breath x1 week. Exam: Portable chest x-ray upright view. Comparisons: None. Findings: Lungs/pleura: Lungs are clear. There is no pneumothorax. There is no pleural effusion. Mediastinum: Unremarkable. Pulmonary vasculature: Unremarkable. Heart: Unremarkable. Bones/extrathoracic soft tissue: Unremarkable. Impression: There is no radiographic evidence of acute cardiopulmonary process. Dictated by: Dictated on workstation # [id number]
[2021-03-24 09:49] LABS: ALANINE AMINOTRANSFERASE 9 U/L (0-55); ALKALINE PHOSPHATASE 70 U/L (40-136); BILIRUBIN,TOTAL 0.5 MG/DL (0.1-1.0); BUN/CREATININE RATIO 15; CALCIUM 9.4 MG/DL (8.5-10.1); CARBON DIOXIDE 26 MMOL/L (21-32); CHLORIDE 101 MMOL/L (98-107); CREATININE SERUM 0.68 MG/DL (0.60-1.30); GFR ESTIMATED 98; GLUCOSE 98 MG/DL (70-105); POTASSIUM 3.5 MMOL/L (3.6-5.0); SODIUM 139 MMOL/L (135-145); TOTAL PROTEIN 7.3 GM/DL (6.4-8.2)
[2021-03-24 09:50] LABS: ALBUMIN 4.6 GM/DL (3.2-4.5)
[2021-03-24 10:04] VITALS: BP 144/72
== END 2021-03-24 10:00 | disposition home or self-care (01) ==
LOC: EDUNIT# 08:49 → ER FS 08:50
DX: R07.9 Chest pain, unspecified (principal); F17.290 Nicotine dependence, other tobacco product, uncomplicated
CPT/HCPCS: 36415; 71045; 80053; 84484; 85025; 93005

== ENCOUNTER → 2021-08-09 | Outpatient (CLI) | payer MEDICAID ==
[~2021-08-09] MED LIST changes: +CYCL10TA25 PO; -CYCL10TA9 PO
--- NOTE | 2021-08-09 17:19 | Diagnostic Imaging Report ---
INDICATION: Lower abdominal pain. TIME OF EXAM: 4:04 PM Heart size is normal. Lungs are clear. There is no free air. Bowel gas pattern is nonobstructive. There are surgical clips in the pelvis. No pathologic calcifications are seen. IMPRESSION: No acute abnormality is detected. Dictated by: Dictated on workstation # [id number]
== END ==
LOC: RAD FS 15:51
PROVIDERS: ATTEND Registered Nurse Emergency
DX: R10.30 Lower abdominal pain, unspecified (principal)
CPT/HCPCS: 74022

== ENCOUNTER → 2021-08-10 | Outpatient (CLI) | payer MEDICAID | LOC: LABNPT 14:50 | PROVIDERS: ATTEND Registered Nurse Emergency | DX: R30.9 Painful micturition, unspecified (principal) | CPT/HCPCS: 87088 ==

== ENCOUNTER → 2021-12-29 | Outpatient (CLI) | payer MEDICAID ==
--- NOTE | 2021-12-29 17:38 | Diagnostic Imaging Report ---
PROCEDURE: US Non-OB pelvis comp/trans. INDICATION: Dysfunctional uterine bleeding. TECHNIQUE: Multiple real time grayscale sonographic images were obtained of the pelvis, transabdominally and endovaginally. CORRELATION STUDY: None. FINDINGS: UTERUS: 7.6 x 5.5 x 8.4 cm. ENDOMETRIUM: 5 mm. Cervical nabothian cysts are present. There is somewhat increased vascularity through the myometrium. Endometrial thickness within normal limits. RIGHT OVARY: 2.7 x 2.2 x 1.8 cm LEFT OVARY: 2.6 x 1.7 x 2.7 cm The ovaries have an unremarkable appearance. No concerning mass. There is blood flow to the ovaries. No significant free pelvic fluid. IMPRESSION: 1. Slight increased vascularity of the myometrium of the uterus, nonspecific. No definitive abnormal mass. Cysts. 2. Endometrial thickness within normal limits for a premenopausal patient. 3. Ovaries unremarkable. Dictated by: Dictated on workstation # [id number]
== END ==
LOC: RAD 14:48
PROVIDERS: ATTEND Nurse Practitioner
DX: N93.8 Other specified abnormal uterine and vaginal bleeding (principal); R93.89 Abnormal findings on diagnostic imaging of other specified body structures
CPT/HCPCS: 76830; 76856

== ENCOUNTER → 2022-01-03 | Outpatient (CLI) | payer MEDICAID | LOC: LABNPT 14:25 | PROVIDERS: ATTEND Family Medicine | DX: N39.0 Urinary tract infection, site not specified (principal) | CPT/HCPCS: 87088 ==

== ENCOUNTER → 2022-02-07 | Outpatient (CLI) | payer MEDICAID | LOC: LABNPT 14:40 | PROVIDERS: ATTEND Registered Nurse Emergency | DX: R11.2 Nausea with vomiting, unspecified (principal); R10.9 Unspecified abdominal pain; R53.83 Other fatigue; R10.13 Epigastric pain | CPT/HCPCS: 87088 ==

== ENCOUNTER → 2022-02-07 | Outpatient (CLI) | payer MEDICAID ==
[2022-02-07 10:59] LABS: BASOPHILS % (AUTO) 0 % (0-10); EOSINOPHILS % (AUTO) 0 % (0-10); HEMATOCRIT 40 % (35-52); HEMOGLOBIN 13.7 g/dL (11.5-16.0); LYMPHOCYTES # (AUTO) 1.6 10^3/uL (1.0-4.0); LYMPHOCYTES % (AUTO) 22 % (12-44); MEAN CORPUSCULAR HEMOGLOBIN 32 pg (25-34); MEAN CORPUSCULAR HGB CONC 34 g/dL (32-36); MEAN CORPUSCULAR VOLUME 93 fL (80-99); MEAN PLATELET VOLUME 10.3 fL (9.0-12.2); MONOCYTES # (AUTO) 0.7 10^3/uL (0.0-1.0); MONOCYTES % (AUTO) 10 % (0-12); NEUTROPHILS # (AUTO) 4.8 10^3/uL (1.8-7.8); NEUTROPHILS % (AUTO) 67 % (42-75); PLATELET COUNT 209 10^3/uL (130-400); WHITE BLOOD COUNT 7.1 10^3/uL (4.3-11.0)
[2022-02-07 11:25] LABS: ALANINE AMINOTRANSFERASE 7 U/L (0-55); ALBUMIN 4.9 GM/DL (3.2-4.5); ALKALINE PHOSPHATASE 57 U/L (40-136); BUN/CREATININE RATIO 10; CALCIUM 9.7 MG/DL (8.5-10.1); CARBON DIOXIDE 24 MMOL/L (21-32); CHLORIDE 107 MMOL/L (98-107); CREATININE SERUM 0.78 MG/DL (0.60-1.30); GFR ESTIMATED 101; GLUCOSE 99 MG/DL (70-105); SODIUM 141 MMOL/L (135-145); TOTAL PROTEIN 7.1 GM/DL (6.4-8.2)
[2022-02-07 15:14] LABS: FREE T4 (FREE THYROXINE) 0.86 NG/DL (0.70-1.48)
== END ==
LOC: LAB FS 10:44
PROVIDERS: ATTEND Registered Nurse Emergency
DX: R10.13 Epigastric pain (principal); R11.2 Nausea with vomiting, unspecified; R53.83 Other fatigue
CPT/HCPCS: 36415; 80053; 83690; 84439; 84443; 85025; 86141

== ENCOUNTER → 2022-02-10 | Outpatient (CLI) | payer MEDICAID ==
[2022-02-10 11:10] LABS: BUN/CREATININE RATIO 9; CALCIUM 9.5 MG/DL (8.5-10.1); CARBON DIOXIDE 24 MMOL/L (21-32); CHLORIDE 105 MMOL/L (98-107); CREATININE SERUM 0.82 MG/DL (0.60-1.30); GFR ESTIMATED 95; GLUCOSE 109 MG/DL (70-105); SODIUM 140 MMOL/L (135-145)
[2022-02-10 11:11] LABS: ALANINE AMINOTRANSFERASE 8 U/L (0-55); ALBUMIN 4.6 GM/DL (3.2-4.5); ALKALINE PHOSPHATASE 54 U/L (40-136); BILIRUBIN,TOTAL 0.6 MG/DL (0.1-1.0); LIPASE 144 U/L (8-78); TOTAL PROTEIN 6.6 GM/DL (6.4-8.2)
== END ==
LOC: LAB FS 10:05
PROVIDERS: ATTEND Registered Nurse Emergency
DX: R10.9 Unspecified abdominal pain (principal)
CPT/HCPCS: 36415; 80053; 83690

== ENCOUNTER → 2022-02-15 | Outpatient (CLI) | payer MEDICAID ==
[~2022-02-15] MED LIST changes: +IOHEXOL 350 MG/ML 100 ML (OMNIPAQUE 350) VIAL IV ONE; +NS 100 ML (IVPB) BAG IV ONE
--- NOTE | 2022-02-15 12:32 | Diagnostic Imaging Report ---
PROCEDURE: CT abdomen and pelvis with contrast. TECHNIQUE: Multiple contiguous axial images were obtained through the abdomen and pelvis after administration of intravenous contrast. Auto Exposure Controls were utilized during the CT exam to meet ALARA standards for radiation dose reduction. All CT scans use one or more of the following dose optimizing techniques: automated exposure control, MA and/or KvP adjustment based on patient size and exam type or iterative reconstruction. INDICATION: Abdominal pain with vomiting for 2 to 3 months. Patient has elevated lipase levels. Lung bases are clear. No discrete liver mass is detected. Gallbladder is unremarkable. No biliary duct dilatation is seen. There appears to be homogeneous enhancement to the pancreas. No peripancreatic inflammation or peripancreatic fluid is identified. The spleen is unremarkable. No adrenal mass is detected. The kidneys are unremarkable. Aorta is nonaneurysmal. The small and large bowel loops are normal caliber. There is no obstruction. No free fluid or fluid collection is seen apart from trace free fluid in the pelvis, likely physiologic. The bladder is unremarkable. No inflammatory changes are seen. IMPRESSION: Essentially unremarkable CT of the abdomen and pelvis with contrast. No acute feature is detected. Dictated by: Dictated on workstation # [id number]
== END ==
LOC: RAD 11:10
PROVIDERS: ATTEND Registered Nurse Emergency
DX: R10.9 Unspecified abdominal pain (principal); R11.10 Vomiting, unspecified
CPT/HCPCS: 74177

== ENCOUNTER → 2022-02-17 | Outpatient (CLI) | payer MEDICAID ==
[~2022-02-17] MED LIST changes: -IOHEXOL 350 MG/ML 100 ML (OMNIPAQUE 350) VIAL IV ONE; -NS 100 ML (IVPB) BAG IV ONE
[2022-02-17 15:29] LABS: ALBUMIN 4.3 GM/DL (3.2-4.5); BILIRUBIN,TOTAL 0.7 MG/DL (0.1-1.0); CALCIUM 9.2 MG/DL (8.5-10.1); CREATININE SERUM 0.83 MG/DL (0.60-1.30); POTASSIUM 4.2 MMOL/L (3.6-5.0); TOTAL PROTEIN 6.2 GM/DL (6.4-8.2)
== END ==
LOC: LAB FS 14:51
PROVIDERS: ATTEND Family Medicine
DX: R10.9 Unspecified abdominal pain (principal)
CPT/HCPCS: 36415; 80053; 83690

== ENCOUNTER → 2022-04-04 | Outpatient (CLI) | payer MEDICAID | LOC: LAB FS 10:37 | PROVIDERS: ATTEND Registered Nurse Emergency | DX: K58.0 Irritable bowel syndrome with diarrhea (principal); R19.7 Diarrhea, unspecified; R22.30 Localized swelling, mass and lump, unspecified upper limb | CPT/HCPCS: 87015; 87045; 87046; 87328; 87329; 87899 ==

== ENCOUNTER → 2022-04-13 | Outpatient (CLI) | payer MEDICAID ==
[2022-04-13 10:40] LABS: HEMATOCRIT 39 % (35-52); HEMOGLOBIN 13.4 g/dL (11.5-16.0); MEAN CORPUSCULAR HEMOGLOBIN 31 pg (25-34); MEAN CORPUSCULAR HGB CONC 34 g/dL (32-36); MEAN CORPUSCULAR VOLUME 92 fL (80-99); MEAN PLATELET VOLUME 10.2 fL (9.0-12.2); PLATELET COUNT 192 10^3/uL (130-400); WHITE BLOOD COUNT 5.7 10^3/uL (4.3-11.0)
[2022-04-13 11:19] LABS: CALCIUM 9.2 MG/DL (8.5-10.1); CREATININE SERUM 0.8 MG/DL (0.60-1.30); POTASSIUM 4.3 MMOL/L (3.6-5.0)
== END ==
LOC: LAB FS 10:12
PROVIDERS: ATTEND Surgery
DX: Z01.812 Encounter for preprocedural laboratory examination (principal)
CPT/HCPCS: 36415; 80048; 85027

== ENCOUNTER → 2022-06-16 | Outpatient (CLI) | payer MEDICAID ==
--- NOTE | 2022-06-16 13:34 | Diagnostic Imaging Report ---
PROCEDURE: Pelvic comp/transvaginal sonogram. TECHNIQUE: Complete transabdominal and transvaginal pelvic ultrasound was performed. In addition, limited pelvic Doppler was performed. INDICATION: Abnormal uterine bleeding. Uterus is anteverted measuring 9.3 x 5.8 x 7.7 cm. Endometrium is 5 mm in thickness. There are areas of myometrial heterogeneity which may represent fibroids. An area anteriorly measures 3.7 x 2.0 x 2.8 cm. An area posterior uterus measures 4.1 x 2.5 x 3.0 cm. The right ovary measures 2.9 x 1.4 x 1.7 cm and the left ovary measures 3.2 x 1.5 x 2.4 cm. Both ovaries demonstrate blood flow. No adnexal mass or free fluid is detected. IMPRESSION: Uterine heterogeneity, perhaps owing to fibroids. The study is otherwise unremarkable. Dictated by: Dictated on workstation # [id number]
== END ==
LOC: RAD 12:15
PROVIDERS: ATTEND Obstetrics & Gynecology
DX: N93.9 Abnormal uterine and vaginal bleeding, unspecified (principal)
CPT/HCPCS: 76830; 76856

== ENCOUNTER 2022-07-31 05:31 | Outpatient (CLI) | payer MEDICAID ==
[~2022-07-31] VITALS: Ht 152.4 cm; Wt 52.3 kg
[2022-07-31] MEDS ORDERED: COLE625T30 PO (15:02)
[2022-07-31] MEDS ORDERED: CARI4.5C PO (15:19)
[2022-07-31] MEDS ORDERED: PREG150C PO (15:19)
[2022-07-31] MEDS ORDERED: ONDA4TAB11 SL (15:19)
[2022-07-31] MEDS ORDERED: VORT20TA PO (15:19)
[2022-07-31] MEDS ORDERED: BUSP30TA2 PO (15:19)
[2022-07-31] MEDS ORDERED: CLN.1T PO (15:19)
== END 2022-07-31 15:26 | disposition home or self-care (01) ==
LOC: PREOP 05:31
PROVIDERS: ATTEND Obstetrics & Gynecology
DX: Z01.818 Encounter for other preprocedural examination (principal)

== ENCOUNTER 2022-08-07 05:50 | Day surgery (SDC) | payer MEDICAID ==
[2022-08-07] VITALS (9 sets, daily range): BP systolic 102–124; BP diastolic 66–87
[~2022-08-07] VITALS: Ht 152.4 cm; Wt 52.3 kg
[~2022-08-07 05:50] MED LIST changes: +BUSP30TA2 PO; +CARI4.5C PO; +CLN.1T PO; +COLE625T30 PO; +ONDA4TAB11 SL; +PREG150C PO; +VORT20TA PO
[2022-08-07] MEDS ORDERED: metroNIDAZOLE 500MG/100ML IVPB 100 ML IV ONE (06:30)
[2022-08-07] MEDS ORDERED: ceFAZolin INJECTION 2,000 MG in NS (IVPB) 50 ML IV ONE (06:30)
[2022-08-07] MEDS: LACTATED RINGERS 1,000 ML IV PRN ×3 (06:30→09:11)
[2022-08-07 06:41] LABS: BASOPHILS % (AUTO) 0 % (0-10); EOSINOPHILS # (AUTO) 0.1 10^3/uL (0.0-0.3); EOSINOPHILS % (AUTO) 1 % (0-10); HEMATOCRIT 44 % (35-52); HEMOGLOBIN 15.5 g/dL (11.5-16.0); LYMPHOCYTES # (AUTO) 2.4 10^3/uL (1.0-4.0); LYMPHOCYTES % (AUTO) 27 % (12-44); MEAN CORPUSCULAR HEMOGLOBIN 33 pg (25-34); MEAN CORPUSCULAR HGB CONC 36 g/dL (32-36); MEAN CORPUSCULAR VOLUME 92 fL (80-99); MONOCYTES # (AUTO) 0.9 10^3/uL (0.0-1.0); MONOCYTES % (AUTO) 10 % (0-12); NEUTROPHILS # (AUTO) 5.4 10^3/uL (1.8-7.8); NEUTROPHILS % (AUTO) 62 % (42-75); PLATELET COUNT 224 10^3/uL (130-400); WHITE BLOOD COUNT 8.9 10^3/uL (4.3-11.0)
[2022-08-07] MEDS ORDERED: BUP/EPI 0.5% 1:200,000 (SENSORCAINE) 30 ML VIAL ONE (07:01)
[2022-08-07] MEDS ORDERED: MIDAZOLAM 2 MG/2 ML (VERSED) VIAL ONE (07:02)
[2022-08-07] MEDS ORDERED: ROCURONIUM 50 MG/5 ML (ZEMURON) VIAL IV ONE (07:02)
[2022-08-07] MEDS ORDERED: LIDOCAINE PF 2% 5 ML (XYLOCAINE) VIAL ONE (07:02)
[2022-08-07] MEDS ORDERED: proPOfol 200 MG/20 ML (DIPRIVAN) VIAL IV ONE (07:02)
[2022-08-07] MEDS ORDERED: fentaNYL INJ 100 MCG/2 ML AMP ONE (07:02)
[2022-08-07] MEDS ORDERED: BUPIVACAINE 0.25% 30 ML (SENSORCAINE) VIAL ONE (07:03)
--- NOTE | 2022-08-07 07:28 | Discharge Inst-Women's Service ---
Discharge Inst-Women's Serv Depart Medication/Instructions New, Converted or Re-Newed RX: Transmitted to Pharmacy Problems Reviewed?: Yes Consults/Follow Up Additional Follow Up: Yes Orders/Referrals Dr. To in 7-10 days and in 8 weeks Activity Activity: Activity as Tolerated Driving Instructions: No Driving for 1 Week NO SMOKING: NO SMOKING Nothing Inside Vagina: No Douching, No Ganister, No Tampons Diet Discharge Diet: No Restrictions Symptoms to Report to : Bleeding Excessive, Pain Increased, Fever Over 101 Degrees F, Vaginal Bleeding Increase, Questions/Concerns For Any Problems or Questions: Contact Your Physician Skin/Wound Care Infection Signs and Symptoms: Increased Redness, Foul Odor of Wound, Increased Drainage, Skin Itchy or Has a Rash, Increased Swelling, Temperature Above 101 F Operative Area Clean and Dry: Keep Incision Clean/Dry Stitches/Surendra/Dermabond: Dermabond, Care of Stitches Bathing Instructions: MADHAVI Carter DO Aug 07, 2022 07:28
[2022-08-07] MEDS ORDERED: SIME80TA16 PO (07:29)
[2022-08-07] MEDS ORDERED: DOCU100C37 PO (07:29)
[2022-08-07] MEDS ORDERED: IBUP-844 PO (07:29)
[2022-08-07] MEDS ORDERED: HYDR-34 PO (07:29)
[2022-08-07] MEDS ORDERED: HYDROcodone/APAP 7.5 MG/325 MG (LORTAB, LORCET PLUS) TABLET PO PRN (07:30)
[2022-08-07] MEDS ORDERED: SIMETHICONE 80 MG (MYLICON) CHEW PO PRN (07:30)
[2022-08-07] MEDS ORDERED: ONDANSETRON 4 MG/2 ML (SDV) Z0FRAN IV PRN (07:30)
[2022-08-07] MEDS ORDERED: KETOROLAC 30 MG/ML VIAL IVP PRN (07:30)
[2022-08-07] MEDS ORDERED: LACTATED RINGERS 1,000 ML IV SCH (07:30)
[2022-08-07] MEDS ORDERED: DOCUSATE SODIUM 100 MG (COLACE) CAP PO PRN (07:30)
[2022-08-07] MEDS ORDERED: BENZOCAINE LOZENGES 1 EACH LOZENGE MM PRN (07:30)
[2022-08-07] MEDS ORDERED: ZOLPIDEM 5 MG (AMBIEN) TAB PO PRN (07:30)
[2022-08-07] MEDS ORDERED: ANTACID SUSP 30 ML UDC (MYLANTA) PO PRN (07:30)
--- NOTE | 2022-08-07 07:33 | Progress Note-Pre Operative ---
Pre-Operative Progress Note Date of Available H&P: Aug 07, 2022 Date H&P Reviewed: Aug 07, 2022 Time H&P Reviewed: 07:15 History & Physical: H&P Reviewed, Patient Examed, No changes noted Pre-Operative Diagnosis: AUB, Menorrhagia, CPP, Dysmenorrhea MADHAVI MADDEN DO Aug 07, 2022 07:33
[2022-08-07] MEDS ORDERED: ONDANSETRON 4 MG/2 ML (SDV) Z0FRAN ONE (07:46)
[2022-08-07] MEDS ORDERED: BUPIVACAINE 0.25% 30 ML (SENSORCAINE) VIAL INJ ONE (08:31)
[2022-08-07] MEDS ORDERED: GLYCOPYRROLATE 0.2 MG/ML (ROBINUL) 2 ML VIAL ONE (08:42)
[2022-08-07] MEDS ORDERED: NEOSTIGMINE (BLOXIVERZ ) 1 MG/1ML 10 ML VIAL ONE (08:42)
[2022-08-07] MEDS ORDERED: SEVOFLURANE (ULTANE) 15 ML INHAL SOLN ONE (09:03)
[2022-08-07] MEDS ORDERED: KETOROLAC 30 MG/ML VIAL ONE (09:10)
--- NOTE | 2022-08-07 09:11 | Anesthesia-General Post-Op ---
General Patient Condition Mental Status/LOC: Same as Preop Cardiovascular: Satisfactory Nausea/Vomiting: Absent Respiratory: Satisfactory Pain: Controlled Complications: Absent Post Op Complications Complications None Follow Up Care/Instructions Patient Instructions None needed. Anesthesia/Patient Condition Patient Condition Patient is doing well, no complaints, stable vital signs, no apparent adverse anesthesia problems. No complications reported per nursing. DENIZ WAYNE CRNA Aug 07, 2022 09:11
[2022-08-07] MEDS ORDERED: ONDANSETRON 4 MG/2 ML (SDV) Z0FRAN IVP PRN (09:15)
[2022-08-07] MEDS ORDERED: HYDROmorphone 2 MG/ML VIAL (DILAUDID) IV ONE (09:15)
[2022-08-07] MEDS ORDERED: fentaNYL INJ 100 MCG/2 ML AMP IVP ONE (09:15)
[2022-08-07] MEDS ORDERED: MEPERIDINE (DEMEROL) INJ 50 MG/ML IVP ONE (09:15)
[2022-08-07] MEDS ORDERED: HYDROmorphone 2 MG/ML VIAL (DILAUDID) ONE (09:18)
--- NOTE | 2022-08-07 17:42 | OPERATIVE REPORT ---
PREOPERATIVE DIAGNOSES: 1. A 37-year-old female with menorrhagia. 2. Abnormal uterine bleeding. 3. Chronic pelvic pain. 4. Dysmenorrhea. POSTOPERATIVE DIAGNOSES: 1. A 37-year-old female with menorrhagia. 2. Abnormal uterine bleeding. 3. Chronic pelvic pain. 4. Dysmenorrhea. PROCEDURE: Robotic-assisted total laparoscopic hysterectomy with bilateral salpingectomy. SURGEON: Dr. Hima To. CEREAL MILLER: Angi Pyle DNP, was necessary for manipulation and retraction throughout the procedure. ANESTHESIA: General endotracheal. ESTIMATED BLOOD LOSS: Minimal. URINE OUTPUT: 50 mL clear at the end of the procedure. FLUIDS: 1400 mL of lactated Ringer's solution. FINDINGS: Grossly normal-appearing external female genitalia, slightly enlarged uterus that appears hyperemic with multiple filmy adhesions of the posterior cul-de-sac. Evidence of prior tubal ligation via Filshie clips. SPECIMEN SENT: Bilateral fallopian tubes, uterus and cervix. INDICATIONS FOR PROCEDURE: This 37-year-old female is the patient who had sought care in my office for consultation due to heavy irregular painful periods that have been going on for years. The patient is now past 35 and smokes and is not a candidate for more conservative options in the form of hormonal options. Also due to her pain, endometrial ablation was not likely to help her with this aspect of her complaint. She also had tried more alleviating and conservative factors in the past that have not helped her, therefore, she is wishing to move forward with more definitive measures. Risk of the procedure itself was reviewed with the patient in detail as well as all the alternatives including risk of bleeding, infection, damage to surrounding structures including but not limited to bowel, bladder, ureter or kidney, possible need for reoperation, postoperative complications that may occur, recovery timeframe, risk from anesthesia, and even . After everything was discussed with the patient in detail, consent was obtained, the patient was taken to the operating room. DESCRIPTION OF PROCEDURE: Once in the operating room, general anesthesia was found to be adequate. She was placed in the dorsal lithotomy position, prepped and draped in normal sterile fashion. Timeout was performed and anesthesia was tested. I began by placing a Villarreal catheter using sterile technique. Weighted speculum was inserted in the patient's vagina. Right angle retractor was used to visualize the cervix which was grasped at 12 o'clock position using 0 Vicryl sutures to the anterior lip of the cervix. Once the sutures in place, I am able to place a REBECCA uterine manipulator with an 8 cm tip and a 3.5 cm colpotomy ring into the uterus while deploying the balloon and advance a colpotomy ring around the vaginal fornix. I then performed change of gloves and turned my attention to the abdomen where subcostally at the mid clavicular line, I introduced the Veress needle through the skin until intraperitoneal placement was confirmed using a saline drop test and opening pressure of 4 mmHg was noted. I proceeded with CO2 insufflation to maximum pressure of 15 mmHg, at which point I make an infraumbilical incision with a knife that is 8 mm and direct a blunt laparoscopic da Nicole camera trocar through the incision until intraperitoneal placement was confirmed using the da Nicole laparoscope. There was no evidence of damage upon my trocar entry site. There was no evidence of damage upon the Veress needle entry site and the Veress needle was removed at that point. I then had the patient placed in steep Trendelenburg, where I am able to visualize all my pelvic anatomy as identified in my findings above. I placed 2 lateral trocars. These were both 8 mm trocars approximately 8 cm lateral to my infraumbilical trocar. Once both these trocars were in place, I bring in the the da Nicole robot docked in the appropriate fashion and placing the SynchroSeal device in the left hand and monopolar bryanna in the right hand. I performed the following dissection bilaterally. I sealed and transected using the SynchroSeal device across the uteroovarian ligament. I then created a window in the mesosalpinx and dissected laterally using the SynchroSeal device down the mesosalpinx amputating the fallopian tube surrounding blood supply. I then grasped the round ligament which I sealed and transected using the SynchroSeal device. This allows me to take down the broad ligament down to the level of the lower uterine segment, at which point I the anterior and posterior leaflets of the broad ligament. Anterior leaflet was taken down to the anterior vaginal fornix. Posterior leaflet was taken down to the posterior vaginal fornix. This allows me to skeletonize the uterine vessels laterally, which I sealed and transected using the SynchroSeal device. I then created a colpotomy at 12 o'clock position using monopolar bryanna and took this circumferentially around the vaginal fornix, amputating the cervix from the vagina. The entire specimen was then removed through the vagina. The vaginal cuff was then closed using 2-0 V-Loc in a running fashion, after which there was no active bleeding noted from any of my dissection planes. I then undocked the da Nicole robot and proceed with the remainder of the case laparoscopically. I copiously irrigated the pelvis using normal saline. Once again, there was no active bleeding noted from any of my dissection planes. I placed Surgiflo hemostatic agent over all my planes of dissection to ensure excellent postoperative hemostasis. I had the patient taken out of Trendelenburg, removed the lateral trocars under direct visualization of laparoscope. The infraumbilical trocar was left in place to release the remainder of insufflation and introduced 10 mL of 0.25% Marcaine in the peritoneal cavity for postoperative pain management. I then removed these trocars as well. The skin was reapproximated using 4-0 Monocryl interrupted subcuticular stitches. Dermabond was applied to the incision, sterile dressings with adhesive white tape. The patient tolerated the procedure well and was sent to recovery area in stable condition. Lap and sponge counts were correct at the end of procedure. Instrument counts were correct as well. Two grams of Ancef and 500 mg of Flagyl were given preoperatively for infection prophylaxis. Job ID: [id number] DocumentID: [id number] Dictated Date: 08/07/2022 09:32:19 Java Lead Developer Date: 08/07/2022 17:40:00 Dictated By: DO GORAN SERVIN
[2022-08-12] MEDS ORDERED: IBUPROFEN 600 MG (MOTRIN) TAB PO PRN (07:30)
== END 2022-08-07 14:45 | disposition home or self-care (01) ==
LOC: SDC 05:50 → WS 09:55 → SDC 14:45
PROVIDERS: ATTEND Obstetrics & Gynecology
DX: N80.03 Adenomyosis of the uterus (principal); N80.00 Endometriosis of the uterus, unspecified; N83.8 Other noninflammatory disorders of ovary, fallopian tube and broad ligament; N73.6 Female pelvic peritoneal adhesions (postinfective); K21.9 Gastro-esophageal reflux disease without esophagitis; F17.210 Nicotine dependence, cigarettes, uncomplicated; Z28.310 Unvaccinated for COVID-19
CPT/HCPCS: 36415; 84703; 85025; 86850; 86900; 86901; 87081

== ENCOUNTER 2022-08-11 09:12 | Observation (INO) | payer MEDICAID ==
[~2022-08-11] VITALS: Ht 152.4 cm; Wt 50.0 kg
[~2022-08-11 09:12] MED LIST changes: +HYDR-34 PO; +SIME80TA16 PO
[2022-08-11 09:41] LABS: BILIRUBIN,URINE NEGATIVE (NEGATIVE); CLARITY,URINE CLEAR; COLOR,URINE YELLOW; GLUCOSE, URINE (UA) NEGATIVE (NEGATIVE); KETONES,URINE 2+ (NEGATIVE); LEUKOCYTE ESTERASE ,URINE 1+ (NEGATIVE); NITRITE,URINE NEGATIVE (NEGATIVE); PROTEIN,URINE NEGATIVE (NEGATIVE)
[2022-08-11] MEDS ORDERED: LACTATED RINGERS 1,000 ML IV ONE ×2 (09:45→23:15)
[2022-08-11] MEDS ORDERED: fentaNYL INJ 100 MCG/2 ML AMP IVP ONE (09:45)
[2022-08-11] MEDS ORDERED: ONDANSETRON 4 MG/2 ML (SDV) Z0FRAN IVP ONE (09:45)
[2022-08-11 10:00] LABS: BACTERIA,URINE TRACE /HPF
[2022-08-11 10:18] LABS: BASOPHILS % (AUTO) 0 % (0-10); EOSINOPHILS % (AUTO) 0 % (0-10); HEMATOCRIT 42 % (35-52); HEMOGLOBIN 14.7 g/dL (11.5-16.0); LYMPHOCYTES # (AUTO) 0.6 10^3/uL (1.0-4.0); LYMPHOCYTES % (AUTO) 3 % (12-44); MEAN CORPUSCULAR HEMOGLOBIN 33 pg (25-34); MEAN CORPUSCULAR HGB CONC 35 g/dL (32-36); MEAN CORPUSCULAR VOLUME 94 fL (80-99); MEAN PLATELET VOLUME 10.3 fL (9.0-12.2); MONOCYTES # (AUTO) 0.9 10^3/uL (0.0-1.0); MONOCYTES % (AUTO) 5 % (0-12); NEUTROPHILS # (AUTO) 16.3 10^3/uL (1.8-7.8); NEUTROPHILS % (AUTO) 91 % (42-75); PLATELET COUNT 190 10^3/uL (130-400); WHITE BLOOD COUNT 17.9 10^3/uL (4.3-11.0)
--- NOTE | 2022-08-11 10:18 | ED General ---
General Chief Complaint: Fever-Adult/Adol Stated Complaint: VOMITING | NAUSEA | FEVER | POST OP FROM 08/07/22 Nursing Triage Note: Patient ambulatory to ER w c/o fever, vomitting, and nausea. Patient states she had a hysterectomy on Sunday (08/07/2022) with Dr. Garber. Pt called [facility] office this morning to report symptoms and they sent her to ER. Patient has had sick kids at home recently. Source of Information: Patient Exam Limitations: No Limitations History of Present Illness Date Seen by Provider: Aug 11, 2022 Time Seen by Provider: 09:22 Initial Comments This 37-year-old woman presents to the emergency room feeling ill with fever, vomiting, abdominal pain, and lower back pain. She started feeling ill last night. She had a robotic hysterectomy performed on August [address] MADDEN. She is not particularly tender to the touch in her abdomen and reports the pain feels deeper than that. Her incisions look normal. She has had some mild congestion and runny nose but no cough or shortness of breath. Her kids have been ill recently as well. She was not able to take her pain medication this morning due to nausea and vomiting. She is slightly tachycardic with a heart rate in the 90s. She is afebrile at present. She has had some increased diarrhea recently and reports she normally has chronic diarrhea. Allergies and Home Medications Allergies Coded Allergies: Sulfa (Sulfonamide Antibiotics) (Unverified Allergy, Unknown, rash, 07/31/22) Patient Home Medication List Home Medication List Reviewed: Yes Buspirone HCl (Buspirone HCl) 30 Mg Tablet, 30 MG PO DAILY, (Reported) Entered as Reported by: HEATHER JAUREGUI on 07/31/22 151 Cariprazine Hydrochloride (Vraylar) 4.5 Mg Capsule, 4.5 MG PO DAILY, (Reported) Entered as Reported by: HEATHER JAUREGUI on 07/31/22 151 Clonidine HCl (Clonidine HCl) 0.1 Mg Tablet, 0.1 MG PO BID, (Reported) Entered as Reported by: HEATHER JAUREGUI on 07/31/22 151 Colesevelam HCl (Welchol) 625 Mg Tablet, 625 MG PO DAILY, (Reported) Entered as Reported by: HEATHER JAUREGUI on 07/31/22 1502 Cyclobenzaprine HCl (Cyclobenzaprine HCl) 10 Mg Tablet, 10 MG PO Q8H PRN for SPASMS Prescribed by: ISAIAH SALAMANCA on 01/15/21 210 Docusate Sodium (Docusate Sodium) 100 Mg Capsule, 100 MG PO BID PRN for CONSTIPATION-1ST LINE Prescribed by: MADHAVI MADDEN on 08/07/22 07 Hydrocodone Bit/Acetaminophen (HYDROcodone/APAP 7.5/325 TAB) 1 Ea Tablet, 1-2 EA PO Q6HR PRN for PAIN-MODERATE (5-7) Prescribed by: MADHAVI MADDEN on 08/07/22 07 Ibuprofen (Ibu) 600 Mg Tablet, 600 MG PO Q6HR Prescribed by: HEATHER LAMBERT on 04/15/20 07 Ibuprofen (Ibu) 600 Mg Tablet, 600 MG PO Q6HR PRN for PAIN-MILD (1-4) Prescribed by: MADHAVI MADDEN on 08/07/22 07 Ondansetron (Ondansetron Odt) 4 Mg Tab.rapdis, 4 MG SL Q4H PRN for NAUSEA/VOMITING, (Reported) Entered as Reported by: HEATHER JAUREGUI on 07/31/22 151 Pregabalin (Lyrica) 150 Mg Capsule, 150 MG PO BID, (Reported) Entered as Reported by: HEATHER JAUREGUI on 07/31/22 151 Simethicone (Simethicone) 80 Mg Tab.chew, 40 MG PO TID PRN for INDIGESTION 2ND LINE Prescribed by: MADHAVI MADDEN on 08/07/22728 Vortioxetine Hydrobromide (Trintellix) 20 Mg Tablet, 20 MG PO DAILY, (Reported) Entered as Reported by: HEATHER JAUREGUI on 07/31/22 151 [zoloft] , 25 PO DAILY, (Reported) Entered as Reported by: JODY NEWMAN on 04/14/20 1950 Review of Systems Review of Systems Constitutional: see HPI, chills, fever EENTM: no symptoms reported Respiratory: no symptoms reported Cardiovascular: see HPI Gastrointestinal: see HPI Genitourinary: see HPI : No Musculoskeletal: no symptoms reported Skin: no symptoms reported Psychiatric/Neurological: No Symptoms Reported Hematologic/Lymphatic: No Symptoms Reported Immunological/Allergic: no symptoms reported Past Egrcqcg-Mslmgv-Yabqeo Hx Patient Social History Tobacco Use?: Yes Tobacco type used: Cigarettes Smoking Status: Current Everyday Smoker Substance use?: No Alcohol Use?: No Immunizations Up To Date Tetanus Booster (TDap): Unknown PED Vaccines UTD: No Seasonal Allergies Seasonal Allergies: Yes Past Medical History Surgery/Hospitalization HX: Bronchitis - Sunday03-20-21; started steriod and albuterol treatments 03-21-21; 03-22-21 prescribed a steriod inhaler but hasn't picked it up reported Pharmacy was out of stock. Surgeries: Yes (COLONOSCOPY, EGD, TUBAL) Hysterectomy (Robotic) Respiratory: Yes (seasonal allergies) Currently Using CPAP: No Currently Using BIPAP: No Cardiac: No Neurological: No Reproductive Disorders: Yes Female Reproductive Disorders: Ovarian Cyst [employer] History: Tubal Ligation Sexually Transmitted Disease: No HIV/AIDS: No Genitourinary: Yes UTI-Chronic Gastrointestinal: Yes Gastroesophageal Reflux, Irritable Bowel Musculoskeletal: Yes Chronic Back Pain Endocrine: Yes (HYPOGLYCEMIA-DIET CONTROLLED) HEENT: No Loss of Vision: Bilateral Hearing Impairment: Denies Cancer: No Did You Recieve Any Treatments: No Psychosocial: No Anxiety, PTSD, Depression Integumentary: No Blood Disorders: No Adverse Reaction/Blood Tranf: No Family Medical History Diabetes mellitus 19 FATHER (heart disease) Hypertension 19 FATHER (heart disease) Physical Exam Vital Signs Vital Signs - First Documented 08/11/22 09:15 Temp 36.9 Pulse 97 Resp 20 B/P (MAP) 129/77 (94) Pulse Ox 100 O2 Delivery Room Air Capillary Refill : Less Than 3 Seconds Height, Weight, BMI Height: 5'1.00" Weight: 147lbs. 0.0oz. 66.717546sd; 21.00 BMI Method: General Appearance: No Apparent Distress, WD/WN, Thin HEENT: PERRL/EOMI, Normal ENT Inspection, Other (Oropharynx somewhat dry) Neck: Normal Inspection Respiratory: Lungs Clear, Normal Breath Sounds, No Accessory Muscle Use, No Respiratory Distress Cardiovascular: Regular Rate, Rhythm, No Edema, No Murmur Gastrointestinal: Normal Bowel Sounds, Soft; No Distended; Tenderness (Mild to moderate tenderness in the left abdomen) Extremity: Normal Inspection, No Pedal Edema Neurologic/Psychiatric: Alert, Oriented x3, No Motor/Sensory Deficits, Normal Mood/Affect Skin: Normal Color, Warm/Dry, Other (Incisions clean, dry, and intact without any evidence of inflammation or purulent drainage) Focused Exam Lactate Level 08/11/22 11:53: Lactic Acid Level 1.40 Lactic Acid Level Laboratory Tests Test 08/11/22 11:53 Lactic Acid Level 1.40 MMOL/L (0.50-2.00) Progress/Results/Core Measures Suspected Sepsis SIRS Temperature: Pulse: 97 Respiratory Rate: 20 Laboratory Tests 08/11/22 10:00: White Blood Count 17.9H Blood Pressure 129 /77 Mean: 94 08/11/22 11:53: Lactic Acid Level 1.40 Laboratory Tests 08/11/22 10:00: Creatinine 0.76, INR Comment 1.0, Platelet Count 190, Total Bilirubin 1.2H Results/Orders Lab Results Laboratory Tests Test 08/11/22 09:35 08/11/22 10:00 08/11/22 10:25 08/11/22 11:53 Range/Units Urine Color YELLOW Urine Clarity CLEAR Urine pH 6.0 5-9 Urine Specific [place] <=1.005 1.016-1.022 Urine Protein NEGATIVE NEGATIVE Urine Glucose (UA) NEGATIVE NEGATIVE Urine Ketones 2+ H NEGATIVE Urine Nitrite NEGATIVE NEGATIVE Urine Bilirubin NEGATIVE NEGATIVE Urine Urobilinogen 0.2 < = 1.0 MG/DL Urine Leukocyte Esterase 1+ H NEGATIVE Urine RBC (Auto) NEGATIVE NEGATIVE Urine RBC NONE /HPF Urine WBC 2-5 /HPF Urine Squamous Epithelial Cells 2-5 /HPF Urine Crystals NONE /LPF Urine Bacteria TRACE /HPF Urine Casts NONE /LPF Urine Mucus NEGATIVE /LPF Urine Culture Indicated NO White Blood Count 17.9 H 4.3-11.0 10^3/uL Red Blood Count 4.47 3.80-5.11 10^6/uL Hemoglobin 14.7 11.5-16.0 g/dL Hematocrit 42 35-52 % Mean Corpuscular Volume 94 80-99 fL Mean Corpuscular Hemoglobin 33 25-34 pg Mean Corpuscular Hemoglobin Concent 35 32-36 g/dL Red Cell Distribution Width 12.4 10.0-14.5 % Platelet Count 190 130-400 10^3/uL Mean Platelet Volume 10.3 9.0-12.2 fL Immature Granulocyte % (Auto) 1 % Neutrophils (%) (Auto) 91 H 42-75 % Lymphocytes (%) (Auto) 3 L 12-44 % Monocytes (%) (Auto) 5 0-12 % Eosinophils (%) (Auto) 0 0-10 % Basophils (%) (Auto) 0 0-10 % Neutrophils # (Auto) 16.3 H 1.8-7.8 10^3/uL Lymphocytes # (Auto) 0.6 L 1.0-4.0 10^3/uL Monocytes # (Auto) 0.9 0.0-1.0 10^3/uL Eosinophils # (Auto) 0.0 0.0-0.3 10^3/uL Basophils # (Auto) 0.0 0.0-0.1 10^3/uL Immature Granulocyte # (Auto) 0.1 0.0-0.1 10^3/uL Neutrophils % (Manual) 86 % Lymphocytes % (Manual) 6 % Monocytes % (Manual) 5 % Eosinophils % (Manual) 0 % Basophils % (Manual) 1 % Band Neutrophils 2 % Blood Morphology Comment NORMAL Prothrombin Time 13.5 12.2-14.7 SEC INR Comment 1.0 0.8-1.4 Activated Partial Thromboplast Time 35 24-35 SEC Sodium Level 135 135-145 MMOL/L Potassium Level 4.3 3.6-5.0 MMOL/L Chloride Level 102 98-107 MMOL/L Carbon Dioxide Level 22 21-32 MMOL/L Anion Gap 11 5-14 MMOL/L Blood Urea Nitrogen 10 7-18 MG/DL Creatinine 0.76 0.60-1.30 MG/DL Estimat Glomerular Filtration Rate 103 BUN/Creatinine Ratio 13 Glucose Level 101 70-105 MG/DL Calcium Level 9.9 8.5-10.1 MG/DL Corrected Calcium 9.5 8.5-10.1 MG/DL Total Bilirubin 1.2 H 0.1-1.0 MG/DL Aspartate Amino Transf (AST/SGOT) 14 5-34 U/L Alanine Aminotransferase (ALT/SGPT) 13 0-55 U/L Alkaline Phosphatase 64 40-136 U/L C-Reactive Protein High Sensitivity 23.63 H 0.00-0.50 MG/DL Total Protein 7.9 6.4-8.2 GM/DL Albumin 4.5 3.2-4.5 GM/DL Influenza Type A (RT-PCR) Not Detected Not Detecte Influenza Type B (RT-PCR) Not Detected Not Detecte SARS-CoV-2 RNA (RT-PCR) Not Detected Not Detecte Lactic Acid Level 1.40 0.50-2.00 MMOL/L My Orders Orders - CONNOR PIERSON MD Cbc With Automated Diff (08/11/22 09:31) Comprehensive Metabolic Panel (08/11/22 09:31) Hs C Reactive Protein (08/11/22 09:31) Ua Culture If Indicated (08/11/22 09:31) Ed Iv/Invasive Line Start (08/11/22 09:31) Lactated Ringers (Lr 1000 Ml Iv Solution (08/11/22 09:45) Ondansetron Injection (Zofran Injectio (08/11/22 09:45) Fentanyl Inj (Sublimaze Injection) (08/11/22 09:45) Manual Differential (08/11/22 10:00) Covid 19 Inhouse Test (08/11/22 10:23) Influenza A And B By Pcr (08/11/22 10:23) Blood Culture (08/11/22 11:08) Protime With Inr (08/11/22 11:08) Partial Thromboplastin Time (08/11/22 11:08) Chest 1 View, Ap/Pa Only (08/11/22 11:08) Vital Signs Adult Sepsis Patie Q15M (08/11/22 11:08) Remove Rings In Anticipation O (08/11/22 11:08) Lactic Acid Analyzer (08/11/22 11:08) Ct Abdomen/Pelvis W (08/11/22 11:08) Morphine Injection (Morphine Injection (08/11/22 11:13) Iohexol Injection (Omnipaque 350 Mg/Ml 1 (08/11/22 11:15) Received Contrast (Hold Metformin- Contr (08/11/22 11:15) Ns (Ivpb) (Sodium Chloride 0.9% Ivpb Bag (08/11/22 11:15) Piperacillin Sodium/Tazobactam (Zosyn Vi (08/11/22 12:30) Medications Given in ED Current Medications Medications Dose Ordered Sig/Claudine Route Start Time Stop Time Status Last Admin Dose Admin Fentanyl Citrate 50 mcg ONCE ONCE IVP 08/11/22 09:45 08/11/22 09:46 DC 08/11/22 10:13 50 MCG Iohexol 100 ml ONCE ONCE IV 08/11/22 11:15 08/11/22 11:16 DC 08/11/22 11:27 59 ML Lactated Ringer's 1,000 ml @ 0 mls/hr Q0M ONCE IV 08/11/22 09:45 08/11/22 09:46 DC 08/11/22 10:10 1,000 MLS/HR Ondansetron HCl 4 mg ONCE ONCE IVP 08/11/22 09:45 08/11/22 09:46 DC 08/11/22 10:11 4 MG Sodium Chloride 100 ml ONCE ONCE IV 08/11/22 11:15 08/11/22 11:16 DC 08/11/22 11:27 80 ML Vital Signs/I&O 08/11/22 09:15 Temp 36.9 Pulse 97 Resp 20 B/P (MAP) 129/77 (94) Pulse Ox 100 O2 Delivery Room Air Capillary Refill : Less Than 3 Seconds Blood Pressure Mean: 94 Progress Note : Time: 12:15 Progress Note Patient was interviewed and examined. Labs were obtained. We evaluated for sources of infection. Viral illness was considered since she had congestion and runny nose and her children have been recently ill. However, she did have notable leukocytosis and elevation in CRP. This raise concern for possible bact erial infection. No infection was seen on chest x-ray or in urinalysis. CT abdomen and pelvis was then obtained. Free fluid was noted in the pelvis which may be related to recent surgery but early abscess cannot be ruled out. I discussed with Dr. MADDEN, primary log cut off sawyer. He is presently checked out to the locum physician on-call, Dr. Flores, who agrees with antibiotic therapy and admission for observation. After blood cultures and lactic acid were drawn, therapy was started with Zosyn. Patient is being admitted to the women services floor for further treatment and monitoring. Patient is agreeable to this plan. Pain was treated with fentanyl and morphine. Nausea was treated with Zofran. She was hydrated with IV fluids. Patient did comment that she has a history of prescription medication abuse and therefore wants to be careful with pain management if using controlled substances. NSAIDs are being avoided at this time due to possible need for surgical intervention at a later time. Diagnostic Imaging Diagonstic Imaging: Xray Plain Films/CT/US/NM/MRI: chest Comments Chest x-ray viewed by me. No acute abnormalities were appreciated by my in terpretation. Radiologist's interpretation was also reviewed as below: NAME: DUANE NATH [facility] REC#: [id number] PT STATUS: REG ER : 1985 PHYSICIAN: CONNOR PIERSON MD ADMIT DATE: 08/11/22/ER Signed Date of Exam:08/11/22 CHEST 1 VIEW, AP/PA ONLY INDICATION: Lower respiratory infection, fever. Portable chest 11:39 AM Heart size and pulmonary vascularity are normal. Lungs are clear. There are no effusions or pneumothoraces. IMPRESSION: No acute abnormalities in the chest. Dictated by: Dictated on workstation # [id number] Dict: 08/11/22 1138 Trans: 08/11/22 1147 [id number] Interpreted by: ESTRELLA BAKER MD Electronically signed by: ESTRELLA BAKER MD 08/11/22 1147 Diagonstic Imaging: CT Plain Films/CT/US/NM/MRI: abdomen, pelvis Comments CT abdomen and pelvis viewed by me and radiologist's report reviewed. See report below: NAME: DUANE NATH [facility] REC#: [id number] PT STATUS: REG ER : 1985 PHYSICIAN: CONNOR PIERSON MD ADMIT DATE: 08/11/22/ER Draft Date of Exam:08/11/22 CT ABDOMEN/PELVIS W PROCEDURE: CT abdomen and pelvis with contrast. TECHNIQUE: Multiple contiguous axial images were obtained through the abdomen and pelvis after administration of intravenous contrast. Auto Exposure Controls were utilized during the CT exam to meet ALARA standards for radiation dose reduction. All CT scans use one or more of the following dose optimizing techniques: automated exposure control, MA and/or KvP adjustment based on patient size and exam type or iterative reconstruction. INDICATION: Hysterectomy with postop fever and pain. Comparison is made with prior CT from 02/15/2022. FINDINGS: The lung bases are clear. The liver and gallbladder are unremarkable. There is no biliary ductal dilatation. The pancreas and spleen are unremarkable. No adrenal mass is identified. Kidneys are unremarkable. There is no hydronephrosis. Aorta is nonaneurysmal. Postoperative changes from hysterectomy are noted. There is some somewhat ill-defined fluid in the deep midline pelvis just anterior to the rectum measuring 3.6 x 2.2 cm. No other fluid or discrete fluid collection is seen. No definite bowel obstruction is identified. No gas within the deep pelvic fluid collection is detected. The bladder is unremarkable. IMPRESSION: Postoperative changes from recent hysterectomy. There is a somewhat ill-defined fluid collection in the deep midline pelvis. This may merely represent a postoperative fluid collection but early abscess cannot be entirely excluded. This is too small at this time for percutaneous access, but continued follow-up with perhaps repeat CT in one week could be performed to assess stability. Remainder of the study is unremarkable. Dictated on workstation # [id number] Dict: 08/11/22 1132 Trans: 08/11/22 1141 [id number] Interpreted by: IRMA SHERMAN MD Departure Communication (Admissions) Time/Spoke to Admitting Phy: 12:15 Dr. Flores Impression Primary Impression: Postoperative fever Additional Impressions: Nausea & vomiting Qualified Codes: R11.2 - Nausea with vomiting, unspecified Abdominal pain Qualified Codes: R10.9 - Unspecified abdominal pain Disposition: ADMITTED INPATIENT Condition: Stable Admissions Decision to Admit Reason: Admit from ER (General) Decision to Admit/Date: Aug 11, 2022 Time/Decision to Admit Time: 12:15 Departure-Patient Inst. Referrals: HEATHER LAMBERT MD (PCP/Family) Primary Care Physician Copy Copies To 1: MADHAVI MADDEN DO Copies To 2: HEATHER LAMBERT MD, JOSHUA T MD Aug 11, 2022 10:18
[2022-08-11 10:23] LABS: ALBUMIN 4.5 GM/DL (3.2-4.5); POTASSIUM 4.3 MMOL/L (3.6-5.0)
[2022-08-11 10:25] LABS: CALCIUM 9.9 MG/DL (8.5-10.1)
[2022-08-11 10:26] LABS: TOTAL PROTEIN 7.9 GM/DL (6.4-8.2)
[2022-08-11 10:28] LABS: BILIRUBIN,TOTAL 1.2 MG/DL (0.1-1.0)
[2022-08-11 10:29] LABS: CREATININE SERUM 0.76 MG/DL (0.60-1.30)
[2022-08-11 10:38] LABS: BAND NEUTROPHILS 2 %; BASOPHILS % (MANUAL) 1 %; EOSINOPHILS % (MANUAL) 0 %; LYMPHOCYTES % (MANUAL) 6 %; MONOCYTES % (MANUAL) 5 %; NEUTROPHILS % (MANUAL) 86 %; RBC MORPH NORMAL
[2022-08-11] MEDS ORDERED: morphine INJ 10 MG/ML 1ML (SYR OR VIAL) IVP STA (11:13)
[2022-08-11] MEDS ORDERED: HOLD METFORMIN - RECEIVED CONTRAST 20 ML VIAL IV SCH (11:15)
[2022-08-11] MEDS ORDERED: NS 100 ML (IVPB) BAG IV ONE (11:15)
[2022-08-11] MEDS ORDERED: IOHEXOL 350 MG/ML 100 ML (OMNIPAQUE 350) VIAL IV ONE (11:15)
[2022-08-11 11:25] LABS: PROTHROMBIN TIME PATIENT 13.5 SEC (12.2-14.7)
--- NOTE | 2022-08-11 11:42 | Diagnostic Imaging Report ---
PROCEDURE: CT abdomen and pelvis with contrast. TECHNIQUE: Multiple contiguous axial images were obtained through the abdomen and pelvis after administration of intravenous contrast. Auto Exposure Controls were utilized during the CT exam to meet ALARA standards for radiation dose reduction. All CT scans use one or more of the following dose optimizing techniques: automated exposure control, MA and/or KvP adjustment based on patient size and exam type or iterative reconstruction. INDICATION: Hysterectomy with postop fever and pain. Comparison is made with prior CT from 02/15/2022. FINDINGS: The lung bases are clear. The liver and gallbladder are unremarkable. There is no biliary ductal dilatation. The pancreas and spleen are unremarkable. No adrenal mass is identified. Kidneys are unremarkable. There is no hydronephrosis. Aorta is nonaneurysmal. Postoperative changes from hysterectomy are noted. There is some somewhat ill-defined fluid in the deep midline pelvis just anterior to the rectum measuring 3.6 x 2.2 cm. No other fluid or discrete fluid collection is seen. No definite bowel obstruction is identified. No gas within the deep pelvic fluid collection is detected. The bladder is unremarkable. IMPRESSION: Postoperative changes from recent hysterectomy. There is a somewhat ill-defined fluid collection in the deep midline pelvis. This may merely represent a postoperative fluid collection but early abscess cannot be entirely excluded. This is too small at this time for percutaneous access, but continued follow-up with perhaps repeat CT in one week could be performed to assess stability. Remainder of the study is unremarkable. Dictated by: Dictated on workstation # [id number]
--- NOTE | 2022-08-11 11:43 | Diagnostic Imaging Report ---
INDICATION: Lower respiratory infection, fever. Portable chest 11:39 AM Heart size and pulmonary vascularity are normal. Lungs are clear. There are no effusions or pneumothoraces. IMPRESSION: No acute abnormalities in the chest. Dictated by: Dictated on workstation # [id number]
[2022-08-11] MEDS ORDERED: PIPERACILLIN SODIUM/TAZOBACTAM 4.5 GM in NS (IVPB) 100 ML IV ONE (12:30)
[2022-08-11] MEDS ORDERED: HYDROcodone/APAP 5 MG/325 MG (LORTAB) TAB PO ONE (13:15)
[2022-08-11 13:42] VITALS: BP 116/58
[2022-08-11] MEDS ORDERED: ONDANSETRON 4 MG/2 ML (SDV) Z0FRAN IVP PRN (14:00)
[2022-08-11] MEDS ORDERED: fentaNYL INJ 100 MCG/2 ML AMP IVP PRN ×2 (14:00→15:00)
[2022-08-11] MEDS ORDERED: HYDROcodone/APAP 5 MG/325 MG (LORTAB) TAB PO PRN (14:00)
[2022-08-11] MEDS ORDERED: LACTATED RINGERS 1,000 ML IV SCH (14:00)
[2022-08-11] MEDS: LACTATED RINGERS 1,000 ML IV SCH ×2 (14:43→23:21)
[2022-08-11 16:05] VITALS: BP 109/57
[2022-08-11] MEDS: ONDANSETRON 4 MG/2 ML (SDV) Z0FRAN IV PRN (16:16)
[2022-08-11] MEDS: HYDROcodone/APAP 5 MG/325 MG (LORTAB) TAB PO PRN ×2 (16:40→20:15)
[2022-08-11] MEDS: PIPERACILLIN SODIUM/TAZOBACTAM 4.5 GM in NS (IVPB) 100 ML IV SCH (19:02)
[2022-08-11 19:53] VITALS: BP 117/62
[2022-08-11] MEDS ORDERED: IBUPROFEN 600 MG (MOTRIN) TAB PO ONE (20:56)
[2022-08-11] MEDS ORDERED: busPIRone 15 MG (BUSPAR) TABLET PO ONE (21:00)
[2022-08-11] MEDS ORDERED: PIPERACILLIN SODIUM/TAZOBACTAM 4.5 GM in NS (IVPB) 100 ML IV SCH (21:00)
[2022-08-11] MEDS ORDERED: busPIRone 10 MG (BUSPAR) TAB ONE (21:04)
[2022-08-11] MEDS: IBUPROFEN 600 MG (MOTRIN) TAB PO PRN (21:15)
[2022-08-11 23:24] VITALS: BP 106/56
[2022-08-12] MEDS ORDERED: LACTATED RINGERS 1,000 ML IV SCH
[2022-08-12] MEDS: IBUPROFEN 600 MG (MOTRIN) TAB PO PRN ×2 (03:21→08:40)
[2022-08-12] MEDS: PIPERACILLIN SODIUM/TAZOBACTAM 4.5 GM in NS (IVPB) 100 ML IV SCH ×2 (03:22→11:17)
[2022-08-12] MEDS: HYDROcodone/APAP 5 MG/325 MG (LORTAB) TAB PO PRN ×2 (03:50→12:40)
[2022-08-12 03:54] VITALS: BP 104/60
[2022-08-12 05:55] LABS: BASOPHILS % (AUTO) 0 % (0-10); EOSINOPHILS # (AUTO) 0.1 10^3/uL (0.0-0.3); EOSINOPHILS % (AUTO) 1 % (0-10); HEMATOCRIT 35 % (35-52); LYMPHOCYTES # (AUTO) 0.6 10^3/uL (1.0-4.0); LYMPHOCYTES % (AUTO) 4 % (12-44); MEAN CORPUSCULAR HEMOGLOBIN 33 pg (25-34); MEAN CORPUSCULAR HGB CONC 35 g/dL (32-36); MEAN CORPUSCULAR VOLUME 95 fL (80-99); MEAN PLATELET VOLUME 10.1 fL (9.0-12.2); MONOCYTES # (AUTO) 1.3 10^3/uL (0.0-1.0); MONOCYTES % (AUTO) 8 % (0-12); NEUTROPHILS # (AUTO) 13.2 10^3/uL (1.8-7.8); NEUTROPHILS % (AUTO) 86 % (42-75); PLATELET COUNT 156 10^3/uL (130-400); WHITE BLOOD COUNT 15.3 10^3/uL (4.3-11.0)
[2022-08-12 06:24] LABS: CALCIUM 8.8 MG/DL (8.5-10.1); CREATININE SERUM 0.68 MG/DL (0.60-1.30); POTASSIUM 3.9 MMOL/L (3.6-5.0)
[2022-08-12 08:34] VITALS: BP 117/65
[2022-08-12] MEDS: LACTATED RINGERS 1,000 ML IV SCH (08:40)
[2022-08-12] MEDS ORDERED: busPIRone 15 MG (BUSPAR) TABLET PO SCH (09:00)
--- NOTE | 2022-08-12 09:31 | History & Physical-OB/GYN ---
History of Present Illness History of Present Illness Reason for visit/HPI 27 year-old post-op from Robotic Hysterectomy Sunday by Dr To Referred to ED for Post-op pain, N/V Pt noted to have elevated WBC count and CRP CT of pelvis and Abdomen with non-specific post-op changes Pt admitted for antibiotic coverage and observation Date of Admission Aug 11, 2022 at 12:15 Date Seen by a Provider: Aug 12, 2022 Time Seen by a Provider: 08:45 I consulted on this patient on 08/12/22 09:26 Attending Physician Heather Lambert MD Admitting Physician Admitting Physician: Roney Scott III, DO Attending Physician: Roney Scott III, DO Consult Allergies and Home Medications Allergies Coded Allergies: Sulfa (Sulfonamide Antibiotics) (Unverified Allergy, Unknown, rash, 07/31/22) Patient Home Medication List Home Medication List Reviewed: Yes Buspirone HCl (Buspirone HCl) 30 Mg Tablet, 30 MG PO DAILY, (Reported) Entered as Reported by: HEATHER JAUREGUI on 07/31/221518 Last Action: Reviewed Cariprazine Hydrochloride (Vraylar) 4.5 Mg Capsule, 4.5 MG PO DAILY, (Reported) Entered as Reported by: HEATHER JAUREGUI on 07/31/221518 Last Action: Reviewed Clonidine HCl (Clonidine HCl) 0.1 Mg Tablet, 0.1 MG PO BID, (Reported) Entered as Reported by: HEATHER JAUREGUI on 07/31/221518 Last Action: Reviewed Colesevelam HCl (Welchol) 625 Mg Tablet, 625 MG PO DAILY, (Reported) Entered as Reported by: HEATHER JAUREGUI on 07/31/22 150 Last Action: Reviewed Cyclobenzaprine HCl (Cyclobenzaprine HCl) 10 Mg Tablet, 10 MG PO Q8H PRN for SPASMS Prescribed by: ISAIAH SALAMANCA on 01/15/212101 Last Action: Reviewed Docusate Sodium (Docusate Sodium) 100 Mg Capsule, 100 MG PO BID PRN for CONSTIPATION-1ST LINE Prescribed by: MADHAVI TO on 08/07/22 0729 Last Action: Reviewed Hydrocodone Bit/Acetaminophen (HYDROcodone/APAP 7.5/325 TAB) 1 Ea Tablet, 1-2 EA PO Q6HR PRN for PAIN-MODERATE (5-7) Prescribed by: MADHAVI TO on 08/07/22729 Last Action: Reviewed Ibuprofen (Ibu) 600 Mg Tablet, 600 MG PO Q6HR Prescribed by: HEATHER LAMBERT on 04/15/20724 Last Action: Reviewed Ibuprofen (Ibu) 600 Mg Tablet, 600 MG PO Q6HR PRN for PAIN-MILD (1-4) Prescribed by: MADHAVI TO on 08/07/22728 Last Action: Reviewed Ondansetron (Ondansetron Odt) 4 Mg Tab.rapdis, 4 MG SL Q4H PRN for NAUSEA/VOMITING, (Reported) Entered as Reported by: HEATHER JAUREGUI on 07/31/221518 Last Action: Reviewed Pregabalin (Lyrica) 150 Mg Capsule, 150 MG PO BID, (Reported) Entered as Reported by: HEATHER JAUREGUI on 07/31/221518 Last Action: Reviewed Simethicone (Simethicone) 80 Mg Tab.chew, 40 MG PO TID PRN for INDIGESTION 2ND LINE Prescribed by: MADHAVI TO on 08/07/22728 Last Action: Reviewed Vortioxetine Hydrobromide (Trintellix) 20 Mg Tablet, 20 MG PO DAILY, (Reported) Entered as Reported by: HEATHER JAUREGUI on 07/31/221518 Last Action: Reviewed [zoloft] , 25 PO DAILY, (Reported) Entered as Reported by: JODY NEWMAN on 04/14/201949 Last Action: Reviewed Past Dznnahv-Gpilgb-Rriymp Hx Patient Social History Drug of Choice: pt denies but has had postive urine drug tests Smoking Status: Current Everyday Smoker 2nd Hand Smoke Exposure: Yes Recent Hopitalizations: No Alcohol Use?: No Tobacco type used: Cigarettes Immunizations Up To Date Tetanus Booster (TDap): Unknown Pediatric: No Seasonal Allergies Seasonal Allergies: Yes Surgeries Yes (COLONOSCOPY, EGD, TUBAL) Hysterectomy (Robotic) Respiratory Yes (seasonal allergies) Currently Using CPAP: No Currently Using BIPAP: No Cardiovascular No Neurological No Reproductive System Hx Reproductive Disorders: Yes Sexually Transmitted Disease: No HIV/AIDS: No Female Reproductive Disorders: Ovarian Cyst [employer] History: Tubal Ligation Genitourinary Yes UTI-Chronic Gastrointestinal Yes Gastroesophageal Reflux, Irritable Bowel Musculoskeletal Yes Chronic Back Pain Endocrine History of Endocrine Disorders: Yes (HYPOGLYCEMIA-DIET CONTROLLED) HEENT History of HEENT Disorders: No Loss of Vision: Bilateral Hearing Impairment: Denies Cancer No Did You Recieve Any Treatments: No Psychosocial History of Psychiatric Problem: No Behavioral Health Disorders: Anxiety, PTSD, Depression Integumentary History of Skin or Integumenta: No Blood Transfusions History of Blood Disorders: No Adverse Reaction to a Blood Tr: No Family Medical History Family Hx: Diabetes mellitus 19 FATHER (heart disease) Hypertension 19 FATHER (heart disease) Review of Systems Constitutional: see HPI, fever Gastrointestinal: abdominal pain, vomiting Physical Exam Physical Exam Vital Signs Vital Signs Date Time Temp Pulse Resp B/P (MAP) Pulse Ox O2 Delivery O2 Flow Rate FiO2 08/12/22 08:34 36.9 83 16 117/65 (82) 100 Room Air 08/12/22 03:54 36.6 89 16 104/60 (75) 99 Room Air 08/11/22 23:24 36.2 76 16 106/56 (73) 100 Room Air 08/11/22 19:53 37.0 100 16 117/62 (80) 97 Room Air 08/11/22 16:05 37.2 90 16 109/57 (74) 100 Room Air 08/11/22 13:42 38.4 92 16 116/58 (77) 98 Room Air 08/11/22 13:33 38.9 97 20 107/86 100 Room Air 08/11/22 13:17 38.9 I & O 08/12/22 07:00 Intake Total 1000 ml Balance 1000 ml Capillary Refill : Less Than 3 Seconds Labs Laboratory Tests 08/11/22 09:35: Urine Color YELLOW, Urine Clarity CLEAR, Urine pH 6.0, Urine Specific [place] <=1.005, Urine Protein NEGATIVE, Urine Glucose (UA) NEGATIVE, Urine Ketones 2+H, Urine Nitrite NEGATIVE, Urine Bilirubin NEGATIVE, Urine Urobilinogen 0.2, Urine Leukocyte Esterase 1+H, Urine RBC (Auto) NEGATIVE, Urine RBC NONE, Urine WBC 2- 5, Urine Squamous Epithelial Cells 2-5, Urine Crystals NONE, Urine Bacteria TRACE, Urine Casts NONE, Urine Mucus NEGATIVE, Urine Culture Indicated NO 08/11/22 10:00: White Blood Count 17.9H, Red Blood Count 4.47, Hemoglobin 14.7, Hematocrit 42, Mean Corpuscular Volume 94, Mean Corpuscular Hemoglobin 33, Mean Corpuscular Hemoglobin Concent 35, Red Cell Distribution Width 12.4, Platelet Count 190, Mean Platelet Volume 10.3, Immature Granulocyte % (Auto) 1, Neutrophils (%) (Auto) 91H, Lymphocytes (%) (Auto) 3L, Monocytes (%) (Auto) 5, Eosinophils (%) (Auto) 0, Basophils (%) (Auto) 0, Neutrophils # (Auto) 16.3H, Lymphocytes # (Auto) 0.6L, Monocytes # (Auto) 0.9, Eosinophils # (Auto) 0.0, Basophils # (Auto) 0.0, Immature Granulocyte # (Auto) 0.1, Neutrophils % (Manual) 86, Lymphocytes % (Manual) 6, Monocytes % (Manual) 5, Eosinophils % (Manual) 0, Basophils % (Manual) 1, Band Neutrophils 2, Blood Morphology Comment NORMAL, Prothrombin Time 13.5, INR Comment 1.0, Activated Partial Thromboplast Time 35, Sodium Level 135, Potassium Level 4.3, Chloride Level 102, Carbon Dioxide Level 22, Anion Gap 11, Blood Urea Nitrogen 10, Creatinine 0.76, Estimat Glomerular Filtration Rate 103, BUN/Creatinine Ratio 13, Glucose Level 101, Calcium Level 9.9, Corrected Calcium 9.5, Total Bilirubin 1.2H, Aspartate Amino Transf (AST/SGOT) 14, Alanine Aminotransferase (ALT/SGPT) 13, Alkaline Phosphatase 64, C-Reactive Protein High Sensitivity 23.63H, Total Protein 7.9, Albumin 4.5 08/11/22 10:25: Influenza Type A (RT-PCR) Not Detected, Influenza Type B (RT-PCR) Not Detected, SARS-CoV-2 RNA (RT-PCR) Not Detected 08/11/22 11:53: Lactic Acid Level 1.40 08/12/22 05:20: White Blood Count 15.3H, Red Blood Count 3.66L, Hemoglobin 12.0, Hematocrit 35, Mean Corpuscular Volume 95, Mean Corpuscular Hemoglobin 33, Mean Corpuscular Hemoglobin Concent 35, Red Cell Distribution Width 12.3, Platelet Count 156, Mean Platelet Volume 10.1, Immature Granulocyte % (Auto) 1, Neutrophils (%) (Auto) 86H, Lymphocytes (%) (Auto) 4L, Monocytes (%) (Auto) 8, Eosinophils (%) (Auto) 1, Basophils (%) (Auto) 0, Neutrophils # (Auto) 13.2H, Lymphocytes # (Auto) 0.6L, Monocytes # (Auto) 1.3H, Eosinophils # (Auto) 0.1, Basophils # (Auto) 0.0, Immature Granulocyte # (Auto) 0.1, Sodium Level 139, Potassium Level 3.9, Chloride Level 106, Carbon Dioxide Level 23, Anion Gap 10, Blood Urea Nitr ogen 7, Creatinine 0.68, Estimat Glomerular Filtration Rate 115, BUN/Creatinine Ratio 10, Glucose Level 145H, Calcium Level 8.8, C-Reactive Protein High Sensitivity 28.80H General Appearance: No Apparent Distress Respiratory: Normal Breath Sounds, No Accessory Muscle Use, No Respiratory Distress Cardiovascular: Regular Rate, Rhythm Abdominal: non tender, soft (Incisions c&D) Assessment/Plan Assessment and Plan Post-operative fever and pelvic pain No e/o abcess formation Sx markedly improved over the course of admisssion WBC Count trending downward T-max 38.9 yesterday soon after admisssion Continue Zosyn until > 24h afebrile then consider d/c home Admission Diagnosis Admission Status: Observation RONEY SCOTT III, DO Aug 12, 2022 09:31
[2022-08-12] MEDS: ONDANSETRON 4 MG/2 ML (SDV) Z0FRAN IV PRN (09:35)
[2022-08-12 12:36] VITALS: BP 113/64
[2022-08-12 15:04] VITALS: BP 117/87
[2022-08-12 15:36] VITALS: BP 117/87
== END 2022-08-12 15:16 | disposition home or self-care (01) ==
LOC: EDUNIT# 09:12 → ER 09:14 → LDRP 12:15 → UNDOADMOB 12:15 → LDRP 13:29 → UNDODISOB 08-12 15:16
PROVIDERS: ADMIT Obstetrics & Gynecology; ATTEND Obstetrics & Gynecology
DX: G89.18 Other acute postprocedural pain (principal); R50.82 Postprocedural fever; R10.2 Pelvic and perineal pain; R11.2 Nausea with vomiting, unspecified; F17.210 Nicotine dependence, cigarettes, uncomplicated; Z90.710 Acquired absence of both cervix and uterus
CPT/HCPCS: 71045; 74177; 80048; 80053; 81000; 83605; 85007; 85025; 85027; 85610; 85730; 86141 ×2; 87040; 87636; 96361 ×2; 96375; 96376; 99284; G0378; 36415

== ENCOUNTER 2022-10-10 07:47 | Observation (INO) | payer MEDICAID ==
[~2022-10-10] VITALS: Ht 152.4 cm; Wt 53.7 kg
[2022-10-10] MEDS ORDERED: fentaNYL INJ 100 MCG/2 ML AMP IVP STA (08:02)
[2022-10-10] MEDS ORDERED: ONDANSETRON 4 MG/2 ML (SDV) Z0FRAN IVP STA (08:02)
[2022-10-10] MEDS ORDERED: NS IV 1000 ML 1,000 ML IV STA (08:02)
--- NOTE | 2022-10-10 08:13 | ED General ---
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 To Jul-Aug 2022) History of Present Illness Date Seen by Provider: Oct 10, 2022 Time Seen by Provider: 07:49 Initial Comments 37 yo female presenting with complaints of vaginal bleeding and pain since having intercourse last night. She reports using a pad overnight that got saturated with blood and had a "lot of bleeding" when she had sex. She has not had her follow up with Dr. To since surgery August 07, 2022. She has pain throughout her abdomen now and continued to have bleeding this am when she went to the bathroom. She states she has pain to the vaginal and perineal area. It hurts to urinate and use the bathroom but she feels that everything is sore and painful in her vaginal and perineal area. She denies fever but has had some sweats overnight. She waited until this am and then came to the ED. She had not called Dr. To's office because it was after hours. She has some nausea with pain and took 600 mg of Ibuprofen last night but nothing this am for pain. She drove herself to the ED here in [place]. Timing/Duration: 12 Hours Severity: Severe Modifying Factors: worse with Movement Associated Systoms: No Chest Pain; Cough; No Diaphoresis, No Fever/Chills, No Headaches; Nausea/Vomiting (nausea but no emesis); No Rash, No Seizure, No Shortness of Air, No Syncope, No Weakness Allergies and Home Medications Allergies Coded Allergies: Sulfa (Sulfonamide Antibiotics) (Unverified Allergy, Unknown, rash, 07/31/22) Patient Home Medication List Home Medication List Reviewed: Yes Buspirone HCl (Buspirone HCl) 30 Mg Tablet, 30 MG PO DAILY, (Reported) Entered as Reported by: HEATHER JAUREGUI on 07/31/221518 Cariprazine Hydrochloride (Vraylar) 4.5 Mg Capsule, 4.5 MG PO DAILY, (Reported) Entered as Reported by: HEATHER JAUREGUI on 07/31/221518 Clonidine HCl (Clonidine HCl) 0.1 Mg Tablet, 0.1 MG PO BID, (Reported) Entered as Reported by: HEATHER JAUREGUI on 07/31/221518 Colesevelam HCl (Welchol) 625 Mg Tablet, 625 MG PO DAILY, (Reported) Entered as Reported by: HEATHER JAUREGUI on 07/31/22 150 Cyclobenzaprine HCl (Cyclobenzaprine HCl) 10 Mg Tablet, 10 MG PO Q8H PRN for SPASMS Prescribed by: ISAIAH SALAMANCA on 01/15/212101 Docusate Sodium (Docusate Sodium) 100 Mg Capsule, 100 MG PO BID PRN for CONSTIPATION-1ST LINE Prescribed by: MADHAVI TO on 08/07/22728 Hydrocodone Bit/Acetaminophen (HYDROcodone/APAP 7.5/325 TAB) 1 Ea Tablet, 1-2 EA PO Q6HR PRN for PAIN-MODERATE (5-7) Prescribed by: MADHAVI TO on 08/07/22729 Ibuprofen (Ibu) 600 Mg Tablet, 600 MG PO Q6HR PRN for PAIN-MILD (1-4) Prescribed by: MADHAVI TO on 08/07/22728 Ondansetron (Ondansetron Odt) 4 Mg Tab.rapdis, 4 MG SL Q4H PRN for NAUSEA/VOM ITING, (Reported) Entered as Reported by: HEATHER JAUREGUI on 07/31/22 151 Pregabalin (Lyrica) 150 Mg Capsule, 150 MG PO BID, (Reported) Entered as Reported by: HEATHER JAUREGUI on 07/31/22 151 Simethicone (Simethicone) 80 Mg Tab.chew, 40 MG PO TID PRN for INDIGESTION 2ND LINE Prescribed by: MADHAVI TO on 08/07/22728 Vortioxetine Hydrobromide (Trintellix) 20 Mg Tablet, 20 MG PO DAILY, (Reported) Entered as Reported by: HEATHER JAUREGUI on 07/31/22 151 [zoloft] , 25 PO DAILY, (Reported) Entered as Reported by: JODY NEWMAN on 04/14/20 1950 Review of Systems Review of Systems Constitutional: No chills, No fever EENTM: nose congestion Respiratory: cough Cardiovascular: no symptoms reported Gastrointestinal: abdominal pain (diffuse abdominal pain); No constipation, No diarrhea; nausea; No vomiting Genitourinary: see HPI Musculoskeletal: no symptoms reported Skin: no symptoms reported Psychiatric/Neurological: No Symptoms Reported Past Pdofyyk-Utamrb-Xmwhtp Hx Patient Social History Tobacco Use?: No Use of E-Cig and/or Vaping dev: No Substance use?: No Alcohol Use?: No Pt feels they are or have been: No Immunizations Up To Date Tetanus Booster (TDap): Unknown PED Vaccines UTD: No Seasonal Allergies Seasonal Allergies: Yes Past Medical History Surgery/Hospitalization HX: Hysterectomy 08/07/22, Depression, Anxiety Surgeries: Yes (COLONOSCOPY, EGD, TUBAL) Hysterectomy Respiratory: Yes (seasonal allergies) Currently Using CPAP: No Currently Using BIPAP: No Cardiac: No Neurological: No Reproductive Disorders: Yes Female Reproductive Disorders: Ovarian Cyst [employer] History: Tubal Ligation Sexually Transmitted Disease: No HIV/AIDS: No Genitourinary: Yes UTI-Chronic Gastrointestinal: Yes Gastroesophageal Reflux, Irritable Bowel Musculoskeletal: Yes Chronic Back Pain Endocrine: Yes (HYPOGLYCEMIA-DIET CONTROLLED) HEENT: No Loss of Vision: Bilateral Hearing Impairment: Denies Cancer: No Did You Recieve Any Treatments: No Psychosocial: No Anxiety, PTSD, Depression Integumentary: No Blood Disorders: No Adverse Reaction/Blood Tranf: No Family Medical History Diabetes mellitus 19 FATHER (heart disease) Hypertension 19 FATHER (heart disease) Physical Exam Vital Signs Vital Signs - First Documented 10/10/22 08:03 Temp 36.3 Pulse 68 Resp 18 B/P (MAP) 127/83 (98) Pulse Ox 100 O2 Delivery Room Air Capillary Refill : Height, Weight, BMI Height: 5'1.00" Weight: 147lbs. 0.0oz. [id number]; 21.00 BMI Method: General Appearance: Anxious, Mild Distress, Thin Respiratory: Chest Non Tender, Lungs Clear, Normal Breath Sounds, No Accessory Muscle Use, No Respiratory Distress Cardiovascular: Regular Rate, Rhythm, Normal Peripheral Pulses Gastrointestinal: Normal Bowel Sounds, No Pulsatile Mass, Soft; No Distended; Guarding; No Rebound; Tenderness (diffuse tenderness and guarding to abdomen) Rectal: Deferred Genital/Rectal: Other (perineal and vulva do not show signs of bleeding or trauma. on speculum exam she has some serosanguineous fluid in the vaginal vault but no active bright red bleeding. She has an apparent tear to the vaginal cuff suture line when opening the speculum but it appeared to still have some sutures in place or at least some connective tissue so that the pelvic/abdominal contents were not visible or protruding into the vaginal vault) Extremity: Normal Capillary Refill, Normal Inspection, No Pedal Edema Neurologic/Psychiatric: Alert, Oriented x3 Skin: Normal Color, Warm/Dry Progress/Results/Core Measures Suspected Sepsis SIRS Temperature: Pulse: Respiratory Rate: Laboratory Tests 10/10/22 08:10: White Blood Count 9.4 Blood Pressure / Mean: Laboratory Tests 10/10/22 08:10: Creatinine 0.74, INR Comment 0.9, Platelet Count 211, Total Bilirubin 0.8 Results/Orders Lab Results Laboratory Tests Test 10/10/22 08:10 10/10/22 09:50 Range/Units White Blood Count 9.4 4.3-11.0 10^3/uL Red Blood Count 4.52 3.80-5.11 10^6/uL Hemoglobin 14.3 11.5-16.0 g/dL Hematocrit 42 35-52 % Mean Corpuscular Volume 92 80-99 fL Mean Corpuscular Hemoglobin 32 25-34 pg Mean Corpuscular Hemoglobin Concent 34 32-36 g/dL Red Cell Distribution Width 13.5 10.0-14.5 % Platelet Count 211 130-400 10^3/uL Mean Platelet Volume 9.8 9.0-12.2 fL Immature Granulocyte % (Auto) 0 % Neutrophils (%) (Auto) 76 H 42-75 % Lymphocytes (%) (Auto) 16 12-44 % Monocytes (%) (Auto) 7 0-12 % Eosinophils (%) (Auto) 1 0-10 % Basophils (%) (Auto) 0 0-10 % Neutrophils # (Auto) 7.1 1.8-7.8 10^3/uL Lymphocytes # (Auto) 1.5 1.0-4.0 10^3/uL Monocytes # (Auto) 0.7 0.0-1.0 10^3/uL Eosinophils # (Auto) 0.1 0.0-0.3 10^3/uL Basophils # (Auto) 0.0 0.0-0.1 10^3/uL Immature Granulocyte # (Auto) 0.0 0.0-0.1 10^3/uL Prothrombin Time 12.7 12.2-14.7 SEC INR Comment 0.9 0.8-1.4 Activated Partial Thromboplast Time 26 24-35 SEC Sodium Level 142 135-145 MMOL/L Potassium Level 4.0 3.6-5.0 MMOL/L Chloride Level 109 H 98-107 MMOL/L Carbon Dioxide Level 23 21-32 MMOL/L Anion Gap 10 5-14 MMOL/L Blood Urea Nitrogen 10 7-18 MG/DL Creatinine 0.74 0.60-1.30 MG/DL Estimat Glomerular Filtration Rate 107 BUN/Creatinine Ratio 14 Glucose Level 98 70-105 MG/DL Calcium Level 9.4 8.5-10.1 MG/DL Corrected Calcium 9.2 8.5-10.1 MG/DL Total Bilirubin 0.8 0.1-1.0 MG/DL Aspartate Amino Transf (AST/SGOT) 19 5-34 U/L Alanine Aminotransferase (ALT/SGPT) 11 0-55 U/L Alkaline Phosphatase 74 40-136 U/L Total Protein 7.1 6.4-8.2 GM/DL Albumin 4.3 3.2-4.5 GM/DL My Orders Orders - MAURY DICKENS MD Comprehensive Metabolic Panel (10/10/22 08:02) Ua Culture If Indicated (10/10/22 08:02) Ed Iv/Invasive Line Start (10/10/22 08:02) Cbc With Automated Diff (10/10/22 08:02) Ct Abdomen/Pelvis W (10/10/22 08:02) Protime With Inr (10/10/22 08:02) Partial Thromboplastin Time (10/10/22 08:02) Ns Iv 1000 Ml (Sodium Chloride 0.9%) (10/10/22 08:02) Fentanyl Inj (Sublimaze Injection) (10/10/22 08:02) Ondansetron Injection (Zofran Injectio (10/10/22 08:02) Iohexol Injection (Omnipaque 350 Mg/Ml 1 (10/10/22 08:45) Received Contrast (Hold Metformin- Contr (10/10/22 08:45) Ns (Ivpb) (Sodium Chloride 0.9% Ivpb Bag (10/10/22 08:45) Metronidazole 500mg/100ml Ivpb (Flagyl 5 (10/10/22 09:08) Piperacillin Sodium/Tazobactam (Zosyn Vi (10/10/22 09:08) Ed Admission (Communication) (10/10/22 09:08) Morphine Injection (Morphine Injection (10/10/22 09:19) Medications Given in ED Current Medications Medications Dose Ordered Sig/Claudine Route Start Time Stop Time Status Last Admin Dose Admin Iohexol 100 ml ONCE ONCE IV 10/10/22 08:45 10/10/22 08:46 DC 10/10/22 08:45 75 ML Sodium Chloride 100 ml ONCE ONCE IV 10/10/22 08:45 10/10/22 08:46 DC 10/10/22 08:45 100 ML Vital Signs/I&O 10/10/22 10/10/22 08:03 10:00 Temp 36.3 Pulse 68 71 Resp 18 18 B/P (MAP) 127/83 (98) 114/72 Pulse Ox 100 99 O2 Delivery Room Air Room Air Capillary Refill : Progress Note #1: Progress Note Potential life threatening diagnosis of vaginal cuff tear, peritonitis, vaginal wall tear, intra-abdominal free air, vaginal cuff perforation, adhesions from surgery, cystitis with hematuria. Obtain peripheral IV access and send labs for complete blood count, coagulation factors, comprehensive metabolic profile. Ordered urinalysis. CT scan of the abdomen and pelvis with IV contrast to evaluate for possible perforation and free air or fluid in the abdomen and pelvis. Administer normal saline 1 L IV fluid bolus for hydration, fentanyl 50 mcg IV for pain, Zofran 4 mg IV for nausea. [address] To electric razor assembler surgeon as I wanted to check with him and see how much he wanted me to do here in the ED to evaluate her or if she would just need to go to [place] and possibly OR. He advised it was ok to do the speculum exam as we need to know if she has a tear and if it is still bleeding or not. With her pain a CT scan was reasonable to evaluate for perforation or intra-abdominal pathology as a result of intercourse before he had cleared her medically to have sex s/p Hysterectomy Aug 07, 2022. Will check back with him once pelvic is done and testing is coming back. At this point her vital signs are reassuring as she is not febrile with a temp of 36.3, not tachycardic with a pulse of 68, not hypoxic with O2 saturation 100% on room air and not hypotensive with blood pressure 127/83. Progress Note #2: Time: 08:41 Progress Note Speculum exam did not show any obvious trauma to external vaginal/perineal area. No active bleeding noted. With speculum she has some serosanguineous drainage in the vaginal vault. There is no bright red blood or active bleeding. With opening the speculum she did have separation of the suture line at the end of the vaginal cuff but no active bleeding. The suture line appeared to be at least partially still intact as she had some suture or of this connective tissue that was visible with opening the speculum. I did not appreciate any abdominal or pelvic contents coming into the vaginal cuff. Her complete blood count showed a white blood cell count that was in the upper limit of normal at 9.4 thousand. Her hemoglobin was stable at 14.3 and normal platelets at 211. Her coagulation factors were not elevated or showing signs of coagulopathy. Awaiting comprehensive metabolic profile and patient has not been able to provide a urine specimen yet. She did feel like the fentanyl has helped with her pain since she was rating it at 8 or 9 out of 10 on arrival but was able to tolerate the speculum exam. Progress Note #3: Time: 08:54 Progress Note Comprehensive metabolic panel without acute significant abnormality and renal and hepatic function tests were within normal limits. Awaiting CT scan of abdomen/pelvis with IV contrast report. On my personal review and interpretation she has small amount of free air under the diaphragm and around the liver as well as free air and fluid in the pelvis around the vaginal cuff. This is concerning for vaginal cuff dehiscence/perforation and puts her at definite increased risk of morbidity and mortality with intra-abdominal free air and fluid. At the least she would need IV antibiotics and transfer to hospital setting and might need to return to OR for abdominal irrigation and repair of vaginal cuff. Will check back with Dr. To for further direction. Progress Note #4: Time: 09:04 Progress Note Discussed with Dr. TO from OB gynecology and advised him of the test findings of stable labs and vital signs but she does have evidence of dehiscence of her vaginal cuff incision and signs of intraperitoneal free air on CT scan. He wanted patient admitted as an observation admit with IV antibiotics and with make a determination of further treatment once he could see her in person. We will start with Zosyn 4.5 g IV and Flagyl 500 mg IV for antibiotics. Keep patient NPO. Continue IV fluids normal saline at 125 mils an hour. Advised that he would see her and have additional orders and plan after he sees her when she arrives in [place]. I updated patient and she reports her pain was starting to get worse again so will order Morphine 4 mg IV to help with pain. I wrote bridge orders to assist getting patient admitted for observation visit in [place]. [address]16 [address] Haile with radiology called and discussed findings of free air in abdomen and pelvis from CT scan abdomen/pelvis with IV contrast. Diagnostic Imaging Diagonstic Imaging: CT Plain Films/CT/US/NM/MRI: abdomen, pelvis Comments [facility] [employer] [facility] [place], [place] NAME: DU[facility] NATH [facility] REC#: [id number] PT STATUS: REG ER : 1985 PHYSICIAN: MAURY DICKENS MD ADMIT DATE: 10/10/22/ER FS Draft Date of Exam:10/10/22 CT ABDOMEN/PELVIS W PROCEDURE: CT abdomen and pelvis with contrast. TECHNIQUE: Multiple contiguous axial images were obtained through the abdomen and pelvis after administration of intravenous contrast. Auto Exposure Controls were utilized during the CT exam to meet ALARA standards for radiation dose reduction. All CT scans use one or more of the following dose optimizing techniques: automated exposure control, MA and/or KvP adjustment based on patient size and exam type or iterative reconstruction. INDICATION: Dyspareunia. Vaginal bleeding. Previous hysterectomy. COMPARISON: 08/11/2022 FINDINGS: Included portions lung bases are clear. CT ABDOMEN: There is small amount of pneumoperitoneum scattered about the upper abdomen and under the right hemidiaphragm. No loculated fluid collection is seen within the upper abdomen. This is likely related to presumed infectious process within the lower pelvis. There is moderate stranding of the central pelvic fat. This extends to include the sigmoidal pericolonic fat as well as the superior margins of the vaginal cuff. The distal and terminal ileum also extends into this area and has a thickened hyperenhancing appearance to the wall of the distal and terminal ileum. Appendix is also within this area, but is nondistended and has an otherwise normal CT appearance. There is small amount of free fluid within the pelvis as well. There is no additional loculated fluid collection. Proximal small bowel loops are nondistended. No abnormal mesenteric or retroperitoneal adenopathy of the abdomen is seen. The kidneys, adrenal glands, spleen, pancreas, and liver have a normal CT appearance. Note is made of focal fatty infiltrate along falciform ligament of the liver. Osseous structures show no acute abnormalities. CT pelvis: Again, there is prominent abnormal stranding of the central fat of the pelvis with small amount of free fluid or free air. No loculated fluid collection is seen. Urinary bladder is grossly unremarkable. No calculi are seen within the urinary bladder. No abnormal pelvic adenopathy is identified. Osseous structures show no acute abnormalities. IMPRESSION: 1. Moderate abnormal stranding of the central fat of the lower pelvis. Additionally, there is small amount of free fluid within the lower pelvis and scattered free air scattered throughout the abdomen and pelvis. Given the history of recent hysterectomy, this may be postsurgical in nature. Note is made that the process does extend to the vaginal cuff. Dehiscence of the vaginal cuff should remain within the differential. 2. Abnormal thickened hyperenhancing appearance to the wall of the distal and terminal ileum may be reactive. Nonspecific infectious or inflammatory ileitis made of a similar appearance. Results were called to the [facility] Emergency Room by Dr. Haile at 0916 hours on 10/10/2022. Dictated on workstation # [id number] Dict: 10/10/22 0900 Trans: 10/10/22922 [id number] Interpreted by: JADA HAILE MD Electronically signed by: Reviewed: Reviewed by Me, Discussed w/Radiologist (Dr. Haile at 0916) Critical Care Note Critical Care Total Time (minutes) 30 minutes Progress 30 minutes of critical care time was spent with the patient. Time excludes separately billable procedures. Time includes obtaining history from patient and electronic medical record, ordering test and reviewing results, ordering interventions and reviewing response, discussion with consultants, documentation in the chart. Patient was at risk of sepsis and cardiovascular collapse due to intraperitoneal free air and vaginal cuff dehiscence/perforation. Patient required close monitoring and intervention to keep patient stable and arrange transfer and further care with Gynecology and [facility]. Departure Communication (Admissions) Time/Spoke to Admitting Phy: 09:[address] TO from OB gynecology and advised him of the test findings of stable labs and vital signs but she does have evidence of dehiscence of her vaginal cuff incision and signs of intraperitoneal free air on CT scan. He wanted patient admitted as an observation admit with IV antibiotics and with make a determination of further treatment once he could see her in person. We will start with Zosyn 4.5 g IV and Flagyl 500 mg IV for antibiotics. Keep patient NPO. Continue IV fluids normal saline at 125 mils an hour. Advised that he would see her and have additional orders and plan after he sees her when she arrives in [place]. Impression Primary Impression: Free intraperitoneal air Additional Impressions: Vaginal bleeding, abnormal Vaginal cuff dehiscence Qualified Codes: T81.31XA - Disruption of external operation (surgical) wound, not elsewhere classified, initial encounter Diffuse abdominal pain Disposition: 30 STILL A PATIENT Condition: Stable Admissions Decision to Admit Reason: Admit from ER (General) Decision to Admit/Date: Oct 10, 2022 Time/Decision to Admit Time: 09:04 Departure-Patient Inst. Referrals: HEATHER LAMBERT MD (PCP/Family) Primary Care Physician MAURY DICKENS MD Oct 10, 2022 08:13
[2022-10-10 08:16] LABS: BASOPHILS % (AUTO) 0 % (0-10); EOSINOPHILS # (AUTO) 0.1 10^3/uL (0.0-0.3); EOSINOPHILS % (AUTO) 1 % (0-10); HEMATOCRIT 42 % (35-52); HEMOGLOBIN 14.3 g/dL (11.5-16.0); LYMPHOCYTES # (AUTO) 1.5 10^3/uL (1.0-4.0); LYMPHOCYTES % (AUTO) 16 % (12-44); MEAN CORPUSCULAR HEMOGLOBIN 32 pg (25-34); MEAN CORPUSCULAR HGB CONC 34 g/dL (32-36); MEAN CORPUSCULAR VOLUME 92 fL (80-99); MEAN PLATELET VOLUME 9.8 fL (9.0-12.2); MONOCYTES # (AUTO) 0.7 10^3/uL (0.0-1.0); MONOCYTES % (AUTO) 7 % (0-12); NEUTROPHILS # (AUTO) 7.1 10^3/uL (1.8-7.8); NEUTROPHILS % (AUTO) 76 % (42-75); PLATELET COUNT 211 10^3/uL (130-400); WHITE BLOOD COUNT 9.4 10^3/uL (4.3-11.0)
[2022-10-10 08:34] LABS: INR 0.9 (0.8-1.4); PROTHROMBIN TIME PATIENT 12.7 SEC (12.2-14.7)
[2022-10-10] MEDS ORDERED: NS 100 ML (IVPB) BAG IV ONE (08:45)
[2022-10-10] MEDS ORDERED: IOHEXOL 350 MG/ML 100 ML (OMNIPAQUE 350) VIAL IV ONE (08:45)
[2022-10-10] MEDS ORDERED: HOLD METFORMIN - RECEIVED CONTRAST 20 ML VIAL IV SCH (08:45)
[2022-10-10 08:48] LABS: BILIRUBIN,TOTAL 0.8 MG/DL (0.1-1.0); CALCIUM 9.4 MG/DL (8.5-10.1); CREATININE SERUM 0.74 MG/DL (0.60-1.30); TOTAL PROTEIN 7.1 GM/DL (6.4-8.2)
[2022-10-10 08:49] LABS: ALBUMIN 4.3 GM/DL (3.2-4.5)
[2022-10-10] MEDS ORDERED: metroNIDAZOLE 500MG/100ML IVPB 100 ML IV STA (09:08)
[2022-10-10] MEDS ORDERED: PIPERACILLIN SODIUM/TAZOBACTAM 4.5 GM in NS (IVPB) 100 ML IV STA (09:08)
[2022-10-10] MEDS ORDERED: morphine INJ 10 MG/ML 1ML (SYR OR VIAL) IVP STA (09:19)
--- NOTE | 2022-10-10 09:24 | Diagnostic Imaging Report ---
PROCEDURE: CT abdomen and pelvis with contrast. TECHNIQUE: Multiple contiguous axial images were obtained through the abdomen and pelvis after administration of intravenous contrast. Auto Exposure Controls were utilized during the CT exam to meet ALARA standards for radiation dose reduction. All CT scans use one or more of the following dose optimizing techniques: automated exposure control, MA and/or KvP adjustment based on patient size and exam type or iterative reconstruction. INDICATION: Dyspareunia. Vaginal bleeding. Previous hysterectomy. COMPARISON: 08/11/2022 FINDINGS: Included portions lung bases are clear. CT ABDOMEN: There is small amount of pneumoperitoneum scattered about the upper abdomen and under the right hemidiaphragm. No loculated fluid collection is seen within the upper abdomen. This is likely related to presumed infectious process within the lower pelvis. There is moderate stranding of the central pelvic fat. This extends to include the sigmoidal pericolonic fat as well as the superior margins of the vaginal cuff. The distal and terminal ileum also extends into this area and has a thickened hyperenhancing appearance to the wall of the distal and terminal ileum. Appendix is also within this area, but is nondistended and has an otherwise normal CT appearance. There is small amount of free fluid within the pelvis as well. There is no additional loculated fluid collection. Proximal small bowel loops are nondistended. No abnormal mesenteric or retroperitoneal adenopathy of the abdomen is seen. The kidneys, adrenal glands, spleen, pancreas, and liver have a normal CT appearance. Note is made of focal fatty infiltrate along falciform ligament of the liver. Osseous structures show no acute abnormalities. CT pelvis: Again, there is prominent abnormal stranding of the central fat of the pelvis with small amount of free fluid or free air. No loculated fluid collection is seen. Urinary bladder is grossly unremarkable. No calculi are seen within the urinary bladder. No abnormal pelvic adenopathy is identified. Osseous structures show no acute abnormalities. IMPRESSION: 1. Moderate abnormal stranding of the central fat of the lower pelvis. Additionally, there is small amount of free fluid within the lower pelvis and scattered free air scattered throughout the abdomen and pelvis. Given the history of recent hysterectomy, this may be postsurgical in nature. Note is made that the process does extend to the vaginal cuff. Dehiscence of the vaginal cuff should remain within the differential. 2. Abnormal thickened hyperenhancing appearance to the wall of the distal and terminal ileum may be reactive. Nonspecific infectious or inflammatory ileitis made of a similar appearance. Results were called to the [facility] Emergency Room by Dr. Vega at 0916 hours on 10/10/2022. Dictated by: Dictated on workstation # [id number]
[2022-10-10 09:56] LABS: BILIRUBIN,URINE NEGATIVE (NEGATIVE); CLARITY,URINE CLEAR; COLOR,URINE YELLOW; GLUCOSE, URINE (UA) NEGATIVE (NEGATIVE); KETONES,URINE TRACE (NEGATIVE); LEUKOCYTE ESTERASE ,URINE NEGATIVE (NEGATIVE); NITRITE,URINE NEGATIVE (NEGATIVE); PH,URINE 6.5 (5-9); PROTEIN,URINE TRACE (NEGATIVE)
[2022-10-10 10:16] LABS: BACTERIA,URINE NEGATIVE /HPF; RBC,URINE RARE /HPF; WBC,URINE 0-2 /HPF
[2022-10-10 10:17] LABS: WHITE BLOOD CELL CASTS, URINE RARE /LPF
[2022-10-10 11:00] VITALS: BP 128/76
[2022-10-10] MEDS ORDERED: NS IV 1000 ML 1,000 ML ONE (11:58)
[2022-10-10] MEDS: NS IV 1000 ML 1,000 ML IV SCH ×2 (12:03→20:06)
[2022-10-10] MEDS: morphine INJ 4 MG/ML 1 ML (VIAL/SYRINGE) IVP PRN ×2 (12:10→17:04)
[2022-10-10 13:10] VITALS: BP 133/72
[2022-10-10 17:02] VITALS: BP 119/75
[2022-10-10] MEDS: PIPERACILLIN SODIUM/TAZOBACTAM 4.5 GM in NS (IVPB) 100 ML IV SCH (17:05)
[2022-10-10] MEDS ORDERED: KETOROLAC 30 MG/ML VIAL ONE (17:59)
[2022-10-10] MEDS: KETOROLAC 30 MG/ML VIAL IVP PRN (18:06)
[2022-10-10 21:00] VITALS: BP 118/76
[2022-10-10] MEDS: metroNIDAZOLE 500MG/100ML IVPB 100 ML IV SCH (21:16)
[2022-10-10] MEDS: HYDROcodone/APAP 5 MG/325 MG (LORTAB) TAB PO PRN (21:26)
[2022-10-11] MEDS: KETOROLAC 30 MG/ML VIAL IVP PRN ×3 (00:42→13:00)
[2022-10-11 00:43] VITALS: BP 120/74
[2022-10-11] MEDS: PIPERACILLIN SODIUM/TAZOBACTAM 4.5 GM in NS (IVPB) 100 ML IV SCH ×2 (00:43→09:52)
[2022-10-11] MEDS: ONDANSETRON 4 MG/2 ML (SDV) Z0FRAN IVP PRN ×2 (01:09→12:59)
[2022-10-11 04:10] VITALS: BP 123/76
[2022-10-11] MEDS: NS IV 1000 ML 1,000 ML IV SCH (06:21)
[2022-10-11] MEDS: metroNIDAZOLE 500MG/100ML IVPB 100 ML IV SCH (08:29)
[2022-10-11 08:30] VITALS: BP 128/77
[2022-10-11] MEDS: HYDROcodone/APAP 5 MG/325 MG (LORTAB) TAB PO PRN (08:47)
[2022-10-11] MEDS ORDERED: CEPH500T PO (12:40)
[2022-10-11] MEDS ORDERED: ACHD5005 PO (12:40)
[2022-10-11] MEDS ORDERED: METR-145 PO (12:40)
--- NOTE | 2022-10-11 12:46 | History & Physical-OB/GYN ---
History of Present Illness History of Present Illness Reason for visit/HPI Patient admitted for observation from [facility] after having pain and bleeding after intercourse. She did not keep her postoperative follow up from hysterectomy and did not have clearance to have intercourse, and this bleeding and pain occured after intercourse. ER doc evaluated vaginal cuff which had not opened but did have some bleeding and free air was seen on CT scan. Date of Admission Oct 10, 2022 at 10:56 Date Seen by a Provider: Oct 10, 2022 Time Seen by a Provider: 16:00 I consulted on this patient on 10/11/22 12:41 Attending Physician Heather Sanchez MD Admitting Physician Admitting Physician: Hima To DO Attending Physician: Hima To DO Consult Allergies and Home Medications Allergies Coded Allergies: Sulfa (Sulfonamide Antibiotics) (Unverified Allergy, Unknown, rash, 07/31/22) Patient Home Medication List Home Medication List Reviewed: Yes Buspirone HCl (Buspirone HCl) 30 Mg Tablet, 30 MG PO DAILY, (Reported) Entered as Reported by: HEATHER JAUREGUI on 07/31/22 1519 Cariprazine Hydrochloride (Vraylar) 4.5 Mg Capsule, 4.5 MG PO DAILY, (Reported) Entered as Reported by: HEATHER JAUREGUI on 07/31/22 1519 Cephalexin (Cephalexin) 500 Mg Tablet, 500 MG PO QID Prescribed by: HIMA TO on 10/11/22 1240 Clonidine HCl (Clonidine HCl) 0.1 Mg Tablet, 0.1 MG PO BID, (Reported) Entered as Reported by: HEATHER JAUREGUI on 07/31/22 1519 Colesevelam HCl (Welchol) 625 Mg Tablet, 625 MG PO DAILY, (Reported) Entered as Reported by: HEATHER JAUREGUI on 07/31/22 1502 Cyclobenzaprine HCl (Cyclobenzaprine HCl) 10 Mg Tablet, 10 MG PO Q8H PRN for SPASMS Prescribed by: ISAIAH SALAMANCA on 01/15/21 210 Docusate Sodium (Docusate Sodium) 100 Mg Capsule, 100 MG PO BID PRN for CONSTIPATION-1ST LINE Prescribed by: HIMA TO on 08/07/22 0729 Hydrocodone Bit/Acetaminophen (HYDROcodone/APAP 7.5/325 TAB) 1 Ea Tablet, 1-2 EA PO Q6HR PRN for PAIN-MODERATE (5-7) Prescribed by: HIMA TO on 08/07/22 0730 Hydrocodone/Acetaminophen (Hydrocodone-Acetamin 5-325 mg) 5 Mg-325 Mg Tablet, 1- 2 EA PO Q6HR PRN for PAIN-MODERATE (5-7) Prescribed by: HIMA TO on 10/11/22 1241 Ibuprofen (Ibu) 600 Mg Tablet, 600 MG PO Q6HR PRN for PAIN-MILD (1-4) Prescribed by: HIMA TO on 08/07/22 07 Metronidazole (Metronidazole) 500 Mg Tablet, 500 MG PO BID Prescribed by: HIMA TO on 10/11/22 1240 Ondansetron (Ondansetron Odt) 4 Mg Tab.rapdis, 4 MG SL Q4H PRN for NAUSEA/VOMITING, (Reported) Entered as Reported by: HEATHER JAUREGUI on 07/31/22 151 Pregabalin (Lyrica) 150 Mg Capsule, 150 MG PO BID, (Reported) Entered as Reported by: HEATHER JAUREGUI on 07/31/22 151 Simethicone (Simethicone) 80 Mg Tab.chew, 40 MG PO TID PRN for INDIGESTION 2ND LINE Prescribed by: IHMA TO on 08/07/22 07 Vortioxetine Hydrobromide (Trintellix) 20 Mg Tablet, 20 MG PO DAILY, (Reported) Entered as Reported by: HEATHER JAUREGUI on 07/31/22 151 [zoloft] , 25 PO DAILY, (Reported) Entered as Reported by: JODY NEWMAN on 04/14/20 1950 Past Itgwyyq-Vufhjh-Lbvhdk Hx Patient Social History Drug of Choice: pt denies but has had postive urine drug tests Smoking Status: Current Everyday Smoker 2nd Hand Smoke Exposure: Yes Recent Hopitalizations: No Have you traveled recently?: No Alcohol Use?: Yes Pt feels they are or have been: No Tobacco type used: Cigarettes Immunizations Up To Date Tetanus Booster (TDap): Unknown Pediatric: No Seasonal Allergies Seasonal Allergies: Yes Surgeries Yes (COLONOSCOPY, EGD, TUBAL) Hysterectomy Respiratory Yes (seasonal allergies) Currently Using CPAP: No Currently Using BIPAP: No Cardiovascular No Neurological No Reproductive System Hx Reproductive Disorders: Yes Sexually Transmitted Disease: No HIV/AIDS: No Female Reproductive Disorders: Ovarian 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 [employer]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 Genitourinary Yes UTI-Chronic Gastrointestinal Yes Gastroesophageal Reflux, Irritable Bowel Musculoskeletal Yes Chronic Back Pain Endocrine History of Endocrine Disorders: Yes (HYPOGLYCEMIA-DIET CONTROLLED) HEENT History of HEENT Disorders: No Loss of Vision: Bilateral Hearing Impairment: Denies Cancer No Did You Recieve Any Treatments: No Psychosocial History of Psychiatric Problem: No Behavioral Health Disorders: Anxiety, PTSD, Depression Integumentary History of Skin or Integumenta: No Blood Transfusions History of Blood Disorders: No Adverse Reaction to a Blood Tr: No Family Medical History Family Hx: Diabetes mellitus 19 FATHER (heart disease) Hypertension 19 FATHER (heart disease) Review of Systems Constitutional: see HPI EENTM: see HPI Respiratory: see HPI Cardiovascular: see HPI Gastrointestinal: see HPI Genitourinary: see HPI : No Musculoskeletal: see HPI Skin: see HPI Psychiatric/Neurological: See HPI All Other Systems Reviewed Negative Unless Noted: Yes Physical Exam Physical Exam Vital Signs Vital Signs Date Time Temp Pulse Resp B/P (MAP) Pulse Ox O2 Delivery O2 Flow Rate FiO2 10/11/22 08:30 36.9 63 18 128/77 (94) 100 Room Air 10/11/22 04:10 36.0 71 18 123/76 (92) 99 Room Air 10/11/22 00:43 36.4 50 18 120/74 (89) 99 Room Air 10/10/22 21:00 36.1 62 18 118/76 (90) 99 Room Air 10/10/22 17:02 60 18 119/75 (90) 98 Room Air 10/10/22 13:10 36.5 60 18 133/72 (92) 99 Room Air I & O 10/11/22 07:00 Intake Total 3500 ml Balance 3500 ml Capillary Refill : Less Than 3 Seconds General Appearance: No Apparent Distress, WD/WN Respiratory: Chest Non Tender Cardiovascular: Regular Rate, Rhythm Abdominal: normal bowel sounds, tenderness (dffuse) Vagina: Other (intact suture line.) Assessment/Plan Admission Diagnosis Diagnosis: Postoperative hysterectomy vaginal cuff dihissence Suture line intact with small amount of bleeding at cuff Peritoneal free air P: Treat pain as needed overnight WIll plan for antibiotics overnight with follow up antibiotic until 2 week visit in office to re-evaluated vaginal cuff and will determine if secondary closure needed at that point COMPLETE PELVIC REST UNTIL OFFICE FOLLOW UP. Admission Status: Observation HIMA TO DO Oct 11, 2022 12:46
[2022-10-11 12:50] VITALS: BP 135/60
[2022-10-11 14:15] VITALS: BP 135/66
[2022-10-11 14:20] VITALS: BP 135/66
== END 2022-10-11 14:20 | disposition home or self-care (01) ==
LOC: EDUNIT# 07:47 → ER FS 07:50 → WS 10:56
PROVIDERS: ADMIT Obstetrics & Gynecology; ATTEND Obstetrics & Gynecology
DX: T81.31XA Disruption of external operation (surgical) wound, not elsewhere classified, initial encounter (principal); N99.820 Postprocedural hemorrhage of a genitourinary system organ or structure following a genitourinary system procedure; I10 Essential (primary) hypertension; K66.8 Other specified disorders of peritoneum; F17.210 Nicotine dependence, cigarettes, uncomplicated; Y83.8 Other surgical procedures as the cause of abnormal reaction of the patient, or of later complication, without mention of misadventure at the time of the procedure; Z90.710 Acquired absence of both cervix and uterus
CPT/HCPCS: 36415; 74177; 80053; 81000; 85025; 85610; 85730; 99284; G0378; Q9967